=== PATIENT | female | born 1965 | race Caucasian/White ===

== ENCOUNTER 2022-03-19 17:23 | Emergency (ER) | payer BC ==
[2022-03-19 18:13] VITALS: TEMP 98.8
[2022-03-19] MEDS ORDERED: SODIUM CHLORIDE 0.9% 1,000 ML IV STA (18:52)
[2022-03-19] MEDS ORDERED: ONDANSETRON 4 MG/2 ML VIAL IVP STA (18:52)
[2022-03-19] MEDS ORDERED: HYDROmorphone 0.5 MG/0.5 ML SYRINGE IVP STA (18:52)
--- NOTE | 2022-03-19 19:05 | ED ---
General Adult HPI - General Chief complaint: Wound/Laceration Stated complaint: Wounds on foot/pain Time Seen by Provider: 03/19/22 18:18 Source: patient, RN notes reviewed Mode of arrival: ambulatory Limitations: no limitations - History of Present Illness Initial comments: 57-year-old female with a past medical history of type 2 diabetes presents to [facility] emergency Department with complaints of burning pain to the left lower extremity. Patient has four diabetic ulcers in various stages on the lower leg. She is scheduled to see wound care on March 28, but is unable to tolerate the pain. States she has been taking Tylenol with minimal relief. She is allergic to NSAIDs. Last antibiotic treatment was three weeks ago. Also complains of poor appetite and weight loss. States she eats a minimal amount then feels full. Is supplementing with Boost to attempt to increase caloric intake. Reports mild nausea, no vomiting, diarrhea, or constipation. - Related Data Home Medications Medication Instructions Recorded Confirmed Lisinopril-Hctz 20-25 mg 1 tab PO DAILY 03/09/14 03/20/22 [Zestoretic 20-25] Aspirin 81 mg PO DAILY 03/20/22 03/20/22 Clopidogrel [Plavix] 75 mg PO DAILY 03/20/22 03/20/22 Furosemide [Lasix] 20 mg PO DAILY 03/20/22 03/20/22 HYDROcodone/APAP 5-325MG [[place] 5] 1 tab PO Q6HR PRN 03/20/22 03/20/22 Pantoprazole [Protonix] 40 mg PO DAILY 03/20/22 03/20/22 Rosuvastatin [Crestor] 10 mg PO MOFR 03/20/22 03/20/22 Venlafaxine HCl ER [Effexor Xr] 150 mg PO DAILY 03/20/22 03/20/22 cilostazoL [Pletal] 100 mg PO BID 03/20/22 03/20/22 glipiZIDE [Glucotrol] 7.5 mg PO AC-BID 03/20/22 03/20/22 Previous Rx's Medication Instructions Recorded Cephalexin [Keflex] 500 mg PO BID 5 Days #10 cap 03/19/22 Allergies Allergy/AdvReac Type Severity Reaction Status Date / Time NSAIDS (Non-Steroidal Allergy Unknown Verified 03/20/22 13:34 Anti-Inflamma sitagliptin [From Januvia] AdvReac See Comment Verified 03/20/22 13:59 Review of Systems ROS Statement: Those systems with pertinent positive or pertinent negative responses have been documented in the HPI. ROS Other: All systems not noted in ROS Statement are negative. Past Medical History Past Medical History: Diabetes Mellitus, Hyperlipidemia, Hypertension Additional Past Medical History / Comment(s): pancreatitis History of Any Multi-Drug Resistant Organisms: None Reported Past Surgical History: Appendectomy, Hernia Repair, Hysterectomy, Orthopedic Surgery Additional Past Surgical History / Comment(s): jody carpal tunnel, bone spur rt ankle. cyst from lung. nasal. laser throat Past Psychological History: Depression Smoking Status: Current every day smoker Past Alcohol Use History: None Reported Past Drug Use History: None Reported General Exam Limitations: no limitations General appearance: alert, in distress (Well-developed, fairly nourished female in moderate distress due to pain and anxiety. Initial temperature 98.8, pulse 104, respirations 20, blood pressure 116/71, pulse ox 98% on room air.) ENT exam: Present: normal oropharynx Neck exam: Present: normal inspection, full ROM. Absent: tenderness, mening ismus, lymphadenopathy Respiratory exam: Present: normal lung sounds bilaterally. Absent: respiratory distress, wheezes, rales, rhonchi, stridor Cardiovascular Exam: Present: regular rate, normal rhythm, normal heart sounds. Absent: systolic murmur, diastolic murmur, rubs, gallop, clicks GI/Abdominal exam: Present: soft, normal bowel sounds. Absent: distended, tenderness, guarding, rebound, rigid Left Knee exam: Present: normal inspection, full ROM. Absent: tenderness, swelling Lower Leg exam: Absent: normal inspection (four ulcers: #1. 2cm diameter, eschar base, non-erythematous. left lateral malleolus #2. 1cm diameter, eschar base, non-erythematous. distal left lower leg, posterolateral. #3. ) Back exam: Absent: CVA tenderness (R), CVA tenderness (L) Neurological exam: Present: alert, oriented X3 Psychiatric exam: Present: anxious Skin exam: Present: warm, dry, normal color Course Vital Signs 03/19/22 03/19/22 18:08 22:37 Temperature 98.8 F Pulse Rate 104 H 92 Respiratory 20 16 Rate Blood Pressure 116/71 158/79 O2 Sat by Pulse 98 98 Oximetry Medical Decision Making - Medical Decision Making 57-year-old female with a past medical history of hypertension, hyperlipidemia, diabetes, and diabetic ulcerations presents to emergency department for evaluation and treatment of painful ulcerations on the left lower extremity. Upon exam, patient appears anxious and uncomfortable. She has 4 ulcers ranging in size from 1/2 cm to 2 cm her left lower extremity. She is given Dilaudid and Zofran with improvement. Also complains of loss of appetite and weight loss. Her abdomen is soft and nontender. She is observed tolerating reduced. Laboratory studies were obtained showing mild leukocytosis. BUN and creatinine are both mildly elevated, though consistent with previous visit. Urinalysis shows trace protein, large leukocyte esterase, 31 urine WBCs and 7 Hyaline casts. KUB is unremarkable. Patient will be started on an oral antibiotic to treat her UTI and instructed to increase fluids. Discussed my suspicion that h er GI complaints are likely rate related to gastroparesis and suggested she follow up with GI on an outpatient basis. Return parameters were discussed in detail. Patient verbalizes understanding and agrees with this plan. Attending: Gloria. - Lab Data Result diagrams: 03/19/22 19:29 03/19/22 19:29 Lab Results 03/19/22 03/19/22 03/19/22 Range/Units 19:29 19:29 20:47 WBC 13.3 H (3.8-10.6) k/uL RBC 4.17 (3.80-5.40) m/uL Hgb 13.5 (11.4-16.0) gm/dL Hct 39.3 (34.0-46.0) % MCV 94.1 (80.0-100.0) fL MCH 32.5 (25.0-35.0) pg MCHC 34.5 (31.0-37.0) g/dL RDW 13.8 (11.5-15.5) % Plt Count 565 H (150-450) k/uL MPV 6.8 Neutrophils % 65 % Lymphocytes % 28 % Monocytes % 3 % Eosinophils % 2 % Basophils % 1 % Neutrophils # 8.6 H (1.3-7.7) k/uL Lymphocytes # 3.8 (1.0-4.8) k/uL Monocytes # 0.4 (0-1.0) k/uL Eosinophils # 0.3 (0-0.7) k/uL Basophils # 0.1 (0-0.2) k/uL Sodium 134 L (137-145) mmol/L Potassium 3.7 (3.5-5.1) mmol/L Chloride 105 (98-107) mmol/L Carbon Dioxide 20 L (22-30) mmol/L Anion Gap 9 mmol/L BUN 26 H (7-17) mg/dL Creatinine 1.13 H (0.52-1.04) mg/dL Est GFR (CKD-EPI)AfAm 62 (>60 ml/min/1.73 sqM) Est GFR (CKD-EPI)NonAf 54 (>60 ml/min/1.73 sqM) Glucose 121 H (74-99) mg/dL Calcium 9.6 (8.4-10.2) mg/dL Urine Color Light Yellow Urine Appearance Cloudy H (Clear) Urine pH 5.5 (5.0-8.0) Ur Specific [place] 1.008 (1.001-1.035) Urine Protein Trace H (Negative) Urine Glucose (UA) Negative (Negative) Urine Ketones Negative (Negative) Urine Blood Negative (Negative) Urine Nitrite Negative (Negative) Urine Bilirubin Negative (Negative) Urine Urobilinogen <2.0 (<2.0) mg/dL Ur Leukocyte Esterase Large H (Negative) Urine RBC 2 (0-5) /hpf Urine WBC 31 H (0-5) /hpf Urine WBC Clumps Rare H (None) /hpf Ur Squamous Epith Cells 5 H (0-4) /hpf Urine Bacteria Occasional H (None) /hpf Hyaline Casts 7 H (0-2) /lpf Urine Mucus Rare H (None) /hpf - Radiology Data Radiology results: report reviewed, image reviewed KUB x-ray was obtained. Report was reviewed in its entirety. Impression per Dr. Aviles is nonacute abdomen. No adverse change compared to old exam. Disposition Clinical Impression: UTI (urinary tract infection), Abdominal pain, Ulcer of lower extremity Disposition: HOME SELF-CARE Condition: Stable Instructions (If sedation given, give patient instructions): Diabetic Gastroparesis (DC), Urinary Tract Infection in Women (ED), Diabetic Foot Ulcers (ED) Additional Instructions: Increase fluids. Focus on hydration and nutritional intake. You are being prescribed an antibiotic for your UTI. Please take it until it's gone. I suspect that you have a condition known as gastroparesis contributing to your sense of fullness. You will need to see a GI doctor for further evaluation, treatment, and diagnosis. You are being prescribed [place] for severe pain; take sparingly. Follow up with wound care as scheduled. Return to the emergency department with any new, worsening, or concerning symptoms. Prescriptions: Cephalexin [Keflex] 500 mg PO BID 5 Days #10 cap Is patient prescribed a controlled substance at d/c from ED?: Yes When asked, does pt state using other controlled substances?: Yes If prescribed controlled substance>3 days was MAPS reviewed?: Prescribed <3 Days If opioid is for acute pain is fill amount 7 days or less?: Yes If Rx opioid, was Start Talking consent form obtained?: Yes Referrals: Maxine Montalvo MD [Primary Care Provider] - 1-2 days Sanajna Pretty MD [STAFF PHYSICIAN] - 1-2 days Time of Disposition: 22:40
[2022-03-19 19:35] LABS: Basophils # (A) 0.1 k/uL (0-0.2); Basophils % (A) 1 %; Eosinophils # (A) 0.3 k/uL (0-0.7); Eosinophils % (A) 2 %; HCT 39.3 % (34.0-46.0); HGB 13.5 gm/dL (11.4-16.0); Lymphocytes # (A) 3.8 k/uL (1.0-4.8); Lymphocytes % (A) 28 %; MCH 32.5 pg (25.0-35.0); MCHC 34.5 g/dL (31.0-37.0); MCV 94.1 fL (80.0-100.0); Mean Platelet Volume 6.8; Monocytes # (A) 0.4 k/uL (0-1.0); Monocytes % (A) 3 %; Neutrophils # (A) 8.6 k/uL (1.3-7.7); Neutrophils % (A) 65 %; Platelet Count 565 k/uL (150-450); RBC 4.17 m/uL (3.80-5.40); RDW 13.8 % (11.5-15.5); WBC 13.3 k/uL (3.8-10.6)
[2022-03-19 19:53] LABS: Calcium 9.6 mg/dL (8.4-10.2); Potassium 3.7 mmol/L (3.5-5.1)
[2022-03-19 21:44] LABS: Appearance,Urine Cloudy (Clear); Bacteria,Urine Occasional /hpf; Bilirubin,Urine Negative (Negative); Blood,Urine Negative (Negative); Color,Urine Light Yellow; Glucose,Urine (UA) Negative (Negative); Hyaline Casts,Urine 7 /lpf (0-2); Ketones,Urine Negative (Negative); Leukocyte Esterase,Urine Large (Negative); Mucus,Urine Rare /hpf; Nitrite,Urine Negative (Negative); PH, Urine 5.5 (5.0-8.0); Protein,Urine Trace (Negative); RBC,Urine 2 /hpf (0-5); Specific Gravity,Urine 1.008 (1.001-1.035); Squamous Epithelial Cell,Urine 5 /hpf (0-4); Urobilinogen,Urine <2.0 mg/dL (<2.0); WBC,Urine 31 /hpf (0-5)
--- NOTE | 2022-03-19 22:13 | XR ---
EXAMINATION TYPE: XR KUB portable DATE OF EXAM: 03/19/2022 COMPARISON: NONE HISTORY: Abdominal pain TECHNIQUE: 2 views upright FINDINGS: No sign of intestinal obstruction or pneumoperitoneum. Fecal pattern is normal. There are c lips from cholecystectomy. Lung bases are clear. No evidence of abdominal mass. There is stents in il iac arteries. IMPRESSION: Nonacute abdomen. No adverse change compared to old exam.
[2022-03-19] MEDS ORDERED: CEPHALEXIN 500 MG CAP PO STA (22:20)
[2022-03-19 22:38] VITALS: BP 158/79; PULSE 92; RESP 16
== END 2022-03-19 22:47 | disposition home or self-care (01) ==
LOC: EC 17:23
DX: N39.0 Urinary tract infection, site not specified (principal); E11.622 Type 2 diabetes mellitus with other skin ulcer; L98.499 Non-pressure chronic ulcer of skin of other sites with unspecified severity; I10 Essential (primary) hypertension; E78.5 Hyperlipidemia, unspecified; F32.A Depression, unspecified; F17.200 Nicotine dependence, unspecified, uncomplicated; Z79.4 Long term (current) use of insulin; Z79.84 Long term (current) use of oral hypoglycemic drugs; Z79.899 Other long term (current) drug therapy
CPT/HCPCS: 36415; 80048; 85025; 81001; 87086; 74018; 99284; 96374; 96375; 96361; J2405; J1170

== ENCOUNTER 2022-03-20 10:01 | Inpatient (IN) | payer BC ==
[2022-03-20] MEDS ORDERED: SODIUM CHLORIDE 0.9% 1,000 ML IV STA (11:23)
[2022-03-20] MEDS ORDERED: MORPHINE SULFATE 4 MG/ML SYRINGE IV STA (11:23)
[2022-03-20] MEDS ORDERED: MAG HYDROX/AL HYDROX/SIMETH 30 ML, HYOSCYAMINE ELIXIR 10 ML, LIDOCAINE VISCOUS 2% 10 ML PO STA ×3 (11:24)
[2022-03-20 11:51] LABS: Basophils # (A) 0.1 k/uL (0-0.2); Basophils % (A) 0 %; Eosinophils # (A) 0.3 k/uL (0-0.7); Eosinophils % (A) 2 %; HGB 12.7 gm/dL (11.4-16.0); Lymphocytes # (A) 1.4 k/uL (1.0-4.8); Lymphocytes % (A) 11 %; MCH 33.2 pg (25.0-35.0); MCHC 34.4 g/dL (31.0-37.0); MCV 96.6 fL (80.0-100.0); Mean Platelet Volume 6.8; Monocytes # (A) 0.3 k/uL (0-1.0); Monocytes % (A) 3 %; Neutrophils # (A) 10.6 k/uL (1.3-7.7); Neutrophils % (A) 83 %; Platelet Count 504 k/uL (150-450); RBC 3.83 m/uL (3.80-5.40); RDW 14.4 % (11.5-15.5); WBC 12.8 k/uL (3.8-10.6)
[2022-03-20 12:00] LABS: Albumin 3.8 g/dL (3.5-5.0); Calcium 8.8 mg/dL (8.4-10.2); Total Bilirubin 0.2 mg/dL (0.2-1.3); Total Protein 6.7 g/dL (6.3-8.2)
[2022-03-20 12:10] LABS: INR 0.9 (<1.2); Partial Thromboplastin Time 24.2 sec (22.0-30.0); Prothrombin Time 9.8 sec (9.0-12.0)
[2022-03-20 12:14] LABS: Appearance,Urine Cloudy (Clear); Bacteria,Urine Occasional /hpf; Bilirubin,Urine Negative (Negative); Blood,Urine Trace (Negative); Color,Urine Yellow; Glucose,Urine (UA) Negative (Negative); Hyaline Casts,Urine 7 /lpf (0-2); Ketones,Urine Trace (Negative); Leukocyte Esterase,Urine Large (Negative); Mucus,Urine Rare /hpf; Nitrite,Urine Negative (Negative); PH, Urine 5.5 (5.0-8.0); Protein,Urine 1+ (Negative); RBC,Urine 28 /hpf (0-5); Specific Gravity,Urine 1.022 (1.001-1.035); Squamous Epithelial Cell,Urine 10 /hpf (0-4); Urobilinogen,Urine <2.0 mg/dL (<2.0); WBC,Urine 68 /hpf (0-5)
--- NOTE | 2022-03-20 12:35 | XR ---
EXAMINATION TYPE: XR KUB DATE OF EXAM: 03/20/2022 12:16 PM CLINICAL HISTORY: abdominal pain TECHNIQUE: Single supine KUB image of the abdomen is obtained. COMPARISON: None. FINDINGS: Scattered gas is seen in non-distended small bowel loops. Gas and fecal material is seen in non-distended colon. There is no visceromegaly, pneumoperitoneum, or abnormal calcification apprecia birgit. The lung bases are clear and the osseous structures are intact. IMPRESSION: Overall nonobstructive bowel gas pattern.
--- NOTE | 2022-03-20 12:51 | ED ---
General Adult HPI - General Chief complaint: Abdominal Pain Stated complaint: Revisit-abd pain Time Seen by Provider: 03/20/22 11:04 Source: patient, RN notes reviewed, old records reviewed Mode of arrival: ambulatory Limitations: no limitations - History of Present Illness Initial comments: 57-year-old female who presents for reevaluation of abdominal pain. Patient states she has history of pancreatitis and this feels similar. She describes the pain as a burning sensation in her epigastric area. No chest pain. Pain occasionally does travel to the right side of her abdomen. No fevers. She had 2 episodes of vomiting prior to arrival. Normal bowel movements. - Related Data Home Medications Medication Instructions Recorded Confirmed Lisinopril-Hctz 20-25 mg 1 tab PO DAILY 03/09/14 03/20/22 [Zestoretic 20-25] Aspirin 81 mg PO DAILY 03/20/22 03/20/22 Clopidogrel [Plavix] 75 mg PO DAILY 03/20/22 03/20/22 Furosemide [Lasix] 20 mg PO DAILY 03/20/22 03/20/22 HYDROcodone/APAP 5-325MG [[place] 5] 1 tab PO Q6HR PRN 03/20/22 03/20/22 Pantoprazole [Protonix] 40 mg PO DAILY 03/20/22 03/20/22 Rosuvastatin [Crestor] 10 mg PO MOFR 03/20/22 03/20/22 Venlafaxine HCl ER [Effexor Xr] 150 mg PO DAILY 03/20/22 03/20/22 cilostazoL [Pletal] 100 mg PO BID 03/20/22 03/20/22 glipiZIDE [Glucotrol] 7.5 mg PO AC-BID 03/20/22 03/20/22 Previous Rx's Medication Instructions Recorded Cephalexin [Keflex] 500 mg PO BID 5 Days #10 cap 03/19/22 Allergies Allergy/AdvReac Type Severity Reaction Status Date / Time NSAIDS (Non-Steroidal Allergy Unknown Verified 03/20/22 13:34 Anti-Inflamma sitagliptin [From Januvia] AdvReac See Comment Verified 03/20/22 13:59 Review of Systems ROS Statement: Those systems with pertinent positive or pertinent negative responses have been documented in the HPI. ROS Other: All systems not noted in ROS Statement are negative. Past Medical History Past Medical History: Diabetes Mellitus, Hyperlipidemia, Hypertension Additional Past Medical History / Comment(s): pancreatitis History of Any Multi-Drug Resistant Organisms: None Reported Past Surgical History: Appendectomy, Hernia Repair, Hysterectomy, Orthopedic Surgery Additional Past Surgical History / Comment(s): jody carpal tunnel, bone spur rt ankle. cyst from lung. nasal. laser throat Past Psychological History: Depression Smoking Status: Current every day smoker Past Alcohol Use History: None Reported Past Drug Use History: None Reported General Exam Limitations: no limitations General appearance: alert, in no apparent distress Head exam: Present: atraumatic, normocephalic Eye exam: Present: normal appearance, PERRL ENT exam: Present: normal exam Neck exam: Present: normal inspection. Absent: tenderness, meningismus Respiratory exam: Present: normal lung sounds bilaterally. Absent: respiratory distress, wheezes Cardiovascular Exam: Present: normal rhythm, tachycardia GI/Abdominal exam: Present: soft, tenderness (Epigastric and right upper quadrant). Absent: distended, guarding Extremities exam: Present: normal inspection, normal capillary refill Neurological exam: Present: alert, oriented X3, CN II-XII intact. Absent: motor sensory deficit Psychiatric exam: Present: normal affect, normal mood Skin exam: Present: warm, dry, intact. Absent: cyanosis, diaphoretic Course Vital Signs 03/20/22 03/20/22 03/20/22 10:25 13:00 14:33 Temperature 97.7 F Pulse Rate 125 H 92 75 Respiratory 20 20 18 Rate Blood Pressure 135/73 129/68 140/66 O2 Sat by Pulse 99 97 98 Oximetry - Reevaluation(s) Reevaluation #1: 03/20/22 12:54 I was informed that the patient is having abdominal pain radiating to the right side of her abdomen. No chest pain. EKG Findings - EKG Comments: EKG Findings:: EKG: Sinus rhythm rate of 92, CA interval 133, QRS duration 98, QTC 406, no ST segment elevation. Medical Decision Making - Medical Decision Making 57-year-old female presenting for evaluation of epigastric abdominal pain and right sided abdominal pain. Patient had previous cholecystectomy. Initial efforts to control the patient's pain with GI cocktail and IV pain medication or unsuccessful. Symptoms persisted and she required CT imaging. This was negative for acute intra-abdominal process. She did have some mild leukocytosis which was improved from yesterday. Hemoglobin stable. Potassium 3.0 which is replaced. Given the severity of her symptoms she will be observed overnight. I discussed case with Dr. Mulligan will admit. Gen. surgery will be placed on consult for evaluation. - Lab Data Result diagrams: 03/20/22 11:40 03/20/22 11:40 Lab Results 03/20/22 03/20/22 03/20/22 Range/Units 11:40 11:40 11:40 WBC 12.8 H (3.8-10.6) k/uL RBC 3.83 (3.80-5.40) m/uL Hgb 12.7 (11.4-16.0) gm/dL Hct 37.0 (34.0-46.0) % MCV 96.6 (80.0-100.0) fL MCH 33.2 (25.0-35.0) pg MCHC 34.4 (31.0-37.0) g/dL RDW 14.4 (11.5-15.5) % Plt Count 504 H (150-450) k/uL MPV 6.8 Neutrophils % 83 % Lymphocytes % 11 % Monocytes % 3 % Eosinophils % 2 % Basophils % 0 % Neutrophils # 10.6 H (1.3-7.7) k/uL Lymphocytes # 1.4 (1.0-4.8) k/uL Monocytes # 0.3 (0-1.0) k/uL Eosinophils # 0.3 (0-0.7) k/uL Basophils # 0.1 (0-0.2) k/uL PT (9.0-12.0) sec INR (<1.2) APTT (22.0-30.0) sec Sodium 134 L (137-145) mmol/L Potassium 3.0 L (3.5-5.1) mmol/L Chloride 104 (98-107) mmol/L Carbon Dioxide 21 L (22-30) mmol/L Anion Gap 9 mmol/L BUN 25 H (7-17) mg/dL Creatinine 1.14 H (0.52-1.04) mg/dL Est GFR (CKD-EPI)AfAm 62 (>60 ml/min/1.73 sqM) Est GFR (CKD-EPI)NonAf 53 (>60 ml/min/1.73 sqM) Glucose 236 H (74-99) mg/dL Plasma Lactic Acid [place] (0.7-2.0) mmol/L Calcium 8.8 (8.4-10.2) mg/dL Total Bilirubin 0.2 (0.2-1.3) mg/dL AST 20 (14-36) U/L ALT 16 (4-34) U/L Alkaline Phosphatase 82 (38-126) U/L Troponin I (0.000-0.034) ng/mL Total Protein 6.7 (6.3-8.2) g/dL Albumin 3.8 (3.5-5.0) g/dL Amylase 89 (30-110) U/L Lipase 47 (23-300) U/L Urine Color Yellow Urine Appearance Cloudy H (Clear) Urine pH 5.5 (5.0-8.0) Ur Specific [place] 1.022 (1.001-1.035) Urine Protein 1+ H (Negative) Urine Glucose (UA) Negative (Negative) Urine Ketones Trace H (Negative) Urine Blood Trace H (Negative) Urine Nitrite Negative (Negative) Urine Bilirubin Negative (Negative) Urine Urobilinogen <2.0 (<2.0) mg/dL Ur Leukocyte Esterase Large H (Negative) Urine RBC 28 H (0-5) /hpf Urine WBC 68 H (0-5) /hpf Ur Squamous Epith Cells 10 H (0-4) /hpf Urine Bacteria Occasional H (None) /hpf Hyaline Casts 7 H (0-2) /lpf Urine Mucus Rare H (None) /hpf 03/20/22 03/20/22 03/20/22 Range/Units 11:40 11:40 11:40 WBC (3.8-10.6) k/uL RBC (3.80-5.40) m/uL Hgb (11.4-16.0) gm/dL Hct (34.0-46.0) % MCV (80.0-100.0) fL MCH (25.0-35.0) pg MCHC (31.0-37.0) g/dL RDW (11.5-15.5) % Plt Count (150-450) k/uL MPV Neutrophils % % Lymphocytes % % Monocytes % % Eosinophils % % Basophils % % Neutrophils # (1.3-7.7) k/uL Lymphocytes # (1.0-4.8) k/uL Monocytes # (0-1.0) k/uL Eosinophils # (0-0.7) k/uL Basophils # (0-0.2) k/uL PT 9.8 (9.0-12.0) sec INR 0.9 (<1.2) APTT 24.2 (22.0-30.0) sec Sodium (137-145) mmol/L Potassium (3.5-5.1) mmol/L Chloride (98-107) mmol/L Carbon Dioxide (22-30) mmol/L Anion Gap mmol/L BUN (7-17) mg/dL Creatinine (0.52-1.04) mg/dL Est GFR (CKD-EPI)AfAm (>60 ml/min/1.73 sqM) Est GFR (CKD-EPI)NonAf (>60 ml/min/1.73 sqM) Glucose (74-99) mg/dL Plasma Lactic Acid [place] 1.1 (0.7-2.0) mmol/L Calcium (8.4-10.2) mg/dL Total Bilirubin (0.2-1.3) mg/dL AST (14-36) U/L ALT (4-34) U/L Alkaline Phosphatase (38-126) U/L Troponin I 0.025 (0.000-0.034) ng/mL Total Protein (6.3-8.2) g/dL Albumin (3.5-5.0) g/dL Amylase (30-110) U/L Lipase (23-300) U/L Urine Color Urine Appearance (Clear) Urine pH (5.0-8.0) Ur Specific [place] (1.001-1.035) Urine Protein (Negative) Urine Glucose (UA) (Negative) Urine Ketones (Negative) Urine Blood (Negative) Urine Nitrite (Negative) Urine Bilirubin (Negative) Urine Urobilinogen (<2.0) mg/dL Ur Leukocyte Esterase (Negative) Urine RBC (0-5) /hpf Urine WBC (0-5) /hpf Ur Squamous Epith Cells (0-4) /hpf Urine Bacteria (None) /hpf Hyaline Casts (0-2) /lpf Urine Mucus (None) /hpf Disposition Clinical Impression: Abdominal pain, Hypokalemia Disposition: ADMITTED IP TO THIS [facility] Condition: Stable Is patient prescribed a controlled substance at d/c from ED?: No Referrals: Maxine Montalvo MD [Primary Care Provider] - 1-2 days Time of Disposition: 14:57
[2022-03-20] MEDS ORDERED: HYDROmorphone 0.5 MG/0.5 ML SYRINGE IVP STA (13:00)
--- NOTE | 2022-03-20 14:13 | CT ---
EXAMINATION TYPE: CT abdomen pelvis w con CT DLP: 817.3 mGycm, Automated exposure control for dose reduction was used. DATE OF EXAM: 03/20/2022 1:53 PM COMPARISON: CT abdomen pelvis most recent from 07/08/2015. CLINICAL INDICATION:Female, 57 years old with history of ab pain; Abdominal pain TECHNIQUE: Standard CT of the abdomen and pelvis following the administration of 80 cc of Isovue 30 0 IV contrast material. Coronal and sagittal reformats were performed. FINDINGS: LOWER CHEST: No clinically significant findings. Stable sub-4 mm nodular like changes. Moderate coron [place] artery atherosclerosis. ABDOMEN LIVER: Indeterminate right hepatic lobe segment IVb hypodensity adjacent to the prior gallbladder fos sa could represent focal fatty infiltration. GALLBLADDER AND BILE DUCTS: The gallbladder is surgically absent. PANCREAS: Unremarkable. SPLEEN: Unremarkable. ADRENAL GLANDS: Unremarkable. KIDNEYS AND URETERS: No evidence of hydronephrosis. Similar right renal cyst. Multiple renal sinus ca lculi are seen bilaterally which are felt to be vascular in etiology. PELVIS BLADDER: Incompletely distended but grossly unremarkable. REPRODUCTIVE: Unremarkable. ABDOMEN & PELVIS STOMACH AND BOWEL: No evidence of bowel obstruction. Scattered colonic diverticulitis seen throughout the colon. PERITONEUM: No evidence of pneumoperitoneum or free fluid. VASCULATURE: No evidence of aortic aneurysm. Bilateral common iliac artery stents which is suboptimal ly evaluated for patency given phase of contrast. MUSCULOSKELETAL: No acute osseous abnormalities. Multilevel disc degeneration changes are seen throug hout the spine. LYMPH NODES: No gross evidence for lymphadenopathy. SOFT TISSUE/ABDOMINAL WALL: Unremarkable IMPRESSION: 1. No evidence for acute intra-abdominal process. 2. Scattered colonic diverticula. 3. Moderate coronary artery atherosclerosis.
[2022-03-20] MEDS: POTASSIUM CHLORIDE 10 MEQ in WATER FOR INJECTION 1 100ML.BAG IVPB SCH ×4 (14:32→19:21)
[2022-03-20] MEDS ORDERED: NALOXONE 0.4 MG/ML 1 ML VIAL IV PRN (14:53)
[2022-03-20] MEDS ORDERED: ONDANSETRON 4 MG/2 ML VIAL IVP PRN (14:53)
[2022-03-20] MEDS ORDERED: cefTRIAXone IN SWFI 1,000 MG/10 ML SYRINGE IVP STA (14:57)
[2022-03-20] MEDS: SODIUM CHLORIDE 0.9% 1,000 ML IV SCH (15:30)
[2022-03-20] MEDS: HYDROmorphone 0.5 MG/0.5 ML SYRINGE IVP PRN ×3 (16:25→23:31)
[2022-03-20] MEDS: HYDROcodone/APAP 5-325MG 1 EACH TAB PO PRN (19:22)
[2022-03-20] MEDS: cilostazoL 100 MG TAB PO SCH (20:43)
[2022-03-20] MEDS: metroNIDAZOLE-NS PMX 500 MG in SALINE 1 100ML.BAG IVPB SCH (23:31)
--- NOTE | 2022-03-20 23:34 | P.HPIM ---
History of Present Illness H&P Date: 03/20/22 HISTORY OF PRESENT ILLNESS 57-year-old female one of Dr. Montalvo's patient with past medical history of COPD, type 2 diabetes, severe PAD, hypertension, hyperlipidemia, chronic neuropathy who apparently had an intervention procedure for PCI and stent placement of the femoral-popliteal in the left side [facility] 2 weeks ago she developed to have nonhealing ulcerated area in 3 location in the leg one on the lateral aspect of the ankle 1 in the back of her leg and another one slightly bit higher but smaller. Those were treated as cellulitis and diabetic foot to the time was prescribed antibiotics to treated and treat recurrent UTI with no much help symptoms myers. Patient ended up coming to the emergency department today to be seen and evaluated but her concern that she had 25 pound weight loss and lost 3 month with no clear etiology. She had suffered from recurrent UTI with failure to outpatient treatment with Keflex. Patient ended up coming to [facility] found to have UTI, significant abdominal pain with nausea vomiting at the time symptoms settle down of the pain management, found to have an acute kidney failure but most likely acute tubular necrosis. Patient was started on IV antibiotics, blood culture and culture was order. With treat patient for diverticulitis and recurrent cellulitis along with UTI at the time and sadly those ulcerated area on the leg most likely came as a possible shatter clot in the artery was mild gangrenous change in a limited area become slightly bit infected and inflamed. After giving patient IV antibiotics hydration she felt slightly better was transferred up to the floor. REVIEW OF SYSTEMS Constitutional: well-developed does not look in any respiratory distress continued to have slight abdominal discomfort with nausea. EENT: No headache. No blurred vision or double vision, no loss of vision. No loss of Hearing, no ringing in the ears, no dizziness. No nasal drainage or congestion. No epistaxis. No sore throat. Lungs: slight shortness of breath with exertion no cough with slight wheezes as well.. Cardiovascular: No chest pain, no lower extremity edema. No palpitations. No paroxysmal nocturnal dyspnea. No orthopnea. No lightheadedness or dizziness. No syncopal episodes. Abdominal: positive abdominal discomfort specially the right upper quadrant, lower quadrant, mid abdominal region and left lower quadrant area with sign and symptom of gastritis along with diverticulitis at this point. abdominal pain. No nausea, vomiting. No diarrhea. No constipation. No bloody or tarry stools.. No loss of appetite. Genitourinary: No dysuria, increased frequency, urgency. No urinary retention. Musculoskeletal: Positive generalized my etiology, muscle discomfort pain and slight lower back pain as well. Integumentary: No wounds, no lesions. No rash or pruritus. No unusual bruising. No change in hair or nails. Neurologic: No aphasia. No facial droop. No change in mentation. No head injury. No headache. No paralysis. No paresthesia. Psychiatric: No depression. No anxiety. No mood swings. Endocrine: No abnormal blood sugars. No weight change. No excessive sweating or thirst. No cold intolerance. SOCIAL HISTORY patient is smoked a pack a day down to have tachycardia the last 6 month she has been smoker for over 35 years. FAMILY HISTORY patient has 2 children both are living and well, she had for cystoscopy one brother her brother was diagnosed with cancer with metastasis. Father age 69 from colon cancer complication and mother dying her 70s from lung cancer. PHYSICAL EXAMINATION Gen: This is well-developed laying in bed still having slight right upper quadrant discomfort and mid abdominal regions comfort does not look in any major respiratory distress. HEENT: Head is atraumatic, normocephalic. Pupils equal, round. Sclerae is anicteric. NECK: Supple. No JVD. No lymphadenopathy. No thyromegaly. LUNGS: decreased for somebody with fine rhonchi no crackles or wheezes. HEART: Regular rate and rhythm. No murmur. ABDOMEN: Soft. Bowel sounds are present, continued to have slight discomfort the right upper quadrant area and mid abdominal region area no rebound or rigidity.. No masses. No tenderness. EXTREMITIES: No pedal edema. No calf tenderness. NEUROLOGICAL: Patient is awake, alert and oriented x3. Cranial nerves 2 through 12 are grossly intact. ASSESSMENT AND PLAN - severe abdominal pain: Most likely gastroenteritis and mild degree of diverticulitis: With patient's current symptoms slightly red in the right side more than left sided this point the abdomen is very soft and CAT scan of the abdomen failed to show any major abnormality with exception of mild diverticuli. General surgery consultation will be done continue to watch for any further sign and symptom might require further management meanwhile continue Flagyl and Rocephin. - Urinary tract infection with failure to outpatient treatment, Rocephin 1 g will be done awaiting for the final culture. - Acute kidney injury with significant declining kidney function, will continue hydration overnight repeat BUN/creatinine ultrasound of the kidney can be done as well. - Nonhealing and troubling alterable ulcer the left foot and leg since his vascular intervention 2 weeks ago become much worse, with slightly involvement with cellulitis around the area patient be treated for cellulitis, infectious disease wound care will be seen patient. - severe PAD post angioplasty and stent placement of both legs last year and half has been doing significantly better. - Hypokalemia: We'll continue to use a protocol to replace potassium at this point. - Weight loss: Not acutely etiology so far completion of his other testing including EGD and colonoscopy if needed to keep in mind the patient is on antiplatelet agent since his vascular intervention in [place] over a week ago.. - Type 2 diabetes: Continue glipizide, Accu-Chek sliding scales coverage. - Hypertension: Remain on lisinopril/HCTZ 20/25 mg daily. - Hyperlipidemia: Remain on the Crestor 10 mg a day. - Chronic depression: Continue Effexor 150 mg a day. - GI prophylaxis: Patient be on pantoprazole. - DVT prophylaxis: Patient will be on heparin subcu. CODE STATUS: Full code. Admit patient to the inpatient service for more than 2 night stay. Patient will be admitted to the hospital for a minimum of 2 night stay. Past Medical History Past Medical History: Diabetes Mellitus, Hyperlipidemia, Hypertension Additional Past Medical History / Comment(s): pancreatitis History of Any Multi-Drug Resistant Organisms: None Reported Past Surgical History: Appendectomy, Hernia Repair, Hysterectomy, Orthopedic Surgery Additional Past Surgical History / Comment(s): jody carpal tunnel, bone spur rt ankle. cyst from lung. nasal. laser throat Past Psychological History: Depression Smoking Status: Current every day smoker Past Alcohol Use History: None Reported Past Drug Use History: None Reported - Past Family History Father Family Medical History: Cancer, Myocardial Infarction ([place]) Additional Family Medical History / Comment(s): colon cancer with mets Mother Family Medical History: Cancer Additional Family Medical History / Comment(s): lung cancer with mets Sister(s) Family Medical History: Diabetes Mellitus Brother(s) Family Medical History: Cancer Additional Family Medical History / Comment(s): throat cancer Medications and Allergies Home Medications Medication Instructions Recorded Confirmed Type Lisinopril-Hctz 20-25 mg 1 tab PO DAILY 03/09/14 03/20/22 History [Zestoretic 20-25] Cephalexin [Keflex] 500 mg PO BID 5 Days #10 cap 03/19/22 03/20/22 Rx Aspirin 81 mg PO DAILY 03/20/22 03/20/22 History Clopidogrel [Plavix] 75 mg PO DAILY 03/20/22 03/20/22 History Furosemide [Lasix] 20 mg PO DAILY 03/20/22 03/20/22 History HYDROcodone/APAP 5-325MG [[place] 5] 1 tab PO Q6HR PRN 03/20/22 03/20/22 History Pantoprazole [Protonix] 40 mg PO DAILY 03/20/22 03/20/22 History Rosuvastatin [Crestor] 10 mg PO MOFR 03/20/22 03/20/22 History Venlafaxine HCl ER [Effexor Xr] 150 mg PO DAILY 03/20/22 03/20/22 History cilostazoL [Pletal] 100 mg PO BID 03/20/22 03/20/22 History glipiZIDE [Glucotrol] 7.5 mg PO AC-BID 03/20/22 03/20/22 History Allergies Allergy/AdvReac Type Severity Reaction Status Date / Time NSAIDS (Non-Steroidal Allergy Unknown Verified 03/20/22 13:34 Anti-Inflamma sitagliptin [From Januvia] AdvReac See Comment Verified 03/20/22 13:59 Physical Exam Vitals: Vital Signs Temp Pulse Resp BP Pulse Ox 03/20/22 16:29 75 18 131/58 98 03/20/22 16:00 64 18 98 03/20/22 14:33 75 18 140/66 98 03/20/22 13:00 92 20 129/68 97 03/20/22 10:25 97.7 F 125 H 20 135/73 99 Intake and Output 03/20/22 03/20/22 03/20/22 06:59 14:59 22:59 Other: Weight 58.967 kg Results CBC & Chem 7: 03/20/22 11:40 03/20/22 11:40 Labs: Abnormal Lab Results - Last 24 Hours (Table) 07/08/3003/20/22 03/20/22 Range/Units 11:40 11:40 11:40 WBC 12.8 H (3.8-10.6) k/uL Plt Count 504 H (150-450) k/uL Neutrophils # 10.6 H (1.3-7.7) k/uL Sodium 134 L (137-145) mmol/L Potassium 3.0 L (3.5-5.1) mmol/L Carbon Dioxide 21 L (22-30) mmol/L BUN 25 H (7-17) mg/dL Creatinine 1.14 H (0.52-1.04) mg/dL Glucose 236 H (74-99) mg/dL Urine Appearance Cloudy H (Clear) Urine Protein 1+ H (Negative) Urine Ketones Trace H (Negative) Urine Blood Trace H (Negative) Ur Leukocyte Esterase Large H (Negative) Urine RBC 28 H (0-5) /hpf Urine WBC 68 H (0-5) /hpf Ur Squamous Epith Cells 10 H (0-4) /hpf Urine Bacteria Occasional H (None) /hpf Hyaline Casts 7 H (0-2) /lpf Urine Mucus Rare H (None) /hpf
[2022-03-21] MEDS: SODIUM CHLORIDE 0.9% 1,000 ML IV SCH ×2 (04:18→19:07)
[2022-03-21] MEDS: HYDROmorphone 0.5 MG/0.5 ML SYRINGE IVP PRN ×5 (04:18→20:52)
[2022-03-21] MEDS: PANTOPRAZOLE 40 MG/10 ML VIAL IV SCH (08:24)
[2022-03-21] MEDS: metroNIDAZOLE-NS PMX 500 MG in SALINE 1 100ML.BAG IVPB SCH ×2 (08:24→17:31)
[2022-03-21] MEDS: FUROSEMIDE 20 MG TAB PO SCH (08:25)
[2022-03-21] MEDS: LISINOPRIL-HCTZ 20-25 MG 1 EACH TAB PO SCH (08:25)
[2022-03-21] MEDS: cilostazoL 100 MG TAB PO SCH ×2 (08:25→20:53)
[2022-03-21] MEDS: glipiZIDE 5 MG TAB PO SCH ×2 (08:25→17:30)
[2022-03-21] MEDS: VENLAFAXINE HCL ER 150 MG CAP PO SCH (08:25)
[2022-03-21] MEDS: ASPIRIN 81 MG PO SCH (08:25)
[2022-03-21] MEDS: NICOTINE 21MG/24HR PATCH TRANSDERM SCH (08:26)
[2022-03-21] MEDS: CLOPIDOGREL 75 MG TAB PO SCH (08:26)
[2022-03-21] MEDS ORDERED: PANTOPRAZOLE 40 MG TABLET PO SCH (09:00)
[2022-03-21 10:40] LABS: Basophils # (A) 0.06 X 10*3/uL (0.00-0.10); Basophils % (A) 0.8 %; Eosinophils # (A) 0.42 X 10*3/uL (0.04-0.35); Eosinophils % (A) 5.3 %; HCT 30.2 % (37.2-46.3); HGB 10.2 g/dL (12.0-15.0); Immature Grans, Automated 0.3 %; Lymphocytes # (A) 2.34 X 10*3/uL (0.90-5.00); Lymphocytes % (A) 29.6 %; MCH 32.1 pg (27.0-32.0); MCHC 33.8 g/dL (32.0-37.0); Mean Platelet Volume 8.9 fL (9.5-12.2); Monocytes # (A) 0.58 X 10*3/uL (0.20-1.00); Monocytes % (A) 7.3 %; NRBC Per 100 WBC 0 /100 WBCS (0.0-0.0); Neutrophils # (A) 4.48 X 10*3/uL (1.80-7.70); Neutrophils % (A) 56.7 %; Platelet Count 384 X 10*3/uL (140-440); RBC 3.18 X 10*6/uL (4.10-5.20); RDW 14.6 % (11.5-14.5)
[2022-03-21 10:52] LABS: ALT 16 U/L (8-44); AST 14 U/L (13-35); African American GFR (CKD) 110.7 (60.0-200.0); Albumin 3.1 g/dL (3.8-4.9); Albumin/Globulin Ratio 1.41 (1.60-3.17); Alkaline Phosphatase 58 U/L (41-126); BUN/Creat Ratio 14.71 Ratio (12.00-20.00); Blood Urea Nitrogen 10.3 mg/dL (9.0-27.0); Calcium 8.3 mg/dL (8.7-10.3); Carbon Dioxide 23.3 mmol/L (20.0-27.5); Chloride 108 mmol/L (96-109); Globulin 2.2 g/dL (1.6-3.3); Glucose 85 mg/dL (70-110); Magnesium 1.8 mg/dL (1.5-2.4); Non-African American GFR(CKD) 95.5 (60.0-200.0); Potassium 4.5 mmol/L (3.5-5.5); Sodium 139 mmol/L (135-145); Total Bilirubin <0.15 mg/dL (0.30-1.20); Total Protein 5.3 g/dL (6.2-8.2)
--- NOTE | 2022-03-21 11:50 | P.CONS ---
History of Present Illness - Reason for Consult Consult date: 03/21/22 wound care - History of Present Illness This is a 57-year-old patient with past medical history significant for diabetes, hyperlipidemia, hypertension, pancreatitis, peripheral vascular disease with previous stent to the popliteal approximately 2 weeks ago. Patient is being seen by the wound care center on [address] related to ulcerations to the left lower extremity. Patient has 4 ulcerations that all have eschar In place. There is no granulation noted. Patient has significant amount of pain to the site. The most significant ulceration is the lateral malleolus ulceration which measures approximately 1.5 x 1.5 x 0.1 cm eschar Is dry firm and attach to surrounding tissue. Patient is scheduled to be seen in the wound care center next week. Review Of Systems: Constitutional: No fever, no chills, no night sweats. No weight change. No weakness, fatigue or lethargy. No daytime sleepiness. Integumentary:reports wounds, no lesions. No rash or pruritus. No unusual bruising. No change in hair or nails. Physical exam: General Appearance: Alert, cooperative, no distress, appears stated age. Skin: See HPI all other Skin color, texture, tugor normal, no rashes or lesions. Neurologic: Alert oriented x3 Assessment: 1. Atherosclerosis of nikolai vessels with ulceration 2. Nonhealing ulceration to left calf muscle area 3. Nonhealing ulceration to left ankle with eschar Plan: 1. No dressings at this time. Patient is scheduled to see the wound care center on 03/28. Thank you for the consultation any questions with contact the wound care center DNP note has been reviewed and discussed with Dr. Glynn and the impression and plan of care has been directed as dictated. Past Medical History Past Medical History: Diabetes Mellitus, Hyperlipidemia, Hypertension Additional Past Medical History / Comment(s): pancreatitis History of Any Multi-Drug Resistant Organisms: None Reported Past Surgical History: Appendectomy, Hernia Repair, Hysterectomy, Orthopedic Surgery Additional Past Surgical History / Comment(s): jody carpal tunnel, bone spur rt ankle. cyst from lung. nasal. laser throat Past Anesthesia/Blood Transfusion Reactions: No Reported Reaction Past Psychological History: Depression Smoking Status: Current every day smoker Past Alcohol Use History: None Reported Past Drug Use History: None Reported - Past Family History Father Family Medical History: Cancer, Myocardial Infarction ([place]) Additional Family Medical History / Comment(s): colon cancer with mets Mother Family Medical History: Cancer Additional Family Medical History / Comment(s): lung cancer with mets Sister(s) Family Medical History: Diabetes Mellitus Brother(s) Family Medical History: Cancer Additional Family Medical History / Comment(s): throat cancer Medications and Allergies Home Medications Medication Instructions Recorded Confirmed Type Lisinopril-Hctz 20-25 mg 1 tab PO DAILY 03/09/14 03/20/22 History [Zestoretic 20-25] Cephalexin [Keflex] 500 mg PO BID 5 Days #10 cap 03/19/22 03/20/22 Rx Aspirin 81 mg PO DAILY 03/20/22 03/20/22 History Clopidogrel [Plavix] 75 mg PO DAILY 03/20/22 03/20/22 History Furosemide [Lasix] 20 mg PO DAILY 03/20/22 03/20/22 History HYDROcodone/APAP 5-325MG [[place] 5] 1 tab PO Q6HR PRN 03/20/22 03/20/22 History Pantoprazole [Protonix] 40 mg PO DAILY 03/20/22 03/20/22 History Rosuvastatin [Crestor] 10 mg PO MOFR 03/20/22 03/20/22 History Venlafaxine HCl ER [Effexor Xr] 150 mg PO DAILY 03/20/22 03/20/22 History cilostazoL [Pletal] 100 mg PO BID 03/20/22 03/20/22 History glipiZIDE [Glucotrol] 7.5 mg PO AC-BID 03/20/22 03/20/22 History Allergies Allergy/AdvReac Type Severity Reaction Status Date / Time NSAIDS (Non-Steroidal Allergy Unknown Verified 03/20/22 13:34 Anti-Inflamma sitagliptin [From Januvia] AdvReac See Comment Verified 03/20/22 13:59 Physical Exam Vitals: Vital Signs Temp Pulse Pulse Resp BP BP BP 03/21/22 11:21 98.3 F 71 18 152/69 03/21/22 08:22 86 177/72 03/21/22 05:41 98.5 F 76 16 147/62 03/20/22 20:00 77 18 03/20/22 16:29 75 18 131/58 03/20/22 16:00 64 18 03/20/22 14:33 75 18 140/66 03/20/22 13:00 92 20 129/68 Pulse Ox 03/21/22 11:21 97 03/21/22 08:22 98 03/21/22 05:41 98 03/20/22 20:00 03/20/22 16:29 98 03/20/22 16:00 98 03/20/22 14:33 98 03/20/22 13:00 97 Intake and Output 03/20/22 03/21/22 03/21/22 22:59 06:59 14:59 Intake Total 840 240 Output Total 2 Balance 840 238 Intake: Oral 840 240 Output: Urine 2 Other: Voiding Method Toilet Toilet # Voids 1 Weight 58.967 kg Results CBC & Chem 7: 03/21/22 06:05 03/21/22 06:05 Labs: Abnormal Lab Results - Last 24 Hours (Table) 03/20/22 03/20/22 03/20/22 Range/Units 11:40 11:40 11:40 WBC 12.8 H (3.8-10.6) k/uL RBC (4.10-5.20) X 10*6/uL Hgb (12.0-15.0) g/dL Hct (37.2-46.3) % MCH (27.0-32.0) pg RDW (11.5-14.5) % Plt Count 504 H (150-450) k/uL MPV (9.5-12.2) fL Neutrophils # 10.6 H (1.3-7.7) k/uL Eosinophils # (0.04-0.35) X 10*3/uL Sodium 134 L (137-145) mmol/L Potassium 3.0 L (3.5-5.1) mmol/L Carbon Dioxide 21 L (22-30) mmol/L Anion Gap (10.00-18.00) mmol/L BUN 25 H (7-17) mg/dL Creatinine 1.14 H (0.52-1.04) mg/dL Glucose 236 H (74-99) mg/dL Calcium (8.7-10.3) mg/dL Total Bilirubin (0.30-1.20) mg/dL Total Protein (6.2-8.2) g/dL Albumin (3.8-4.9) g/dL Albumin/Globulin Ratio (1.60-3.17) g/dL Urine Appearance Cloudy H (Clear) Urine Protein 1+ H (Negative) Urine Ketones Trace H (Negative) Urine Blood Trace H (Negative) Ur Leukocyte Esterase Large H (Negative) Urine RBC 28 H (0-5) /hpf Urine WBC 68 H (0-5) /hpf Ur Squamous Epith Cells 10 H (0-4) /hpf Urine Bacteria Occasional H (None) /hpf Hyaline Casts 7 H (0-2) /lpf Urine Mucus Rare H (None) /hpf 03/21/22 03/21/22 Range/Units 06:05 06:05 WBC (3.8-10.6) k/uL RBC 3.18 L (4.10-5.20) X 10*6/uL Hgb 10.2 L (12.0-15.0) g/dL Hct 30.2 L (37.2-46.3) % MCH 32.1 H (27.0-32.0) pg RDW 14.6 H (11.5-14.5) % Plt Count (150-450) k/uL MPV 8.9 L (9.5-12.2) fL Neutrophils # (1.3-7.7) k/uL Eosinophils # 0.42 H (0.04-0.35) X 10*3/uL Sodium (137-145) mmol/L Potassium (3.5-5.1) mmol/L Carbon Dioxide (22-30) mmol/L Anion Gap 7.70 L (10.00-18.00) mmol/L BUN (7-17) mg/dL Creatinine (0.52-1.04) mg/dL Glucose (74-99) mg/dL Calcium 8.3 L (8.7-10.3) mg/dL Total Bilirubin <0.15 L (0.30-1.20) mg/dL Total Protein 5.3 L (6.2-8.2) g/dL Albumin 3.1 L (3.8-4.9) g/dL Albumin/Globulin Ratio 1.41 L (1.60-3.17) g/dL Urine Appearance (Clear) Urine Protein (Negative) Urine Ketones (Negative) Urine Blood (Negative) Ur Leukocyte Esterase (Negative) Urine RBC (0-5) /hpf Urine WBC (0-5) /hpf Ur Squamous Epith Cells (0-4) /hpf Urine Bacteria (None) /hpf Hyaline Casts (0-2) /lpf Urine Mucus (None) /hpf Assessment and Plan (1) Atherosclerosis of left lower extremity with ulceration of ankle Current Visit: Yes Status: Acute Code(s): I70.243 - ATHSCL TELLER ARTERIES OF LEFT LEG W ULCERATION OF ANKLE SNOMED Code(s): 98097974 (2) Atherosclerosis of left lower extremity with rest pain Current Visit: Yes Status: Acute Code(s): I70.222 - ATHSCL TELLER ARTERIES OF EXTREMITIES W REST PAIN, LEFT LEG SNOMED Code(s): 18093841662067153 (3) Atherosclerosis of nikolai arteries of left leg with ulceration of calf Current Visit: Yes Status: Acute Code(s): I70.242 - ATHSCL TELLER ARTERIES OF LEFT LEG W ULCERATION OF CALF SNOMED Code(s): 293021343
--- NOTE | 2022-03-21 12:53 | P.PN ---
Subjective Progress Note Date: 03/21/22 HISTORY OF PRESENT ILLNESS 57-year-old female one of Dr. Montalvo's patient with past medical history of COPD, type 2 diabetes, severe PAD, hypertension, hyperlipidemia, chronic neuropathy who apparently had an intervention procedure for PCI and stent placement of the femoral-popliteal in the left side [facility] 2 weeks ago she developed to have nonhealing ulcerated area in 3 location in the leg one on the lateral aspect of the ankle 1 in the back of her leg and another one slightly bit higher but smaller. Those were treated as cellulitis and diabetic foot to the time was prescribed antibiotics to treated and treat recurrent UTI with no much help symptoms myers. Patient ended up coming to the emergency department today to be seen and evaluated but her concern that she had 25 pound weight loss and lost 3 month with no clear etiology. She had suffered from recurrent UTI with failure to outpatient treatment with Keflex. Patient ended up coming to [facility] emergency department ent found to have UTI, significant abdominal pain with nausea vomiting at the time symptoms settle down of the pain management, found to have an acute kidney failure but most likely acute tubular necrosis. Patient was started on IV antibiotics, blood culture and culture was order. With treat patient for diverticulitis and recurrent cellulitis along with UTI at the time and sadly those ulcerated area on the leg most likely came as a possible shatter clot in the artery was mild gangrenous change in a limited area become slightly bit infected and inflamed. After giving patient IV antibiotics hydration she felt slightly better was transferred up to the floor. 03/21: Patient states that her abdominal pain is improved today. She is asking for her diet to be advanced will advance her to full liquid diet, consult is in place for general surgery. Nicotine patch added. Due to vascular ulcers to the left lower extremity, consult with [facility]ound Center added. Patient does have an appointment coming up with Dr. Glynn on 03/28. Patient has been afebrile, heart rate 76, blood pressure 147/62, pulse ox 90% on room air. Repeat blood work reveals WBC normalized at 7.9, hemoglobin dropped to 10.2. Platelet count 384. Electrolytes are normal. BUN 10 and creatinine 0.7. Liver function tests are normal. REVIEW OF SYSTEMS Constitutional: well-developed does not look in any respiratory distress continued to have slight abdominal discomfort with nausea. EENT: No headache. No blurred vision or double vision, no loss of vision. No loss of Hearing, no ringing in the ears, no dizziness. No nasal drainage or congestion. No epistaxis. No sore throat. Lungs: slight shortness of breath with exertion no cough with slight wheezes as well.. Cardiovascular: No chest pain, no lower extremity edema. No palpitations. No paroxysmal nocturnal dyspnea. No orthopnea. No lightheadedness or dizziness. No syncopal episodes. Abdominal: positive abdominal discomfort significantly improved, No nausea, vomiting. No diarrhea. No constipation. No bloody or tarry stools.. No loss of appetite. Genitourinary: No dysuria, increased frequency, urgency. No urinary retention. Musculoskeletal: Positive generalized my etiology, muscle discomfort pain and slight lower back pain as well. Integumentary: Reported left lower extremity wounds, no lesions. No rash or pruritus. No unusual bruising. No change in hair or nails. Neurologic: No aphasia. No facial droop. No change in mentation. No head injury. No headache. No paralysis. No paresthesia. Psychiatric: No depression. No anxiety. No mood swings. Endocrine: No abnormal blood sugars. No weight change. No excessive sweating or thirst. No cold intolerance. PHYSICAL EXAMINATION Gen: This is well-developed 57-year-old female. She appears to be in no acute distress. HEENT: Head is atraumatic, normocephalic. Pupils equal, round. Sclerae is anicteric. NECK: Supple. No JVD. No lymphadenopathy. No thyromegaly. LUNGS: decreased for somebody with fine rhonchi no crackles or wheezes. HEART: Regular rate and rhythm. No murmur. ABDOMEN: Soft. Bowel sounds are present, minimal tenderness no rebound or rigidity.. No masses. EXTREMITIES: No pedal edema. No calf tenderness. NEUROLOGICAL: Patient is awake, alert and oriented x3. Cranial nerves 2 through 12 are grossly intact. ASSESSMENT AND PLAN - severe abdominal pain. Patient continued on Flagyl and Rocephin, diet advanced to full liquids, consult with general surgery. - Urinary tract infection with failure to outpatient treatment, Rocephin 1 g will be done awaiting for the final culture. - Acute kidney injury with significant declining kidney function, will continue hydration overnight repeat BUN/creatinine ultrasound of the kidney can be done as well. - Nonhealing and troubling alterable ulcer the left foot and leg since his vascular intervention 2 weeks ago become much worse, with slightly involvement with cellulitis around the area patient be treated for cellulitis, consult with Wound Center. Patient is known to have a appointment on 03/[address] Glynn - severe PAD post angioplasty and stent placement of both legs last year and half has been doing significantly better. - Hypokalemia, status post replacement. - Weight loss: Not acutely etiology so far completion of his other testing including EGD and colonoscopy if needed to keep in mind the patient is on antiplatelet agent since his vascular intervention in [place] over a week ago.. - Type 2 diabetes: Continue glipizide, Accu-Chek sliding scales coverage. - Hypertension: Remain on lisinopril/HCTZ 20/25 mg daily. - Hyperlipidemia: Remain on the Crestor 10 mg a day. - Chronic depression: Continue Effexor 150 mg a day. - GI prophylaxis: Patient be on pantoprazole. - DVT prophylaxis: Patient will be on heparin subcu. CODE STATUS: Full code. DISCHARGE PLAN Most likely return home Impression and plan of care have been directed as dictated by the signing physician. Radha Kay nurse practitioner acting as scribe for signing physician. Objective - Vital Signs Vital signs: Vital Signs Temp 98.5 F 03/21/22 05:41 Pulse 76 03/21/22 05:41 Resp 16 03/21/22 05:41 BP 147/62 03/21/22 05:41 Pulse Ox 98 03/21/22 05:41 FiO2 Intake & Output 03/20/22 03/21/22 03/21/22 18:59 06:59 18:59 Intake Total 1080 Output Total 2 Balance 1078 Weight 58.967 kg 58.967 kg Intake: Oral 1080 Output: Urine 2 Other: Voiding Method Toilet # Voids 1 - Labs CBC & Chem 7: 03/21/22 06:05 03/21/22 06:05 Labs: Abnormal Lab Results - Last 24 Hours (Table) 03/20/22 03/20/22 03/20/22 Range/Units 11:40 11:40 11:40 WBC 12.8 H (3.8-10.6) k/uL Plt Count 504 H (150-450) k/uL Neutrophils # 10.6 H (1.3-7.7) k/uL Sodium 134 L (137-145) mmol/L Potassium 3.0 L (3.5-5.1) mmol/L Carbon Dioxide 21 L (22-30) mmol/L BUN 25 H (7-17) mg/dL Creatinine 1.14 H (0.52-1.04) mg/dL Glucose 236 H (74-99) mg/dL Urine Appearance Cloudy H (Clear) Urine Protein 1+ H (Negative) Urine Ketones Trace H (Negative) Urine Blood Trace H (Negative) Ur Leukocyte Esterase Large H (Negative) Urine RBC 28 H (0-5) /hpf Urine WBC 68 H (0-5) /hpf Ur Squamous Epith Cells 10 H (0-4) /hpf Urine Bacteria Occasional H (None) /hpf Hyaline Casts 7 H (0-2) /lpf Urine Mucus Rare H (None) /hpf
--- NOTE | 2022-03-21 13:27 | P.GSCN ---
History of Present Illness Consult date: 03/21/22 History of present illness: CHIEF COMPLAINT: Abdominal pain HISTORY OF PRESENT ILLNESS: This is a 57-year-old female who presented to the hospital with complaints of epigastric and right upper quadrant abdominal pain that radiated to her back. Patient reports symptoms worsened yesterday. She's been experiencing symptoms intermittently since January. She reports that she is having early satiety. She initially thought that maybe she was dealing with pancreatitis. She had an episode of pancreatitis 5 years ago. She has a history of a cholecystectomy. Yesterday she had 2 episodes of vomiting. She has been having issues with constipation. She's having flatus. Last colonoscopy 2 years ago did reveal diverticulosis. Medicine services is treating her as possible diverticulitis. They have her on antibiotics. Computed tomography scan of the abdomen and pelvis had shown scattered diverticula. No acute abdominal process. She did have elevated white count 1 2.8. Denies any fever chills or sweats. Surgical history includes appendectomy, hysterectomy, umbilical hernia repair and cholecystectomy. Patient also reports having EGD several years ago reports that it was normal at that time. Patient has a history of PAD and is on Plavix. PAST MEDICAL HISTORY: See list. PAST SURGICAL HISTORY: See list. MEDICATIONS: See list. ALLERGIES: See list. SOCIAL HISTORY: No illicit drug use. REVIEW OF SYSTEMS: CONSTITUTIONAL: Denies fever or chills. HEENT: Denies blurred vision, vision changes, or eye pain. Denies hemoptysis CARDIOVASCULAR: Denies chest pain or pressure. RESPIRATORY: No shortness of breath. GASTROINTESTINAL: See HPI for pertinent findings HEMATOLOGIC: Denies bleeding disorders. GENITOURINARY: Denies any blood in urine or increased urinary frequency. SKIN: Denies pruitis. Denies rash. PHYSICAL EXAM: VITAL SIGNS: Reviewed GENERAL: Well-developed in no acute distress. HEENT: No sclera icterus. Extraocular movements grossly intact. Moist buccal mucosa. Head is atraumatic, normocephalic. No nasal drainage. ABDOMEN: Soft. Nondistended. Tenderness to palpation of epigastric and right upper quadrant NEUROLOGIC: Alert and oriented. Cranial nerves II through XII grossly intact. LABORATORY DATA: WBC 12.8 down to 7.90 Hgb 10.2 platelets 384 Sodium 139 potassium 3 up to 4.5 creatinine 1.14 down to 0.7 Magnesium 1.8 lactic 1.1 LFTs normal Lipase 47 IMAGING: Computed tomography scan abdomen and pelvis no evidence for acute intra- abdominal process. Scattered colonic diverticula. Moderate coronary artery atherosclerosis. ASSESSMENT: 1. Epigastric and right upper quadrant abdominal pain. Prior history of cholecystectomy. PLAN: -Patient scheduled for EGD tomorrow, 03/22/[address] Navarro -Nothing by mouth after midnight -Okay for full liquids today -Continue IV Protonix Thank you for this consultation Physician Deployment Specialist note has been reviewed by physician. Signing provider agrees with the documented findings, assessment, and plan of care. Past Medical History Past Medical History: Diabetes Mellitus, Hyperlipidemia, Hypertension Additional Past Medical History / Comment(s): pancreatitis History of Any Multi-Drug Resistant Organisms: None Reported Past Surgical History: Appendectomy, Hernia Repair, Hysterectomy, Orthopedic Surgery Additional Past Surgical History / Comment(s): jody carpal tunnel, bone spur rt ankle. cyst from lung. nasal. laser throat Past Anesthesia/Blood Transfusion Reactions: No Reported Reaction Past Psychological History: Depression Smoking Status: Current every day smoker Past Alcohol Use History: None Reported Past Drug Use History: None Reported - Past Family History Father Family Medical History: Cancer, Myocardial Infarction ([place]) Additional Family Medical History / Comment(s): colon cancer with mets Mother Family Medical History: Cancer Additional Family Medical History / Comment(s): lung cancer with mets Sister(s) Family Medical History: Diabetes Mellitus Brother(s) Family Medical History: Cancer Additional Family Medical History / Comment(s): throat cancer Medications and Allergies Home Medications Medication Instructions Recorded Confirmed Type Lisinopril-Hctz 20-25 mg 1 tab PO DAILY 03/09/14 03/20/22 History [Zestoretic 20-25] Cephalexin [Keflex] 500 mg PO BID 5 Days #10 cap 03/19/22 03/20/22 Rx Aspirin 81 mg PO DAILY 03/20/22 03/20/22 History Clopidogrel [Plavix] 75 mg PO DAILY 03/20/22 03/20/22 History Furosemide [Lasix] 20 mg PO DAILY 03/20/22 03/20/22 History HYDROcodone/APAP 5-325MG [[place] 5] 1 tab PO Q6HR PRN 03/20/22 03/20/22 History Pantoprazole [Protonix] 40 mg PO DAILY 03/20/22 03/20/22 History Rosuvastatin [Crestor] 10 mg PO MOFR 03/20/22 03/20/22 History Venlafaxine HCl ER [Effexor Xr] 150 mg PO DAILY 03/20/22 03/20/22 History cilostazoL [Pletal] 100 mg PO BID 03/20/22 03/20/22 History glipiZIDE [Glucotrol] 7.5 mg PO AC-BID 03/20/22 03/20/22 History Allergies Allergy/AdvReac Type Severity Reaction Status Date / Time NSAIDS (Non-Steroidal Allergy Unknown Verified 03/20/22 13:34 Anti-Inflamma sitagliptin [From Januvia] AdvReac See Comment Verified 03/20/22 13:59 Surgical - Exam Vital Signs Temp Pulse Resp BP Pulse Ox 97.7 F 125 H 20 135/73 99 03/20/22 10:25 03/20/22 10:25 03/20/22 10:25 03/20/22 10:25 03/20/22 10:25 Results - Labs 03/21/22 06:05 03/21/22 06:05 Abnormal Lab Results - Last 24 Hours (Table) 03/20/22 03/20/22 03/20/22 Range/Units 11:40 11:40 11:40 WBC 12.8 H (3.8-10.6) k/uL Plt Count 504 H (150-450) k/uL Neutrophils # 10.6 H (1.3-7.7) k/uL Sodium 134 L (137-145) mmol/L Potassium 3.0 L (3.5-5.1) mmol/L Carbon Dioxide 21 L (22-30) mmol/L BUN 25 H (7-17) mg/dL Creatinine 1.14 H (0.52-1.04) mg/dL Glucose 236 H (74-99) mg/dL Urine Appearance Cloudy H (Clear) Urine Protein 1+ H (Negative) Urine Ketones Trace H (Negative) Urine Blood Trace H (Negative) Ur Leukocyte Esterase Large H (Negative) Urine RBC 28 H (0-5) /hpf Urine WBC 68 H (0-5) /hpf Ur Squamous Epith Cells 10 H (0-4) /hpf Urine Bacteria Occasional H (None) /hpf Hyaline Casts 7 H (0-2) /lpf Urine Mucus Rare H (None) /hpf Diabetes panel 03/20/22 Range/Units 11:40 Sodium 134 L (137-145) mmol/L Potassium 3.0 L (3.5-5.1) mmol/L Chloride 104 (98-107) mmol/L Carbon Dioxide 21 L (22-30) mmol/L BUN 25 H (7-17) mg/dL Creatinine 1.14 H (0.52-1.04) mg/dL Glucose 236 H (74-99) mg/dL Calcium 8.8 (8.4-10.2) mg/dL AST 20 (14-36) U/L ALT 16 (4-34) U/L Alkaline Phosphatase 82 (38-126) U/L Total Protein 6.7 (6.3-8.2) g/dL Albumin 3.8 (3.5-5.0) g/dL Calcium panel 03/20/22 Range/Units 11:40 Calcium 8.8 (8.4-10.2) mg/dL Albumin 3.8 (3.5-5.0) g/dL Pituitary panel 03/20/22 Range/Units 11:40 Sodium 134 L (137-145) mmol/L Potassium 3.0 L (3.5-5.1) mmol/L Chloride 104 (98-107) mmol/L Carbon Dioxide 21 L (22-30) mmol/L BUN 25 H (7-17) mg/dL Creatinine 1.14 H (0.52-1.04) mg/dL Glucose 236 H (74-99) mg/dL Calcium 8.8 (8.4-10.2) mg/dL Adrenal panel 03/20/22 Range/Units 11:40 Sodium 134 L (137-145) mmol/L Potassium 3.0 L (3.5-5.1) mmol/L Chloride 104 (98-107) mmol/L Carbon Dioxide 21 L (22-30) mmol/L BUN 25 H (7-17) mg/dL Creatinine 1.14 H (0.52-1.04) mg/dL Glucose 236 H (74-99) mg/dL Calcium 8.8 (8.4-10.2) mg/dL Total Bilirubin 0.2 (0.2-1.3) mg/dL AST 20 (14-36) U/L ALT 16 (4-34) U/L Alkaline Phosphatase 82 (38-126) U/L Total Protein 6.7 (6.3-8.2) g/dL Albumin 3.8 (3.5-5.0) g/dL
[2022-03-21] MEDS: HYDROcodone/APAP 5-325MG 1 EACH TAB PO PRN (19:05)
[2022-03-22] MEDS: HYDROmorphone 0.5 MG/0.5 ML SYRINGE IVP PRN ×4 (03:28→12:28)
[2022-03-22] MEDS: SODIUM CHLORIDE 0.9% 1,000 ML IV SCH (03:29)
[2022-03-22] MEDS ORDERED: IV FLUID CONTINUATION 1,000 ML IV ONE ×2 (08:03→13:39)
[2022-03-22] MEDS: NICOTINE 21MG/24HR PATCH TRANSDERM SCH (08:12)
[2022-03-22] MEDS: PANTOPRAZOLE 40 MG/10 ML VIAL IV SCH (08:12)
[2022-03-22] MEDS: cilostazoL 100 MG TAB PO SCH (08:13)
[2022-03-22] MEDS: glipiZIDE 5 MG TAB PO SCH (08:13)
[2022-03-22] MEDS: ASPIRIN 81 MG PO SCH (08:13)
[2022-03-22] MEDS: CLOPIDOGREL 75 MG TAB PO SCH (08:13)
[2022-03-22] MEDS: VENLAFAXINE HCL ER 150 MG CAP PO SCH (08:14)
[2022-03-22] MEDS: LISINOPRIL-HCTZ 20-25 MG 1 EACH TAB PO SCH (08:14)
[2022-03-22] MEDS: FUROSEMIDE 20 MG TAB PO SCH (08:15)
[2022-03-22] MEDS: metroNIDAZOLE-NS PMX 500 MG in SALINE 1 100ML.BAG IVPB SCH ×2 (10:04)
--- NOTE | 2022-03-22 10:47 | P.DS ---
Providers Date of admission: 03/21/22 12:54 Expected date of discharge: 03/22/22 Attending physician: Jerad Mulligan Consults: 03/20/22 14:53 Consult Physician Routine Consulting Provider: Kannan Navarro Consult Reason/Comments: Ab pain Do you want consulting provider notified?: Yes Primary care physician: Maxine Selvin [facility] Course: HISTORY OF PRESENT ILLNESS 57-year-old female one of Dr. Montalvo's patient with past medical history of COPD, type 2 diabetes, severe PAD, hypertension, hyperlipidemia, chronic neuropathy who apparently had an intervention procedure for PCI and stent placement of the femoral-popliteal in the left side [facility] 2 weeks ago she developed to have nonhealing ulcerated area in 3 location in the leg one on the lateral aspect of the ankle 1 in the back of her leg and another one slightly bit higher but smaller. Those were treated as cellulitis and diabetic foot to the time was prescribed antibiotics to treated and treat recurrent UTI with no much help symptoms myers. Patient ended up coming to the emergency department today to be seen and evaluated but her concern that she had 25 pound weight loss and lost 3 month with no clear etiology. She had suffered from recurrent UTI with failure to outpatient treatment with Keflex. Patient ended up coming to [facility] department found to have UTI, significant abdominal pain with nausea vomiting at the time symptoms settle down of the pain management, found to have an acute kidney failure but most likely acute tubular necrosis. Patient was started on IV antibiotics, blood culture and culture was order. With treat patient for diverticulitis and recurrent cellulitis along with UTI at the time and sadly those ulcerated area on the leg most likely came as a possible shatter clot in the artery was mild gangrenous change in a limited area become slightly bit infected and inflamed. After giving patient IV antibiotics hydration she felt slightly better was transferred up to the floor. 03/21: Patient states that her abdominal pain is improved today. She is asking for her diet to be advanced will advance her to full liquid diet, consult is in place for general surgery. Nicotine patch added. Due to vascular ulcers to the left lower extremity, consult with Wound Center added. Patient does have an appointment coming up with Dr. Glynn on 03/28. Patient has been afebrile, heart rate 76, blood pressure 147/62, pulse ox 90% on room air. Repeat blood work reveals WBC normalized at 7.9, hemoglobin dropped to 10.2. Platelet count 384. Electrolytes are normal. BUN 10 and creatinine 0.7. Liver function tests are normal. 03/22: Patient is complaining of epigastric pain that comes around the right side and towards her back. Patient scheduled for EGD today with Dr. Navarro which revealedmild gastritis, small hiatal hernia. Symptoms of abdominal pain and unexplained by endoscopy findings. Dr Navarro recommended continuing aniacid therapy. Patient may benefit from MRCP as an outpatient to evaluate biliary tree. Patient has been afebrile, heart rate 76, blood pressure 158/79, pulse ox 99% on room air. Patient will be discharged home today in stable condition. DISCHARGE DIAGNOSES - severe abdominal pain - Urinary tract infection with failure to outpatient treatment - Acute kidney injury - Nonhealing and peripheral vascular disease ulcer the left foot and leg - severe PAD post angioplasty and stent placement of both legs - Hypokalemia, status post replacement. - Weight loss, unclear etiology - Type 2 diabetes - Hypertension - Hyperlipidemia - Chronic depression DISCHARGE PLAN Home Greater than 35 minutes was utilized and coordinating patient's discharge. Impression and plan of care have been directed as dictated by the signing physician. Radha Kay nurse practitioner acting as scribe for signing physician. Patient Condition at Discharge: Stable Plan - Discharge Summary Discharge Rx Participant: No New Discharge Prescriptions: New cefUROXime axetiL [Ceftin] 500 mg PO BID 7 Days #14 tab No Action Lisinopril-Hctz 20-25 mg [Zestoretic 20-25] 1 tab PO DAILY Clopidogrel [Plavix] 75 mg PO DAILY cilostazoL [Pletal] 100 mg PO BID HYDROcodone/APAP 5-325MG [[place] 5] 1 tab PO Q6HR PRN PRN Reason: Pain Aspirin 81 mg PO DAILY Cephalexin [Keflex] 500 mg PO BID 5 Days #10 cap Rosuvastatin [Crestor] 10 mg PO MOFR Furosemide [Lasix] 20 mg PO DAILY glipiZIDE [Glucotrol] 7.5 mg PO AC-BID Venlafaxine HCl ER [Effexor Xr] 150 mg PO DAILY Pantoprazole [Protonix] 40 mg PO DAILY Discharge Medication List Lisinopril-Hctz 20-25 mg [Zestoretic 20-25] 1 tab PO DAILY 03/09/14 [History] Cephalexin [Keflex] 500 mg PO BID 5 Days #10 cap 03/19/22 [Rx] Aspirin 81 mg PO DAILY 03/20/22 [History] Clopidogrel [Plavix] 75 mg PO DAILY 03/20/22 [History] Furosemide [Lasix] 20 mg PO DAILY 03/20/22 [History] HYDROcodone/APAP 5-325MG [[place] 5] 1 tab PO Q6HR PRN 03/20/22 [History] Pantoprazole [Protonix] 40 mg PO DAILY 03/20/22 [History] Rosuvastatin [Crestor] 10 mg PO MOFR 03/20/22 [History] Venlafaxine HCl ER [Effexor Xr] 150 mg PO DAILY 03/20/22 [History] cilostazoL [Pletal] 100 mg PO BID 03/20/22 [History] glipiZIDE [Glucotrol] 7.5 mg PO AC-BID 03/20/22 [History] cefUROXime axetiL [Ceftin] 500 mg PO BID 7 Days #14 tab 03/22/22 [Rx] Follow up Appointment(s)/Referral(s): Maxine Montalvo MD [Primary Care Provider] - [facility] [NON-STAFF] - 03/28/22 12:45 pm Discharge Disposition: HOME SELF-CARE
[2022-03-22 12:05] VITALS: RESP 18
[2022-03-22] MEDS ORDERED: LIDOCAINE 2% INJ 20 MG/ML (2 ML VIAL) ONE (13:38)
[2022-03-22] MEDS ORDERED: PROPOFOL 10 MG/ML 20 ML VIAL IV ONE (13:38)
--- NOTE | 2022-03-22 13:55 | P.PCN ---
Date of Procedure: 03/22/22 Procedure(s) Performed: Preoperative Dx: Epigastric pain Postoperative Dx: Mild gastritis, small hiatal hernia Procedure: EGD with Bx Anesthesia: Sedation Endoscopist: Dr. Navarro Specimens: Antrum Endoscopic Procedure: The patient was on the endoscopy table in the left decubitus position. The Olympus gastroscope was inserted into the oropharynx and passed under direct visualization to the region of the third portion of the duodenum. From that point the scope was slowly withdrawn inspecting all surfac es carefully. There were no neoplastic inflammatory or polypoid lesions throughout the duodenum. The pylorus was widely patent. The stomach was carefully inspected. There was mild gastritis present. A biopsy of the antrum took place to rule out H. pylori. Retroflexion revealed a small 1.5 cm hiatal hernia. The esophagus was then carefully examined. There were no neoplastic inflammatory or polypoid lesions throughout the visualized esophagus. The patient was then taken to the recovery room in stable condition per anesthesia guidelines. Recommendations: Continue antiacid therapy. Patient's symptoms of abdominal pain not explained by endoscopic findings. Etiology for pain remains unclear at this time. We'll follow.
[2022-03-22 14:21] VITALS: TEMP 98.1
[2022-03-22 14:47] VITALS: BP 166/78; PULSE 78
[2022-03-23] MEDS ORDERED: ATORVASTATIN 20 MG TAB PO SCH (09:00)
== END 2022-03-22 17:30 | disposition home or self-care (01) | DRG 689 ==
LOC: EC 10:01 → 5NMEDONC 14:53 → OBSVTOIN 03-21 12:54
PROVIDERS: ADMIT Internal Medicine Geriatric Medicine; ATTEND Internal Medicine Geriatric Medicine
PROC: 0DB78ZX Excision of Stomach, Pylorus, Via Natural or Artificial Opening Endoscopic, Diagnostic (ICD-10-PCS; principal; 2022-03-22 14:30)
DX: N39.0 Urinary tract infection, site not specified (principal); I50.23 Acute on chronic systolic (congestive) heart failure; N17.0 Acute kidney failure with tubular necrosis; K57.92 Diverticulitis of intestine, part unspecified, without perforation or abscess without bleeding; L97.329 Non-pressure chronic ulcer of left ankle with unspecified severity; E11.52 Type 2 diabetes mellitus with diabetic peripheral angiopathy with gangrene; I96 Gangrene, not elsewhere classified; L97.228 Non-pressure chronic ulcer of left calf with other specified severity; L97.328 Non-pressure chronic ulcer of left ankle with other specified severity; E11.621 Type 2 diabetes mellitus with foot ulcer; E11.51 Type 2 diabetes mellitus with diabetic peripheral angiopathy without gangrene; E78.5 Hyperlipidemia, unspecified; E87.6 Hypokalemia; I70.222 Atherosclerosis of native arteries of extremities with rest pain, left leg; I70.242 Atherosclerosis of native arteries of left leg with ulceration of calf; I70.243 Atherosclerosis of native arteries of left leg with ulceration of ankle; R68.81 Early satiety; F17.210 Nicotine dependence, cigarettes, uncomplicated; F32.A Depression, unspecified; I10 Essential (primary) hypertension; K29.70 Gastritis, unspecified, without bleeding; J44.9 Chronic obstructive pulmonary disease, unspecified; K44.9 Diaphragmatic hernia without obstruction or gangrene; K52.9 Noninfective gastroenteritis and colitis, unspecified; K59.00 Constipation, unspecified; Z79.02 Long term (current) use of antithrombotics/antiplatelets; Z79.82 Long term (current) use of aspirin; Z79.84 Long term (current) use of oral hypoglycemic drugs; Z79.899 Other long term (current) drug therapy; Z80.0 Family history of malignant neoplasm of digestive organs; Z80.1 Family history of malignant neoplasm of trachea, bronchus and lung; Z80.8 Family history of malignant neoplasm of other organs or systems; Z82.49 Family history of ischemic heart disease and other diseases of the circulatory system; Z83.3 Family history of diabetes mellitus; Z87.440 Personal history of urinary (tract) infections; Z90.49 Acquired absence of other specified parts of digestive tract; Z90.710 Acquired absence of both cervix and uterus; Z95.5 Presence of coronary angioplasty implant and graft; Z88.8 Allergy status to other drugs, medicaments and biological substances; Z87.19 Personal history of other diseases of the digestive system; Z88.0 Allergy status to penicillin; Z88.6 Allergy status to analgesic agent; E11.42 Type 2 diabetes mellitus with diabetic polyneuropathy
CPT/HCPCS: 36415; 43239; 74018; 74177; 80053; 81001; 82150; 83605; 83690; 83735; 84484; 85025; 85610; 85730; 88305; 93005; 96361; 96365; 96366; 96375; 99285

== ENCOUNTER → 2022-04-12 | Outpatient (CLI) | payer BC ==
--- NOTE | 2022-04-13 06:33 | US ---
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 Diabetic ulcers on left leg, B LE stents . History of hyperlipidemia and hypertension. History of weakened pulses to both legs and p eripheral vascular disease. Doppler Waveforms: Right: Monophasic Left: Monophasic Pulse Volume Recording: Flattened particularly on the left Ankle-Brachial Indices: Not done due to stents below the knee per patient Right: Left: Toe Brachial Indices: Right: 0.36 Left: 0.06 Left PT sounds calcified, bilateral stents in place below knee unable to obtain ABIs IMPRESSION: Suboptimal study due to bilateral stents. Loss of phasicity with diminished TBI greater on the left. Abnormal study. At least moderate peripheral arterial disease in the right foot and carl re peripheral arterial disease in the left foot is present. Further workup and follow-up advised.
== END | disposition home or self-care (01) ==
LOC: RADUSWWP 13:36
PROVIDERS: ATTEND Thoracic Surgery (Cardiothoracic Vascular Surgery)
DX: E08.622 Diabetes mellitus due to underlying condition with other skin ulcer (principal); L97.322 Non-pressure chronic ulcer of left ankle with fat layer exposed; I70.42 Atherosclerosis of autologous vein bypass graft(s) of the extremities with rest pain; I70.422 Atherosclerosis of autologous vein bypass graft(s) of the extremities with rest pain, left leg
CPT/HCPCS: 93922

== ENCOUNTER → 2022-06-13 | Outpatient (CLI) | payer BC ==
--- NOTE | 2022-06-13 15:43 | XR ---
EXAMINATION TYPE: XR ankle complete LT DATE OF EXAM: 06/13/2022 COMPARISON: NONE HISTORY: Pain FINDINGS: Three views of the ankle demonstrate the ankle mortise to be intact and symmetric. The joint spaces are preserved. The osseous structures are intact. Moderate size calcaneal spur. Soft tissue calcifi cations noted. There appears to be a soft tissue ulceration adjacent to the lateral malleolus with no destructive osseous findings. IMPRESSION: 1. Soft tissue defect along the lateral malleolus suggestive of soft tissue ulceration. No diagnostic evidence of osteomyelitis. Correlate for cellulitis. 2. Calcaneal spur..
== END | disposition home or self-care (01) ==
LOC: RADXRMAIN 14:52
PROVIDERS: ATTEND Family Medicine
DX: M77.30 Calcaneal spur, unspecified foot (principal)

== ENCOUNTER 2022-07-30 18:16 | Emergency (ER) | payer OTHER ==
[2022-07-30 18:33] VITALS: TEMP 98.5
--- NOTE | 2022-07-30 20:32 | ED ---
General Adult HPI - General Chief complaint: Psychiatric Symptoms Stated complaint: Foot pain, possible infection Time Seen by Provider: 07/30/22 20:06 Source: patient Mode of arrival: ambulatory Limitations: no limitations - History of Present Illness Initial comments: Dictation was produced using [employer] dictation software. please excuse any gramm atical, word or spelling errors. Chief Complaint: 57-year-old female presents emergency department for painful diabetic foot wound History of Present Illness: Patient is a 57-year-old female she has past medical history of diabetes. Patient's chronic diabetic once her left lower extremity. Patient recently lost her insurance and unable to go to the wound clinic on a regular basis. Patient states that the pain in her left foot from the diabetic foot wound is significantly worse keeps her up at night. She states that she has waves of pain. Denies any fever or constitutional symptoms. States the pain is so bad speaking or depressed. The ROS documented in this emergency department record has been reviewed and confirmed by me. Those systems with pertinent positive or negative responses have been documented in the HPI. All other systems are other negative and/or noncontributory. PHYSICAL EXAM: General Impression: Alert and oriented x3, not in acute distress HEENT: Normocephalic atraumatic, extra-ocular movements intact, pupils equal and reactive to light bilaterally, mucous membranes moist. Cardiovascular: Heart regular rate and rhythm Chest: Able to complete full sentences, no retractions, no tachypnea Musculoskeletal: Pulses present and equal in all extremities, no peripheral edema Motor: no focal deficits noted Neurological: CN II-XII grossly intact, no focal motor or sensory deficits noted Skin: Intact with no visualized rashes Psych: Normal affect and mood Left lower extremity: There is appear to be chronic-appearing diabetic foot wounds at the left lateral malleolus and left posterior ankle. Wound the left lateral malleolus appears to be tracking. No surrounding cellulitis, wound is clean and dry. ED course: 57-year-old female presents emergency department for worsening left ankle wound. As upon arrival shows heart rate 117, rest of vital signs within acceptable limits. Laboratory evaluation obtained. CBC, metabolic panel is unremarkable. CRP is normal. Ankle x-ray shows lateral soft tissue ulcer defect. No fracture no sign of osteomyelitis. Patient observed in emergency department for approximately 3 hours and 30 minutes. Reevaluated bedside at 10:00 PM. Patient is alert and oriented 3 in no distress. Her symptoms are improved with analgesics. Patient be discharged. Patient prescription for analgesics. Advised follow-up with primary care doctor. Critical Care: no Critical Care time: n/a - Related Data Home Medications Medication Instructions Recorded Confirmed Lisinopril-Hctz 20-25 mg 1 tab PO DAILY 03/09/14 03/20/22 [Zestoretic 20-25] Aspirin 81 mg PO DAILY 03/20/22 03/20/22 Clopidogrel [Plavix] 75 mg PO DAILY 03/20/22 03/20/22 Furosemide [Lasix] 20 mg PO DAILY 03/20/22 03/20/22 HYDROcodone/APAP 5-325MG [[place] 5] 1 tab PO Q6HR PRN 03/20/22 03/20/22 Pantoprazole [Protonix] 40 mg PO DAILY 03/20/22 03/20/22 Rosuvastatin [Crestor] 10 mg PO MOFR 03/20/22 03/20/22 Venlafaxine HCl ER [Effexor Xr] 150 mg PO DAILY 03/20/22 03/20/22 cilostazoL [Pletal] 100 mg PO BID 03/20/22 03/20/22 glipiZIDE [Glucotrol] 7.5 mg PO AC-BID 03/20/22 03/20/22 Previous Rx's Medication Instructions Recorded Cephalexin [Keflex] 500 mg PO BID 5 Days #10 cap 03/19/22 cefUROXime axetiL [Ceftin] 500 mg PO BID 7 Days #14 tab 03/22/22 HYDROcodone/APAP 5-325MG [[place] 1 tab PO Q6HR PRN 3 Days #18 tab 07/30/22 5-325] Allergies Allergy/AdvReac Type Severity Reaction Status Date / Time NSAIDS (Non-Steroidal Allergy Unknown Verified 07/30/22 18:33 Anti-Inflamma sitagliptin [From Januvia] AdvReac See Comment Verified 07/30/22 18:33 Review of Systems ROS Statement: Those systems with pertinent positive or pertinent negative responses have been documented in the HPI. ROS Other: All systems not noted in ROS Statement are negative. Past Medical History Past Medical History: Diabetes Mellitus Additional Past Medical History / Comment(s): pancreatitis History of Any Multi-Drug Resistant Organisms: None Reported Past Surgical History: Appendectomy, Hernia Repair, Hysterectomy, Orthopedic Surgery Additional Past Surgical History / Comment(s): jody carpal tunnel, bone spur rt ankle. cyst from lung. nasal. laser throat Past Anesthesia/Blood Transfusion Reactions: No Reported Reaction Past Psychological History: Depression Smoking Status: Current every day smoker Past Alcohol Use History: None Reported Past Drug Use History: None Reported - Past Family History Father Family Medical History: Cancer, Myocardial Infarction ([place]) Additional Family Medical History / Comment(s): colon cancer with mets Mother Family Medical History: Cancer Additional Family Medical History / Comment(s): lung cancer with mets Sister(s) Family Medical History: Diabetes Mellitus Brother(s) Family Medical History: Cancer Additional Family Medical History / Comment(s): throat cancer General Exam Limitations: no limitations Course Vital Signs 07/30/22 18:30 Temperature 98.5 F Pulse Rate 117 H Respiratory 22 Rate Blood Pressure 141/67 O2 Sat by Pulse 99 Oximetry Medical Decision Making - Lab Data Result diagrams: 07/30/22 20:34 07/30/22 20:34 Lab Results 07/30/22 07/30/22 Range/Units 20:34 20:34 WBC 10.4 (3.8-10.6) k/uL RBC 3.72 L (3.80-5.40) m/uL Hgb 11.7 (11.4-16.0) gm/dL Hct 33.7 L (34.0-46.0) % MCV 90.6 (80.0-100.0) fL MCH 31.4 (25.0-35.0) pg MCHC 34.7 (31.0-37.0) g/dL RDW 15.0 (11.5-15.5) % Plt Count 445 (150-450) k/uL MPV 7.0 Neutrophils % 66 % Lymphocytes % 25 % Monocytes % 5 % Eosinophils % 2 % Basophils % 1 % Neutrophils # 6.9 (1.3-7.7) k/uL Lymphocytes # 2.6 (1.0-4.8) k/uL Monocytes # 0.5 (0-1.0) k/uL Eosinophils # 0.2 (0-0.7) k/uL Basophils # 0.1 (0-0.2) k/uL ESR 58 H (0-20) mm/hr Sodium 136 L (137-145) mmol/L Potassium 3.9 (3.5-5.1) mmol/L Chloride 104 (98-107) mmol/L Carbon Dioxide 25 (22-30) mmol/L Anion Gap 7 mmol/L BUN 22 H (7-17) mg/dL Creatinine 0.92 (0.52-1.04) mg/dL Est GFR (CKD-EPI)AfAm 80 (>60 ml/min/1.73 sqM) Est GFR (CKD-EPI)NonAf 69 (>60 ml/min/1.73 sqM) Glucose 160 H (74-99) mg/dL Calcium 9.5 (8.4-10.2) mg/dL Total Bilirubin 0.3 (0.2-1.3) mg/dL AST 26 (14-36) U/L ALT 24 (4-34) U/L Alkaline Phosphatase 81 (38-126) U/L C-Reactive Protein 0.7 (<1.0) mg/dL Total Protein 6.8 (6.3-8.2) g/dL Albumin 4.1 (3.5-5.0) g/dL Disposition Clinical Impression: Diabetic ulcer of ankle Disposition: HOME SELF-CARE Condition: Good Instructions (If sedation given, give patient instructions): Hydrocodone/Acetaminophen (By mouth) Prescriptions: HYDROcodone/APAP 5-325MG [[place] 5-325] 1 tab PO Q6HR PRN 3 Days #18 tab PRN Reason: Severe Pain Is patient prescribed a controlled substance at d/c from ED?: Yes If prescribed controlled substance>3 days was MAPS reviewed?: Prescribed <3 Days Referrals: Maxine Montalvo MD [Primary Care Provider] - 1-2 days Jeff Glynn DO [Doctor of Osteopathic Medicine] - 1-2 days Time of Disposition: 21:56
[2022-07-30] MEDS ORDERED: MORPHINE SULFATE 4 MG/ML SYRINGE IV STA (20:33)
[2022-07-30] MEDS ORDERED: SODIUM CHLORIDE 0.9% 1,000 ML IV STA (20:33)
[2022-07-30 20:46] LABS: Basophils # (A) 0.1 k/uL (0-0.2); Basophils % (A) 1 %; Eosinophils # (A) 0.2 k/uL (0-0.7); Eosinophils % (A) 2 %; HCT 33.7 % (34.0-46.0); HGB 11.7 gm/dL (11.4-16.0); Lymphocytes # (A) 2.6 k/uL (1.0-4.8); Lymphocytes % (A) 25 %; MCH 31.4 pg (25.0-35.0); MCHC 34.7 g/dL (31.0-37.0); MCV 90.6 fL (80.0-100.0); Monocytes # (A) 0.5 k/uL (0-1.0); Monocytes % (A) 5 %; Neutrophils # (A) 6.9 k/uL (1.3-7.7); Neutrophils % (A) 66 %; Platelet Count 445 k/uL (150-450); RBC 3.72 m/uL (3.80-5.40); WBC 10.4 k/uL (3.8-10.6)
--- NOTE | 2022-07-30 20:59 | XR ---
EXAMINATION TYPE: XR ankle complete LT DATE OF EXAM: 07/30/2022 COMPARISON: NONE HISTORY: Diabetic ulcer on the lateral ankle TECHNIQUE: 3 views FINDINGS: Ankle mortise is anatomic. There is plantar and Achilles calcaneal spurring. No fracture se en. No evidence of focal bone destruction. There is soft tissue ulceration over the lateral malleolus . IMPRESSION: Lateral soft tissue ulcer defect. No fracture. No sign of osteomyelitis.
[2022-07-30 21:03] LABS: Albumin 4.1 g/dL (3.5-5.0); C Reactive Protein 0.7 mg/dL (<1.0); Calcium 9.5 mg/dL (8.4-10.2); Potassium 3.9 mmol/L (3.5-5.1); Total Bilirubin 0.3 mg/dL (0.2-1.3); Total Protein 6.8 g/dL (6.3-8.2)
[2022-07-30 21:47] LABS: Erythrocyte Sedimentation Rate 58 mm/hr (0-20)
[2022-07-30 22:23] VITALS: BP 143/77; PULSE 90; RESP 16
== END 2022-07-30 22:24 | disposition home or self-care (01) ==
LOC: EC 18:16
DX: E11.621 Type 2 diabetes mellitus with foot ulcer (principal); E11.9 Type 2 diabetes mellitus without complications; F17.200 Nicotine dependence, unspecified, uncomplicated; F32.A Depression, unspecified; Z88.8 Allergy status to other drugs, medicaments and biological substances; Z79.84 Long term (current) use of oral hypoglycemic drugs; Z79.82 Long term (current) use of aspirin; Z79.02 Long term (current) use of antithrombotics/antiplatelets; Z90.49 Acquired absence of other specified parts of digestive tract; Z88.6 Allergy status to analgesic agent
CPT/HCPCS: 36415; 80053; 85652; 85025; 86140; 73610; 99285; 96374; 96361; J2270

== ENCOUNTER 2022-08-09 13:53 | Inpatient (IN) | payer OTHER ==
[2022-08-09] MEDS ORDERED: MORPHINE SULFATE 4 MG/ML SYRINGE IVP STA ×2 (17:59→20:45)
[2022-08-09] MEDS ORDERED: VANCOMYCIN 1,250 MG in SODIUM CHLORIDE 0.9% 250 ML IVPB STA (17:59)
[2022-08-09] MEDS ORDERED: SODIUM CHLORIDE 0.9% 1,000 ML IV ONE (17:59)
[2022-08-09 18:31] LABS: Anisocytosis Slight; Basophils # (A) 0.1 k/uL (0-0.2); Basophils % (A) 1 %; Eosinophils # (A) 0.3 k/uL (0-0.7); Eosinophils % (A) 4 %; HCT 36.1 % (34.0-46.0); HGB 12.2 gm/dL (11.4-16.0); Lymphocytes # (A) 1.6 k/uL (1.0-4.8); Lymphocytes % (A) 16 %; MCH 31.9 pg (25.0-35.0); MCHC 33.9 g/dL (31.0-37.0); MCV 94.2 fL (80.0-100.0); Mean Platelet Volume 7.2; Monocytes # (A) 0.5 k/uL (0-1.0); Monocytes % (A) 5 %; Neutrophils # (A) 7.1 k/uL (1.3-7.7); Neutrophils % (A) 71 %; Platelet Count 486 k/uL (150-450); RBC 3.83 m/uL (3.80-5.40); RDW 16.2 % (11.5-15.5); WBC 9.9 k/uL (3.8-10.6)
[2022-08-09 18:44] LABS: ALT 20 U/L (4-34); AST 22 U/L (14-36); African American GFR (CKD) >90 (>60 ml/min/1.73 sqM); Albumin 4.3 g/dL (3.5-5.0); Alkaline Phosphatase 74 U/L (38-126); Anion Gap 7 mmol/L; Blood Urea Nitrogen 20 mg/dL (7-17); Calcium 9.3 mg/dL (8.4-10.2); Carbon Dioxide 27 mmol/L (22-30); Chloride 105 mmol/L (98-107); Glucose 86 mg/dL (74-99); Magnesium 1.5 mg/dL (1.6-2.3); Non-African American GFR(CKD) 88 (>60 ml/min/1.73 sqM); Potassium 4.6 mmol/L (3.5-5.1); Sodium 139 mmol/L (137-145); Total Bilirubin 0.3 mg/dL (0.2-1.3); Total Protein 7.3 g/dL (6.3-8.2)
[2022-08-09] MEDS ORDERED: NALOXONE 0.4 MG/ML 1 ML VIAL IV PRN (19:47)
--- NOTE | 2022-08-09 19:50 | ED ---
General Adult HPI - General Chief complaint: Skin/Abscess/Foreign Body Stated complaint: L leg sore Time Seen by Provider: 08/09/22 17:29 Source: patient Mode of arrival: ambulatory Limitations: no limitations - History of Present Illness Initial comments: This is a 57-year-old female with an extensive past medical history including diabetes and anxiety presents emergency department for a worsening left lower extremity infection. The patient stated that she has been and out of the hospital several times over last several months and was being seen and evaluated by wound care however lost her insurance over the last several 1 so she was able to have follow-up. The patient stated she was seen by her primary care physician yesterday and was given oral antibiotics however stated that over the last 24 hours she had worsening redness and acute pain in the left lower extremity around the ankle. The patient stated that she had continued pain around the area so she came to the emergency department. The patient also reported associated intermittent fevers and chills. The patient denied complain of any trauma to the area. - Related Data Home Medications Medication Instructions Recorded Confirmed Lisinopril-Hctz 20-25 mg 1 tab PO DAILY 03/09/14 08/09/22 [Zestoretic 20-25] Aspirin 81 mg PO DAILY 03/20/22 08/09/22 Clopidogrel [Plavix] 75 mg PO DAILY 03/20/22 08/09/22 Furosemide [Lasix] 20 mg PO BID@0900,1600 03/20/22 08/09/22 Pantoprazole [Protonix] 40 mg PO DAILY 03/20/22 08/09/22 Rosuvastatin [Crestor] 10 mg PO MOFR@2100 03/20/22 08/09/22 Venlafaxine HCl ER [Effexor Xr] 150 mg PO DAILY 03/20/22 08/09/22 cilostazoL [Pletal] 100 mg PO BID 03/20/22 08/09/22 glipiZIDE [Glucotrol] 7.5 mg PO AC-BID 03/20/22 08/09/22 Doxycycline Hyclate 100 mg PO BID 08/09/22 08/09/22 Gabapentin 600 mg PO QID 08/09/22 08/09/22 HYDROcodone/APAP 10-325MG [[place] 1 tab PO Q4HR PRN 08/09/22 08/09/22 10-325] Lidocaine 5% Oint [Xylocaine 5% 1 applic TOPICAL Q4H PRN 08/09/22 08/09/22 Oint] buPROPion XL [Wellbutrin XL] 150 mg PO DAILY 08/09/22 08/09/22 busPIRone HCl [Buspar] 10 mg PO TID 08/09/22 08/09/22 Allergies Allergy/AdvReac Type Severity Reaction Status Date / Time NSAIDS (Non-Steroidal AdvReac Abdominal Verified 08/09/22 19:38 Anti-Inflamma Pain prednisone AdvReac Abdominal Verified 08/09/22 19:38 Pain sitagliptin [From Januvia] AdvReac see comment Verified 08/09/22 19:38 Review of Systems ROS Statement: Those systems with pertinent positive or pertinent negative responses have been documented in the HPI. ROS Other: All systems not noted in ROS Statement are negative. Past Medical History Past Medical History: Diabetes Mellitus Additional Past Medical History / Comment(s): pancreatitis History of Any Multi-Drug Resistant Organisms: None Reported Past Surgical History: Appendectomy, Hernia Repair, Hysterectomy, Orthopedic [place] rgery Additional Past Surgical History / Comment(s): jody carpal tunnel, bone spur rt ankle. cyst from lung. nasal. laser throat Past Anesthesia/Blood Transfusion Reactions: No Reported Reaction Past Psychological History: Depression Smoking Status: Current every day smoker Past Alcohol Use History: None Reported Past Drug Use History: None Reported - Past Family History Father Family Medical History: Cancer, Myocardial Infarction ([place]) Additional Family Medical History / Comment(s): colon cancer with mets Mother Family Medical History: Cancer Additional Family Medical History / Comment(s): lung cancer with mets Sister(s) Family Medical History: Diabetes Mellitus Brother(s) Family Medical History: Cancer Additional Family Medical History / Comment(s): throat cancer General Exam Limitations: no limitations General appearance: alert, in no apparent distress Head exam: Present: atraumatic, normocephalic Eye exam: Present: normal appearance, PERRL Pupils: Present: normal accommodation ENT exam: Present: normal exam, normal oropharynx, mucous membranes moist Neck exam: Present: normal inspection, full ROM Respiratory exam: Present: normal lung sounds bilaterally Cardiovascular Exam: Present: regular rate, normal rhythm, normal heart sounds GI/Abdominal exam: Present: soft, normal bowel sounds Extremities exam: Present: full ROM, pedal edema, other (Erythematous, tender to palpation area of the left lower extremity around the ankle, circumferential. Patient had stage I ulcer to the lateral aspect of the left ankle) Back exam: Present: normal inspection, full ROM Neurological exam: Present: alert, oriented X3, CN II-XII intact Psychiatric exam: Present: normal affect, normal mood Skin exam: Present: warm, dry Course Vital Signs 08/09/22 14:20 Temperature 96.9 F L Pulse Rate 101 H Respiratory 20 Rate Blood Pressure 160/71 O2 Sat by Pulse 99 Oximetry Medical Decision Making - Medical Decision Making The patient was seen and evaluated emergency department. Physical exam, the patient was resting in bed without any acute distress. Vital signs admission were stable and within normal limits. Due to the patient having multiple attempts at by mouth and about X including yesterday, in the setting of not being able to put care, the patient will be treated for a left lower extremity cellulitis in the setting of failed outpatient management. The patient will have laboratory workup obtained as well as blood cultures. All laboratory workup was within normal limits. The patient received vancomycin IV. Due to this, the patient will be placed in observation to be seen and evaluated by i nfectious disease and potentially wound care. The patient was told this plan and was agreeable. The patient was placed in observation in stable condition. - Lab Data Result diagrams: 08/09/22 18:21 08/09/22 18:21 Lab Results 08/09/22 08/09/22 08/09/22 Range/Units 18:21 18:21 18:21 WBC 9.9 (3.8-10.6) k/uL RBC 3.83 (3.80-5.40) m/uL Hgb 12.2 (11.4-16.0) gm/dL Hct 36.1 (34.0-46.0) % MCV 94.2 (80.0-100.0) fL MCH 31.9 (25.0-35.0) pg MCHC 33.9 (31.0-37.0) g/dL RDW 16.2 H (11.5-15.5) % Plt Count 486 H (150-450) k/uL MPV 7.2 Neutrophils % 71 % Lymphocytes % 16 % Monocytes % 5 % Eosinophils % 4 % Basophils % 1 % Neutrophils # 7.1 (1.3-7.7) k/uL Lymphocytes # 1.6 (1.0-4.8) k/uL Monocytes # 0.5 (0-1.0) k/uL Eosinophils # 0.3 (0-0.7) k/uL Basophils # 0.1 (0-0.2) k/uL Anisocytosis Slight Sodium 139 (137-145) mmol/L Potassium 4.6 (3.5-5.1) mmol/L Chloride 105 (98-107) mmol/L Carbon Dioxide 27 (22-30) mmol/L Anion Gap 7 mmol/L BUN 20 H (7-17) mg/dL Creatinine 0.75 (0.52-1.04) mg/dL Est GFR (CKD-EPI)AfAm >90 (>60 ml/min/1.73 sqM) Est GFR (CKD-EPI)NonAf 88 (>60 ml/min/1.73 sqM) Glucose 86 (74-99) mg/dL Plasma Lactic Acid [place] 1.1 (0.7-2.0) mmol/L Calcium 9.3 (8.4-10.2) mg/dL Magnesium 1.5 L (1.6-2.3) mg/dL Total Bilirubin 0.3 (0.2-1.3) mg/dL AST 22 (14-36) U/L ALT 20 (4-34) U/L Alkaline Phosphatase 74 (38-126) U/L Total Protein 7.3 (6.3-8.2) g/dL Albumin 4.3 (3.5-5.0) g/dL Disposition Clinical Impression: Cellulitis Disposition: ADMITTED IP TO THIS HOSP Condition: Stable Is patient prescribed a controlled substance at d/c from ED?: No Time of Disposition: 19:43 Decision to Admit Reason: Admit from EC Decision Date: 08/09/22 Decision Time: 19:43
[2022-08-09] MEDS ORDERED: VANCOMYCIN IV PER PHARMACY 1 EACH MISC MISCELLANE PRN (20:02)
[2022-08-09 23:13] LABS: Appearance,Urine Cloudy (Clear); Bacteria,Urine Occasional /hpf; Bilirubin,Urine Negative (Negative); Blood,Urine Negative (Negative); Color,Urine Colorless; Glucose,Urine (UA) Negative (Negative); Ketones,Urine Negative (Negative); Leukocyte Esterase,Urine Large (Negative); Mucus,Urine Rare /hpf; Nitrite,Urine Negative (Negative); Protein,Urine Negative (Negative); RBC,Urine 3 /hpf (0-5); Specific Gravity,Urine 1.007 (1.001-1.035); Squamous Epithelial Cell,Urine 4 /hpf (0-4); Urobilinogen,Urine <2.0 mg/dL (<2.0); WBC,Urine 31 /hpf (0-5)
[2022-08-09] MEDS: HYDROcodone/APAP 10-325MG 1 EACH TAB PO PRN (23:34)
[2022-08-10] MEDS: HYDROcodone/APAP 10-325MG 1 EACH TAB PO PRN ×4 (04:03→22:26)
[2022-08-10] MEDS: VANCOMYCIN 1,250 MG in SODIUM CHLORIDE 0.9% 250 ML IVPB SCH ×2 (06:00→20:14)
[2022-08-10] MEDS ORDERED: DEXTROSE 50% SYRINGE 50 ML IVP PRN ×2 (06:33)
[2022-08-10 06:55] LABS: Glucose,Whole Blood 210 mg/dL (70-110)
[2022-08-10] MEDS: INSULIN ASPART (NovoLOG) 100 UNIT/ML VIAL SQ SCH ×4 (06:59→22:26)
[2022-08-10] MEDS: PANTOPRAZOLE 40 MG TABLET PO SCH (06:59)
[2022-08-10] MEDS ORDERED: HYDROmorphone 0.5 MG/0.5 ML SYRINGE IVP STA (07:29)
[2022-08-10] MEDS ORDERED: ALPRAZolam 0.5 MG TAB PO STA (07:31)
[2022-08-10] MEDS ORDERED: HYDROmorphone 0.5 MG/0.5 ML SYRINGE IVP PRN (07:34)
--- NOTE | 2022-08-10 07:35 | P.HPIM ---
History of Present Illness This is a pleasant 67 years old female with past medical history of diabetes mellitus, depression, hypertension, hyperlipidemia Presents because of left leg swelling and redness and pain, getting worse over the last 1 week. Patient says that she's been suffering from left leg wound infection and nonhealing ulcers since last January and she was following up with the wound clinic to last 2 weeks when she lost her insurance but now she get it again. However she noticed over the last week that her left leg infection and also is getting worse so she decided to come to the hospital. It's painful for her and rest the pain as severe. She denies any other symptoms She smokes about 1 pack per day and she was counseled to quit and she agrees and she was the nicotine patch. She denies alcohol or illicit drugs Patient also was crying and feels depressed, she states that last week she had suicidal ideation but not today because she has grandchildren and she thinks they need her. Vitals are stable and patient is afebrile. Labs showing unremarkable CBC, BMP liver enzymes and urine analysis. On admission patient was started on IV vancomycin, and ID team consulted Review of Systems Review of systems CONSTITUTIONAL: No fever, no malaise, no fatigue. HEENT: No recent visual problems or hearing problems. Denied any sore throat. CARDIOVASCULAR: No orthopnea, PND, no palpitations, no syncope. PULMONARY: No shortness of breath, no cough, no hemoptysis. GASTROINTESTINAL: No diarrhea, no nausea, no vomiting, no abdominal pain. Normoactive bowel sounds. NEUROLOGICAL: No headaches, no weakness, no numbness. HEMATOLOGICAL: Denies any bleeding or petechiae. GENITOURINARY: Denies any burning micturition, frequency, or urgency. MUSCULOSKELETAL/RHEUMATOLOGICAL: Denies any joint pain, swelling, or any muscle pain. ENDOCRINE: Denies any polyuria or polydipsia. Past Medical History Past Medical History: Diabetes Mellitus, GERD/Reflux, Hyperlipidemia, Hypertension Additional Past Medical History / Comment(s): pancreatitis, bilateral leg stents History of Any Multi-Drug Resistant Organisms: None Reported Past Surgical History: Appendectomy, Hernia Repair, Hysterectomy, Orthopedic Surgery Additional Past Surgical History / Comment(s): jody carpal tunnel, bone spur rt ankle. cyst from lung. nasal surgery from broken nose. laser throat to stop snoring Past Anesthesia/Blood Transfusion Reactions: No Reported Reaction Past Psychological History: Depression Smoking Status: Current every day smoker Past Alcohol Use History: None Reported Past Drug Use History: None Reported - Past Family History Father Family Medical History: Cancer, Myocardial Infarction ([place]) Additional Family Medical History / Comment(s): colon cancer with mets Mother Family Medical History: Cancer Additional Family Medical History / Comment(s): lung cancer with mets Sister(s) Family Medical History: Diabetes Mellitus Brother(s) Family Medical History: Cancer Additional Family Medical History / Comment(s): throat cancer Medications and Allergies Home Medications Medication Instructions Recorded Confirmed Type Lisinopril-Hctz 20-25 mg 1 tab PO DAILY 03/09/14 08/09/22 History [Zestoretic 20-25] Aspirin 81 mg PO DAILY 03/20/22 08/09/22 History Clopidogrel [Plavix] 75 mg PO DAILY 03/20/22 08/09/22 History Furosemide [Lasix] 20 mg PO BID@0900,1600 03/20/22 08/09/22 History Pantoprazole [Protonix] 40 mg PO DAILY 03/20/22 08/09/22 History Rosuvastatin [Crestor] 10 mg PO MOFR@2100 03/20/22 08/09/22 History Venlafaxine HCl ER [Effexor Xr] 150 mg PO DAILY 03/20/22 08/09/22 History cilostazoL [Pletal] 100 mg PO BID 03/20/22 08/09/22 History glipiZIDE [Glucotrol] 7.5 mg PO AC-BID 03/20/22 08/09/22 History Doxycycline Hyclate 100 mg PO BID 08/09/22 08/09/22 History Gabapentin 600 mg PO QID 08/09/22 08/09/22 History HYDROcodone/APAP 10-325MG [[place] 1 tab PO Q4HR PRN 08/09/22 08/09/22 History 10-325] Lidocaine 5% Oint [Xylocaine 5% 1 applic TOPICAL Q4H PRN 08/09/22 08/09/22 History Oint] buPROPion XL [Wellbutrin XL] 150 mg PO DAILY 08/09/22 08/09/22 History busPIRone HCl [Buspar] 10 mg PO TID 12/01/22 12/01/22 History Allergies Allergy/AdvReac Type Severity Reaction Status Date / Time NSAIDS (Non-Steroidal AdvReac Abdominal Verified 08/09/22 19:38 Anti-Inflamma Pain prednisone AdvReac Abdominal Verified 08/09/22 19:38 Pain sitagliptin [From Januvia] AdvReac see comment Verified 08/09/22 19:38 Physical Exam Vitals: Vital Signs Temp Pulse Pulse Resp BP BP Pulse Ox 08/10/22 01:57 98.1 F 77 17 160/74 97 08/09/22 23:19 76 16 154/49 97 08/09/22 21:33 83 16 164/92 95 08/09/22 14:20 96.9 F L 101 H 20 160/71 99 Intake and Output 08/09/22 08/09/22 08/10/22 14:59 22:59 06:59 Other: Voiding Method Toilet # Voids 2 Weight 64.864 kg 64.864 kg GENERAL: The patient is alert and oriented x3, not in any acute distress. Well developed, well nourished. HEENT: Pupils are round and equally reacting to light. EOMI. No scleral icterus. No conjunctival pallor. Normocephalic, atraumatic. No pharyngeal erythema. No thyromegaly. CARDIOVASCULAR: S1 and S2 present. No murmurs, rubs, or gallops. PULMONARY: Chest is clear to auscultation, no wheezing or crackles. ABDOMEN: Soft, nontender, nondistended, normoactive bowel sounds. No palpable organomegaly. MUSCULOSKELETAL: No joint swelling or deformity. -EXTREMITIES: No cyanosis, clubbing, or pedal edema. Leg cellulitis, left leg is swollen especially distally and around the ankle, she has nonhealing ulcers on the left lateral malleolus with some necrotic tissue but no purulent discharge NEUROLOGICAL: Gross neurological examination did not reveal any focal deficits. SKIN: No rashes. no petechiae. Results CBC & Chem 7: 08/09/22 18:21 08/09/22 18:21 Labs: Abnormal Lab Results - Last 24 Hours (Table) 08/09/22 08/09/22 08/09/22 Range/Units 18:21 18:21 19:42 RDW 16.2 H (11.5-15.5) % Plt Count 486 H (150-450) k/uL BUN 20 H (7-17) mg/dL Magnesium 1.5 L (1.6-2.3) mg/dL Urine Appearance Cloudy H (Clear) Ur Leukocyte Esterase Large H (Negative) Urine WBC 31 H (0-5) /hpf Urine Bacteria Occasional H (None) /hpf Urine Mucus Rare H (None) /hpf Thrombosis Risk Factor Assmnt - Choose All That Apply Each Factor Represents 1 point: Age 41-60 years, Obesity (BMI >25), Swollen legs (current) Thrombosis Risk Factor Assessment Total Risk Factor Score: 3 Thrombosis Risk Factor Assessment Level: Moderate Risk Assessment and Plan Assessment: Left leg cellulitis, with diabetic foot ulcer, nonhealing Left lower extremity swelling and tenderness, rule out ischemia Depression, with suicidal ideation last week but not today Diabetes mellitus with hyperglycemia Hypertension Hyperlipidemia History of depression , activation Plan: continue with IV vancomycin on follow-up Infectious disease consult Continue with insulin sliding scale Check hemoglobin A1c Continue with Plavix We'll consult psychiatrist with suicidal precautions Labs and medication were reviewed.. Continue same treatment. Continue with symptomatic treatment. Resume home medication. Monitor labs and vitals. DVT a nd GI prophylaxis. Further recommendations as per clinical course of the patient DVT prophylaxis: Subcutaneous heparin GI Prophylaxis: Pepcid PT/OT: Pending Prognosis is guarded
[2022-08-10] MEDS: ASPIRIN 81 MG PO SCH (08:34)
[2022-08-10] MEDS: NICOTINE 21MG/24HR PATCH TRANSDERM SCH (08:35)
[2022-08-10] MEDS: cilostazoL 100 MG TAB PO SCH ×2 (08:35→20:29)
[2022-08-10] MEDS: FUROSEMIDE 20 MG TAB PO SCH ×2 (08:35→16:03)
[2022-08-10] MEDS: GABAPENTIN 300 MG CAP PO SCH ×4 (08:35→22:26)
[2022-08-10] MEDS: CLOPIDOGREL 75 MG TAB PO SCH (08:35)
[2022-08-10] MEDS: LISINOPRIL-HCTZ 20-25 MG 1 EACH TAB PO SCH (08:35)
--- NOTE | 2022-08-10 08:45 | XR ---
EXAMINATION TYPE: XR foot limited LT DATE OF EXAM: 08/10/2022 CLINICAL HISTORY: Pain and swelling, cellulitis. TECHNIQUE: Frontal and lateral images of the left foot are obtained. COMPARISON: None FINDINGS: There is no acute displaced fracture evident in the left foot. Small to moderate size inf erior calcaneal spur. The joint spaces in the left foot appear within normal limits. Mild subcutan eous edema along the plantar surface. No suspicious bony destruction is evident. IMPRESSION: As above.
--- NOTE | 2022-08-10 08:48 | XR ---
EXAMINATION TYPE: XR tibia fibula 2 views LT DATE OF EXAM: 08/10/2022 Comparison: None Clinical History: 57-year-old female cellulitis Findings: Vascular calcifications are present. Small plantar heel spur incidentally noted. The tibia and fibula show no periostitis or osteolysis. No acute fracture, subluxation, dislocation. There may be a shall ow soft tissue ulcer overlying the lateral malleolus. Impression: Tibia/fibula: There may be a soft tissue ulcer overlying the lateral malleolus. No convincing radiogr aphic evidence for osteomyelitis at this time. No acute fracture seen. If the lateral malleolus is th e clinical site of concern, consider radiographic follow-up centered on the ankle.
[2022-08-10 10:00] LABS: African American GFR (CKD) 94.2 (60.0-200.0); Non-African American GFR(CKD) 81.3 (60.0-200.0)
[2022-08-10] MEDS: busPIRone HCl 10 MG TAB PO SCH ×3 (11:58→22:26)
[2022-08-10] MEDS: buPROPion XL 150 MG TAB.ER.24H PO SCH (11:58)
[2022-08-10] MEDS: glipiZIDE 5 MG TAB PO SCH ×2 (11:58→17:56)
[2022-08-10] MEDS: amLODIPine 5 MG TAB PO SCH (11:58)
[2022-08-10 12:33] LABS: Glucose,Whole Blood 170 mg/dL (70-110)
--- NOTE | 2022-08-10 12:47 | P.GSCN ---
History of Present Illness Consult date: 08/10/22 Reason for Consult: Nonhealing left lower extremity infection Requesting physician: Rc E Sheet History of present illness: This a pleasant 57-year-old female who presented to the emergency department with pain in her right foot. Patient states she's had a nonhealing ulcer to her left foot leg and ankle since January. She has been going to the wound care center however recently lost her insurance. Last time was 2 weeks ago. She states that they were using that a honey for treatment. She has a past medical history including diabetes mellitus, hyperlipidemia and is a current smoker 30+ years down to half pack per day now. She also has a history of peripheral arterial disease with previous stents in bilateral lower extremities done at [facility] by Dr. Moreira. She states the left was 4 years ago and right approximately one year ago done at [facility]. She is unsure of a surgeon at this time. Denies any pain with walking other than the localized pain to the Foot. She is currently on Plavix, aspirin, and Crestor. Patient denies any fevers or chills at home. She is having significant pain and redness. Patient had x-ray of the foot that showed no displaced fracture of the left foot, mild subcutaneous edema along the plantar surfacesuspicious bony destruction evident. Left tib-fib x-ray reports possible soft tissue ulcer overlying the lateral malleolus no convincing radiographic evidence for osteomyelitis. No acute fracture seen. Review of Systems A 14 point review systems was completed all pertinent positives and negatives as stated in the HPI. Past Medical History Past Medical History: Diabetes Mellitus, GERD/Reflux, Hyperlipidemia, Hypertension Additional Past Medical History / Comment(s): pancreatitis, bilateral leg stents History of Any Multi-Drug Resistant Organisms: None Reported Past Surgical History: Appendectomy, Hernia Repair, Hysterectomy, Orthopedic Surgery Additional Past Surgical History / Comment(s): jody carpal tunnel, bone spur rt ankle. cyst from lung. nasal surgery from broken nose. laser throat to stop snoring Past Anesthesia/Blood Transfusion Reactions: No Reported Reaction Past Psychological History: Depression Smoking Status: Current every day smoker Past Alcohol Use History: None Reported Past Drug Use History: None Reported - Past Family History Father Family Medical History: Cancer, Myocardial Infarction ([place]) Additional Family Medical History / Comment(s): colon cancer with mets Mother Family Medical History: Cancer Additional Family Medical History / Comment(s): lung cancer with mets Sister(s) Family Medical History: Diabetes Mellitus Brother(s) Family Medical History: Cancer Additional Family Medical History / Comment(s): throat cancer Medications and Allergies Home Medications Medication Instructions Recorded Confirmed Type Lisinopril-Hctz 20-25 mg 1 tab PO DAILY 03/09/14 08/09/22 History [Zestoretic 20-25] Aspirin 81 mg PO DAILY 03/20/22 08/09/22 History Clopidogrel [Plavix] 75 mg PO DAILY 03/20/22 08/09/22 History Furosemide [Lasix] 20 mg PO BID@0900,1600 03/20/22 08/09/22 History Pantoprazole [Protonix] 40 mg PO DAILY 03/20/22 08/09/22 History Rosuvastatin [Crestor] 10 mg PO MOFR@2100 03/20/22 08/09/22 History Venlafaxine HCl ER [Effexor Xr] 150 mg PO DAILY 03/20/22 08/09/22 History cilostazoL [Pletal] 100 mg PO BID 03/20/22 08/09/22 History glipiZIDE [Glucotrol] 7.5 mg PO AC-BID 03/20/22 08/09/22 History Doxycycline Hyclate 100 mg PO BID 08/09/22 08/09/22 History Gabapentin 600 mg PO QID 08/09/22 08/09/22 History HYDROcodone/APAP 10-325MG [[place] 1 tab PO Q4HR PRN 08/09/22 08/09/22 History 10-325] Lidocaine 5% Oint [Xylocaine 5% 1 applic TOPICAL Q4H PRN 08/09/22 08/09/22 History Oint] buPROPion XL [Wellbutrin XL] 150 mg PO DAILY 08/09/22 08/09/22 History busPIRone HCl [Buspar] 10 mg PO TID 08/09/22 08/09/22 History Allergies Allergy/AdvReac Type Severity Reaction Status Date / Time NSAIDS (Non-Steroidal AdvReac Abdominal Verified 08/09/22 19:38 Anti-Inflamma Pain prednisone AdvReac Abdominal Verified 08/09/22 19:38 Pain sitagliptin [From Sepuvia] AdvReac see comment Verified 08/09/22 19:38 Surgical - Exam Vital Signs Temp Pulse Resp BP Pulse Ox 96.9 F L 101 H 20 160/71 99 08/09/22 14:20 08/09/22 14:20 08/09/22 14:20 08/09/22 14:20 08/09/22 14:20 General appearance: The patient is alert, oriented, appears in no acute distress. HET: Head is normocephalic and atraumatic. Pupils are equal and reactive. Neck: Supple without lymphadenopathy. Trachea midline. Heart: Regular. Lungs: Equal expansion, normal respiratory effort. Abdomen: Soft, nontender, nondistended. Extremities: Left lower extremity with previous healed ulcers on medial lateral calf, 2 ulcers noted on posterior aspect near achilles as well as ulcer on lateral aspect of ankle with surrounding erythema on dorsal aspect of foot as well as ankle region. Patient has bilateral palpable femoral pulses, left greater than right. Bilateral popliteal, PT signals, right DP signal. Unable to obtain left DP signal. Left wire preparation machine tender to palpation. Neurological: No focal deficits. Strength and sensation are grossly intact. Results - Labs 08/09/22 18:21 08/10/22 04:46 Abnormal Lab Results - Last 24 Hours (Table) 08/09/22 08/09/22 08/09/22 Range/Units 18:21 18:21 19:42 RDW 16.2 H (11.5-15.5) % Plt Count 486 H (150-450) k/uL BUN 20 H (7-17) mg/dL POC Glucose (mg/dL) (70-110) mg/dL Magnesium 1.5 L (1.6-2.3) mg/dL Urine Appearance Cloudy H (Clear) Ur Leukocyte Esterase Large H (Negative) Urine WBC 31 H (0-5) /hpf Urine Bacteria Occasional H (None) /hpf Urine Mucus Rare H (None) /hpf 08/10/22 Range/Units 06:54 RDW (11.5-15.5) % Plt Count (150-450) k/uL BUN (7-17) mg/dL POC Glucose (mg/dL) 210 H (70-110) mg/dL Magnesium (1.6-2.3) mg/dL Urine Appearance (Clear) Ur Leukocyte Esterase (Negative) Urine WBC (0-5) /hpf Urine Bacteria (None) /hpf Urine Mucus (None) /hpf Diabetes panel 08/09/22 Range/Units 18:21 Sodium 139 (137-145) mmol/L Potassium 4.6 (3.5-5.1) mmol/L Chloride 105 (98-107) mmol/L Carbon Dioxide 27 (22-30) mmol/L BUN 20 H (7-17) mg/dL Creatinine 0.75 (0.52-1.04) mg/dL Glucose 86 (74-99) mg/dL Calcium 9.3 (8.4-10.2) mg/dL AST 22 (14-36) U/L ALT 20 (4-34) U/L Alkaline Phosphatase 74 (38-126) U/L Total Protein 7.3 (6.3-8.2) g/dL Albumin 4.3 (3.5-5.0) g/dL Calcium panel 08/09/22 Range/Units 18:21 Calcium 9.3 (8.4-10.2) mg/dL Albumin 4.3 (3.5-5.0) g/dL Pituitary panel 08/09/22 Range/Units 18:21 Sodium 139 (137-145) mmol/L Potassium 4.6 (3.5-5.1) mmol/L Chloride 105 (98-107) mmol/L Carbon Dioxide 27 (22-30) mmol/L BUN 20 H (7-17) mg/dL Creatinine 0.75 (0.52-1.04) mg/dL Glucose 86 (74-99) mg/dL Calcium 9.3 (8.4-10.2) mg/dL Adrenal panel 08/09/22 Range/Units 18:21 Sodium 139 (137-145) mmol/L Potassium 4.6 (3.5-5.1) mmol/L Chloride 105 (98-107) mmol/L Carbon Dioxide 27 (22-30) mmol/L BUN 20 H (7-17) mg/dL Creatinine 0.75 (0.52-1.04) mg/dL Glucose 86 (74-99) mg/dL Calcium 9.3 (8.4-10.2) mg/dL Total Bilirubin 0.3 (0.2-1.3) mg/dL AST 22 (14-36) U/L ALT 20 (4-34) U/L Alkaline Phosphatase 74 (38-126) U/L Total Protein 7.3 (6.3-8.2) g/dL Albumin 4.3 (3.5-5.0) g/dL Assessment and Plan Assessment: 1. Nonhealing diabetic ulcers left lower extremity 2. Cellulitis left lower extremity 3. History of peripheral arterial disease with previous bilateral lower extremity stenting 4. Diabetes mellitus 5. Hyperlipidemia 6. Current smoker half pack per day for greater than 30 years Plan: 1. Arterial ultrasound ordered 2. Antibiotics per recommendations from infectious disease 3. Discussed importance of smoking cessation 4. Plan for LLE debridement tomorrow with deep tissue cultures 5. Further recommendations forthcoming from vascular surgery and on timing of the lower extremity angiogram Thank you for this consultation, we will continue to follow. The impression and plan of care has been dictated as directed. I performed a history and examination of this patient, discussed the same with the dictator. I agree with the dictator's note ,documented as a scribe. Any additional findings or plans will be noted.
--- NOTE | 2022-08-10 14:16 | P.CN ---
Psychiatric Consult - . Consult date: 08/10/22 Consult:: 08/10/22 14:13 IDENTIFYING DATA: This patient is a 57-year-old female who currently lives alone in an apartment, has 2 kids and 5 grandkids. She is currently unemployed. REASON FOR REFERRAL: Psychiatry was consulted for depression and "suicidal last week". HISTORY OF PRESENT ILLNESS: The patient presented to the hospital on 08/09 with. Left lower extremity infection. Patient apparently has had several hospitalizations. She apparently lost her insurance and not able to follow up in wound care. Patient was admitted for treatment of her cellulitis. There is taking her patients. Patient states that she is not suicidal at this time and was simply endorsing depression or sadness about her foot. Patient was seen eating at her bedside and agreeable to speak to her. She is calm and cooperative during the interview. She was surprised that hospital staff took away her belongings and put a sitter on. She states "it's not like I was going to hurt myself". She claims that she was feeling sad about her foot and also claims that she was having severe pain due to the infection. She states that it started about 7 months ago. She states that during wound care it was getting better however lost her insurance and could not return. She states that "she isn't having limitations due to her foot. She states that she also lost her job regarding her foot. She claims that she is doing better now being in the hosp ital denies any depression or anxiety. States that her sleep has been on and off and was agreeable to try medications for sleep. States that her appetite is fair. At this time patient denies any suicidal or homical ideations, intent or plan. Patient denies any auditory, visual hallucinations and denies any paranoia or delusions. Patients admits to using cigarettes only. PAST PSYCHIATRIC HISTORY: Patient has a a history of anxiety and depression. Patient is currently on Wellbutrin and also BuSpar. Patient denies any previous psychiatric hospitalizations. Patient denies any psychiatric outpatient follow- up. She gets her medications from her PCP Dr. Montalvo. Patient denies any history of suicide attempts in the past. Past Medical History: Diabetes Mellitus Additional Past Medical History / Comment(s): pancreatitis History of Any Multi-Drug Resistant Organisms: None Reported ALLERGIES: as per EMR. CHEMICAL DEPENDENCY HISTORY: as per HPI. FAMILY PSYCHIATRIC/SUBSTANCE USE HISTORY: Claims that her sister attempted suicide when she was younger and likely has depression SOCIAL HISTORY: Patient was born and raised in [facility]. She states that she completed high school. 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 Denies any legal history. She currently lives alone in an apartment on her son's property, has 2 kids, 5 grandkids. MENTAL STATUS EXAM: General Appearance: Patient appears to be calm, wearing glasses, stated age is alert, pleasant, and cooperative. Patient appears to have fair hygiene and grooming wearing hospital gown with fair eye contact. Behavior: Patient is calmly lying in bed without any agitated behavior. Operative Speech: Patient's speech is fluent and nonpressured. Mood/Affect: Patient reports their mood is "fine now", affect is congruent Suicidality/Homicidality: Patient denies having any suicidal or homicidal ideation intent or plan. Perceptions: Patient denies any visual hallucinations and denies any auditory hallucinations Though content/process: There is no evidence of any delusional thought content and thought process is linear and goal-directed. focused on her foot pain. Memory and concentration: AOX3, grossly intact for the purposes of this session. Can spell "WORLD" backwards Judgment and insight: fair IMPRESSIONS: Adjustment disorder with depressed mood Nicotine dependence PLAN: -At this time patient DOES NOT meet criteria for inpatient psychiatric admission. -Would recommend the following medication changes/additions: Start Remeron 7.5 mg daily at bedtime for sleep/appetite/mood, can increase to 15 mg daily at bedtime if needed over the weekend. -[facility] provide patient with outpatient mental health/psychiatry resources for appropriate follow up upon discharge -Communicated plan to patient's nurse -Psychiatry will sign off at this time however if needed can see patient upon request. -Please contact with any questions. 08/10/22 14:42
[2022-08-10] MEDS: HYDROmorphone 0.5 MG/0.5 ML SYRINGE IVP PRN ×2 (15:38→20:28)
[2022-08-10 17:23] LABS: Glucose,Whole Blood 169 mg/dL (70-110)
[2022-08-10] MEDS: SODIUM CHLORIDE 0.9% 1,000 ML IV SCH (19:36)
[2022-08-10] MEDS: ATORVASTATIN 20 MG TAB PO SCH (20:29)
[2022-08-10] MEDS: MIRTAZAPINE 15 MG TAB PO SCH (20:29)
[2022-08-10 22:20] LABS: Glucose,Whole Blood 164 mg/dL (70-110)
[2022-08-11] MEDS: HYDROmorphone 0.5 MG/0.5 ML SYRINGE IVP PRN ×7 (00:05→21:49)
[2022-08-11] MEDS: ALPRAZolam 0.25 MG TAB PO PRN (00:05)
--- NOTE | 2022-08-11 00:20 | P.CONS ---
History of Present Illness - Reason for Consult Consult date: 08/10/22 Left ankle wound failing outpatient therapy Requesting physician: Uche Brock - Chief Complaint Left ankle nonhealing wound and pain x days - History of Present Illness Patient is a 57-year-old female with a past medical history significant for hypertension hyperlipidemia diabetes mellitus patient has been dealing with a chronic nonhealing wound to the left lateral malleolar area with the patient has for couple of months now and has been treated at [facility] under the patient also having shortness and she was unable to follow the patient now presenting to the ER complaining of increasing pain swelling redness to the left ankle area that apparently has been getting worse for the last few days patient denies any history of any trauma has been complaining of pain which is mostly dull aching to sharp 7-8 out of 10 no radiation with associated swelling redness and did have some drainage patient denies high-grade fever and did not have any fever on presentation to the hospital patient did have a normal white count kidney function has been normal liver enzymes are normal urine was positive for blood cultures obtained which are currently pending patient did have x-ray of the foot which shows no acute displaced fracture small to moderate size inferior calcaneal spur mild subcutaneous edema patient was started on vancomycin infectious disease was consulted for further management of antibiotic therapy Review of Systems Positive point has been mentioned in the HPI rest of the systems are negative Past Medical History Past Medical History: Diabetes Mellitus, GERD/Reflux, Hyperlipidemia, Hypertension Additional Past Medical History / Comment(s): pancreatitis, bilateral leg stents History of Any Multi-Drug Resistant Organisms: None Reported Past Surgical History: Appendectomy, Hernia Repair, Hysterectomy, Orthopedic Surgery Additional Past Surgical History / Comment(s): jody carpal tunnel, bone spur rt ankle. cyst from lung. nasal surgery from broken nose. laser throat to stop snoring Past Anesthesia/Blood Transfusion Reactions: No Reported Reaction Past Psychological History: Depression Smoking Status: Current every day smoker Past Alcohol Use History: None Reported Past Drug Use History: None Reported - Past Family History Father Family Medical History: Cancer, Myocardial Infarction ([place]) Additional Family Medical History / Comment(s): colon cancer with mets Mother Family Medical History: Cancer Additional Family Medical History / Comment(s): lung cancer with mets Sister(s) Family Medical History: Diabetes Mellitus Brother(s) Family Medical History: Cancer Additional Family Medical History / Comment(s): throat cancer Medications and Allergies Home Medications Medication Instructions Recorded Confirmed Type Lisinopril-Hctz 20-25 mg 1 tab PO DAILY 03/09/14 08/09/22 History [Zestoretic 20-25] Aspirin 81 mg PO DAILY 03/20/22 08/09/22 History Clopidogrel [Plavix] 75 mg PO DAILY 03/20/22 08/09/22 History Furosemide [Lasix] 20 mg PO BID@0900,1600 03/20/22 08/09/22 History Pantoprazole [Protonix] 40 mg PO DAILY 03/20/22 08/09/22 History Rosuvastatin [Crestor] 10 mg PO MOFR@2100 03/20/22 08/09/22 History Venlafaxine HCl ER [Effexor XR] 150 mg PO DAILY 03/20/22 08/09/22 History cilostazoL [Pletal] 100 mg PO BID 03/20/22 08/09/22 History glipiZIDE [Glucotrol] 7.5 mg PO AC-BID 03/20/22 08/09/22 History Gabapentin 600 mg PO QID 08/09/22 08/09/22 History Lidocaine 5% Oint [Xylocaine 5% 1 applic TOPICAL Q4H PRN 08/09/22 08/09/22 History Oint] buPROPion XL [Wellbutrin XL] 150 mg PO DAILY 08/09/22 08/09/22 History busPIRone HCl [Buspar] 10 mg PO TID 08/09/22 08/09/22 History Cephalexin [Keflex] 500 mg PO Q6HR 10 Days #40 cap 08/14/22 Rx Collagenase [Santyl Ointment] 1 applic TOPICAL DAILY 30 Days #1 08/14/22 Rx each HYDROcodone/APAP 10-325MG [[place] 1 tab PO Q4HR PRN #12 tab 08/14/22 Rx 10-325] Mirtazapine [Remeron] 7.5 mg PO HS 15 Days #30 tab 08/14/22 Rx amLODIPine [Norvasc] 5 mg PO DAILY #30 tab 08/14/22 Rx Allergies Allergy/AdvReac Type Severity Reaction Status Date / Time NSAIDS (Non-Steroidal AdvReac Abdominal Verified 08/11/22 12:36 Anti-Inflamma Pain prednisone AdvReac Abdominal Verified 08/11/22 12:36 Pain sitagliptin [From Januvia] AdvReac see comment Verified 08/11/22 12:36 Physical Exam Vitals: Vital Signs Temp Pulse Pulse Resp BP BP Pulse Ox 08/10/22 07:43 76 18 154/81 98 08/10/22 07:00 98.4 F 78 16 170/71 98 08/10/22 01:57 98.1 F 77 17 160/74 97 08/09/22 23:19 76 16 154/49 97 08/09/22 21:33 83 16 164/92 95 08/09/22 14:20 96.9 F L 101 H 20 160/71 99 Intake and Output 08/09/22 08/10/22 08/10/22 22:59 06:59 14:59 Intake Total 236 Balance 236 Intake: Oral 236 Other: Voiding Method Toilet # Voids 2 Weight 64.864 kg GENERAL DESCRIPTION: Middle-aged female lying in bed, no distress. No tachypnea or accessory muscle of respiration use. HEENT: Shows Pallor , no scleral icterus. Oral mucous membrane is dry. No pharyngeal erythema or thrush NECK: Trachea central, no thyromegaly. LUNGS: Unlabored breathing. Clear to auscultation anteriorly. No wheeze or crackle. HEART: S1, S2, regular rate and rhythm. No loud murmur ABDOMEN: Soft, no tenderness , guarding or rigidity, no organomegaly EXTREMITIES: Left lateral ankle wound with significant crusting around it surrounding swelling redness but no foul-smelling drainage. SKIN: No rash, no masses palpable. NEUROLOGICAL: The patient is awake, alert, oriented x3, mood and affect normal. Results CBC & Chem 7: 08/13/22 06:01 08/14/22 05:21 Labs: Abnormal Lab Results - Last 24 Hours (Table) 08/09/22 08/09/22 08/09/22 Range/Units 18:21 18:21 19:42 RDW 16.2 H (11.5-15.5) % Plt Count 486 H (150-450) k/uL BUN 20 H (7-17) mg/dL POC Glucose (mg/dL) (70-110) mg/dL Magnesium 1.5 L (1.6-2.3) mg/dL Urine Appearance Cloudy H (Clear) Ur Leukocyte Esterase Large H (Negative) Urine WBC 31 H (0-5) /hpf Urine Bacteria Occasional H (None) /hpf Urine Mucus Rare H (None) /hpf 08/10/22 Range/Units 06:54 RDW (11.5-15.5) % Plt Count (150-450) k/uL BUN (7-17) mg/dL POC Glucose (mg/dL) 210 H (70-110) mg/dL Magnesium (1.6-2.3) mg/dL Urine Appearance (Clear) Ur Leukocyte Esterase (Negative) Urine WBC (0-5) /hpf Urine Bacteria (None) /hpf Urine Mucus (None) /hpf Assessment and Plan (1) Cellulitis Status: Acute Code(s): L03.90 - CELLULITIS, UNSPECIFIED SNOMED Code(s): 483848910 (2) Diabetic ulcer of ankle Status: Acute Code(s): E11.622 - TYPE 2 DIABETES MELLITUS WITH OTHER SKIN ULCER; L97.309 - NON-PRESSURE CHRONIC ULCER OF UNSP ANKLE WITH UNSP SEVERITY SNOMED Code(s): 942480937 Plan: 1patient with a chronic nonhealing wound to the left lateral ankle area which has been there for couple of months now with recent worsening and concern for secondary cellulitis likely from gram-positive skin brenda. 2patient will benefit from surgical debridement and deep culture this was discussed with the vascular surgeon. 3vancomycin pharmacy to dose target trough of 15 while watching kidney function and vancomycin trough closely. We will follow on clinical condition and cultures to further adjust medication if needed Thank you for this consultation will follow this patient along with you Time with Patient: Greater than 30
[2022-08-11] MEDS ORDERED: VANCOMYCIN TROUGH DUE 1 EACH MISC MISCELLANE ONE (05:00)
[2022-08-11 06:21] LABS: Glucose,Whole Blood 118 mg/dL (70-110)
[2022-08-11] MEDS: INSULIN ASPART (NovoLOG) 100 UNIT/ML VIAL SQ SCH ×4 (06:27→21:48)
[2022-08-11] MEDS: glipiZIDE 5 MG TAB PO SCH ×2 (06:35→18:17)
[2022-08-11] MEDS: VANCOMYCIN 1,250 MG in SODIUM CHLORIDE 0.9% 250 ML IVPB SCH ×2 (06:35→17:02)
[2022-08-11] MEDS: SODIUM CHLORIDE 0.9% 1,000 ML IV SCH (06:35)
[2022-08-11] MEDS: PANTOPRAZOLE 40 MG TABLET PO SCH (06:36)
[2022-08-11] MEDS: GABAPENTIN 300 MG CAP PO SCH ×4 (08:34→21:48)
[2022-08-11] MEDS: busPIRone HCl 10 MG TAB PO SCH ×3 (08:35→21:49)
[2022-08-11] MEDS: cilostazoL 100 MG TAB PO SCH ×2 (08:35→21:48)
[2022-08-11] MEDS: buPROPion XL 150 MG TAB.ER.24H PO SCH (08:35)
[2022-08-11] MEDS: FUROSEMIDE 20 MG TAB PO SCH ×2 (08:35→17:03)
[2022-08-11] MEDS: LISINOPRIL-HCTZ 20-25 MG 1 EACH TAB PO SCH (08:35)
[2022-08-11] MEDS: NICOTINE 21MG/24HR PATCH TRANSDERM SCH (08:35)
[2022-08-11] MEDS: CLOPIDOGREL 75 MG TAB PO SCH (08:35)
[2022-08-11] MEDS: ASPIRIN 81 MG PO SCH (08:35)
[2022-08-11] MEDS: amLODIPine 5 MG TAB PO SCH (08:35)
[2022-08-11] MEDS: HYDROcodone/APAP 10-325MG 1 EACH TAB PO PRN ×2 (08:40→17:02)
[2022-08-11 08:47] LABS: African American GFR (CKD) 94.2 (60.0-200.0); Anion Gap 8.2 mmol/L (10.00-18.00); BUN/Creat Ratio 24.38 Ratio (12.00-20.00); Blood Urea Nitrogen 19.5 mg/dL (9.0-27.0); Carbon Dioxide 25.8 mmol/L (20.0-27.5); Non-African American GFR(CKD) 81.3 (60.0-200.0); Potassium 4.6 mmol/L (3.5-5.5)
--- NOTE | 2022-08-11 11:46 | P.PN ---
Subjective Progress Note Date: 08/11/22 This is a pleasant 67 years old female with past medical history of diabetes mellitus, depression, hypertension, hyperlipidemia Presents because of left leg swelling and redness and pain, getting worse over the last 1 week. Patient says that she's been suffering from left leg wound infection and nonhealing ulcers since last January and she was following up with the wound clinic to last 2 weeks when she lost her insurance but now she get it again. However she noticed over the last week that her left leg infection and also is getting worse so she decided to come to the hospital. It's painful for her and rest the pain as severe. She denies any other symptoms She smokes about 1 pack per day and she was counseled to quit and she agrees and she was the nicotine patch. She denies alcohol or illicit drugs Patient also was crying and feels depressed, she states that last week she had suicidal ideation but not today because she has grandchildren and she thinks they need her. Vitals are stable and patient is afebrile. Labs showing unremarkable CBC, BMP liver enzymes and urine analysis. On admission patient was started on IV vancomycin, and ID team consulted 08/11. Patient seen and examined. Vital signs stable. Patient has been afebrile. REVIEW OF SYSTEMS: CONSTITUTIONAL: No fever, no malaise,. CARDIOVASCULAR: No chest pain, no palpitations, no syncope. PULMONARY: No shortness of breath, no cough, GASTROINTESTINAL: No diarrhea, no nausea, no vomiting, no abdominal pain. NEUROLOGICAL: No headaches, no weakness, PHYSICAL EXAMINATION: GENERAL: The patient is alert and oriented x3, not in any acute distress. Well developed, well nourished. HEENT: Pupils are round and equally reacting to light. EOMI. No scleral icterus. No conjunctival pallor. Normocephalic, atraumatic. No pharyngeal erythema. No thyromegaly. CARDIOVASCULAR: S1 and S2 present. No murmurs, rubs, or gallops. PULMONARY: Chest is clear to auscultation, no wheezing or crackles. ABDOMEN: Soft, nontender, nondistended, normoactive bowel sounds. No palpable organomegaly. MUSCULOSKELETAL: Ulcer left ankle EXTREMITIES: No cyanosis, clubbing, or pedal edema. NEUROLOGICAL: Gross neurological examination did not reveal any focal deficits. SKIN: No rashes. Assessment and plan Left leg cellulitis, with diabetic foot ulcer, nonhealing Left lower extremity swelling and tenderness, rule out ischemia Depression, with suicidal ideation last week but not today Diabetes mellitus with hyperglycemia Hypertension Hyperlipidemia History of depression , activation Plan: Monitor vital signs Monitor CBC continue with IV vancomycin Continue with insulin sliding scale Check hemoglobin A1c Continue with Plavix Psychiatry reevaluated the patient, at this time patient does not meet inpatient criteria, recommend starting patient on Remeron Arterial ultrasound ordered Follow-up in ID recs Plan for LLE debridement with deep tissue cultures by vascular surgery DVT prophylaxis: Objective - Vital Signs Vital signs: Vital Signs Temp 98.6 F 08/11/22 08:34 Pulse 80 08/11/22 08:34 Resp 18 08/11/22 08:34 BP 152/59 08/11/22 08:34 Pulse Ox 94 L 08/11/22 08:34 FiO2 Intake & Output 08/10/22 08/11/22 08/11/22 18:59 06:59 18:59 Intake Total 236 550 Balance 236 550 Intake: Intake, IV Titration 550 Amount Sodium Chloride 0.9% 1, 50 000 ml @ 50 mls/hr IV . Q20H [facility] Rx#:[id number] Vancomycin 1,250 mg In 500 Sodium Chloride 0.9% 250 ml @ 125 mls/hr IVPB Q12H [facility] Rx#:[id number] Oral 236 Other: Voiding Method Toilet Toilet # Voids 1 - Labs CBC & Chem 7: 08/09/22 18:21 08/11/22 05:16 Labs: Abnormal Lab Results - Last 24 Hours (Table) 08/10/22 08/10/22 08/10/22 Range/Units 12:32 17:22 22:15 Anion Gap (10.00-18.00) mmol/L BUN/Creatinine Ratio (12.00-20.00) Ratio Glucose (70-110) mg/dL POC Glucose (mg/dL) 170 H 169 H 164 H (70-110) mg/dL Hemoglobin A1c (0.0-6.0) % 08/11/22 08/11/22 08/11/22 Range/Units 05:16 05:16 06:20 Anion Gap 8.20 L (10.00-18.00) mmol/L BUN/Creatinine Ratio 24.38 H (12.00-20.00) Ratio Glucose 112 H (70-110) mg/dL POC Glucose (mg/dL) 118 H (70-110) mg/dL Hemoglobin A1c 7.2 H (0.0-6.0) % Microbiology - Last 24 Hours (Table) 08/09/22 18:21 Blood Culture - Preliminary Blood No Growth after 24 hours 08/09/22 18:21 Blood Culture - Preliminary Blood No Growth after 24 hours
[2022-08-11] MEDS ORDERED: IV FLUID CONTINUATION 800 ML IV ONE (12:31)
[2022-08-11 12:36] LABS: Glucose,Whole Blood 80 mg/dL (70-110)
[2022-08-11] MEDS ORDERED: ONDANSETRON 4 MG/2 ML VIAL IVP ONE (12:36)
[2022-08-11] MEDS ORDERED: MIDAZOLAM 2 MG/2 ML VIAL IVP ONE (12:39)
--- NOTE | 2022-08-11 12:49 | P.ANPRN ---
Procedure Note - Anesthesia - Nerve Block Performed Left Popliteal Single Time Out Performed: Yes Date of Procedure: 08/11/22 Procedure Start Time: 12:38 Procedure Stop Time: 12:46 Location of Patient: PreOp Indication: Acute Post-Operative Pain, Requested by Surgeon Sedation Type: Sedate with meaningful contact maintained Preparation: Sterile Prep, Sterile Dressing Position: Right Lateral Catheter: None Needle Types: Facet Needle Gauge: 21 Ultrasound used to visualize needle placement: Yes Ultrasound used to observe medication spread: Yes Injectate: 0.5% Ropivacaine (see comment for volume) (30 ml) Blood Aspirated: No Pain Paresthesia on Injection Noted: No Resistance on Injection: Normal Image Stored and Saved: Yes Events: Uneventful and Well Tolerated
[2022-08-11] MEDS ORDERED: KETAMINE 10 MG/ML 20 ML VIAL ONE (13:02)
[2022-08-11] MEDS ORDERED: ROPIVACAINE 5 MG/ML 30 ML VIAL ONE (13:02)
--- NOTE | 2022-08-11 13:25 | NM ---
EXAMINATION TYPE: NM bone 3 phase DATE OF EXAM: 08/11/2022 11:32 AM CLINICAL INDICATION:Female, 57 years old with history of left foot and left lower extrem cell/non-hea ling; COMPARISON: Radiograph 08/10/2022. Triple phase bone scintigraphy was performed following the injection of 23.1 mCi Tc 99m MDP. Immedia te images and 3 hours post injection images acquired. FINDINGS: Flow imaging appears equal bilaterally. Blood pool there is subtle increase radiotracer uptake around the left ankle/distal leg. On delayed imaging There is no significant abnormal accumulation of radiotracer to suggest cellulitis. IMPRESSION: Increased radiotracer uptake on blood pool and flow phases suggestive of cellulitis.
[2022-08-11 14:11] LABS: Glucose,Whole Blood 75 mg/dL (70-110)
--- NOTE | 2022-08-11 14:32 | P.OP ---
Date of Procedure: 08/11/22 Description of Procedure: Preoperative diagnosis: Left lower extremity wounds, peripheral arterial disease Postoperative diagnosis: Same Procedure: Sharp excisional debridement of left lower extremity wounds #1 left ankle 3 x 2 x 0.3 cm to bone #2 left heel 2.5 x 2 x 0.2 to subcutaneous tissue Surgeon: Stefanie Chao D.O. EBL: Minimal IV fluids: See records Urine output: Not measured Drains: None Complications: None immediately apparent Condition: Stable to recovery Operative indication and findings: The patient is a 57-year-old female with previous peripheral revascularization interventions with stenting for left lower extremity nonhealing wounds. The patient states the wounds have not improved si nce a few months ago when the stents had been placed. She had been seeing wound care and subsequently lost insurance therefore was unable to go to wound care. She presented the hospital with concerns of infection and given the appearance of the wounds was decided debridement was necessary Procedure in detail: Patient was taken to the operative suite and placed in supine position. The left lower extremity is prepped and draped in usual sterile fashion. A preprocedure timeout was performed, all parties are in agreement. Scalpel was utilized and the overlying callus and tissue was . The wound itself the measurements as above at the ankle debrided down to the periosteal tissue which was debrided than cultured. This is again then performed on the posterior portion of the heel level of the Achilles with the measurements as above. The wounds were then cleansed with a surgical scrub brush and dressings were placed. The patient tolerated the procedure well
[2022-08-11 17:35] LABS: Glucose,Whole Blood 114 mg/dL (70-110)
[2022-08-11] MEDS ORDERED: hydrALAZINE HCL 20 MG/ML 1 ML VIAL IVP PRN (19:14)
[2022-08-11 21:14] LABS: Glucose,Whole Blood 271 mg/dL (70-110)
[2022-08-11] MEDS: MIRTAZAPINE 15 MG TAB PO SCH (21:49)
[2022-08-12] MEDS: HYDROcodone/APAP 10-325MG 1 EACH TAB PO PRN ×5 (00:24→22:01)
[2022-08-12] MEDS: SODIUM CHLORIDE 0.9% 1,000 ML IV SCH ×2 (01:52→22:02)
[2022-08-12] MEDS: HYDROmorphone 0.5 MG/0.5 ML SYRINGE IVP PRN ×2 (03:44→06:53)
[2022-08-12] MEDS: INSULIN ASPART (NovoLOG) 100 UNIT/ML VIAL SQ SCH ×4 (06:43→22:01)
[2022-08-12 06:44] LABS: Glucose,Whole Blood 91 mg/dL (70-110)
[2022-08-12] MEDS: PANTOPRAZOLE 40 MG TABLET PO SCH (06:52)
[2022-08-12] MEDS: glipiZIDE 5 MG TAB PO SCH ×2 (06:52→18:04)
[2022-08-12] MEDS: VANCOMYCIN 1,250 MG in SODIUM CHLORIDE 0.9% 250 ML IVPB SCH ×2 (06:53→17:32)
[2022-08-12] MEDS: busPIRone HCl 10 MG TAB PO SCH ×3 (08:03→20:07)
[2022-08-12] MEDS: GABAPENTIN 300 MG CAP PO SCH ×4 (08:03→22:02)
[2022-08-12] MEDS: LISINOPRIL-HCTZ 20-25 MG 1 EACH TAB PO SCH (08:03)
[2022-08-12] MEDS: amLODIPine 5 MG TAB PO SCH (08:03)
[2022-08-12] MEDS: NICOTINE 21MG/24HR PATCH TRANSDERM SCH (08:03)
[2022-08-12] MEDS: cilostazoL 100 MG TAB PO SCH ×2 (08:03→20:07)
[2022-08-12] MEDS: ASPIRIN 81 MG PO SCH (08:03)
[2022-08-12] MEDS: CLOPIDOGREL 75 MG TAB PO SCH (08:03)
[2022-08-12] MEDS: FUROSEMIDE 20 MG TAB PO SCH ×2 (08:04→16:01)
[2022-08-12] MEDS: buPROPion XL 150 MG TAB.ER.24H PO SCH (08:04)
[2022-08-12 09:01] LABS: HCT 31.6 % (37.2-46.3); HGB 10.4 g/dL (12.0-15.0); MCHC 32.9 g/dL (32.0-37.0); MCV 94.3 fL (80.0-97.0); Mean Platelet Volume 8.6 fL (9.5-12.2); NRBC Per 100 WBC 0 /100 WBCS (0.0-0.0); Platelet Count 440 X 10*3/uL (140-440); RBC 3.35 X 10*6/uL (4.10-5.20); RDW 16.5 % (11.5-14.5); WBC 6.99 X 10*3/uL (4.50-10.00)
[2022-08-12 09:05] LABS: African American GFR (CKD) 82.5 (60.0-200.0); Albumin 3.6 g/dL (3.8-4.9); Anion Gap 8.2 mmol/L (10.00-18.00); BUN/Creat Ratio 18.37 Ratio (12.00-20.00); Blood Urea Nitrogen 16.4 mg/dL (9.0-27.0); Calcium 8.9 mg/dL (8.7-10.3); Carbon Dioxide 28.9 mmol/L (20.0-27.5); Non-African American GFR(CKD) 71.2 (60.0-200.0); Potassium 4.7 mmol/L (3.5-5.5); Total Protein 6.2 g/dL (6.2-8.2)
[2022-08-12 09:06] LABS: Albumin/Globulin Ratio 1.4 (1.60-3.17); Globulin 2.6 g/dL (1.6-3.3); Total Bilirubin 0.2 mg/dL (0.30-1.20)
[2022-08-12] MEDS: HYDROmorphone 1 MG/ML 1 ML SYRINGE IVP PRN ×3 (10:39→20:06)
--- NOTE | 2022-08-12 11:14 | P.PN ---
Subjective Progress Note Date: 08/12/22 This is a pleasant 67 years old female with past medical history of diabetes mellitus, depression, hypertension, hyperlipidemia Presents because of left leg swelling and redness and pain, getting worse over the last 1 week. Patient says that she's been suffering from left leg wound infection and nonhealing ulcers since last January and she was following up with the wound clinic to last 2 weeks when she lost her insurance but now she get it again. However she noticed over the last week that her left leg infection and also is getting worse so she decided to come to the hospital. It's painful for her and rest the pain as severe. She denies any other symptoms She smokes about 1 pack per day and she was counseled to quit and she agrees and she was the nicotine patch. She denies alcohol or illicit drugs Patient also was crying and feels depressed, she states that last week she had suicidal ideation but not today because she has grandchildren and she thinks they need her. Vitals are stable and patient is afebrile. Labs showing unremarkable CBC, BMP liver enzymes and urine analysis. On admission patient was started on IV vancomycin, and ID team consulted 08/11. Patient seen and examined. Vital signs stable. Patient has been afebrile. 08/12. Patient seen and examined. Laying comfortably in the bed states she is unable to sleep overnight. Vital signs stable REVIEW OF SYSTEMS: CONSTITUTIONAL: No fever, no malaise,. CARDIOVASCULAR: No chest pain, no palpitations, no syncope. PULMONARY: No shortness of breath, no cough, GASTROINTESTINAL: No diarrhea, no abdominal pain. NEUROLOGICAL: No headaches, no weakness, PHYSICAL EXAMINATION: GENERAL: The patient is alert and oriented x3, not in any acute distress. Well developed, well nourished. HEENT: Pupils are round and equally reacting to light. EOMI. No scleral icterus. No conjunctival pallor. Normocephalic, atraumatic. No pharyngeal erythema. No thyromegaly. CARDIOVASCULAR: S1 and S2 present. No murmurs, rubs, or gallops. PULMONARY: Chest is clear to auscultation, no wheezing or crackles. ABDOMEN: Soft, nontender, nondistended, normoactive bowel sounds. No palpable organomegaly. MUSCULOSKELETAL: Left ankle bandage seen EXTREMITIES: No cyanosis, clubbing, or pedal edema. NEUROLOGICAL: Gross neurological examination did not reveal any focal deficits. SKIN: No rashes. Assessment and plan Left leg cellulitis, with diabetic foot ulcer, nonhealing Left lower extremity swelling and tenderness, rule out ischemia Depression, with suicidal ideation last week but not today Diabetes mellitus with hyperglycemia Hypertension Hyperlipidemia History of depression , activation Plan: Monitor vital signs Monitor CBC continue with IV vancomycin Continue with insulin sliding scale Continue with Plavix Psychiatry reevaluated the patient, at this time patient does not meet inpatient criteria, recommend starting patient on Remeron Patient underwent Sharp excisional debridement of left lower extremity wounds #1 left ankle 3 x 2 x 0.3 cm to bone #2 left heel 2.5 x 2 x 0.2 to subcutaneous tissue Follow-up on ID recommendations DVT prophylaxis: Objective - Vital Signs Vital signs: Vital Signs Temp 98.5 F 08/12/22 07:45 Pulse 80 08/12/22 08:00 Resp 16 08/12/22 08:00 BP 171/74 08/12/22 07:45 Pulse Ox 99 08/12/22 07:45 FiO2 Intake & Output 08/11/22 08/12/22 08/12/22 18:59 06:59 18:59 Intake Total 980 1250 Output Total 5 Balance 975 1250 Intake: IV 500 Intake, IV Titration 1250 Amount Sodium Chloride 0.9% 1, 1000 000 ml @ 50 mls/hr IV . Q20H [facility] Rx#:[id number] Vancomycin 1,250 mg In 250 Sodium Chloride 0.9% 250 ml @ 125 mls/hr IVPB Q12H [facility] Rx#:[id number] Oral 480 Output: Estimated Blood Loss 5 Other: Voiding Method Toilet Toilet Toilet # Voids 2 - Labs CBC & Chem 7: 08/12/22 06:21 08/12/22 06:21 Labs: Abnormal Lab Results - Last 24 Hours (Table) 08/11/22 08/11/22 08/12/22 Range/Units 17:34 21:12 06:21 RBC (4.10-5.20) X 10*6/uL Hgb (12.0-15.0) g/dL Hct (37.2-46.3) % RDW (11.5-14.5) % MPV (9.5-12.2) fL Carbon Dioxide 28.9 H (20.0-27.5) mmol/L Anion Gap 8.20 L (10.00-18.00) mmol/L POC Glucose (mg/dL) 114 H 271 H (70-110) mg/dL Total Bilirubin 0.20 L (0.30-1.20) mg/dL ALT 45 H (8-44) U/L Albumin 3.6 L (3.8-4.9) g/dL Albumin/Globulin Ratio 1.40 L (1.60-3.17) g/dL 08/12/22 Range/Units 06:21 RBC 3.35 L (4.10-5.20) X 10*6/uL Hgb 10.4 L (12.0-15.0) g/dL Hct 31.6 L (37.2-46.3) % RDW 16.5 H (11.5-14.5) % MPV 8.6 L (9.5-12.2) fL Carbon Dioxide (20.0-27.5) mmol/L Anion Gap (10.00-18.00) mmol/L POC Glucose (mg/dL) (70-110) mg/dL Total Bilirubin (0.30-1.20) mg/dL ALT (8-44) U/L Albumin (3.8-4.9) g/dL Albumin/Globulin Ratio (1.60-3.17) g/dL Microbiology - Last 24 Hours (Table) 08/11/22 13:16 Gram Stain - Preliminary Ankle - Left Wound Culture - Preliminary 08/11/22 13:16 Anaerobic Culture - Preliminary Ankle - Left 08/09/22 18:21 Blood Culture - Preliminary Blood No Growth after 48 hours 08/09/22 18:21 Blood Culture - Preliminary Blood No Growth after 48 hours
[2022-08-12 12:27] LABS: Glucose,Whole Blood 340 mg/dL (70-110)
[2022-08-12] MEDS: ALPRAZolam 0.25 MG TAB PO PRN (15:27)
[2022-08-12 17:11] LABS: Glucose,Whole Blood 159 mg/dL (70-110)
[2022-08-12 19:48] LABS: Glucose,Whole Blood 241 mg/dL (70-110)
[2022-08-12] MEDS: MIRTAZAPINE 15 MG TAB PO SCH (20:07)
[2022-08-12] MEDS: MELATONIN 3 MG TABLET PO SCH (22:02)
--- NOTE | 2022-08-12 23:51 | P.PN ---
Subjective Progress Note Date: 08/11/22 Principal diagnosis: Left lateral leg/ankle area wound infection Patient is a 57 year old female past medical history significant for diabetes mellitus hypertension hyperlipidemia with a chronic nonhealing wound to the left lateral malleolar area presented to hospital worsening pain swelling and redness concerning for possible infected wound, patient was taken to the OR and status post surgical debridement and deep culture on 08/11/2022. On today's evaluation that is 08/11/2022 the patient denies having any fever or chills, the patient is breathing comfortably on room been no chest pain shortness with a cough no abdominal pain or any worsening pain to the left l ateral ankle wound area Objective - Vital Signs Vital signs: Vital Signs Temp 97.2 F L 08/11/22 12:31 Pulse 74 08/11/22 13:39 Resp 16 08/11/22 13:39 BP 153/69 08/11/22 13:39 Pulse Ox 99 08/11/22 13:39 FiO2 Intake & Output 08/10/22 08/11/22 08/11/22 18:59 06:59 18:59 Intake Total 236 550 500 Output Total 5 Balance 236 550 495 Intake: IV 500 Intake, IV Titration 550 Amount Sodium Chloride 0.9% 1, 50 000 ml @ 50 mls/hr IV . Q20H [facility] Rx#:[id number] Vancomycin 1,250 mg In 500 Sodium Chloride 0.9% 250 ml @ 125 mls/hr IVPB Q12H [facility] Rx#:[id number] Oral 236 Output: Estimated Blood Loss 5 Other: Voiding Method Toilet Toilet # Voids 1 - Exam GENERAL DESCRIPTION: Middle-age female lying in bed in no distress RESPIRATORY SYSTEM: Unlabored breathing , decreased breath sounds at bases HEART: S1 S2 regular rate and rhythm , ABDOMEN: Soft , no tenderness EXTREMITIES: Left lateral ankle area wound is currently dressed - Labs CBC & Chem 7: 08/12/22 06:21 08/12/22 06:21 Labs: Abnormal Lab Results - Last 24 Hours (Table) 08/10/22 08/10/22 08/11/22 Range/Units 17:22 22:15 05:16 Anion Gap (10.00-18.00) mmol/L BUN/Creatinine Ratio (12.00-20.00) Ratio Glucose (70-110) mg/dL POC Glucose (mg/dL) 169 H 164 H (70-110) mg/dL Hemoglobin A1c 7.2 H (0.0-6.0) % 08/11/22 08/11/22 Range/Units 05:16 06:20 Anion Gap 8.20 L (10.00-18.00) mmol/L BUN/Creatinine Ratio 24.38 H (12.00-20.00) Ratio Glucose 112 H (70-110) mg/dL POC Glucose (mg/dL) 118 H (70-110) mg/dL Hemoglobin A1c (0.0-6.0) % Microbiology - Last 24 Hours (Table) 08/09/22 18:21 Blood Culture - Preliminary Blood No Growth after 24 hours 08/09/22 18:21 Blood Culture - Preliminary Blood No Growth after 24 hours Assessment and Plan (1) Cellulitis Current Visit: Yes Status: Acute Code(s): L03.90 - CELLULITIS, UNSPECIFIED SNOMED Code(s): 187809062 (2) Diabetic ulcer of ankle Current Visit: No Status: Acute Code(s): E11.622 - TYPE 2 DIABETES MELLITUS WITH OTHER SKIN ULCER; L97.309 - NON-PRESSURE CHRONIC ULCER OF UNSP ANKLE WITH UNSP SEVERITY SNOMED Code(s): 869603612 Plan: 1patient with a chronic nonhealing wound to the left lateral ankle area which has been there for couple of months now with recent worsening and concern for secondary cellulitis likely from gram-positive skin brenda. 2patient is status post surgical debridement and deep culture with that currently pending. 3patient to continue with vancomycin pharmacy to dose target trough of 15 while watching kidney function and vancomycin trough closely while waiting for the cultures to finalize.
--- NOTE | 2022-08-12 23:53 | P.PN ---
Subjective Progress Note Date: 08/12/22 Principal diagnosis: Left lateral leg/ankle area wound infection Patient is a 57 year old female past medical history significant for diabetes mellitus hypertension hyperlipidemia with a chronic nonhealing wound to the left lateral malleolar area presented to hospital worsening pain swelling and redness concerning for possible infected wound, patient was taken to the OR and status post surgical debridement and deep culture on 08/11/2022. On today's evaluation that is 08/12/2022 the patient remains to be afebrile , the patient is breathing comfortably on room . The patient denies chest pain shortness with a cough no abdominal pain , the patient pain to the left lateral ankle wound area is controlled with current medication Objective - Vital Signs Vital signs: Vital Signs Temp 98.9 F 08/12/22 15:00 Pulse 85 08/12/22 15:00 Resp 16 08/12/22 15:00 BP 169/73 08/12/22 15:00 Pulse Ox 98 08/12/22 15:00 FiO2 Intake & Output 08/12/22 08/12/22 08/13/22 06:59 18:59 06:59 Intake Total 1250 960 Balance 1250 960 Intake: Intake, IV Titration 1250 Amount Sodium Chloride 0.9% 1, 1000 000 ml @ 50 mls/hr IV . Q20H [facility] Rx#:[id number] Vancomycin 1,250 mg In 250 Sodium Chloride 0.9% 250 ml @ 125 mls/hr IVPB Q12H [facility] Rx#:[id number] Oral 960 Other: Voiding Method Toilet Toilet # Voids 3 - Exam GENERAL DESCRIPTION: Middle-age female lying in bed in no distress RESPIRATORY SYSTEM: Unlabored breathing , decreased breath sounds at bases HEART: S1 S2 regular rate and rhythm , ABDOMEN: Soft , no tenderness EXTREMITIES: Left lateral ankle area wound is currently dressed, and no drainage on the dressing - Labs CBC & Chem 7: 08/12/22 06:21 08/12/22 06:21 Labs: Abnormal Lab Results - Last 24 Hours (Table) 08/12/22 08/12/22 08/12/22 Range/Units 06:21 06:21 12:25 RBC 3.35 L (4.10-5.20) X 10*6/uL Hgb 10.4 L (12.0-15.0) g/dL Hct 31.6 L (37.2-46.3) % RDW 16.5 H (11.5-14.5) % MPV 8.6 L (9.5-12.2) fL Carbon Dioxide 28.9 H (20.0-27.5) mmol/L Anion Gap 8.20 L (10.00-18.00) mmol/L POC Glucose (mg/dL) 340 H (70-110) mg/dL Total Bilirubin 0.20 L (0.30-1.20) mg/dL ALT 45 H (8-44) U/L Albumin 3.6 L (3.8-4.9) g/dL Albumin/Globulin Ratio 1.40 L (1.60-3.17) g/dL 08/12/22 08/12/22 Range/Units 17:10 19:46 RBC (4.10-5.20) X 10*6/uL Hgb (12.0-15.0) g/dL Hct (37.2-46.3) % RDW (11.5-14.5) % MPV (9.5-12.2) fL Carbon Dioxide (20.0-27.5) mmol/L Anion Gap (10.00-18.00) mmol/L POC Glucose (mg/dL) 159 H 241 H (70-110) mg/dL Total Bilirubin (0.30-1.20) mg/dL ALT (8-44) U/L Albumin (3.8-4.9) g/dL Albumin/Globulin Ratio (1.60-3.17) g/dL Microbiology - Last 24 Hours (Table) 08/09/22 18:21 Blood Culture - Preliminary Blood No Growth after 72 hours 08/09/22 18:21 Blood Culture - Preliminary Blood No Growth after 72 hours 08/11/22 13:16 Gram Stain - Preliminary Ankle - Left Wound Culture - Preliminary Presumptive Staph aureus 08/11/22 13:16 Anaerobic Culture - Preliminary Ankle - Left Assessment and Plan (1) Cellulitis Current Visit: Yes Status: Acute Code(s): L03.90 - CELLULITIS, UNSPECIFIED SNOMED Code(s): 067505954 (2) Diabetic ulcer of ankle Current Visit: No Status: Acute Code(s): E11.622 - TYPE 2 DIABETES MELLITUS WITH OTHER SKIN ULCER; L97.309 - NON-PRESSURE CHRONIC ULCER OF UNSP ANKLE WITH UNSP SEVERITY SNOMED Code(s): 580550605 Plan: 1patient with a chronic nonhealing wound to the left lateral ankle area which has been there for couple of months now with recent worsening and concern for secondary cellulitis likely from gram-positive skin brenda. 2patient is status post surgical debridement and deep culture with that current ly growing presumptive staph aureus 3patient to continue with vancomycin pharmacy to dose target trough of 15 while watching kidney function and vancomycin trough closely while waiting for the cultures to finalize.
[2022-08-13] MEDS: HYDROmorphone 1 MG/ML 1 ML SYRINGE IVP PRN ×6 (00:29→22:21)
[2022-08-13] MEDS: VANCOMYCIN 1,250 MG in SODIUM CHLORIDE 0.9% 250 ML IVPB SCH ×2 (04:51→17:56)
[2022-08-13 06:26] LABS: Glucose,Whole Blood 185 mg/dL (70-110)
[2022-08-13] MEDS: INSULIN ASPART (NovoLOG) 100 UNIT/ML VIAL SQ SCH ×4 (06:40→22:19)
[2022-08-13] MEDS: glipiZIDE 5 MG TAB PO SCH ×2 (06:40→17:36)
[2022-08-13] MEDS: PANTOPRAZOLE 40 MG TABLET PO SCH (06:40)
[2022-08-13 09:01] LABS: HCT 30.3 % (37.2-46.3); MCH 30.8 pg (27.0-32.0); MCV 93.2 fL (80.0-97.0); Mean Platelet Volume 8.8 fL (9.5-12.2); NRBC Per 100 WBC 0 /100 WBCS (0.0-0.0); Platelet Count 419 X 10*3/uL (140-440); RBC 3.25 X 10*6/uL (4.10-5.20); RDW 15.9 % (11.5-14.5)
[2022-08-13] MEDS: NICOTINE 21MG/24HR PATCH TRANSDERM SCH (09:02)
[2022-08-13] MEDS: ASPIRIN 81 MG PO SCH (09:03)
[2022-08-13] MEDS: amLODIPine 5 MG TAB PO SCH (09:03)
[2022-08-13] MEDS: FUROSEMIDE 20 MG TAB PO SCH ×2 (09:03→15:33)
[2022-08-13] MEDS: CLOPIDOGREL 75 MG TAB PO SCH (09:03)
[2022-08-13] MEDS: GABAPENTIN 300 MG CAP PO SCH ×4 (09:04→22:20)
[2022-08-13 09:18] LABS: ALT 34 U/L (8-44); AST 20 U/L (13-35); African American GFR (CKD) 81.7 (60.0-200.0); Albumin 3.5 g/dL (3.8-4.9); Alkaline Phosphatase 90 U/L (41-126); BUN/Creat Ratio 21.78 Ratio (12.00-20.00); Blood Urea Nitrogen 19.6 mg/dL (9.0-27.0); Carbon Dioxide 29.1 mmol/L (20.0-27.5); Chloride 101 mmol/L (96-109); Globulin 2.5 g/dL (1.6-3.3); Glucose 179 mg/dL (70-110); Non-African American GFR(CKD) 70.5 (60.0-200.0); Potassium 4.8 mmol/L (3.5-5.5); Sodium 139 mmol/L (135-145); Total Bilirubin <0.15 mg/dL (0.30-1.20)
[2022-08-13] MEDS: buPROPion XL 150 MG TAB.ER.24H PO SCH (10:12)
[2022-08-13] MEDS: LISINOPRIL-HCTZ 20-25 MG 1 EACH TAB PO SCH (10:12)
[2022-08-13] MEDS: busPIRone HCl 10 MG TAB PO SCH ×3 (10:12→22:20)
[2022-08-13] MEDS: cilostazoL 100 MG TAB PO SCH ×2 (10:13→20:39)
--- NOTE | 2022-08-13 11:04 | P.PN ---
Subjective Progress Note Date: 08/13/22 Principal diagnosis: Cellulitis, left foot nonhealing wounds Patient was seen and examined today as a follow-up. She is postop day #2 status post debridement of the left ankle and heel. Patient states she still has pain in that left foot. Dressing is clean dry and intact. Wound cultures preliminaries coming back as probable staph aureus. Patient is currently on vancomycin. She is afebrile. Objective - Vital Signs Vital signs: Vital Signs Temp 98 F 08/13/22 07:00 Pulse 83 08/13/22 07:00 Resp 18 08/13/22 07:00 BP 154/64 08/13/22 07:00 Pulse Ox 99 08/13/22 07:00 FiO2 Intake & Output 08/12/22 08/13/22 08/13/22 18:59 06:59 18:59 Intake Total 960 1000 Balance 960 1000 Intake: Intake, IV Titration 500 Amount Sodium Chloride 0.9% 1, 500 000 ml @ 50 mls/hr IV . Q20H [facility] Rx#:[id number] Oral 960 500 Other: Voiding Method Toilet Toilet # Voids 3 1 - Exam General appearance: The patient is alert, oriented, appears in no acute distress. HET: Head is normocephalic and atraumatic. Neck: Supple. Extremities: Bilateral lower extremity swelling, left greater than right.Left lower extremity ulcer to heal pink tissue, no surrounding erythema or foul drainage, lateral aspect of ankle again with viable tissue, no foul odorsignificant drainage. Foot is warm to the touch. Patient has bilateral palpable femoral pulses, left greater than right. Bilateral popliteal, PT signals, right DP signal. Unable to obtain left DP signal. Left press and blow machine tender to palpation. Neurological: No focal deficits. Strength and sensation are grossly intact. - Labs CBC & Chem 7: 08/13/22 06:01 08/13/22 06:01 Labs: Abnormal Lab Results - Last 24 Hours (Table) 08/12/22 08/12/22 08/12/22 Range/Units 12:25 17:10 19:46 RBC (4.10-5.20) X 10*6/uL Hgb (12.0-15.0) g/dL Hct (37.2-46.3) % RDW (11.5-14.5) % MPV (9.5-12.2) fL Carbon Dioxide (20.0-27.5) mmol/L Anion Gap (10.00-18.00) mmol/L BUN/Creatinine Ratio (12.00-20.00) Ratio Glucose (70-110) mg/dL POC Glucose (mg/dL) 340 H 159 H 241 H (70-110) mg/dL Total Bilirubin (0.30-1.20) mg/dL Total Protein (6.2-8.2) g/dL Albumin (3.8-4.9) g/dL Albumin/Globulin Ratio (1.60-3.17) g/dL 08/13/22 08/13/22 08/13/22 Range/Units 06:01 06:01 06:24 RBC 3.25 L (4.10-5.20) X 10*6/uL Hgb 10.0 L (12.0-15.0) g/dL Hct 30.3 L (37.2-46.3) % RDW 15.9 H (11.5-14.5) % MPV 8.8 L (9.5-12.2) fL Carbon Dioxide 29.1 H (20.0-27.5) mmol/L Anion Gap 8.90 L (10.00-18.00) mmol/L BUN/Creatinine Ratio 21.78 H (12.00-20.00) Ratio Glucose 179 H (70-110) mg/dL POC Glucose (mg/dL) 185 H (70-110) mg/dL Total Bilirubin <0.15 L (0.30-1.20) mg/dL Total Protein 6.0 L (6.2-8.2) g/dL Albumin 3.5 L (3.8-4.9) g/dL Albumin/Globulin Ratio 1.40 L (1.60-3.17) g/dL Microbiology - Last 24 Hours (Table) 08/09/22 18:21 Blood Culture - Preliminary Blood No Growth after 72 hours 08/09/22 18:21 Blood Culture - Preliminary Blood No Growth after 72 hours 08/11/22 13:16 Gram Stain - Preliminary Ankle - Left Wound Culture - Preliminary Presumptive Staph aureus Assessment and Plan Assessment: 1. Nonhealing diabetic ulcers left lower extremity status post debridement 2. Cellulitis left lower extremity 3. History of peripheral arterial disease with previous bilateral lower extremity stenting, likely clotted 4. Diabetes mellitus 5. Hyperlipidemia 6. Current smoker half pack per day for greater than 30 years Plan: 1. Wound care center consulted, patient will need further wound care management and is known to them 2. Follow-up in the office with Dr. Chao, further outpatient workup for peripheral arterial disease 3. Continue with recommendations from infectious disease Thank you for this consultation, we will sign off at this time. The impression and plan of care has been dictated as directed. Dr. Jensen I performed a history and examination of this patient, discussed the same with the dictator. I agree with the dictator's note ,documented as a scribe. Any additional findings or plans will be noted.
[2022-08-13] MEDS: HYDROcodone/APAP 10-325MG 1 EACH TAB PO PRN ×3 (11:21→20:54)
[2022-08-13 12:15] LABS: Glucose,Whole Blood 154 mg/dL (70-110)
[2022-08-13] MEDS: ALPRAZolam 0.25 MG TAB PO PRN (12:22)
--- NOTE | 2022-08-13 13:01 | P.CONS ---
History of Present Illness - Reason for Consult Consult date: 08/13/22 wound care - History of Present Illness This a pleasant 57-year-old female who presented to the emergency department with pain in her right foot. Patient states she's had a nonhealing ulcer to her left foot leg and ankle since January. She has been going to the wound care center however recently lost her insurance. Last time was 4 weeks ago. She states that they were using that a honey for treatment. She has a past medical history including diabetes mellitus, hyperlipidemia and is a current smoker 30+ years down to half pack per day now. She also has a history of peripheral arterial disease with previous stents in bilateral lower extremities done at [facility] by Dr. Moreira. Patient has 2 open ulcerations to the left ankle and the left calcaneus. They were recently surgical debridement. Granulation seen t hroughout with minimal slough. Patient now has insurance and will return to the wound care center. Review Of Systems: Constitutional: No fever, no chills, no night sweats. No weight change. No weakness, fatigue or lethargy. No daytime sleepiness. Integumentary:reports wounds, no lesions. No rash or pruritus. No unusual bruising. No change in hair or nails. Physical exam: General Appearance: Alert, cooperative, no distress, appears stated age. Skin: See HPI all other Skin color, texture, tugor normal, no rashes or lesions. Neurologic: Alert oriented x3 Assessment: 1. Diabetes to skin ulcer 2. 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 Arthrosclerosis of [place] arteries of left leg with ulceration of ankle 4. Arthrosclerosis of [place] arteries of left leg with ulceration of other part of left foot Land: 1. Apply Santyl, saline moistened gauze, dry gauze, rolled gauze and secure with tape. Change daily. Patient to return to the wound care center for advance wound care. We'll be happy to see her. Thank you for the consultation any questions his contact the wound care center DNP note has been reviewed and discussed with Dr. Glynn and the impression and plan of care has been directed as dictated. Past Medical History Past Medical History: Diabetes Mellitus, GERD/Reflux, Hyperlipidemia, Hypertension Additional Past Medical History / Comment(s): pancreatitis, bilateral leg stents History of Any Multi-Drug Resistant Organisms: None Reported Past Surgical History: Appendectomy, Hernia Repair, Hysterectomy, Orthopedic Surgery Additional Past Surgical History / Comment(s): jody carpal tunnel, bone spur rt ankle. cyst from lung. nasal surgery from broken nose. laser throat to stop snoring Past Anesthesia/Blood Transfusion Reactions: No Reported Reaction Past Psychological History: Depression Smoking Status: Current every day smoker Past Alcohol Use History: None Reported Past Drug Use History: None Reported - Past Family History Father Family Medical History: Cancer, Myocardial Infarction ([place]) Additional Family Medical History / Comment(s): colon cancer with mets Mother Family Medical History: Cancer Additional Family Medical History / Comment(s): lung cancer with mets Sister(s) Family Medical History: Diabetes Mellitus Brother(s) Family Medical History: Cancer Additional Family Medical History / Comment(s): throat cancer Medications and Allergies Home Medications Medication Instructions Recorded Confirmed Type Lisinopril-Hctz 20-25 mg 1 tab PO DAILY 03/09/14 08/09/22 History [Zestoretic 20-25] Aspirin 81 mg PO DAILY 03/20/22 08/09/22 History Clopidogrel [Plavix] 75 mg PO DAILY 03/20/22 08/09/22 History Furosemide [Lasix] 20 mg PO BID@0900,1600 03/20/22 08/09/22 History Pantoprazole [Protonix] 40 mg PO DAILY 03/20/22 08/09/22 History Rosuvastatin [Crestor] 10 mg PO MOFR@2100 03/20/22 08/09/22 History Venlafaxine HCl ER [Effexor Xr] 150 mg PO DAILY 03/20/22 08/09/22 History cilostazoL [Pletal] 100 mg PO BID 03/20/22 08/09/22 History glipiZIDE [Glucotrol] 7.5 mg PO AC-BID 03/20/22 08/09/22 History Doxycycline Hyclate 100 mg PO BID 08/09/22 08/09/22 History Gabapentin 600 mg PO QID 08/09/22 08/09/22 History HYDROcodone/APAP 10-325MG [[place] 1 tab PO Q4HR PRN 08/09/22 08/09/22 History 10-325] Lidocaine 5% Oint [Xylocaine 5% 1 applic TOPICAL Q4H PRN 08/09/22 08/09/22 His tory Oint] buPROPion XL [Wellbutrin XL] 150 mg PO DAILY 08/09/22 08/09/22 History busPIRone HCl [Buspar] 10 mg PO TID 08/09/22 08/09/22 History Allergies Allergy/AdvReac Type Severity Reaction Status Date / Time NSAIDS (Non-Steroidal AdvReac Abdominal Verified 08/11/22 12:36 Anti-Inflamma Pain prednisone AdvReac Abdominal Verified 08/11/22 12:36 Pain sitagliptin [From Januvia] AdvReac see comment Verified 08/11/22 12:36 Physical Exam Vitals: Vital Signs Temp Pulse Resp BP Pulse Ox 08/13/22 07:00 98 F 83 18 154/64 99 08/13/22 04:09 97.4 F L 85 19 155/76 96 08/12/22 20:00 106 H 19 08/12/22 19:51 99.1 F 106 H 19 179/92 98 08/12/22 15:00 98.9 F 85 16 169/73 98 08/12/22 14:00 80 16 Intake and Output 08/12/22 08/13/22 08/13/22 22:59 06:59 14:59 Intake Total 240 1000 Balance 240 1000 Intake: Intake, IV Titration 500 Amount Sodium Chloride 0.9% 1, 500 000 ml @ 50 mls/hr IV . Q20H [facility] Rx#:[id number] Oral 240 500 Other: Voiding Method Toilet # Voids 1 Results CBC & Chem 7: 08/13/22 06:01 08/13/22 06:01 Labs: Abnormal Lab Results - Last 24 Hours (Table) 08/12/22 08/12/22 08/13/22 Range/Units 17:10 19:46 06:01 RBC (4.10-5.20) X 10*6/uL Hgb (12.0-15.0) g/dL Hct (37.2-46.3) % RDW (11.5-14.5) % MPV (9.5-12.2) fL Carbon Dioxide 29.1 H (20.0-27.5) mmol/L Anion Gap 8.90 L (10.00-18.00) mmol/L BUN/Creatinine Ratio 21.78 H (12.00-20.00) Ratio Glucose 179 H (70-110) mg/dL POC Glucose (mg/dL) 159 H 241 H (70-110) mg/dL Total Bilirubin <0.15 L (0.30-1.20) mg/dL Total Protein 6.0 L (6.2-8.2) g/dL Albumin 3.5 L (3.8-4.9) g/dL Albumin/Globulin Ratio 1.40 L (1.60-3.17) g/dL 08/13/22 08/13/22 08/13/22 Range/Units 06:01 06:24 12:09 RBC 3.25 L (4.10-5.20) X 10*6/uL Hgb 10.0 L (12.0-15.0) g/dL Hct 30.3 L (37.2-46.3) % RDW 15.9 H (11.5-14.5) % MPV 8.8 L (9.5-12.2) fL Carbon Dioxide (20.0-27.5) mmol/L Anion Gap (10.00-18.00) mmol/L BUN/Creatinine Ratio (12.00-20.00) Ratio Glucose (70-110) mg/dL POC Glucose (mg/dL) 185 H 154 H (70-110) mg/dL Total Bilirubin (0.30-1.20) mg/dL Total Protein (6.2-8.2) g/dL Albumin (3.8-4.9) g/dL Albumin/Globulin Ratio (1.60-3.17) g/dL Microbiology - Last 24 Hours (Table) 08/09/22 18:21 Blood Culture - Preliminary Blood No Growth after 72 hours 08/09/22 18:21 Blood Culture - Preliminary Blood No Growth after 72 hours 08/11/22 13:16 Gram Stain - Preliminary Ankle - Left Wound Culture - Preliminary Presumptive Staph aureus Assessment and Plan (1) Atherosclerosis of [place] arteries of left leg with ulceration of other part of foot Current Visit: Yes Status: Acute Code(s): I70.245 - ATHSCL [place] ARTERIES OF LEFT LEG W ULCERATION OTH PRT FOOT SNOMED Code(s): 634680589 (2) Type 2 diabetes mellitus with foot ulcer Current Visit: Yes Status: Acute Code(s): E11.621 - TYPE 2 DIABETES MELLITUS WITH FOOT ULCER; L97.509 - NON-PRESSURE CHRONIC ULCER OTH PRT UNSP FOOT W UNSP SEVERITY SNOMED Code(s): 401331069 (3) Non-pressure chronic ulcer of left ankle with fat layer exposed Current Visit: Yes Status: Acute Code(s): L97.322 - NON-PRESSURE CHRONIC ULCER OF LEFT ANKLE W FAT LAYER EXPOSED SNOMED Code(s): 81258474196406493 (4) Atherosclerosis of left lower extremity with ulceration of ankle Current Visit: No Status: Acute Code(s): I70.243 - ATHSCL [place] ARTERIES OF LEFT LEG W ULCERATION OF ANKLE SNOMED Code(s): 97735987
[2022-08-13] MEDS ORDERED: TEMAZEPAM 15 MG CAP PO PRN (15:19)
[2022-08-13] MEDS: COLLAGENASE 250 UNIT/GM OINTMENT 30 GM TUBE TOPICAL SCH (15:34)
[2022-08-13 17:20] LABS: Glucose,Whole Blood 218 mg/dL (70-110)
[2022-08-13] MEDS: SODIUM CHLORIDE 0.9% 1,000 ML IV SCH (18:48)
[2022-08-13] MEDS: MIRTAZAPINE 15 MG TAB PO SCH (20:39)
[2022-08-13] MEDS: ATORVASTATIN 20 MG TAB PO SCH (20:40)
[2022-08-13 21:04] LABS: Glucose,Whole Blood 260 mg/dL (70-110)
[2022-08-13] MEDS: MELATONIN 3 MG TABLET PO SCH (22:20)
[2022-08-14] MEDS: HYDROmorphone 1 MG/ML 1 ML SYRINGE IVP PRN ×3 (02:37→11:19)
[2022-08-14] MEDS ORDERED: VANCOMYCIN TROUGH DUE 1 EACH MISC MISCELLANE ONE (05:00)
--- NOTE | 2022-08-14 06:23 | P.PN ---
Subjective Progress Note Date: 08/13/22 This is a pleasant 67 years old female with past medical history of diabetes mellitus, depression, hypertension, hyperlipidemia Presents because of left leg swelling and redness and pain, getting worse over the last 1 week. Patient says that she's been suffering from left leg wound infection and nonhealing ulcers since last January and she was following up with the wound clinic to last 2 weeks when she lost her insurance but now she get it again. However she noticed over the last week that her left leg infection and also is getting worse so she decided to come to the hospital. It's painful for her and rest the pain as severe. She denies any other symptoms She smokes about 1 pack per day and she was counseled to quit and she agrees and she was the nicotine patch. She denies alcohol or illicit drugs Patient also was crying and feels depressed, she states that last week she had suicidal ideation but not today because she has grandchildren and she thinks they need her. Vitals are stable and patient is afebrile. Labs showing unremarkable CBC, BMP liver enzymes and urine analysis. On admission patient was started on IV vancomycin, and ID team consulted 08/11. Patient seen and examined. Vital signs stable. Patient has been afebrile. 08/12. Patient seen and examined. Laying comfortably in the bed states she is unable to sleep overnight. Vital signs stable 08/13/2022 Patient is seen in follow up with ID, vascular surgery, and wound care following. Patient is status post debridement of the left ankle area with vascular surgery and awaiting deep tissue cultures to finalize. Patient is maintained on vanco and will discuss with ID about possible IV abx on discharge. Social work following in the event patient will need IV abx in the outpatient setting. Wound care consulted as patient followed with them outpatient although lost insurance and has recently gotten her insurance back. Patient continues to report severe pain with some swelling of the left lower extremity. Patient is continued on oral lasix low dose bid and will give a dose of IV lasix. Patient to elevate while at rest. Repeat labs ordered. Afebrile and denies chest pain or shortness of breath. No reports of nausea or vomiting noted. Not really sleeping well due to the pain per patient report. REVIEW OF SYSTEMS: CONSTITUTIONAL: No fever, no malaise,. CARDIOVASCULAR: No chest pain, no palpitations, no syncope. PULMONARY: No shortness of breath, no cough, GASTROINTESTINAL: No diarrhea, no abdominal pain. NEUROLOGICAL: No headaches, no weakness, reports left foot swelling and pain. PHYSICAL EXAMINATION: GENERAL: The patient is alert and oriented x3, not in any acute distress. Well developed, well nourished. HEENT: Pupils are round and equally reacting to light. EOMI. No scleral icterus. No conjunctival pallor. Normocephalic, atraumatic. No pharyngeal erythema. No thyromegaly. CARDIOVASCULAR: S1 and S2 present. No murmurs, rubs, or gallops. PULMONARY: Chest is clear to auscultation, no wheezing or crackles. ABDOMEN: Soft, non-tender, non-distended, normoactive bowel sounds. No palpable organomegaly. MUSCULOSKELETAL: Left ankle bandage seen EXTREMITIES: No cyanosis, clubbing, left pedal edema 1+ pitting NEUROLOGICAL: Gross neurological examination did not reveal any focal deficits. SKIN: No rashes. Assessment: Left leg cellulitis, with diabetic foot ulcer, non-healing post debridement with vascular surgery Left lower extremity swelling and tenderness, rule out ischemia Depression, with no thoughts of suicidal ideation Diabetes mellitus uncontrolled with hyperglycemia Hypertension Hyperlipidemia History of depression GI and dvt prophylaxis Full code Plan: continue with IV vancomycin Continue with insulin sliding scale Continue with Plavix Psychiatry has seen the patient and not suicidal or having thoughts of suicide Patient is post debridement of left lower extremity wounds and vascular recommending outpatient follow up with Dr. Zhanna SHEPPARD following and awaiting deep tissue cultures to finalize. Staphylcoccus aureus on cultures, Follow-up on ID recommendations and will discuss if abx outpatient PT/OT evaluation and social work following for discharge planning needs Encouraged increased activity as tolerated with a walker and restrictions on weight bearing per vascular surgery. Continue pain regimen and limit use of IV narcotics if possible. Will give a dose of IV lasix for the swelling of the left extremity. continue oral lasix as scheduled. Due to multiple complex medical issues and recent loss of insurance, prognosis is guarded. Possible discharge in 24-48 hours. The impression and plan of care has been dictated by Lary Rodriguez, Nurse Practitioner as directed. Dr. Eliud MD I have performed a history and examination and MDM of this patient, discussed the same with the dictator, and agree with the dictator's assessment and plan as written ,documented as a scribe. Based on total visit time, I have performed more than 50% of the visit. Objective - Vital Signs Vital signs: Vital Signs Temp 98 F 08/13/22 07:00 Pulse 83 08/13/22 07:00 Resp 18 08/13/22 07:00 BP 154/64 08/13/22 07:00 Pulse Ox 99 08/13/22 07:00 FiO2 Intake & Output 08/12/22 08/13/22 08/13/22 18:59 06:59 18:59 Intake Total 960 1000 Balance 960 1000 Intake: Intake, IV Titration 500 Amount Sodium Chloride 0.9% 1, 500 000 ml @ 50 mls/hr IV . Q20H [facility] Rx#:[id number] Oral 960 500 Other: Voiding Method Toilet Toilet # Voids 3 1 - Labs CBC & Chem 7: 08/13/22 06:01 08/13/22 06:01 Labs: Abnormal Lab Results - Last 24 Hours (Table) 08/12/22 08/12/22 08/12/22 Range/Units 12:25 17:10 19:46 RBC (4.10-5.20) X 10*6/uL Hgb (12.0-15.0) g/dL Hct (37.2-46.3) % RDW (11.5-14.5) % MPV (9.5-12.2) fL Carbon Dioxide (20.0-27.5) mmol/L Anion Gap (10.00-18.00) mmol/L BUN/Creatinine Ratio (12.00-20.00) Ratio Glucose (70-110) mg/dL POC Glucose (mg/dL) 340 H 159 H 241 H (70-110) mg/dL Total Bilirubin (0.30-1.20) mg/dL Total Protein (6.2-8.2) g/dL Albumin (3.8-4.9) g/dL Albumin/Globulin Ratio (1.60-3.17) g/dL 08/13/22 08/13/22 08/13/22 Range/Units 06:01 06:01 06:24 RBC 3.25 L (4.10-5.20) X 10*6/uL Hgb 10.0 L (12.0-15.0) g/dL Hct 30.3 L (37.2-46.3) % RDW 15.9 H (11.5-14.5) % MPV 8.8 L (9.5-12.2) fL Carbon Dioxide 29.1 H (20.0-27.5) mmol/L Anion Gap 8.90 L (10.00-18.00) mmol/L BUN/Creatinine Ratio 21.78 H (12.00-20.00) Ratio Glucose 179 H (70-110) mg/dL POC Glucose (mg/dL) 185 H (70-110) mg/dL Total Bilirubin <0.15 L (0.30-1.20) mg/dL Total Protein 6.0 L (6.2-8.2) g/dL Albumin 3.5 L (3.8-4.9) g/dL Albumin/Globulin Ratio 1.40 L (1.60-3.17) g/dL Microbiology - Last 24 Hours (Table) 08/09/22 18:21 Blood Culture - Preliminary Blood No Growth after 72 hours 08/09/22 18:21 Blood Culture - Preliminary Blood No Growth after 72 hours 08/11/22 13:16 Gram Stain - Preliminary Ankle - Left Wound Culture - Preliminary Presumptive Staph aureus
[2022-08-14 06:41] LABS: Glucose,Whole Blood 225 mg/dL (70-110)
[2022-08-14] MEDS: INSULIN ASPART (NovoLOG) 100 UNIT/ML VIAL SQ SCH ×3 (06:46→16:41)
[2022-08-14] MEDS: glipiZIDE 5 MG TAB PO SCH (06:46)
[2022-08-14] MEDS: PANTOPRAZOLE 40 MG TABLET PO SCH (06:47)
[2022-08-14] MEDS: VANCOMYCIN 1,250 MG in SODIUM CHLORIDE 0.9% 250 ML IVPB SCH (07:00)
[2022-08-14 08:19] VITALS: RESP 16
[2022-08-14] MEDS: FUROSEMIDE 20 MG TAB PO SCH ×2 (09:15→16:40)
[2022-08-14] MEDS: amLODIPine 5 MG TAB PO SCH (09:15)
[2022-08-14] MEDS: CLOPIDOGREL 75 MG TAB PO SCH (09:15)
[2022-08-14] MEDS: ASPIRIN 81 MG PO SCH (09:15)
[2022-08-14] MEDS: GABAPENTIN 300 MG CAP PO SCH ×2 (09:15→11:57)
[2022-08-14] MEDS: busPIRone HCl 10 MG TAB PO SCH (09:16)
[2022-08-14] MEDS: LISINOPRIL-HCTZ 20-25 MG 1 EACH TAB PO SCH (09:16)
[2022-08-14] MEDS: buPROPion XL 150 MG TAB.ER.24H PO SCH (09:17)
[2022-08-14] MEDS: cilostazoL 100 MG TAB PO SCH (09:17)
[2022-08-14] MEDS: NICOTINE 21MG/24HR PATCH TRANSDERM SCH (09:17)
[2022-08-14] MEDS: HYDROcodone/APAP 10-325MG 1 EACH TAB PO PRN ×2 (09:26→14:24)
[2022-08-14 09:38] LABS: African American GFR (CKD) 71.9 (60.0-200.0); Non-African American GFR(CKD) 62.1 (60.0-200.0)
[2022-08-14 11:43] LABS: Glucose,Whole Blood 229 mg/dL (70-110)
[2022-08-14 12:51] VITALS: BP 183/77; PULSE 99; TEMP 98.9
[2022-08-14] MEDS: ALPRAZolam 0.25 MG TAB PO PRN (14:27)
[2022-08-14] MEDS ORDERED: HYDROmorphone 1 MG/ML 1 ML SYRINGE IM STA (14:46)
[2022-08-14] MEDS: SODIUM CHLORIDE 0.9% 1,000 ML IV SCH (15:13)
[2022-08-14] MEDS: COLLAGENASE 250 UNIT/GM OINTMENT 30 GM TUBE TOPICAL SCH (15:17)
[2022-08-14] MEDS ORDERED: VANCOMYCIN 1,000 MG in SODIUM CHLORIDE 0.9% 250 ML IVPB SCH (20:00)
--- NOTE | 2022-08-19 11:21 | P.DS ---
Providers Date of admission: 08/13/22 08:29 Expected date of discharge: 08/14/22 Attending physician: Anastasiia Hernandez Consults: 08/09/22 19:47 Consult Physician Routine Consulting Provider: Ivania Caldwell Consult Reason/Comments: LLE cellulitis, failed OP Do you want consulting provider notified?: Yes, Notify in am 08/10/22 07:30 Consult Physician Urgent Consulting Provider: Stefanie Chao Consult Reason/Comments: non healing left lower ext infection Do you want consulting provider notified?: Yes 08/10/22 07:31 Consult Physician Urgent Consulting Provider: [place] Consult Reason/Comments: depression , was suicidal last week Do you want consulting provider notified?: Yes Primary care physician: Maxine Montalvo Hospital Course: Final diagnosis Left leg cellulitis, with diabetic foot ulcer, non-healing post debridement with vascular surgery Left lower extremity swelling and tenderness, rule out ischemia Depression, with no thoughts of suicidal ideation Diabetes mellitus uncontrolled with hyperglycemia Hypertension Hyperlipidemia History of depression GI and dvt prophylaxis Full code Discharge disposition Patient is being discharged in a stable condition with guarded prognosis to home with home care. Patient will follow-up with Dr. Montalvo in the outpatient setting upon discharge. Patient is to follow with ID and the wound care center as scheduled. Patient will continue on oral Keflex QID per ID recommendations. Total time taken is greater than 35 minutes. Hospital course This is a 57-year-old female who was recently admitted with left leg diabetic ulcer with cellulitis and failure of outpatient treatment. Patient had recently lost her insurance and was unable to follow up. Patient with left leg and ankle cellulitis post deep debridement. ID and vascular surgery following and will need outpatient follow up at the wound center as well. Patient to continue with oral Keflex 500mg four times daily per ID and follow up in 1 week. To continue with local wound care. Tighter glycemic control discussed. Currently no reports of chest pain, shortness of breath, or palpitations. Patient is afebrile. No reports of nausea or vomiting and patient is tolerating diet. Patient will be discharged home today. Guarded prognosis. Physical exam: Gen: This is a 57 year old female who is awake alert and oriented x3. well developed, well nourished HEENT: Head is atraumatic, normocephalic. Pupils equal, round. Sclerae is anicteric. NECK: Supple. No JVD. No lymphadenopathy. No thyromegaly. LUNGS: Clear to auscultation. No wheezes or rhonchi. No intercostal retractions. HEART: Regular rate and rhythm. No murmur. ABDOMEN: Soft. Bowel sounds are present. No masses. No tenderness. EXTREMITIES: mild left pedal edema. No calf tenderness. left lower extremity swelling noted with some improvement, post debridement and dressing is dry and intact. NEUROLOGICAL: Patient is awake, alert and oriented x3. Cranial nerves 2 through 12 are grossly intact. Please refer to medication reconciliation sheet for a list of medications. The impression and plan of care has been dictated by Lary Rodriguez, Nurse Practitioner as directed. Dr. Eliud MD I have performed a history and examination and MDM of this patient, discussed the same with the dictator, and agree with the dictator's assessment and plan as written ,documented as a scribe. Based on total visit time, I have performed more than 50% of the visit. Patient Condition at Discharge: Stable Plan - Discharge Summary New Discharge Prescriptions: New Cephalexin [Keflex] 500 mg PO Q6HR 10 Days #40 cap amLODIPine [Norvasc] 5 mg PO DAILY #30 tab Mirtazapine [Remeron] 7.5 mg PO HS 15 Days #30 tab Collagenase [Santyl Ointment] 1 applic TOPICAL DAILY 30 Days #1 each Continue Lisinopril-Hctz 20-25 mg [Zestoretic 20-25] 1 tab PO DAILY Clopidogrel [Plavix] 75 mg PO DAILY cilostazoL [Pletal] 100 mg PO BID Aspirin 81 mg PO DAILY buPROPion XL [Wellbutrin XL] 150 mg PO DAILY Lidocaine 5% Oint [Xylocaine 5% Oint] 1 applic TOPICAL Q4H PRN PRN Reason: bilateral leg pain Rosuvastatin [Crestor] 10 mg PO MOFR@2100 Furosemide [Lasix] 20 mg PO BID@0900,1600 glipiZIDE [Glucotrol] 7.5 mg PO AC-BID Venlafaxine HCl ER [Effexor XR] 150 mg PO DAILY Pantoprazole [Protonix] 40 mg PO DAILY Gabapentin 600 mg PO QID busPIRone HCl [Buspar] 10 mg PO TID HYDROcodone/APAP 10-325MG [[place] 10-325] 1 tab PO Q4HR PRN #12 tab PRN Reason: Pain Discontinued Doxycycline Hyclate 100 mg PO BID Discharge Medication List Lisinopril-Hctz 20-25 mg [Zestoretic 20-25] 1 tab PO DAILY 03/09/14 [History] Aspirin 81 mg PO DAILY 03/20/22 [History] Clopidogrel [Plavix] 75 mg PO DAILY 03/20/22 [History] Furosemide [Lasix] 20 mg PO BID@0900,1600 03/20/22 [History] Pantoprazole [Protonix] 40 mg PO DAILY 03/20/22 [History] Rosuvastatin [Crestor] 10 mg PO MOFR@2100 03/20/22 [History] Venlafaxine HCl ER [Effexor XR] 150 mg PO DAILY 03/20/22 [History] cilostazoL [Pletal] 100 mg PO BID 03/20/22 [History] glipiZIDE [Glucotrol] 7.5 mg PO AC-BID 03/20/22 [History] Gabapentin 600 mg PO QID 08/09/22 [History] Lidocaine 5% Oint [Xylocaine 5% Oint] 1 applic TOPICAL Q4H PRN 08/09/22 [Histor y] buPROPion XL [Wellbutrin XL] 150 mg PO DAILY 08/09/22 [History] busPIRone HCl [Buspar] 10 mg PO TID 08/09/22 [History] Cephalexin [Keflex] 500 mg PO Q6HR 10 Days #40 cap 08/14/22 [Rx] Collagenase [Santyl Ointment] 1 applic TOPICAL DAILY 30 Days #1 each 08/14/22 [Rx] HYDROcodone/APAP 10-325MG [[place] 10-325] 1 tab PO Q4HR PRN #12 tab 08/14/22 [Rx] Mirtazapine [Remeron] 7.5 mg PO HS 15 Days #30 tab 08/14/22 [Rx] amLODIPine [Norvasc] 5 mg PO DAILY #30 tab 08/14/22 [Rx] Follow up Appointment(s)/Referral(s): Maxine Montalvo MD [Primary Care Provider] - 1-2 days Stefanie Chao DO [STAFF PHYSICIAN] - 1 Week [facility] [NON-STAFF] - 1 Week Ivania Caldwell MD [STAFF PHYSICIAN] - 1 Week (call [phone] to make appointment) Activity/Diet/Wound Care/Special Instructions: Activity Limited until follow-up Continue with local wound care as instructed Follow-up with Dr. Caldwell infectious disease at the [facility] [phone] to make an appointment Follow-up with wound care center outpatient Continue taking medications as prescribed Continue with antibiotics until finished Follow-up primary care provider on discharge Discharge/Stand Alone Forms: Outpatient Counseling Discharge Disposition: HOME WITH HOME HEALTH SERVICES
--- NOTE | 2022-08-21 11:15 | P.PN ---
Subjective Progress Note Date: 08/13/22 Principal diagnosis: Left lateral leg/ankle area wound infection Patient is a 57 year old female past medical history significant for diabetes mellitus hypertension hyperlipidemia with a chronic nonhealing wound to the left lateral malleolar area presented to hospital worsening pain swelling and redness concerning for possible infected wound, patient was taken to the OR and status post surgical debridement and deep culture on 08/11/2022. On today's evaluation that is 08/13/2022 the patient continues to be afebrile , the patient is breathing comfortably on, The patient denies chest pain shortness breath and no significant cough no abdominal pain , the patient pain to the left lateral ankle wound area is controlled and no new symptoms Objective - Vital Signs Vital signs: Vital Signs Temp 98 F 08/13/22 07:00 Pulse 83 08/13/22 07:00 Resp 18 08/13/22 07:00 BP 154/64 08/13/22 07:00 Pulse Ox 99 08/13/22 07:00 FiO2 Intake & Output 08/12/22 08/13/22 08/13/22 18:59 06:59 18:59 Intake Total 960 1000 Balance 960 1000 Intake: Intake, IV Titration 500 Amount Sodium Chloride 0.9% 1, 500 000 ml @ 50 mls/hr IV . Q20H [facility] Rx#:[id number] Oral 960 500 Other: Voiding Method Toilet Toilet # Voids 3 1 - Exam GENERAL DESCRIPTION: Middle-age female lying in bed in no distress RESPIRATORY SYSTEM: Unlabored breathing , decreased breath sounds at bases HEART: S1 S2 regular rate and rhythm , ABDOMEN: Soft , no tenderness EXTREMITIES: Left lateral ankle area wound is currently dressed, and no drainage on the dressing - Labs CBC & Chem 7: 08/13/22 06:01 08/14/22 05:21 Labs: Abnormal Lab Results - Last 24 Hours (Table) 08/12/22 08/12/22 08/12/22 Range/Units 12:25 17:10 19:46 RBC (4.10-5.20) X 10*6/uL Hgb (12.0-15.0) g/dL Hct (37.2-46.3) % RDW (11.5-14.5) % MPV (9.5-12.2) fL Carbon Dioxide (20.0-27.5) mmol/L Anion Gap (10.00-18.00) mmol/L BUN/Creatinine Ratio (12.00-20.00) Ratio Glucose (70-110) mg/dL POC Glucose (mg/dL) 340 H 159 H 241 H (70-110) mg/dL Total Bilirubin (0.30-1.20) mg/dL Total Protein (6.2-8.2) g/dL Albumin (3.8-4.9) g/dL Albumin/Globulin Ratio (1.60-3.17) g/dL 08/13/22 08/13/22 08/13/22 Range/Units 06:01 06:01 06:24 RBC 3.25 L (4.10-5.20) X 10*6/uL Hgb 10.0 L (12.0-15.0) g/dL Hct 30.3 L (37.2-46.3) % RDW 15.9 H (11.5-14.5) % MPV 8.8 L (9.5-12.2) fL Carbon Dioxide 29.1 H (20.0-27.5) mmol/L Anion Gap 8.90 L (10.00-18.00) mmol/L BUN/Creatinine Ratio 21.78 H (12.00-20.00) Ratio Glucose 179 H (70-110) mg/dL POC Glucose (mg/dL) 185 H (70-110) mg/dL Total Bilirubin <0.15 L (0.30-1.20) mg/dL Total Protein 6.0 L (6.2-8.2) g/dL Albumin 3.5 L (3.8-4.9) g/dL Albumin/Globulin Ratio 1.40 L (1.60-3.17) g/dL Microbiology - Last 24 Hours (Table) 08/09/22 18:21 Blood Culture - Preliminary Blood No Growth after 72 hours 08/09/22 18:21 Blood Culture - Preliminary Blood No Growth after 72 hours 08/11/22 13:16 Gram Stain - Preliminary Ankle - Left Wound Culture - Preliminary Presumptive Staph aureus Assessment and Plan (1) Cellulitis Status: Acute Code(s): L03.90 - CELLULITIS, UNSPECIFIED SNOMED Code(s): 531654198 (2) Diabetic ulcer of ankle Status: Acute Code(s): E11.622 - TYPE 2 DIABETES MELLITUS WITH OTHER SKIN C ER; L97.309 - NON-PRESSURE CHRONIC ULCER OF UNSP ANKLE WITH UNSP SEVERITY SNOMED Code(s): 628520836 Plan: 1patient with a chronic nonhealing wound to the left lateral ankle area which has been there for couple of months now with recent worsening and concern for secondary cellulitis likely from gram-positive skin brenda. 2patient is status post surgical debridement and deep culture with that currently growing presumptive staph aureus 3patient has shown clinical improvement and will continue with vancomycin pharmacy to dose target trough of 15 while watching kidney function with the discharge antibiotics on the basis of final culture Time with Patient: Less than 30
--- NOTE | 2022-08-21 11:16 | P.PN ---
Subjective Progress Note Date: 08/14/22 Principal diagnosis: Left lateral leg/ankle area wound infection Patient is a 57 year old female past medical history significant for diabetes mellitus hypertension hyperlipidemia with a chronic nonhealing wound to the left lateral malleolar area presented to hospital worsening pain swelling and redness concerning for possible infected wound, patient was taken to the OR and status post surgical debridement and deep culture on 08/11/2022. On today's evaluation that is 08/14/2022 the patient denies any fever or chills , the patient is breathing comfortably on room air, The patient denies chest pain shortness breath and no significant cough no abdominal pain , the patient pain to the left lateral ankle wound area has decreased in intensity and no further drainage Objective - Vital Signs Vital signs: Vital Signs Temp 98.7 F 08/14/22 08:00 Pulse 87 08/14/22 08:00 Resp 16 08/14/22 09:15 BP 171/76 08/14/22 08:00 Pulse Ox 99 08/14/22 08:00 FiO2 Intake & Output 08/13/22 08/14/22 08/14/22 18:59 06:59 18:59 Intake Total 360 1000 118 Balance 360 1000 118 Intake: Intake, IV Titration 1000 Amount Sodium Chloride 0.9% 1, 1000 000 ml @ 50 mls/hr IV . Q20H [facility] Rx#:[id number] Oral 360 118 Other: Voiding Method Toilet Toilet # Voids 1 1 # Bowel Movements 1 - Exam GENERAL DESCRIPTION: Middle-age female lying in bed in no distress RESPIRATORY SYSTEM: Unlabored breathing , decreased breath sounds at bases HEART: S1 S2 regular rate and rhythm , ABDOMEN: Soft , no tenderness EXTREMITIES: Left lateral ankle area wound surrounding swelling redness is impr sherine no foul-smelling drainage - Labs CBC & Chem 7: 08/13/22 06:01 08/14/22 05:21 Labs: Abnormal Lab Results - Last 24 Hours (Table) 08/13/22 08/13/22 08/13/22 Range/Units 12:09 17:17 21:03 POC Glucose (mg/dL) 154 H 218 H 260 H (70-110) mg/dL 08/14/22 08/14/22 Range/Units 06:37 11:42 POC Glucose (mg/dL) 225 H 229 H (70-110) mg/dL Microbiology - Last 24 Hours (Table) 08/09/22 18:21 Blood Culture - Preliminary Blood No Growth after 96 hours 08/09/22 18:21 Blood Culture - Preliminary Blood No Growth after 96 hours 08/11/22 13:16 Gram Stain - Final Ankle - Left Wound Culture - Final Staphylococcus aureus 08/11/22 13:16 Anaerobic Culture - Preliminary Ankle - Left Assessment and Plan (1) Cellulitis Status: Acute Code(s): L03.90 - CELLULITIS, UNSPECIFIED SNOMED Code(s): 023788473 (2) Diabetic ulcer of ankle Status: Acute Code(s): E11.622 - TYPE 2 DIABETES MELLITUS WITH OTHER SKIN ULCER; L97.309 - NON-PRESSURE CHRONIC ULCER OF UNSP ANKLE WITH UNSP SEVERITY SNOMED Code(s): 314279614 Plan: 1patient with a chronic nonhealing wound to the left lateral ankle area which has been there for couple of months now with recent worsening and concern for secondary cellulitis likely from gram-positive skin brenda. 2patient is status post surgical debridement and deep culture with that currently growing MSSA 3patient has shown clinical improvement and we'll discontinue vancomycin start the patient on cefazolin finishing therapy with oral Keflex and close outpatient follow-up discuss with the [facility] [employer] for admitting team Time with Patient: Less than 30
== END 2022-08-14 16:46 | disposition home health service (06) | DRG 623 ==
LOC: EC 13:53 → 6NMEDSUR 19:49 → OBSVTOIN 08-13 08:29
PROVIDERS: ADMIT Hospitalist; ATTEND Hospitalist
PROC: 0JBR0ZZ Excision of Left Foot Subcutaneous Tissue and Fascia, Open Approach (ICD-10-PCS; principal; 2022-08-11 13:15)
PROC: 0QBH0ZZ Excision of Left Tibia, Open Approach (ICD-10-PCS; principal; 2022-08-11 13:15)
DX: E11.621 Type 2 diabetes mellitus with foot ulcer (principal); L03.116 Cellulitis of left lower limb; L97.429 Non-pressure chronic ulcer of left heel and midfoot with unspecified severity; L97.322 Non-pressure chronic ulcer of left ankle with fat layer exposed; E11.51 Type 2 diabetes mellitus with diabetic peripheral angiopathy without gangrene; E11.65 Type 2 diabetes mellitus with hyperglycemia; I70.245 Atherosclerosis of native arteries of left leg with ulceration of other part of foot; Z28.310 Unvaccinated for COVID-19; F43.21 Adjustment disorder with depressed mood; F41.9 Anxiety disorder, unspecified; I10 Essential (primary) hypertension; E78.5 Hyperlipidemia, unspecified; K21.9 Gastro-esophageal reflux disease without esophagitis; F17.210 Nicotine dependence, cigarettes, uncomplicated; Z71.6 Tobacco abuse counseling; Z79.02 Long term (current) use of antithrombotics/antiplatelets; Z79.82 Long term (current) use of aspirin; Z79.84 Long term (current) use of oral hypoglycemic drugs; Z79.899 Other long term (current) drug therapy; Z95.820 Peripheral vascular angioplasty status with implants and grafts; Z56.0 Unemployment, unspecified; Z88.6 Allergy status to analgesic agent; Z88.8 Allergy status to other drugs, medicaments and biological substances; Z83.3 Family history of diabetes mellitus
CPT/HCPCS: 36415; 64445; 76942; 78315; 80048; 80053; 80202; 81001; 82565; 83036; 83605; 83735; 85025; 85027; 87040; 87070; 87075; 87077; 87186; 87205; 96365; 96366; 96375; 96376; 99285

== ENCOUNTER 2022-09-27 07:08 | Day surgery (SDC) | payer OTHER ==
[~2022-09-27 07:08] MED LIST: ALPRAZolam 0.25 MG TAB PO PRN; ASPIRIN 325 MG TAB PO PRN; SODIUM CHLORIDE 0.9% 1,000 ML in EMPTY BAG 1 BAG IV ONE
[2022-09-27 07:37] VITALS: RESP 18; TEMP 99
[2022-09-27 07:42] LABS: Glucose,Whole Blood 117 mg/dL (70-110)
[2022-09-27 07:44] LABS: Basophils % (A) 0 %; Eosinophils # (A) 0.6 k/uL (0-0.7); Eosinophils % (A) 6 %; HCT 35.3 % (34.0-46.0); HGB 11.5 gm/dL (11.4-16.0); Lymphocytes # (A) 1.7 k/uL (1.0-4.8); Lymphocytes % (A) 15 %; MCH 31.4 pg (25.0-35.0); MCHC 32.6 g/dL (31.0-37.0); MCV 96.1 fL (80.0-100.0); Monocytes # (A) 0.5 k/uL (0-1.0); Monocytes % (A) 4 %; Neutrophils # (A) 7.9 k/uL (1.3-7.7); Neutrophils % (A) 73 %; Platelet Count 387 k/uL (150-450); RBC 3.67 m/uL (3.80-5.40); RDW 13.7 % (11.5-15.5); WBC 10.9 k/uL (3.8-10.6)
[2022-09-27 07:51] LABS: Chloride 99 mmol/L (98-107); Sodium 141 mmol/L (137-145)
[2022-09-27 07:53] LABS: African American GFR (CKD) >90 (>60 ml/min/1.73 sqM); Anion Gap 10 mmol/L; Blood Urea Nitrogen 21 mg/dL (7-17); Calcium 9.3 mg/dL (8.4-10.2); Carbon Dioxide 32 mmol/L (22-30); Glucose 130 mg/dL (74-99); Non-African American GFR(CKD) 85 (>60 ml/min/1.73 sqM); Potassium 3.9 mmol/L (3.5-5.1)
[2022-09-27] MEDS ORDERED: HYDROmorphone 0.5 MG/0.5 ML SYRINGE SQ ONE (08:49)
[2022-09-27] MEDS ORDERED: HYDROmorphone 0.5 MG/0.5 ML SYRINGE IVP STA (08:51)
[2022-09-27] MEDS: MIDAZOLAM 2 MG/2 ML VIAL IV ONE ×3 (09:08→09:34)
[2022-09-27] MEDS: fentaNYL (PF) 50 MCG/ML 2 ML AMP IV ONE ×2 (09:14→09:34)
[2022-09-27] MEDS ORDERED: LIDOCAINE 1% INJ 10MG/ML (30 ML VIAL-PF) SQ ONE (09:15)
[2022-09-27] MEDS ORDERED: VERAPAMIL 2.5 MG/ML 2 ML AMP ONE (09:20)
[2022-09-27] MEDS ORDERED: VERAPAMIL SYRINGE (5 MG/10 ML) INTRAARTER ONE (09:21)
[2022-09-27] MEDS ORDERED: IOPAMIDOL-250 100ML BTL INTRAARTER ONE (09:36)
[2022-09-27] MEDS ORDERED: LIDOCAINE 4% CREAM 5 GM TUBE TOPICAL ONE (09:53)
--- NOTE | 2022-09-27 10:03 | P.OP ---
Date of Procedure: 09/27/22 Description of Procedure: Preoperative diagnosis: Aneta 5 left lower extremity peripheral arterial disease, Aneta 4 right lower extremity peripheral arterial disease Postoperative diagnosis: Same Procedure: [#1 ultrasound guided left radial artery access #2 aortogram with runoffs #3 24 minutes moderate conscious sedation] Surgeon: Stefanie Chao D.O. EBL: [Less than 10 mL] IV fluids: [See records] Urine output: [Not measured] Drains: [None] Complications: [None immediately apparent] Condition: [Stable] Operative indication and findings: [Patient is a 57-year-old female previous interventions of her lower extremities with severe peripheral arterial disease, rest pain and tissue loss. For this she was offered an angiogram due to her abnormal findings on arterial Doppler. Risks and benefits were discussed. She seemingly understood and was willing to proceed] Procedure in detail: [Patient was taken to the special suite and placed in supine position. The left upper extremity and bilateral groins are prepped and draped in usual sterile fashion. A preprocedure timeout was performed, all parties were in agreement. Using ultrasound, the left radial artery was identified. The skin overlying was anesthetized 1% lidocaine plain and Seldinger technique was used to place a 4-Setswana sheath. Catheters and wires were then used access the abdominal aorta. The catheter was advanced and runoffs were performed. Catheters and wires were then removed and the sheath was removed and T band was placed. Angiographic findings the aorta appeared relatively normal course and caliber with modest. Visualized portions of the celiac artery appear patent. Bilateral renal arteries appear patent however there is some diminished filling of the right kidney. There are bilateral common iliac artery stents which appear patent, there is a slight area of stenosis at the left common iliac stent. On the right, the internal and external iliac arteries appear patent. There is an external iliac stent. The common femoral artery appears patent. The profunda appears widely patent. The superficial femoral artery is very diminutive and occludes a few centimeters beyond its takeoff. There is reconstitution at the popliteal artery behind the knee. The Impra popliteal segment appears patent. There is the widely patent anterior tibial artery TP trunk. The anterior tibial artery and peroneal artery appear patent to the level of the ankle. The posterior tibial is occluded shortly after it's takeoff. On the left, the external iliac stent is occluded at its takeoff. The internal iliac artery is patent. There are 2 stents in the external iliac just to the level of the femoral head at the common femoral artery. There is significant calcific disease and occlusion of the common femoral artery at this level. There appears to be reconstitution of the profunda and superficial femoral artery on the left. There is diffuse disease however the majority of the left superficial femoral artery appears patent. The popliteal artery is patent. There is diminished flow however there is appearance of the anterior tibial artery at its takeoff. Is difficult to see through the leg but there are 2 vessels at the level of the ankle on the left likely the anterior tibial and peroneal. It is difficult to see the posterior tibial, uncertain if this is due to low flow or areas of occlusion.] Plan - Discharge Summary New Discharge Prescriptions: New Lidocaine 4% Cream [Lmx 4] 1 applic TOPICAL DAILY #1 kit Nystatin 100,000 Unit/gm Powd [Mycostatin Powder] 1 applic TOPICAL BID #15 gm No Action Lisinopril-Hctz 20-25 mg [Zestoretic 20-25] 1 tab PO DAILY Clopidogrel [Plavix] 75 mg PO DAILY cilostazoL [Pletal] 100 mg PO BID Aspirin 81 mg PO DAILY buPROPion XL [Wellbutrin XL] 150 mg PO DAILY Lidocaine 5% Oint [Xylocaine 5% Oint] 1 applic TOPICAL Q4H PRN PRN Reason: bilateral leg pain Cephalexin [Keflex] 500 mg PO Q6HR 10 Days #40 cap amLODIPine [Norvasc] 5 mg PO DAILY #30 tab Rosuvastatin [Crestor] 10 mg PO MOFR@2100 Furosemide [Lasix] 20 mg PO BID@0900,1600 glipiZIDE [Glucotrol] 7.5 mg PO AC-BID Venlafaxine HCl ER [Effexor XR] 150 mg PO DAILY Pantoprazole [Protonix] 40 mg PO DAILY Gabapentin 600 mg PO QID busPIRone HCl [Buspar] 10 mg PO TID Mirtazapine [Remeron] 7.5 mg PO HS 15 Days #30 tab Collagenase [Santyl Ointment] 1 applic TOPICAL DAILY 30 Days #1 each HYDROcodone/APAP 10-325MG [[place] 10-325] 1 tab PO Q4HR PRN #12 tab PRN Reason: Pain Discharge Medication List Lisinopril-Hctz 20-25 mg [Zestoretic 20-25] 1 tab PO DAILY 03/09/14 [History] Aspirin 81 mg PO DAILY 03/20/22 [History] Clopidogrel [Plavix] 75 mg PO DAILY 03/20/22 [History] Furosemide [Lasix] 20 mg PO BID@0900,1600 03/20/22 [History] Pantoprazole [Protonix] 40 mg PO DAILY 03/20/22 [History] Rosuvastatin [Crestor] 10 mg PO MOFR@2100 03/20/22 [History] Venlafaxine HCl ER [Effexor XR] 150 mg PO DAILY 03/20/22 [History] cilostazoL [Pletal] 100 mg PO BID 03/20/22 [History] glipiZIDE [Glucotrol] 7.5 mg PO AC-BID 03/20/22 [History] Gabapentin 600 mg PO QID 08/09/22 [History] Lidocaine 5% Oint [Xylocaine 5% Oint] 1 applic TOPICAL Q4H PRN 08/09/22 [History] buPROPion XL [Wellbutrin XL] 150 mg PO DAILY 08/09/22 [History] busPIRone HCl [Buspar] 10 mg PO TID 08/09/22 [History] Cephalexin [Keflex] 500 mg PO Q6HR 10 Days #40 cap 08/14/22 [Rx] Collagenase [Santyl Ointment] 1 applic TOPICAL DAILY 30 Days #1 each 08/14/22 [Rx] HYDROcodone/APAP 10-325MG [[place] 10-325] 1 tab PO Q4HR PRN #12 tab 08/14/22 [Rx] Mirtazapine [Remeron] 7.5 mg PO HS 15 Days #30 tab 08/14/22 [Rx] amLODIPine [Norvasc] 5 mg PO DAILY #30 tab 08/14/22 [Rx] Lidocaine 4% Cream [Lmx 4] 1 applic TOPICAL DAILY #1 kit 09/27/22 [Rx] Nystatin 100,000 Unit/gm Powd [Mycostatin Powder] 1 applic TOPICAL BID #15 gm 09/27/22 [Rx] Follow up Appointment(s)/Referral(s): Stefanie Chao DO [STAFF PHYSICIAN] - 1 Week (APPOINTMENT MADE ON October @ 8:45AM ) Patient Instructions/Handouts: Peripheral Artery Disease (ED), Moderate Sedation (DC) Activity/Diet/Wound Care/Special Instructions: *NO LIFTING, PUSHING, OR PULLING ANYTHING OVER 5 POUNDS FOR 5 DAYS *NO DRIVING FOR 3 DAYS *YOU CAN SHOWER TOMORROW BUT DO NOT SUBMERSE YOUR PUNCTURE SITE IN WATER FOR A FEW DAYS TO PREVENT INFECTION - SO NO TUB BATHS, POOLS HOT TUBS, DISHES...ETC *ANY SIGNS OF BLEEDING (HARDNESS, SWELLING, OR EXCESSIVE BRUISING) HOLD DIRECT PRESSURE ON YOUR PUNCTURE SITE AND COME TO THE NEAREST EMERGENCY ROOM TO GET YOUR PUNCTURE SITE LOOKED AT - DO NOT DRIVE YOURSELF! EITHER CALL EMS OR HAVE SOMEONE DRIVE YOU! Discharge Disposition: HOME SELF-CARE
[2022-09-27] MEDS ORDERED: HYDROcodone/APAP 10-325MG 1 EACH TAB ONE (10:32)
--- NOTE | 2022-09-27 10:56 | IR ---
EXAMINATION TYPE: IR angio abdominal w runoff DATE OF EXAM: 09/27/2022 COMPARISON: NONE HISTORY: Fluoroscopy time. Fluoroscopy was provided to the referring clinician.
[2022-09-27] MEDS ORDERED: SODIUM CHLORIDE 0.9% 1,000 ML IV ONE (11:00)
[2022-09-27 12:46] VITALS: BP 152/65; PULSE 75
== END 2022-09-27 12:49 | disposition home or self-care (01) ==
LOC: CATHCVL 07:08
PROVIDERS: ATTEND Surgery
DX: T82.856A Stenosis of peripheral vascular stent, initial encounter (principal); Y83.8 Other surgical procedures as the cause of abnormal reaction of the patient, or of later complication, without mention of misadventure at the time of the procedure; I70.223 Atherosclerosis of native arteries of extremities with rest pain, bilateral legs; Z98.62 Peripheral vascular angioplasty status; I10 Essential (primary) hypertension; E11.51 Type 2 diabetes mellitus with diabetic peripheral angiopathy without gangrene; Z79.84 Long term (current) use of oral hypoglycemic drugs; E78.5 Hyperlipidemia, unspecified; K21.9 Gastro-esophageal reflux disease without esophagitis; F32.A Depression, unspecified; J45.909 Unspecified asthma, uncomplicated; I83.90 Asymptomatic varicose veins of unspecified lower extremity; Z88.6 Allergy status to analgesic agent; Z88.8 Allergy status to other drugs, medicaments and biological substances; Z90.49 Acquired absence of other specified parts of digestive tract; Z98.890 Other specified postprocedural states; Z79.02 Long term (current) use of antithrombotics/antiplatelets; Z79.52 Long term (current) use of systemic steroids; Z79.82 Long term (current) use of aspirin; Z79.811 Long term (current) use of aromatase inhibitors; Z79.891 Long term (current) use of opiate analgesic; Z79.899 Other long term (current) drug therapy
CPT/HCPCS: 36200; 75625; 75716; 76937; 80048; 85025; 99152; 99153; C1769 ×2; C1894; J2250; J2001; J3010; J1170; Q9966

== ENCOUNTER → 2022-10-02 | Outpatient (CLI) | payer OTHER ==
--- NOTE | 2022-10-02 16:09 | XR ---
EXAMINATION TYPE: XR chest 2V DATE OF EXAM: 10/02/2022 COMPARISON: Chest x-ray November 13, 2013 HISTORY: History of COPD. Presurgical study. TECHNIQUE: Frontal and lateral views of the chest are obtained. FINDINGS: There is no suspicious new focal air space opacity, pleural effusion, or pneumothorax seen . The cardiac silhouette size is stable and within normal limits. The osseous structures are intac t. IMPRESSION: No acute cardiopulmonary process. No significant change from prior.
== END | disposition home or self-care (01) ==
LOC: RADXRMAIN 14:58
PROVIDERS: ATTEND Family Medicine
DX: Z01.818 Encounter for other preprocedural examination (principal); J44.9 Chronic obstructive pulmonary disease, unspecified
CPT/HCPCS: 71046

== ENCOUNTER 2022-11-08 10:25 | Inpatient (IN) | payer OTHER ==
[~2022-11-08 10:25] MED LIST changes: -ALPRAZolam 0.25 MG TAB PO PRN; -ASPIRIN 325 MG TAB PO PRN; +DEXAMETHASONE SOD PHOSPHATE 4 MG/ML 1 ML VIAL IV ONE; +LIDOCAINE 1% (10MG/ML) FOR IV START INTRADERMA PRN; +ONDANSETRON 4 MG/2 ML VIAL IVP ONE; +ONDANSETRON 4 MG/2 ML VIAL IVP PRN; -SODIUM CHLORIDE 0.9% 1,000 ML in EMPTY BAG 1 BAG IV ONE
[2022-11-08] MEDS: LACTATED RINGERS 1,000 ML IV SCH (10:55)
[2022-11-08 11:03] LABS: Glucose,Whole Blood 218 mg/dL (70-110)
[2022-11-08] MEDS ORDERED: MIDAZOLAM 2 MG/2 ML VIAL IVP ONE (11:06)
[2022-11-08] MEDS ORDERED: MIDAZOLAM 2 MG/2 ML VIAL ONE (12:11)
[2022-11-08] MEDS ORDERED: fentaNYL (PF) 50 MCG/ML 2 ML AMP ONE (12:11)
[2022-11-08] MEDS ORDERED: SODIUM CHLORIDE 0.9% 100 ML BAG ONE (12:11)
[2022-11-08] MEDS ORDERED: ceFAZolin 1,000 MG VIAL ONE (12:11)
[2022-11-08] MEDS ORDERED: PROPOFOL 10 MG/ML 20 ML VIAL IV ONE (12:11)
[2022-11-08] MEDS: HYDROmorphone 0.5 MG/0.5 ML SYRINGE IVP ONE ×3 (13:00→14:11)
--- NOTE | 2022-11-08 13:10 | P.OP ---
Date of Procedure: 11/08/22 Description of Procedure: Preoperative diagnosis: Gangrene left lower extremity, severe peripheral arterial disease, previous femoral-femoral bypass graft Postoperative diagnosis: Same Procedure: [Sharp excisional debridement left lower extremity to the level of the tendon and muscle measuring 12 x 4.2 x 0.2 cm with undermining at the 12 o'clock position of 6 cm #Excisional debridement of left lower extremity lateral ankle malleolus to subcutaneous fat measuring 2 x 2 x 0.2 cm] Surgeon: Stefanie Chao D.O. EBL: [5 mL] IV fluids: [See records] Urine output: [Not measured] Drains: [None] Complications: [None immediately apparent] Condition: [Stable] Specimen: Culture Operative indication and findings: [Patient is a 57-year-old female severe peripheral arterial disease who has developed severe wounds of her left lower extremity with gangrene. She has not been able to have wound care as it is too painful therefore operative debridement was requested. Risks and benefits of the procedure were discussed. She has been on oral anti-biotic, she is not sure what, she thinks it might be Keflex.] Procedure in detail: [Patient was taken the operative suite and placed in supine position. Anesthetized and an LMA was placed. She was placed into right lateral decubitus position and the left lower extremity is prepped and draped in usual sterile fashion. Procedure timeout was performed, all parties were in agreement. Sharp excisional debridement with both curet and scalpel were utilized to debride the Achilles tendon and eschar tissue. Upon probing the wound did appear to have tracking up in the 12 o'clock position about 6 cm. There was a very small amount of purulent drainage from this. The culture was taken of this cavity. Using curet the periwound was also debrided. The tissue appeared more healthy and better appearing granulation-type tissues. The lateral ankle was sharply debrided with curet to healthy appearing tissues. The whole lower leg was then scrubbed with a scrub brush. Dakin's wet-to-dry dressings were placed. The patient was allowed awaken from anesthesia and transferred to recovery in stable condition. At this point given the area of tracking and tunneling of the wound I do believe the patient would benefit from IV more aggressive antibiotics. We will consult medicine as well as infectious disease to make recommendations and possibly discuss long-term antibiotic is a patient also does have a femoral-femoral bypass. Blood cultures will be obtained.]
[2022-11-08] MEDS ORDERED: HYDROmorphone 0.5 MG/0.5 ML SYRINGE IVP ONE (13:42)
[2022-11-08 13:57] LABS: Glucose,Whole Blood 222 mg/dL (70-110)
[2022-11-08] MEDS ORDERED: INSULIN ASPART (NovoLOG) 100 UNIT/ML VIAL SQ ONE (14:14)
[2022-11-08] MEDS: MEPERIDINE 50 MG/ML SYRINGE IVP ONE ×3 (15:08→16:00)
[2022-11-08] MEDS ORDERED: DEXTROSE 50% SYRINGE 50 ML IVP PRN ×2 (17:10)
[2022-11-08] MEDS ORDERED: lisinopriL 20 MG TAB PO SCH (17:15)
[2022-11-08 17:25] LABS: Glucose,Whole Blood 209 mg/dL (70-110)
[2022-11-08] MEDS: glipiZIDE 5 MG TAB PO SCH (17:31)
[2022-11-08] MEDS: GABAPENTIN 300 MG CAP PO SCH ×2 (17:31→21:39)
[2022-11-08] MEDS: HYDROmorphone 1 MG/ML 1 ML SYRINGE IVP PRN ×2 (17:31→21:23)
[2022-11-08] MEDS: INSULIN ASPART (NovoLOG) 100 UNIT/ML VIAL SQ SCH ×2 (17:36→23:50)
[2022-11-08] MEDS: amLODIPine 10 MG TAB PO SCH (17:36)
[2022-11-08 18:00] LABS: Basophils % (A) 0 %; Eosinophils % (A) 0 %; HGB 10.3 gm/dL (11.4-16.0); Lymphocytes # (A) 0.5 k/uL (1.0-4.8); Lymphocytes % (A) 5 %; MCH 31.1 pg (25.0-35.0); MCV 97.2 fL (80.0-100.0); Mean Platelet Volume 6.8; Monocytes # (A) 0.2 k/uL (0-1.0); Monocytes % (A) 2 %; Neutrophils # (A) 9.8 k/uL (1.3-7.7); Neutrophils % (A) 92 %; Platelet Count 591 k/uL (150-450); RDW 14.3 % (11.5-15.5); WBC 10.6 k/uL (3.8-10.6)
[2022-11-08 18:18] LABS: Calcium 8.9 mg/dL (8.4-10.2)
[2022-11-08 18:32] LABS: Potassium 6.5 mmol/L (3.5-5.1)
[2022-11-08] MEDS ORDERED: DEXTROSE 50% SYRINGE 50 ML IVP STA (19:26)
[2022-11-08] MEDS ORDERED: INSULIN REGULAR 100 UNIT/ML VIAL (IV) IV ONE (19:30)
[2022-11-08] MEDS ORDERED: SODIUM ZIRCONIUM CYCLOSILICATE 10 GM PACKET PO ONE (19:30)
[2022-11-08] MEDS: HYDROcodone/APAP 10-325MG 1 EACH TAB PO PRN (19:41)
[2022-11-08 20:56] LABS: Glucose,Whole Blood 230 mg/dL (70-110)
[2022-11-08] MEDS: MIRTAZAPINE 15 MG TAB PO SCH (21:39)
[2022-11-08] MEDS: busPIRone HCl 10 MG TAB PO SCH (21:39)
[2022-11-08 22:34] LABS: Glucose,Whole Blood 114 mg/dL (70-110)
[2022-11-09] MEDS: HYDROmorphone 1 MG/ML 1 ML SYRINGE IVP PRN ×5 (01:55→16:32)
[2022-11-09] MEDS: LACTATED RINGERS 1,000 ML IV SCH (02:49)
[2022-11-09] MEDS: HYDROcodone/APAP 10-325MG 1 EACH TAB PO PRN ×3 (03:03→21:01)
[2022-11-09] MEDS: glipiZIDE 5 MG TAB PO SCH ×2 (05:03→18:10)
[2022-11-09] MEDS: PANTOPRAZOLE 40 MG TABLET PO SCH (05:03)
[2022-11-09 06:32] LABS: Glucose,Whole Blood 200 mg/dL (70-110)
[2022-11-09] MEDS: INSULIN ASPART (NovoLOG) 100 UNIT/ML VIAL SQ SCH ×4 (06:45→21:03)
--- NOTE | 2022-11-09 07:31 | CONS ---
CONSULTATION DICTATION ENDS HERE. MMODL / IJN: [id number] /
[2022-11-09] MEDS: CLOPIDOGREL 75 MG TAB PO SCH (08:40)
[2022-11-09] MEDS: FUROSEMIDE 20 MG TAB PO SCH ×2 (08:40→16:18)
[2022-11-09] MEDS: busPIRone HCl 10 MG TAB PO SCH ×3 (08:40→21:03)
[2022-11-09] MEDS: amLODIPine 10 MG TAB PO SCH (08:40)
[2022-11-09] MEDS: GABAPENTIN 300 MG CAP PO SCH ×4 (08:40→21:03)
[2022-11-09] MEDS: VENLAFAXINE HCL ER 150 MG CAP PO SCH (08:40)
[2022-11-09 10:16] LABS: African American GFR (CKD) 71.9 (60.0-200.0); Anion Gap 10.6 mmol/L (10.00-18.00); BUN/Creat Ratio 39.4 Ratio (12.00-20.00); Blood Urea Nitrogen 39.4 mg/dL (9.0-27.0); Calcium 8.9 mg/dL (8.7-10.3); Carbon Dioxide 23.4 mmol/L (20.0-27.5); Non-African American GFR(CKD) 62.1 (60.0-200.0); Potassium 5.1 mmol/L (3.5-5.5)
[2022-11-09] MEDS ORDERED: VANCOMYCIN IV PER PHARMACY 1 EACH MISC MISCELLANE PRN (10:18)
[2022-11-09] MEDS ORDERED: CEFEPIME 2 GM in SODIUM CHLORIDE 0.9% 100 ML IVPB SCH (10:30)
--- NOTE | 2022-11-09 10:30 | P.CONS ---
History of Present Illness - Reason for Consult Consult date: 11/09/22 wound care - History of Present Illness This is a 57-year-old patient known to the wound care center with peripheral vascular disease and a nonhealing ulceration to the left Achilles and left malleolus. Patient underwent a surgical debridement of the site and deep tissue culture was obtained. Patient is currently on oral antibiotics. Left Achilles ulceration measures approximately 12 x 4.2 x 0.2 cm with tendon exposed Slough and granulation seen within the wound bed. Patient has tunneling at 12:00 at 6 cm. Patient also has a open ulceration to the left lateral malleolus measuring approximately 2 x 2 x 0.2 cm with Slough granulation and nonviable tissue present. Review Of Systems: Constitutional: No fever, no chills, no night sweats. No weight change. No weakness, fatigue or lethargy. No daytime sleepiness. Integumentary:reports wounds, no lesions. No rash or pruritus. No unusual bruising. No change in hair or nails. Physical exam: General Appearance: Alert, cooperative, no distress, appears stated age. Skin: See HPI all other Skin color, texture, tugor normal, no rashes or lesions. Neurologic: Alert oriented x3 Assessment: 1. Gangrene left lower extremity 2. Nonhealing ulceration with necrosis of muscle left lower extremity 3. Nonhealing ulceration with necrosis of muscle left ankle 4. Diabetes with foot ulcer 5. Severe peripheral vascular disease status post femoral-femoral bypass graft Plan: 1.Cleanse with Dakin's, pack the tunneled area with Dakin's wet to dry, apply Santyl to the open ulcerations, Dakin's moistened gauze dry gauze, rolled gauze and secure with paper tape. Patient returned to the wound care center on November 14 at 245. At that time we will discuss plan of care possible initiation of a negative pressure wound VAC. Thank you for the consultation any questions please contact the wound care center DNP note has been reviewed and discussed with Dr. Glynn and the impression and plan of care has been directed as dictated. Past Medical History Past Medical History: Diabetes Mellitus, GERD/Reflux, Hyperlipidemia, Hypertension Additional Past Medical History / Comment(s): pancreatitis, bilateral leg stents, open wound to left ankle with necrotic tissue. History of Any Multi-Drug Resistant Organisms: None Reported Past Surgical History: Appendectomy, Hernia Repair, Hysterectomy, Orthopedic Surgery Additional Past Surgical History / Comment(s): jody carpal tunnel, bone spur rt ankle debridement of left ankle. rerouted " stuff" per pt. cyst from lung. nasal surgery from broken nose. laser throat to stop snoring Past Anesthesia/Blood Transfusion Reactions: No Reported Reaction Past Psychological History: Depression Smoking Status: Current some day smoker, Vaper Past Alcohol Use History: None Reported Past Drug Use History: None Reported - Past Family History Father Family Medical History: Cancer, Myocardial Infarction ([place]) Additional Family Medical History / Comment(s): colon cancer with mets Mother Family Medical History: Cancer Additional Family Medical History / Comment(s): lung cancer with mets Sister(s) Family Medical History: Diabetes Mellitus Brother(s) Family Medical History: Cancer Additional Family Medical History / Comment(s): throat cancer Medications and Allergies Home Medications Medication Instructions Recorded Confirmed Type Clopidogrel [Plavix] 75 mg PO DAILY 03/20/22 11/07/22 History Furosemide [Lasix] 20 mg PO BID@0900,1600 03/20/22 11/07/22 History Pantoprazole [Protonix] 40 mg PO DAILY 03/20/22 11/07/22 History Rosuvastatin [Crestor] 10 mg PO MOFR@2100 03/20/22 11/07/22 History Venlafaxine HCl ER [Effexor XR] 150 mg PO DAILY 03/20/22 11/07/22 History glipiZIDE [Glucotrol] 7.5 mg PO AC-BID 03/20/22 11/07/22 History Gabapentin 600 mg PO QID 08/09/22 11/07/22 History Lidocaine 5% Oint [Xylocaine 5% 1 applic TOPICAL Q4H PRN 08/09/22 11/07/22 History Oint] busPIRone HCl [Buspar] 10 mg PO TID 08/09/22 11/07/22 History Mirtazapine [Remeron] 7.5 mg PO HS 15 Days #30 tab 08/14/22 11/07/22 Rx Nystatin 100,000 Unit/gm Powd 1 applic TOPICAL BID #15 gm 09/27/22 11/07/22 Rx [Mycostatin Powder] Buprenorphine [Butrans 20 MCG/HOUR] 1 patch TRANSDERM Q7D MDD not in 10/11/22 11/07/22 History use currently Triamcinolone 0.5% Cream [Kenalog 1 applic TOPICAL BID 10/11/22 11/07/22 History 0.5% Cream] Acetaminophen Tab [Tylenol] 650 mg PO Q6HR PRN tab 10/15/22 11/07/22 Rx Ciprofloxacin HCl [Cipro] 500 mg PO BID 14 Days #28 tab 10/15/22 11/07/22 Rx HYDROcodone/APAP 10-325MG [[place] 1 tab PO QID #18 tab 10/15/22 11/07/22 Rx 10-325] amLODIPine [Norvasc] 10 mg PO DAILY 30 Days #30 tab 10/15/22 11/07/22 Rx lisinopriL [Zestril] 20 mg PO DAILY 30 Days #30 tab 10/15/22 11/07/22 Rx Allergies Allergy/AdvReac Type Severity Reaction Status Date / Time NSAIDS (Non-Steroidal AdvReac Abdominal Verified 11/08/22 10:50 Anti-Inflamma Pain prednisone AdvReac Abdominal Verified 11/08/22 10:50 Pain sitagliptin [From Januvia] AdvReac see comment Verified 11/08/22 10:50 Physical Exam Vitals: Vital Signs Temp Pulse Resp BP Pulse Ox 11/09/22 00:37 99.6 F 87 20 148/71 96 11/08/22 19:59 99.3 F 86 20 159/69 96 11/08/22 17:05 99.7 F H 85 16 177/69 91 L 11/08/22 16:33 89 16 179/75 100 11/08/22 16:00 90 16 182/77 100 11/08/22 15:45 84 16 183/76 100 11/08/22 15:30 86 16 148/60 100 11/08/22 15:15 81 16 145/66 100 11/08/22 15:00 74 16 144/65 100 11/08/22 14:45 84 16 182/77 100 11/08/22 14:30 75 16 180/77 100 11/08/22 14:00 88 16 156/71 96 11/08/22 13:45 83 16 150/79 95 11/08/22 13:30 98 F 94 16 147/68 97 11/08/22 13:15 92 16 179/72 97 11/08/22 12:55 98 F 94 16 147/68 97 11/08/22 10:54 97.8 F 89 16 147/67 99 Intake and Output 11/08/22 11/09/22 11/09/22 22:59 06:59 14:59 Intake Total 200 Output Total 400 Balance -200 Intake: IV 200 Output: Urine 400 Other: # Voids 0 1 Weight 73.6 kg Results CBC & Chem 7: 11/08/22 17:35 11/09/22 05:52 Labs: Abnormal Lab Results - Last 24 Hours (Table) 11/08/22 11/08/22 11/08/22 Range/Units 10:59 13:56 17:23 RBC (3.80-5.40) m/uL Hgb (11.4-16.0) gm/dL Hct (34.0-46.0) % Plt Count (150-450) k/uL Neutrophils # (1.3-7.7) k/uL Lymphocytes # (1.0-4.8) k/uL Potassium (3.5-5.1) mmol/L BUN (7-17) mg/dL BUN/Creatinine Ratio (12.00-20.00) Ratio Glucose (74-99) mg/dL POC Glucose (mg/dL) 218 H 222 H 209 H (70-110) mg/dL Hemoglobin A1c (0.0-6.0) % 11/08/22 11/08/22 11/08/22 Range/Units 17:35 17:35 17:35 RBC 3.30 L (3.80-5.40) m/uL Hgb 10.3 L (11.4-16.0) gm/dL Hct 32.0 L (34.0-46.0) % Plt Count 591 H (150-450) k/uL Neutrophils # 9.8 H (1.3-7.7) k/uL Lymphocytes # 0.5 L (1.0-4.8) k/uL Potassium 6.5 H* (3.5-5.1) mmol/L BUN 54 H (7-17) mg/dL BUN/Creatinine Ratio (12.00-20.00) Ratio Glucose 215 H (74-99) mg/dL POC Glucose (mg/dL) (70-110) mg/dL Hemoglobin A1c 7.8 H (0.0-6.0) % 11/08/22 11/08/22 11/09/22 Range/Units 20:54 22:32 05:52 RBC (3.80-5.40) m/uL Hgb (11.4-16.0) gm/dL Hct (34.0-46.0) % Plt Count (150-450) k/uL Neutrophils # (1.3-7.7) k/uL Lymphocytes # (1.0-4.8) k/uL Potassium (3.5-5.1) mmol/L BUN 39.4 H (7-17) mg/dL BUN/Creatinine Ratio 39.40 H (12.00-20.00) Ratio Glucose 186 H (74-99) mg/dL POC Glucose (mg/dL) 230 H 114 H (70-110) mg/dL Hemoglobin A1c (0.0-6.0) % 11/09/22 Range/Units 06:28 RBC (3.80-5.40) m/uL Hgb (11.4-16.0) gm/dL Hct (34.0-46.0) % Plt Count (150-450) k/uL Neutrophils # (1.3-7.7) k/uL Lymphocytes # (1.0-4.8) k/uL Potassium (3.5-5.1) mmol/L BUN (7-17) mg/dL BUN/Creatinine Ratio (12.00-20.00) Ratio Glucose (74-99) mg/dL POC Glucose (mg/dL) 200 H (70-110) mg/dL Hemoglobin A1c (0.0-6.0) % Microbiology - Last 24 Hours (Table) 11/08/22 12:48 Wound Culture - Preliminary Leg - Left 11/08/22 12:48 Anaerobic Culture - Preliminary Leg - Left Assessment and Plan (1) Non-pressure chronic ulcer of other part of left lower leg with necrosis of muscle Current Visit: Yes Status: Acute Code(s): L97.823 - NON-PRS CHRONIC ULCER OTH PRT L LOW LEG W NECROSIS OF MUSCLE SNOMED Code(s): 00756719411510144 (2) Non-pressure chronic ulcer of left ankle with necrosis of muscle Current Visit: Yes Status: Acute Code(s): L97.323 - NON-PRS CHRONIC ULCER OF LEFT ANKLE W NECROSIS OF MUSCLE SNOMED Code(s): 83820891000379640 (3) Atherosclerosis of left lower extremity with ulceration of ankle Current Visit: No Status: Acute Code(s): I70.243 - ATHSCL [place] ARTERIES OF LEFT LEG W ULCERATION OF ANKLE SNOMED Code(s): 25454167 (4) Atherosclerosis of [place] arteries of left leg with ulceration of other part of foot Current Visit: No Status: Acute Code(s): I70.245 - ATHSCL [place] ARTERIES OF LEFT LEG W ULCERATION OTH PRT FOOT SNOMED Code(s): 625062998 (5) Diabetic ulcer of left ankle Current Visit: No Status: Acute Code(s): E11.622 - TYPE 2 DIABETES MELLITUS WITH OTHER SKIN ULCER; L97.329 - NON-PRESSURE CHRONIC ULCER OF LEFT ANKLE WITH UNSP SEVERITY SNOMED Code(s): 616469843
[2022-11-09 11:55] LABS: Glucose,Whole Blood 105 mg/dL (70-110)
[2022-11-09] MEDS: CEFEPIME 2 GM in SODIUM CHLORIDE 0.9% 100 ML IVPB SCH ×2 (12:10→23:00)
[2022-11-09] MEDS: VANCOMYCIN 1,250 MG in SODIUM CHLORIDE 0.9% 250 ML IVPB SCH (12:18)
[2022-11-09] MEDS: SODIUM HYPOCHLORITE 0.5% 480 ML BOT MISCELLANE SCH (12:30)
[2022-11-09] MEDS: COLLAGENASE 250 UNIT/GM OINTMENT 30 GM TUBE TOPICAL SCH (12:30)
--- NOTE | 2022-11-09 14:02 | P.PN ---
Subjective Progress Note Date: 11/09/22 Principal diagnosis: Gangrene left lower extremity with peripheral arterial disease status post surgical debridement Patient seen and examined today as a follow-up. She was admitted status post surgical excisional debridement of the left lower extremity yesterday down to the level of the tendon and muscle with undermining. There was concerns for infection especially with a previous fem-fem bypass graft and patient was admitted for infectious disease consult for antibiotic recommendations. Patient states she has pain in that left lower extremity, she states the pain keeps her up at night it is not new and his chronic pain. She is on multiple pain medications. She had a very low-grade temp of 99.7 yesterday afternoon has been running in the low 99s. Objective - Vital Signs Vital signs: Vital Signs Temp 99.1 F 11/09/22 08:40 Pulse 81 11/09/22 08:40 Resp 18 11/09/22 08:40 BP 147/66 11/09/22 08:40 Pulse Ox 98 11/09/22 08:40 FiO2 Intake & Output 11/08/22 11/09/22 11/09/22 18:59 06:59 18:59 Intake Total 1300 Output Total 405 Balance 895 Weight 73.6 kg Intake: IV 1300 Output: Urine 400 Estimated Blood Loss 5 Other: # Voids 0 1 - Exam General appearance: The patient is alert, oriented, appears in no acute distress. HET: Head is normocephalic and atraumatic. Pupils are equal and reactive. Neck: Supple without lymphadenopathy. Trachea midline. Heart: Regular. Lungs: Equal expansion, normal respiratory effort. Abdomen: Soft, nontender, nondistended. Extremities: Bilateral groin incisions well-healed palpable femoral pulse. Open wound on posterior aspect of left lower extremity to the level of tendon and muscle. Also left lateral ankle with wound with subcutaneous fat exposure. Patient with monophasic popliteal and DP signal. Sensorimotor intact. Dorsal aspect of foot with some erythema and dry cracked skin. Neurological: No focal deficits. Strength and sensation are grossly intact. - Labs CBC & Chem 7: 11/08/22 17:35 11/09/22 05:52 Labs: Abnormal Lab Results - Last 24 Hours (Table) 11/08/22 11/08/22 11/08/22 Range/Units 13:56 17:23 17:35 RBC 3.30 L (3.80-5.40) m/uL Hgb 10.3 L (11.4-16.0) gm/dL Hct 32.0 L (34.0-46.0) % Plt Count 591 H (150-450) k/uL Neutrophils # 9.8 H (1.3-7.7) k/uL Lymphocytes # 0.5 L (1.0-4.8) k/uL Potassium (3.5-5.1) mmol/L BUN (7-17) mg/dL BUN/Creatinine Ratio (12.00-20.00) Ratio Glucose (74-99) mg/dL POC Glucose (mg/dL) 222 H 209 H (70-110) mg/dL Hemoglobin A1c (0.0-6.0) % 11/08/22 11/08/22 11/08/22 Range/Units 17:35 17:35 20:54 RBC (3.80-5.40) m/uL Hgb (11.4-16.0) gm/dL Hct (34.0-46.0) % Plt Count (150-450) k/uL Neutrophils # (1.3-7.7) k/uL Lymphocytes # (1.0-4.8) k/uL Potassium 6.5 H* (3.5-5.1) mmol/L BUN 54 H (7-17) mg/dL BUN/Creatinine Ratio (12.00-20.00) Ratio Glucose 215 H (74-99) mg/dL POC Glucose (mg/dL) 230 H (70-110) mg/dL Hemoglobin A1c 7.8 H (0.0-6.0) % 11/08/22 11/09/22 11/09/22 Range/Units 22:32 05:52 06:28 RBC (3.80-5.40) m/uL Hgb (11.4-16.0) gm/dL Hct (34.0-46.0) % Plt Count (150-450) k/uL Neutrophils # (1.3-7.7) k/uL Lymphocytes # (1.0-4.8) k/uL Potassium (3.5-5.1) mmol/L BUN 39.4 H (7-17) mg/dL BUN/Creatinine Ratio 39.40 H (12.00-20.00) Ratio Glucose 186 H (74-99) mg/dL POC Glucose (mg/dL) 114 H 200 H (70-110) mg/dL Hemoglobin A1c (0.0-6.0) % Microbiology - Last 24 Hours (Table) 11/08/22 12:48 Wound Culture - Preliminary Leg - Left 11/08/22 12:48 Anaerobic Culture - Preliminary Leg - Left Assessment and Plan Assessment: 1. Gangrene left lower extremity status post surgical debridement and deep tissue cultures 2. Severe peripheral arterial disease with previous femoral to femoral bypass graft Plan: 1. Continue symptomatic and supportive care 2. Continue pain management as ordered 3. Infectious disease consulted for antibiotic recommendations 4. Medical management per primary medical team 5. Continue local wound care with Daily Dakins wet-to-dry packing with Santyl per recommendations from our wound care The impression and plan of care has been dictated as directed. I performed a history and examination of this patient, discussed the same with the dictator. I agree with the dictator's note ,documented as a scribe. Any additional findings or plans will be noted.
[2022-11-09] MEDS: methocarbamoL 500 MG TAB PO PRN ×2 (16:53→23:31)
[2022-11-09 17:17] LABS: Glucose,Whole Blood 169 mg/dL (70-110)
--- NOTE | 2022-11-09 18:41 | P.CONS ---
History of Present Illness - Reason for Consult Consult date: 11/09/22 Medical management - Chief Complaint Gangrene left lower extremity/severe PVD - History of Present Illness admitted status post surgical excisional debridement of the left lower extremity yesterday down to the level of the tendon and muscle with undermining. There was concerns for infection especially with a previous fem-fem bypass graft and patient was admitted for infectious disease consult for antibiotic recommendations. Patient states she has pain in that left lower extremity, she states the pain keeps her up at night it is not new and his chronic pain. She is on multiple pain medications. She had a very low-grade temp of 99.7 yesterday afternoon has been running in the low 99s. Patient is admitted for gangrene left lower extremity with severe peripheral arterial disease and is status post surgical debridement Review of Systems REVIEW OF SYSTEMS: CONSTITUTIONAL: No fever, no malaise, no fatigue. HEENT: No recent visual problems or hearing problems. Denied any sore throat. CARDIOVASCULAR: No chest pain, orthopnea, PND, no palpitations, no syncope. PULMONARY: No shortness of breath, no cough, no hemoptysis. GASTROINTESTINAL: No diarrhea, no nausea, no vomiting, no abdominal pain. NEUROLOGICAL: No headaches, no weakness, no numbness. HEMATOLOGICAL: Denies any bleeding or petechiae. GENITOURINARY: Denies any burning micturition, frequency, or urgency. MUSCULOSKELETAL/RHEUMATOLOGICAL: Denies any joint pain, swelling, or any muscle pain. ENDOCRINE: Denies any polyuria or polydipsia. The rest of the 14-point review of systems is negative. Past Medical History Past Medical History: Diabetes Mellitus, GERD/Reflux, Hyperlipidemia, Hypertension Additional Past Medical History / Comment(s): pancreatitis, bilateral leg stents, open wound to left ankle with necrotic tissue. History of Any Multi-Drug Resistant Organisms: None Reported Past Surgical History: Appendectomy, Hernia Repair, Hysterectomy, Orthopedic Surgery Additional Past Surgical History / Comment(s): jody carpal tunnel, bone spur rt ankle debridement of left ankle. rerouted " stuff" per pt. cyst from lung. nasal surgery from broken nose. laser throat to stop snoring Past Anesthesia/Blood Transfusion Reactions: No Reported Reaction Past Psychological History: Depression Smoking Status: Current some day smoker, Vaper Past Alcohol Use History: None Reported Past Drug Use History: None Reported - Past Family History Father Family Medical History: Cancer, Myocardial Infarction ([place]) Additional Family Medical History / Comment(s): colon cancer with mets Mother Family Medical History: Cancer Additional Family Medical History / Comment(s): lung cancer with mets Sister(s) Family Medical History: Diabetes Mellitus Brother(s) Family Medical History: Cancer Additional Family Medical History / Comment(s): throat cancer Medications and Allergies Home Medications Medication Instructions Recorded Confirmed Type Clopidogrel [Plavix] 75 mg PO DAILY 03/20/22 11/07/22 History Furosemide [Lasix] 20 mg PO BID@0900,1600 03/20/22 11/07/22 History Pantoprazole [Protonix] 40 mg PO DAILY 03/20/22 11/07/22 History Rosuvastatin [Crestor] 10 mg PO MOFR@2100 03/20/22 11/07/22 History Venlafaxine HCl ER [Effexor XR] 150 mg PO DAILY 03/20/22 11/07/22 History glipiZIDE [Glucotrol] 7.5 mg PO AC-BID 03/20/22 11/07/22 History Gabapentin 600 mg PO QID 08/09/22 11/07/22 History Lidocaine 5% Oint [Xylocaine 5% 1 applic TOPICAL Q4H PRN 08/09/22 11/07/22 History Oint] busPIRone HCl [Buspar] 10 mg PO TID 08/09/22 11/07/22 History Mirtazapine [Remeron] 7.5 mg PO HS 15 Days #30 tab 08/14/22 11/07/22 Rx Nystatin 100,000 Unit/gm Powd 1 applic TOPICAL BID #15 gm 09/27/22 11/07/22 Rx [Mycostatin Powder] Buprenorphine [Butrans 20 MCG/HOUR] 1 patch TRANSDERM Q7D MDD not in 10/11/22 11/07/22 History use currently Triamcinolone 0.5% Cream [Kenalog 1 applic TOPICAL BID 10/11/22 11/07/22 History 0.5% Cream] Acetaminophen Tab [Tylenol] 650 mg PO Q6HR PRN tab 10/15/22 11/07/22 Rx Ciprofloxacin HCl [Cipro] 500 mg PO BID 14 Days #28 tab 10/15/22 11/07/22 Rx HYDROcodone/APAP 10-325MG [[place] 1 tab PO QID #18 tab 10/15/22 11/07/22 Rx 10-325] amLODIPine [Norvasc] 10 mg PO DAILY 30 Days #30 tab 10/15/22 11/07/22 Rx lisinopriL [Zestril] 20 mg PO DAILY 30 Days #30 tab 10/15/22 11/07/22 Rx Allergies Allergy/AdvReac Type Severity Reaction Status Date / Time NSAIDS (Non-Steroidal AdvReac Abdominal Verified 11/08/22 10:50 Anti-Inflamma Pain prednisone AdvReac Abdominal Verified 11/08/22 10:50 Pain sitagliptin [From Januvia] AdvReac see comment Verified 11/08/22 10:50 Physical Exam Vitals: Vital Signs Temp Pulse Resp BP Pulse Ox 11/09/22 08:40 99.1 F 81 18 147/66 98 11/09/22 00:37 99.6 F 87 20 148/71 96 11/08/22 19:59 99.3 F 86 20 159/69 96 11/08/22 17:05 99.7 F H 85 16 177/69 91 L 11/08/22 16:33 89 16 179/75 100 11/08/22 16:00 90 16 182/77 100 11/08/22 15:45 84 16 183/76 100 11/08/22 15:30 86 16 148/60 100 11/08/22 15:15 81 16 145/66 100 11/08/22 15:00 74 16 144/65 100 11/08/22 14:45 84 16 182/77 100 11/08/22 14:30 75 16 180/77 100 11/08/22 14:00 88 16 156/71 96 11/08/22 13:45 83 16 150/79 95 11/08/22 13:30 98 F 94 16 147/68 97 11/08/22 13:15 92 16 179/72 97 11/08/22 12:55 98 F 94 16 147/68 97 Intake and Output 11/08/22 11/09/22 11/09/22 22:59 06:59 14:59 Intake Total 200 Output Total 400 Balance -200 Intake: IV 200 Output: Urine 400 Other: # Voids 0 1 Weight 73.6 kg PHYSICAL EXAMINATION: GENERAL: The patient is alert and oriented x3, not in any acute distress. Well developed, well nourished. HEENT: Pupils are round and equally reacting to light. EOMI. No scleral icterus. No conjunctival pallor. Normocephalic, atraumatic. No pharyngeal erythema. No thyromegaly. CARDIOVASCULAR: S1 and S2 present. No murmurs, rubs, or gallops. PULMONARY: Chest is clear to auscultation, no wheezing or crackles. ABDOMEN: Soft, nontender, nondistended, normoactive bowel sounds. No palpable organomegaly. MUSCULOSKELETAL: No joint swelling or deformity. EXTREMITIES: No cyanosis, clubbing, or pedal edema. NEUROLOGICAL: Gross neurological examination did not reveal any focal deficits. SKIN: No rashes. Results CBC & Chem 7: 11/08/22 17:35 11/09/22 05:52 Labs: Abnormal Lab Results - Last 24 Hours (Table) 11/08/22 11/08/22 11/08/22 Range/Units 13:56 17:23 17:35 RBC 3.30 L (3.80-5.40) m/uL Hgb 10.3 L (11.4-16.0) gm/dL Hct 32.0 L (34.0-46.0) % Plt Count 591 H (150-450) k/uL Neutrophils # 9.8 H (1.3-7.7) k/uL Lymphocytes # 0.5 L (1.0-4.8) k/uL Potassium (3.5-5.1) mmol/L BUN (7-17) mg/dL BUN/Creatinine Ratio (12.00-20.00) Ratio Glucose (74-99) mg/dL POC Glucose (mg/dL) 222 H 209 H (70-110) mg/dL Hemoglobin A1c (0.0-6.0) % 11/08/22 11/08/22 11/08/22 Range/Units 17:35 17:35 20:54 RBC (3.80-5.40) m/uL Hgb (11.4-16.0) gm/dL Hct (34.0-46.0) % Plt Count (150-450) k/uL Neutrophils # (1.3-7.7) k/uL Lymphocytes # (1.0-4.8) k/uL Potassium 6.5 H* (3.5-5.1) mmol/L BUN 54 H (7-17) mg/dL BUN/Creatinine Ratio (12.00-20.00) Ratio Glucose 215 H (74-99) mg/dL POC Glucose (mg/dL) 230 H (70-110) mg/dL Hemoglobin A1c 7.8 H (0.0-6.0) % 11/08/22 11/09/22 11/09/22 Range/Units 22:32 05:52 06:28 RBC (3.80-5.40) m/uL Hgb (11.4-16.0) gm/dL Hct (34.0-46.0) % Plt Count (150-450) k/uL Neutrophils # (1.3-7.7) k/uL Lymphocytes # (1.0-4.8) k/uL Potassium (3.5-5.1) mmol/L BUN 39.4 H (7-17) mg/dL BUN/Creatinine Ratio 39.40 H (12.00-20.00) Ratio Glucose 186 H (74-99) mg/dL POC Glucose (mg/dL) 114 H 200 H (70-110) mg/dL Hemoglobin A1c (0.0-6.0) % Microbiology - Last 24 Hours (Table) 11/08/22 12:48 Wound Culture - Preliminary Leg - Left 11/08/22 12:48 Anaerobic Culture - Preliminary Leg - Left Assessment and Plan Assessment: 1. Gangrene left lower extremity - Patient is status post surgical debridement and deep tissue cultures -IDs on board and patient remains on IV antibiotics - Continue with current pain management - Continue with local wound care with daily Dakin's wet-to-dry packing and santyl 2. Severe peripheral arterial disease with nonhealing ulceration left lower extremity with muscle necrosis; - Recent fem-fem bypass graft - Patient remains on Plavix 75 mg daily and Crestor 10 mg daily 3. Hypertension; Norvasc 10 mg daily, lisinopril 20 mg daily 4. Hyperlipidemia; Crestor but home dose of 5. Diabetes mellitus; patient takes glipizide at home which is placed on hold; monitor Accu-Cheks every before meals and at bedtime with insulin sliding scale
[2022-11-09 20:03] LABS: Glucose,Whole Blood 88 mg/dL (70-110)
[2022-11-09 20:38] LABS: Glucose,Whole Blood 70 mg/dL (70-110)
[2022-11-09] MEDS: MIRTAZAPINE 15 MG TAB PO SCH (21:03)
--- NOTE | 2022-11-09 22:31 | P.CONS ---
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 On today's evaluation that is 11/09/2022, the patient denies having any fever or any chills patient be complaining of excruciating pain to the left ankle surgical site describing it to be sharp almost 10 out of 10 with no radiation with associated swelling redness and some drainage but no foul-smelling, patient denies having any chest pain or shortness of the cough no nausea no vomiting no abdominal pain no diarrhea Review of Systems Positive point has been mentioned in the HPI rest of the systems are negative Past Medical History Past Medical History: Diabetes Mellitus, GERD/Reflux, Hyperlipidemia, Hypertension Additional Past Medical History / Comment(s): pancreatitis, bilateral leg st ents, open wound to left ankle with necrotic tissue. History of Any Multi-Drug Resistant Organisms: None Reported Past Surgical History: Appendectomy, Hernia Repair, Hysterectomy, Orthopedic Surgery Additional Past Surgical History / Comment(s): jody carpal tunnel, bone spur rt ankle debridement of left ankle. rerouted " stuff" per pt. cyst from lung. nasal surgery from broken nose. laser throat to stop snoring Past Anesthesia/Blood Transfusion Reactions: No Reported Reaction Past Psychological History: Depression Smoking Status: Current some day smoker, Vaper Past Alcohol Use History: None Reported Past Drug Use History: None Reported - Past Family History Father Family Medical History: Cancer, Myocardial Infarction ([place]) Additional Family Medical History / Comment(s): colon cancer with mets Mother Family Medical History: Cancer Additional Family Medical History / Comment(s): lung cancer with mets Sister(s) Family Medical History: Diabetes Mellitus Brother(s) Family Medical History: Cancer Additional Family Medical History / Comment(s): throat cancer Medications and Allergies Home Medications Medication Instructions Recorded Confirmed Type Clopidogrel [Plavix] 75 mg PO DAILY 03/20/22 11/07/22 History Furosemide [Lasix] 20 mg PO BID@0900,1600 03/20/22 11/07/22 History Pantoprazole [Protonix] 40 mg PO DAILY 03/20/22 11/07/22 History Rosuvastatin [Crestor] 10 mg PO MOFR@2100 03/20/22 11/07/22 History Venlafaxine HCl ER [Effexor XR] 150 mg PO DAILY 03/20/22 11/07/22 History glipiZIDE [Glucotrol] 7.5 mg PO AC-BID 03/20/22 11/07/22 History Gabapentin 600 mg PO QID 08/09/22 11/07/22 History Lidocaine 5% Oint [Xylocaine 5% 1 applic TOPICAL Q4H PRN 08/09/22 11/07/22 History Oint] busPIRone HCl [Buspar] 10 mg PO TID 08/09/22 11/07/22 History Mirtazapine [Remeron] 7.5 mg PO HS 15 Days #30 tab 08/14/22 11/07/22 Rx Nystatin 100,000 Unit/gm Powd 1 applic TOPICAL BID #15 gm 09/27/22 11/07/22 Rx [Mycostatin Powder] Buprenorphine [Butrans 20 MCG/HOUR] 1 patch TRANSDERM Q7D MDD not in 10/11/22 11/07/22 History use currently Triamcinolone 0.5% Cream [Kenalog 1 applic TOPICAL BID 10/11/22 11/07/22 History 0.5% Cream] Acetaminophen Tab [Tylenol] 650 mg PO Q6HR PRN tab 10/15/22 11/07/22 Rx Ciprofloxacin HCl [Cipro] 500 mg PO BID 14 Days #28 tab 10/15/22 11/07/22 Rx HYDROcodone/APAP 10-325MG [[place] 1 tab PO QID #18 tab 10/15/22 11/07/22 Rx 10-325] amLODIPine [Norvasc] 10 mg PO DAILY 30 Days #30 tab 10/15/22 11/07/22 Rx lisinopriL [Zestril] 20 mg PO DAILY 30 Days #30 tab 10/15/22 11/07/22 Rx Allergies Allergy/AdvReac Type Severity Reaction Status Date / Time NSAIDS (Non-Steroidal AdvReac Abdominal Verified 11/08/22 10:50 Anti-Inflamma Pain prednisone AdvReac Abdominal Verified 11/08/22 10:50 Pain sitagliptin [From Januvia] AdvReac see comment Verified 11/08/22 10:50 Physical Exam Vitals: Vital Signs Temp Pulse Resp BP Pulse Ox 11/09/22 00:37 99.6 F 87 20 148/71 96 11/08/22 19:59 99.3 F 86 20 159/69 96 11/08/22 17:05 99.7 F H 85 16 177/69 91 L 11/08/22 16:33 89 16 179/75 100 11/08/22 16:00 90 16 182/77 100 11/08/22 15:45 84 16 183/76 100 11/08/22 15:30 86 16 148/60 100 11/08/22 15:15 81 16 145/66 100 11/08/22 15:00 74 16 144/65 100 11/08/22 14:45 84 16 182/77 100 11/08/22 14:30 75 16 180/77 100 11/08/22 14:00 88 16 156/71 96 11/08/22 13:45 83 16 150/79 95 11/08/22 13:30 98 F 94 16 147/68 97 11/08/22 13:15 92 16 179/72 97 11/08/22 12:55 98 F 94 16 147/68 97 11/08/22 10:54 97.8 F 89 16 147/67 99 Intake and Output 11/08/22 11/09/22 11/09/22 22:59 06:59 14:59 Intake Total 200 Output Total 400 Balance -200 Intake: IV 200 Output: Urine 400 Other: # Voids 0 1 Weight 73.6 kg GENERAL DESCRIPTION: Middle-aged female lying in bed, no distress. No tachypnea or accessory muscle of respiration use. HEENT: Shows Pallor , no scleral icterus. Oral mucous membrane is dry. No pharyngeal erythema or thrush NECK: Trachea central, no thyromegaly. LUNGS: Unlabored breathing. Clear to auscultation anteriorly. No wheeze or crackle. HEART: S1, S2, regular rate and rhythm. No loud murmur ABDOMEN: Soft, no tenderness , guarding or rigidity, no organomegaly EXTREMITIES: Left leg did have swelling she did have a wound on the left posterior leg with slough tissue surrounding redness and tender to touch SKIN: No rash, no masses palpable. NEUROLOGICAL: The patient is awake, alert, oriented x3, mood and affect normal. Results CBC & Chem 7: 11/14/22 07:37 11/15/22 08:54 Labs: Abnormal Lab Results - Last 24 Hours (Table) 11/08/22 11/08/22 11/08/22 Range/Units 10:59 13:56 17:23 RBC (3.80-5.40) m/uL Hgb (11.4-16.0) gm/dL Hct (34.0-46.0) % Plt Count (150-450) k/uL Neutrophils # (1.3-7.7) k/uL Lymphocytes # (1.0-4.8) k/uL Potassium (3.5-5.1) mmol/L BUN (7-17) mg/dL BUN/Creatinine Ratio (12.00-20.00) Ratio Glucose (74-99) mg/dL POC Glucose (mg/dL) 218 H 222 H 209 H (70-110) mg/dL Hemoglobin A1c (0.0-6.0) % 11/08/22 11/08/22 11/08/22 Range/Units 17:35 17:35 17:35 RBC 3.30 L (3.80-5.40) m/uL Hgb 10.3 L (11.4-16.0) gm/dL Hct 32.0 L (34.0-46.0) % Plt Count 591 H (150-450) k/uL Neutrophils # 9.8 H (1.3-7.7) k/uL Lymphocytes # 0.5 L (1.0-4.8) k/uL Potassium 6.5 H* (3.5-5.1) mmol/L BUN 54 H (7-17) mg/dL BUN/Creatinine Ratio (12.00-20.00) Ratio Glucose 215 H (74-99) mg/dL POC Glucose (mg/dL) (70-110) mg/dL Hemoglobin A1c 7.8 H (0.0-6.0) % 11/08/22 11/08/22 11/09/22 Range/Units 20:54 22:32 05:52 RBC (3.80-5.40) m/uL Hgb (11.4-16.0) gm/dL Hct (34.0-46.0) % Plt Count (150-450) k/uL Neutrophils # (1.3-7.7) k/uL Lymphocytes # (1.0-4.8) k/uL Potassium (3.5-5.1) mmol/L BUN 39.4 H (7-17) mg/dL BUN/Creatinine Ratio 39.40 H (12.00-20.00) Ratio Glucose 186 H (74-99) mg/dL POC Glucose (mg/dL) 230 H 114 H (70-110) mg/dL Hemoglobin A1c (0.0-6.0) % 11/09/22 Range/Units 06:28 RBC (3.80-5.40) m/uL Hgb (11.4-16.0) gm/dL Hct (34.0-46.0) % Plt Count (150-450) k/uL Neutrophils # (1.3-7.7) k/uL Lymphocytes # (1.0-4.8) k/uL Potassium (3.5-5.1) mmol/L BUN (7-17) mg/dL BUN/Creatinine Ratio (12.00-20.00) Ratio Glucose (74-99) mg/dL POC Glucose (mg/dL) 200 H (70-110) mg/dL Hemoglobin A1c (0.0-6.0) % Microbiology - Last 24 Hours (Table) 11/08/22 12:48 Wound Culture - Preliminary Leg - Left 11/08/22 12:48 Anaerobic Culture - Preliminary Leg - Left Assessment and Plan (1) Left leg cellulitis Current Visit: Yes Status: Acute Code(s): L03.116 - CELLULITIS OF LEFT LOWER LIMB SNOMED Code(s): 496574683 Plan: 1patient with a 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 2local culture has been obtained and those will be followed. 3we will start the patient on vancomycin pharmacy to dose and cefepime 2 g every 8 hours. 4local wound care to continue per the wound care team we will follow on clinical condition and cultures to further adjust medication if needed Thank you for this consultation we will follow the patient along with you Time with Patient: Greater than 30
[2022-11-09] MEDS: ATORVASTATIN 20 MG TAB PO SCH (23:00)
[2022-11-10] MEDS: VANCOMYCIN 1,250 MG in SODIUM CHLORIDE 0.9% 250 ML IVPB SCH ×2 (02:01→18:00)
[2022-11-10] MEDS: HYDROcodone/APAP 10-325MG 1 EACH TAB PO PRN ×4 (02:01→21:45)
[2022-11-10] MEDS: HYDROmorphone 1 MG/ML 1 ML SYRINGE IVP PRN ×5 (03:15→23:19)
[2022-11-10 06:25] LABS: Glucose,Whole Blood 118 mg/dL (70-110)
[2022-11-10] MEDS: LACTATED RINGERS 1,000 ML IV SCH (08:15)
[2022-11-10] MEDS: INSULIN ASPART (NovoLOG) 100 UNIT/ML VIAL SQ SCH ×4 (08:45→21:44)
[2022-11-10] MEDS: busPIRone HCl 10 MG TAB PO SCH ×3 (08:51→21:45)
[2022-11-10] MEDS: GABAPENTIN 300 MG CAP PO SCH ×4 (08:53→21:45)
[2022-11-10] MEDS: amLODIPine 10 MG TAB PO SCH (08:53)
[2022-11-10] MEDS: glipiZIDE 5 MG TAB PO SCH ×2 (08:53→17:01)
[2022-11-10] MEDS: PANTOPRAZOLE 40 MG TABLET PO SCH (08:53)
[2022-11-10] MEDS: CLOPIDOGREL 75 MG TAB PO SCH (08:53)
[2022-11-10] MEDS: VENLAFAXINE HCL ER 150 MG CAP PO SCH (08:53)
[2022-11-10] MEDS: SODIUM HYPOCHLORITE 0.5% 480 ML BOT MISCELLANE SCH (08:54)
[2022-11-10] MEDS: FUROSEMIDE 20 MG TAB PO SCH ×2 (08:54→15:25)
[2022-11-10] MEDS: COLLAGENASE 250 UNIT/GM OINTMENT 30 GM TUBE TOPICAL SCH (08:54)
[2022-11-10] MEDS: CEFEPIME 2 GM in SODIUM CHLORIDE 0.9% 100 ML IVPB SCH ×2 (10:30→23:19)
[2022-11-10 11:50] LABS: Glucose,Whole Blood 160 mg/dL (70-110)
[2022-11-10 12:17] LABS: African American GFR (CKD) 81.7 (60.0-200.0); Non-African American GFR(CKD) 70.5 (60.0-200.0)
[2022-11-10] MEDS: methocarbamoL 500 MG TAB PO PRN ×2 (15:55→23:22)
--- NOTE | 2022-11-10 16:47 | P.PN ---
Subjective Progress Note Date: 11/10/22 Principal diagnosis: left lower extremity gangrene patient seen and examined. Complaining of pain at the foot and lower leg. Per nursing patient is crying throughout the day due to pain. Denies any fevers, chills, chest pain or shortness of breath. Objective - Vital Signs Vital signs: Vital Signs Temp 99.6 F 11/10/22 08:55 Pulse 92 11/10/22 13:56 Resp 18 11/10/22 13:56 BP 151/70 11/10/22 13:56 Pulse Ox 94 L 11/10/22 13:56 FiO2 Intake & Output 11/09/22 11/10/22 11/10/22 18:59 06:59 18:59 Intake Total 240 Balance 240 Intake: Oral 240 Other: # Voids 1 1 1 - Exam groin incisions clean, dry and intact left posterior lower leg wound with tendon and muscle exposed. monophasic dp and popliteal signals exquisite tenderness to palpation at the lower leg and foot. mild erythema- improved slightly - Constitutional General appearance: Present: average body habitus, cooperative - EENT Eyes: Present: abnormal pupil, PERRLA - Respiratory Respiratory: bilateral: CTA - Cardiovascular Rhythm: regular - Neurologic Neurologic: Present: CNII-XII intact - Psychiatric Psychiatric: Present: A&O x's 3, intact judgment & insight - Labs CBC & Chem 7: 11/08/22 17:35 11/10/22 07:10 Labs: Abnormal Lab Results - Last 24 Hours (Table) 11/09/22 11/10/22 11/10/22 Range/Units 17:02 06:24 11:48 POC Glucose (mg/dL) 169 H 118 H 160 H (70-110) mg/dL Microbiology - Last 24 Hours (Table) 11/08/22 17:35 Blood Culture - Preliminary Blood No Growth after 24 hours 11/08/22 12:48 Gram Stain - Preliminary Leg - Left Wound Culture - Preliminary Presumptive MRSA Assessment and Plan Assessment: Gangrene left lower extremity status post surgical debridement and cultures Severe peripheral arterial disease with previous femoral-femoral bypass Plan: continue IV and PO pain control infectious disease recs for continued antibiotics Continue local wound care with Dakins and Santly per wound care management.
[2022-11-10 16:55] LABS: Glucose,Whole Blood 136 mg/dL (70-110)
[2022-11-10 20:34] LABS: Glucose,Whole Blood 168 mg/dL (70-110)
[2022-11-10] MEDS: MIRTAZAPINE 15 MG TAB PO SCH (20:50)
--- NOTE | 2022-11-10 21:08 | P.PN ---
Subjective Progress Note Date: 11/10/22 admitted status post surgical excisional debridement of the left lower extremity yesterday down to the level of the tendon and muscle with undermining. There was concerns for infection especially with a previous fem-fem bypass graft and patient was admitted for infectious disease consult for antibiotic recommendations. Patient states she has pain in that left lower extremity, she states the pain keeps her up at night it is not new and his chronic pain. She is on multiple pain medications. She had a very low-grade temp of 99.7 yesterday afternoon has been running in the low 99s. Patient is admitted for gangrene left lower extremity with severe peripheral arterial disease and is status post surgical debridement Objective - Vital Signs Vital signs: Vital Signs Temp 99.6 F 11/10/22 08:55 Pulse 86 11/10/22 07:55 Resp 16 11/10/22 07:55 BP 171/74 11/10/22 07:55 Pulse Ox 93 L 11/10/22 07:55 FiO2 Intake & Output 11/09/22 11/10/22 11/10/22 18:59 06:59 18:59 Intake Total 240 Balance 240 Intake: Oral 240 Other: # Voids 1 1 1 - Exam GENERAL: The patient is alert and oriented x3, not in any acute distress. Well developed, well nourished. HEENT: Pupils are round and equally reacting to light. EOMI. No scleral icterus. No conjunctival pallor. Normocephalic, atraumatic. No pharyngeal erythema. No thyromegaly. CARDIOVASCULAR: S1 and S2 present. No murmurs, rubs, or gallops. PULMONARY: Chest is clear to auscultation, no wheezing or crackles. ABDOMEN: Soft, nontender, nondistended, normoactive bowel sounds. No palpable organomegaly. MUSCULOSKELETAL: No joint swelling or deformity. EXTREMITIES: No cyanosis, clubbing, or pedal edema. NEUROLOGICAL: Gross neurological examination did not reveal any focal deficits. SKIN: No rashes. - Labs CBC & Chem 7: 11/08/22 17:35 11/10/22 07:10 Labs: Abnormal Lab Results - Last 24 Hours (Table) 11/09/22 11/10/22 Range/Units 17:02 06:24 POC Glucose (mg/dL) 169 H 118 H (70-110) mg/dL Microbiology - Last 24 Hours (Table) 11/08/22 17:35 Blood Culture - Preliminary Blood No Growth after 24 hours 11/08/22 12:48 Gram Stain - Preliminary Leg - Left Wound Culture - Preliminary Presumptive MRSA Assessment and Plan Assessment: 1. Gangrene left lower extremity - Patient is status post surgical debridement and deep tissue cultures -IDs on board and patient remains on IV antibiotics - Continue with current pain management - Continue with local wound care with daily Dakin's wet-to-dry packing and santyl 2. Severe peripheral arterial disease with nonhealing ulceration left lower extremity with muscle necrosis; - Recent fem-fem bypass graft - Patient remains on Plavix 75 mg daily and Crestor 10 mg daily 3. Hypertension; Norvasc 10 mg daily, lisinopril 20 mg daily 4. Hyperlipidemia; Crestor but home dose of 5. Diabetes mellitus; patient takes glipizide at home which is placed on hold; monitor Accu-Cheks every before meals and at bedtime with insulin sliding scale
--- NOTE | 2022-11-10 21:35 | P.PN ---
Subjective Progress Note Date: 11/10/22 Principal diagnosis: Left leg infected wound Patient is a 57-year-old female with multiple comorbidity and did have evidence of left lower extremity gangrene especially involving the Achilles tendon status post extensive debridement in this patient also have a severe pe ripheral arterial disease status post fem-fem bypass. On today's evaluation that is 11/10/2022, the patient denies having any fever or any chills, the patient still complaining of excruciating pain to the left lower extremity wound area however denies having any worsening drainage, no chest pain shortness of cough no abdominal pain no diarrhea Objective - Vital Signs Vital signs: Vital Signs Temp 99.6 F 11/10/22 08:55 Pulse 86 11/10/22 07:55 Resp 16 11/10/22 07:55 BP 171/74 11/10/22 07:55 Pulse Ox 93 L 11/10/22 07:55 FiO2 Intake & Output 11/09/22 11/10/22 11/10/22 18:59 06:59 18:59 Intake Total 240 Balance 240 Intake: Oral 240 Other: # Voids 1 1 1 - Exam GENERAL DESCRIPTION: Middle-age female up in bed in no distress RESPIRATORY SYSTEM: Unlabored breathing , decreased breath sounds at bases HEART: S1 S2 regular rate and rhythm , ABDOMEN: Soft , no tenderness EXTREMITIES: Left leg wound is currently dressed no drainage on the dressing - Labs CBC & Chem 7: 11/08/22 17:35 11/10/22 07:10 Labs: Abnormal Lab Results - Last 24 Hours (Table) 11/09/22 11/10/22 11/10/22 Range/Units 17:02 06:24 11:48 POC Glucose (mg/dL) 169 H 118 H 160 H (70-110) mg/dL Microbiology - Last 24 Hours (Table) 11/08/22 17:35 Blood Culture - Preliminary Blood No Growth after 24 hours 11/08/22 12:48 Gram Stain - Preliminary Leg - Left Wound Culture - Preliminary Presumptive MRSA Assessment and Plan (1) Left leg cellulitis Current Visit: Yes Status: Acute Code(s): L03.116 - CELLULITIS OF LEFT LOWER LIMB SNOMED Code(s): 065215036 (2) Non-pressure chronic ulcer of other part of left lower leg with necrosis of muscle Current Visit: Yes Status: Acute Code(s): L97.823 - NON-PRS CHRONIC ULCER OTH PRT L LOW LEG W NECROSIS OF MUSCLE SNOMED Code(s): 92249707069464120 Plan: 1patient with a 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 2local culture has been obtained recheck currently growing MRSA and gram- negative. 3patient to continue with vancomycin pharmacy to dose and cefepime 2 g every 8 hours. 4local wound care to continue per the wound care team
[2022-11-11] MEDS: HYDROmorphone 1 MG/ML 1 ML SYRINGE IVP PRN ×6 (03:22→22:31)
[2022-11-11] MEDS: HYDROcodone/APAP 10-325MG 1 EACH TAB PO PRN ×3 (04:49→21:13)
[2022-11-11 06:35] LABS: Glucose,Whole Blood 148 mg/dL (70-110)
[2022-11-11] MEDS: INSULIN ASPART (NovoLOG) 100 UNIT/ML VIAL SQ SCH ×4 (08:26→21:13)
[2022-11-11] MEDS: LACTATED RINGERS 1,000 ML IV SCH (08:27)
[2022-11-11] MEDS: glipiZIDE 5 MG TAB PO SCH ×2 (08:35→17:01)
[2022-11-11] MEDS: GABAPENTIN 300 MG CAP PO SCH ×4 (08:35→22:30)
[2022-11-11] MEDS: busPIRone HCl 10 MG TAB PO SCH ×3 (08:35→22:30)
[2022-11-11] MEDS: VENLAFAXINE HCL ER 150 MG CAP PO SCH (08:35)
[2022-11-11] MEDS: PANTOPRAZOLE 40 MG TABLET PO SCH (08:35)
[2022-11-11] MEDS: FUROSEMIDE 20 MG TAB PO SCH ×2 (08:35→15:15)
[2022-11-11] MEDS: CLOPIDOGREL 75 MG TAB PO SCH (08:35)
[2022-11-11] MEDS: amLODIPine 10 MG TAB PO SCH (08:35)
[2022-11-11] MEDS: SODIUM HYPOCHLORITE 0.5% 480 ML BOT MISCELLANE SCH ×2 (08:36→10:42)
[2022-11-11] MEDS: COLLAGENASE 250 UNIT/GM OINTMENT 30 GM TUBE TOPICAL SCH (08:36)
[2022-11-11] MEDS: methocarbamoL 500 MG TAB PO PRN ×2 (08:51→21:14)
[2022-11-11] MEDS ORDERED: VANCOMYCIN TROUGH DUE 1 EACH MISC MISCELLANE ONE (10:00)
[2022-11-11] MEDS: VANCOMYCIN 1,250 MG in SODIUM CHLORIDE 0.9% 250 ML IVPB SCH ×2 (10:02→21:13)
[2022-11-11 11:20] LABS: African American GFR (CKD) >90 (>60 ml/min/1.73 sqM); Non-African American GFR(CKD) 85 (>60 ml/min/1.73 sqM)
[2022-11-11 11:32] LABS: Glucose,Whole Blood 269 mg/dL (70-110)
[2022-11-11] MEDS: CEFEPIME 2 GM in SODIUM CHLORIDE 0.9% 100 ML IVPB SCH ×2 (12:13→20:37)
[2022-11-11 16:40] LABS: Glucose,Whole Blood 141 mg/dL (70-110)
--- NOTE | 2022-11-11 17:29 | P.PN ---
Subjective Progress Note Date: 11/11/22 admitted status post surgical excisional debridement of the left lower extremity yesterday down to the level of the tendon and muscle with undermining. There was concerns for infection especially with a previous fem-fem bypass graft and patient was admitted for infectious disease consult for antibiotic recommendations. Patient states she has pain in that left lower extremity, she states the pain keeps her up at night it is not new and his chronic pain. She is on multiple pain medications. She had a very low-grade temp of 99.7 yesterday afternoon has been running in the low 99s. 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 local culture has been obtained recheck currently growing MRSA and gram- negative. patient to continue with vancomycin pharmacy to dose and cefepime 2 g every 8 hours. local wound care to continue per the wound care team Objective - Vital Signs Vital signs: Vital Signs Temp 98.5 F 11/11/22 08:07 Pulse 74 11/11/22 08:07 Resp 17 11/11/22 08:07 BP 135/97 11/11/22 08:07 Pulse Ox 96 11/11/22 08:09 FiO2 21 11/11/22 08:09 Intake & Output 11/10/22 11/11/22 11/11/22 18:59 06:59 18:59 Other: # Voids 1 1 - Exam GENERAL: The patient is alert and oriented x3, not in any acute distress. Well developed, well nourished. HEENT: Pupils are round and equally reacting to light. EOMI. No scleral icterus. No conjunctival pallor. Normocephalic, atraumatic. No pharyngeal erythema. No thyromegaly. CARDIOVASCULAR: S1 and S2 present. No murmurs, rubs, or gallops. PULMONARY: Chest is clear to auscultation, no wheezing or crackles. ABDOMEN: Soft, nontender, nondistended, normoactive bowel sounds. No palpable organomegaly. MUSCULOSKELETAL: No joint swelling or deformity. EXTREMITIES: No cyanosis, clubbing, or pedal edema. NEUROLOGICAL: Gross neurological examination did not reveal any focal deficits. SKIN: No rashes. - Labs CBC & Chem 7: 11/08/22 17:35 11/11/22 09:29 Labs: Abnormal Lab Results - Last 24 Hours (Table) 11/10/22 11/10/22 11/11/22 Range/Units 16:54 20:32 06:34 POC Glucose (mg/dL) 136 H 168 H 148 H (70-110) mg/dL 11/11/22 Range/Units 11:31 POC Glucose (mg/dL) 269 H (70-110) mg/dL Microbiology - Last 24 Hours (Table) 11/08/22 12:48 Gram Stain - Preliminary Leg - Left Wound Culture - Preliminary Methicillin resist S. aureus Gram Neg Bacilli 11/08/22 17:35 Blood Culture - Preliminary Blood No Growth after 48 hours Assessment and Plan Assessment: 1. Gangrene left lower extremity - Patient is status post surgical debridement and deep tissue cultures -IDs on board and patient remains on IV antibiotics - Continue with current pain management - Continue with local wound care with daily Dakin's wet-to-dry packing and santyl 2. Severe peripheral arterial disease with nonhealing ulceration left lower extremity with muscle necrosis; - Recent fem-fem bypass graft - Patient remains on Plavix 75 mg daily and Crestor 10 mg daily 3. Hypertension; Norvasc 10 mg daily, lisinopril 20 mg daily 4. Hyperlipidemia; Crestor but home dose of 5. Diabetes mellitus; patient takes glipizide at home which is placed on hold; monitor Accu-Cheks every before meals and at bedtime with insulin sliding scale
[2022-11-11] MEDS: MIRTAZAPINE 15 MG TAB PO SCH (20:22)
[2022-11-11 20:58] LABS: Glucose,Whole Blood 220 mg/dL (70-110)
--- NOTE | 2022-11-11 21:55 | P.PN ---
Subjective Progress Note Date: 11/11/22 Principal diagnosis: Left leg infected wound Patient is a 57-year-old female with multiple comorbidity and did have evidence of left lower extremity gangrene especially involving the Achilles tendon status post extensive debridement in this patient also have a severe pe ripheral arterial disease status post fem-fem bypass. On today's evaluation that is 11/11/2022, the patient remains to be afebrile, the patient continues to be complaining of excruciating pain to the left lower extremity wound area, the patient denies chest pain shortness of cough no abdominal pain no diarrhea Objective - Vital Signs Vital signs: Vital Signs Temp 98.5 F 11/11/22 08:07 Pulse 74 11/11/22 08:07 Resp 17 11/11/22 08:07 BP 135/97 11/11/22 08:07 Pulse Ox 96 11/11/22 08:09 FiO2 21 11/11/22 08:09 Intake & Output 11/10/22 11/11/22 11/11/22 18:59 06:59 18:59 Other: # Voids 1 - Exam GENERAL DESCRIPTION: Middle-age female up in bed in no distress RESPIRATORY SYSTEM: Unlabored breathing , decreased breath sounds at bases HEART: S1 S2 regular rate and rhythm , ABDOMEN: Soft , no tenderness EXTREMITIES: Left leg wound base with some slough tissue surrounding the swelling no significant redness or foul-smelling drainage - Labs CBC & Chem 7: 11/08/22 17:35 11/11/22 09:29 Labs: Abnormal Lab Results - Last 24 Hours (Table) 11/10/22 11/10/22 11/10/22 Range/Units 11:48 16:54 20:32 POC Glucose (mg/dL) 160 H 136 H 168 H (70-110) mg/dL 11/11/22 Range/Units 06:34 POC Glucose (mg/dL) 148 H (70-110) mg/dL Microbiology - Last 24 Hours (Table) 11/08/22 12:48 Gram Stain - Preliminary Leg - Left Wound Culture - Preliminary Methicillin resist S. aureus Gram Neg Bacilli 11/08/22 17:35 Blood Culture - Preliminary Blood No Growth after 48 hours Assessment and Plan (1) Left leg cellulitis Current Visit: Yes Status: Acute Code(s): L03.116 - CELLULITIS OF LEFT LOWER LIMB SNOMED Code(s): 912849358 (2) Non-pressure chronic ulcer of other part of left lower leg with necrosis of muscle Current Visit: Yes Status: Acute Code(s): L97.823 - NON-PRS CHRONIC ULCER OTH PRT L LOW LEG W NECROSIS OF MUSCLE SNOMED Code(s): 32436664641168307 Plan: 1patient with a 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 2local culture has been obtained recheck currently growing MRSA and gram- negative ID sensitivity on the gram-negative spending. 3local wound care with Santyl followed by moist dressing changes daily discussed with the RN 4patient to continue with vancomycin pharmacy to dose and cefepime 2 g every 8 hours. Time with Patient: Less than 30
[2022-11-12] MEDS: HYDROmorphone 1 MG/ML 1 ML SYRINGE IVP PRN ×6 (02:00→23:41)
[2022-11-12] MEDS: HYDROcodone/APAP 10-325MG 1 EACH TAB PO PRN ×4 (03:02→23:41)
[2022-11-12] MEDS: CEFEPIME 2 GM in SODIUM CHLORIDE 0.9% 100 ML IVPB SCH ×2 (04:24→17:22)
[2022-11-12] MEDS: methocarbamoL 500 MG TAB PO PRN ×3 (04:25→23:41)
[2022-11-12 05:56] LABS: Glucose,Whole Blood 107 mg/dL (70-110)
[2022-11-12] MEDS: INSULIN ASPART (NovoLOG) 100 UNIT/ML VIAL SQ SCH ×4 (06:05→21:17)
[2022-11-12] MEDS: LACTATED RINGERS 1,000 ML IV SCH (06:05)
[2022-11-12] MEDS: PANTOPRAZOLE 40 MG TABLET PO SCH (07:08)
[2022-11-12] MEDS: glipiZIDE 5 MG TAB PO SCH ×2 (07:08→17:21)
[2022-11-12] MEDS: CLOPIDOGREL 75 MG TAB PO SCH (08:59)
[2022-11-12] MEDS: FUROSEMIDE 20 MG TAB PO SCH ×2 (08:59→17:21)
[2022-11-12] MEDS: GABAPENTIN 300 MG CAP PO SCH ×4 (08:59→21:18)
[2022-11-12] MEDS: VENLAFAXINE HCL ER 150 MG CAP PO SCH (08:59)
[2022-11-12] MEDS: busPIRone HCl 10 MG TAB PO SCH ×3 (09:00→21:19)
[2022-11-12] MEDS: amLODIPine 10 MG TAB PO SCH (09:00)
[2022-11-12] MEDS: VANCOMYCIN 1,250 MG in SODIUM CHLORIDE 0.9% 250 ML IVPB SCH ×2 (09:00→19:56)
[2022-11-12] MEDS: SODIUM HYPOCHLORITE 0.5% 480 ML BOT MISCELLANE SCH (09:00)
[2022-11-12] MEDS: COLLAGENASE 250 UNIT/GM OINTMENT 30 GM TUBE TOPICAL SCH (09:01)
[2022-11-12 09:16] LABS: African American GFR (CKD) 71.9 (60.0-200.0); Non-African American GFR(CKD) 62.1 (60.0-200.0)
--- NOTE | 2022-11-12 10:16 | CT ---
EXAMINATION TYPE: CT lower extremity LT wo con CT DLP: 180 mGycm, Automated exposure control for dose reduction was used. DATE OF EXAM: 11/12/2022 10:08 AM COMPARISON: No direct comparisons CLINICAL INDICATION:Female, 57 years old with history of wound, cellulitis, swelling; left lower leg non-healing wound TECHNIQUE: Axial images were obtained of the left lower extremity . Additional coronal and sagittal reformatted images and soft tissue and bone window were obtained for review. 3-D reconstruction was c reated on a separate workstation. Contrast used: None Oral contrast used: None FINDINGS: There is diffuse soft tissue swelling throughout the extremity. There is skin defect noted posteriorly near the distal ankle. There is a focus of gas within the posterior subcutaneous tissues series 204 image 69. There is no evidence for organizing fluid collection. Degeneration changes of kn ee with osteophyte formation of the tibial plateau patella and femoral condyles. No evidence for frac ture. No evidence for osseous erosion to suggest osteomyelitis. Somewhat mottled appearance of the lo wer extremity osseous structures. No radiopaque foreign bodies visualized. IMPRESSION: 1. Skin defect and posterior calf with associated subcutaneous focus of gas is felt to be trapped ai r likely through the wound. No evidence for necrotizing fasciitis. No organizing fluid collections. 2. No evidence of fracture or osseous erosion to suggest osteomyelitis. 3. Diffuse somewhat mottled appearance of the osseous structures likely secondary to disuse osteopen ia.
--- NOTE | 2022-11-12 11:03 | P.PN ---
Subjective Progress Note Date: 11/12/22 Principal diagnosis: Gangrene left lower extremity with peripheral arterial disease status post surgical debridement Seen and examined today for follow-up. She states she continues to have significant pain in the left lower extremity. She has been afebrile. Noticing increased swelling and redness. No other acute changes. No complaints of shortness of breath, chest pain, abdominal pain, nausea or vomiting. Infectious disease is following. Preliminary cultures coming back as MRSA, currently being covered by vancomycin and cefepime per infectious disease. Objective - Vital Signs Vital signs: Vital Signs Temp 97.9 F 11/12/22 07:29 Pulse 73 11/12/22 07:29 Resp 16 11/12/22 07:29 BP 158/79 11/12/22 07:29 Pulse Ox 95 11/12/22 07:29 FiO2 21 11/11/22 08:09 Intake & Output 11/11/22 11/12/22 11/12/22 18:59 06:59 18:59 Other: Voiding Method Bedside Commode # Voids 1 2 - Exam General appearance: The patient is alert, oriented, appears in no acute distress. HET: Head is normocephalic and atraumatic. Pupils are equal and reactive. Neck: Supple without lymphadenopathy. Trachea midline. Heart: Regular. Lungs: Equal expansion, normal respiratory effort. Abdomen: Soft, nontender, nondistended. Extremities: Bilateral groin incisions well-healed palpable femoral pulse. Open wound on posterior aspect of left lower extremity to the level of tendon and muscle. Also left lateral ankle with wound with subcutaneous fat exposure. Patient with monophasic popliteal and DP signal. Sensorimotor intact. Left lower extremity with swelling and redness, tender to palpation. Neurological: No focal deficits. Strength and sensation are grossly intact. - Labs CBC & Chem 7: 11/08/22 17:35 11/12/22 04:21 Labs: Abnormal Lab Results - Last 24 Hours (Table) 11/11/22 11/11/22 11/11/22 Range/Units 11:31 16:38 20:56 POC Glucose (mg/dL) 269 H 141 H 220 H (70-110) mg/dL Microbiology - Last 24 Hours (Table) 11/08/22 12:48 Anaerobic Culture - Preliminary Leg - Left 11/08/22 17:35 Blood Culture - Preliminary Blood No Growth after 72 hours Assessment and Plan Assessment: 1. Gangrene left lower extremity status post surgical debridement and deep tiss ue cultures 2. Severe peripheral arterial disease with previous femoral to femoral bypass graft 3. MRSA wound infection Plan: 1. Continue symptomatic and supportive care 2. Continue pain management as ordered 3. Infectious disease consulted for antibiotic recommendations 4. Medical management per primary medical team 5. Continue local wound care daily per recommendations from our wound care 6. CT left lower extremity order for rule out abscess 7. Patient is tentatively scheduled for Saturday left lower extremity further debridement with skin graft, further recommendations forthcoming. The impression and plan of care has been dictated as directed. Dr Jensen I performed a history and examination of this patient, discussed the same with the dictator. I agree with the dictator's note ,documented as a scribe. Any additional findings or plans will be noted.
[2022-11-12 11:20] LABS: Glucose,Whole Blood 212 mg/dL (70-110)
--- NOTE | 2022-11-12 11:46 | P.PN ---
Subjective Progress Note Date: 11/12/22 Principal diagnosis: Left leg infected wound Patient is a 57-year-old female with multiple comorbidity and did have evidence of left lower extremity gangrene especially involving the Achilles tendon status post extensive debridement in this patient also have a severe pe ripheral arterial disease status post fem-fem bypass. On today's evaluation that is 11/12/2022, the patient continues to be afebrile, the patient has been complaining of excruciating pain to the left lower extremity wound area however denies any worsening drainage, the patient denies chest pain shortness of cough no abdominal pain no diarrhea Objective - Vital Signs Vital signs: Vital Signs Temp 97.9 F 11/12/22 07:29 Pulse 73 11/12/22 07:29 Resp 16 11/12/22 07:29 BP 158/79 11/12/22 07:29 Pulse Ox 95 11/12/22 07:29 FiO2 21 11/11/22 08:09 Intake & Output 11/11/22 11/12/22 11/12/22 18:59 06:59 18:59 Other: Voiding Method Bedside Commode # Voids 1 2 - Exam GENERAL DESCRIPTION: Middle-age female up in bed in no distress RESPIRATORY SYSTEM: Unlabored breathing , decreased breath sounds at bases HEART: S1 S2 regular rate and rhythm , ABDOMEN: Soft , no tenderness EXTREMITIES: Left leg wound is currently dressed there is no drainage on the dressing - Labs CBC & Chem 7: 11/08/22 17:35 11/12/22 04:21 Labs: Abnormal Lab Results - Last 24 Hours (Table) 11/11/22 11/11/22 11/11/22 Range/Units 11:31 16:38 20:56 POC Glucose (mg/dL) 269 H 141 H 220 H (70-110) mg/dL Microbiology - Last 24 Hours (Table) 11/08/22 12:48 Anaerobic Culture - Preliminary Leg - Left 11/08/22 17:35 Blood Culture - Preliminary Blood No Growth after 72 hours Assessment and Plan (1) Left leg cellulitis Current Visit: Yes Status: Acute Code(s): L03.116 - CELLULITIS OF LEFT LOWER LIMB SNOMED Code(s): 774760762 (2) Non-pressure chronic ulcer of other part of left lower leg with necrosis of muscle Current Visit: Yes Status: Acute Code(s): L97.823 - NON-PRS CHRONIC ULCER OTH PRT L LOW LEG W NECROSIS OF MUSCLE SNOMED Code(s): 65781850795433976 Plan: 1patient with a 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 2local culture has been obtained recheck currently growing MRSA and gram- negative ID sensitivity on the gram-negative spending. 3local wound care with Santyl followed by moist dressing changes daily discussed with the RN 4patient did have a CT of the left lower extremity completed on 11/12/2022 with no evidence of necrotizing infection or abscess 5- patient to continue with vancomycin pharmacy to dose , creatinine is normal this morning of 1.0 and cefepime 2 g every 8 hours. Time with Patient: Less than 30
[2022-11-12 11:50] LABS: Hypochromasia Slight; MCH 31.1 pg (25.0-35.0); MCHC 31.6 g/dL (31.0-37.0); MCV 98.4 fL (80.0-100.0); Mean Platelet Volume 7.4; Platelet Count 476 k/uL (150-450); RBC 2.64 m/uL (3.80-5.40); RDW 14.1 % (11.5-15.5); WBC 8.1 k/uL (3.8-10.6)
[2022-11-12 11:52] LABS: HGB 8.2 gm/dL (11.4-16.0)
--- NOTE | 2022-11-12 11:58 | US ---
EXAMINATION TYPE: US venous doppler duplex LE LT DATE OF EXAM: 11/12/2022 11:40 AM COMPARISON: NONE CLINICAL HISTORY: pain and swelling. Pain sore on leg not healing. SIDE PERFORMED: Left TECHNIQUE: The lower extremity deep venous system is examined utilizing real time linear array sonog cody with graded compression, doppler sonography and color-flow sonography. VESSELS IMAGED: Common Femoral Vein Deep Femoral Vein Greater Saphenous Vein * Femoral Vein Popliteal Vein Small Saphenous Vein * Proximal Calf Veins (* superficial vessels) Left Leg: Negative for DVT Left groin complex fluid pocket. Two hypoechoic areas seen 1. 2.4 x 1.5 cm. Rt groin fluid pocket vis ualized 6.6 x 3.2 cm. IMPRESSION: 1. No diagnostic evidence of DVT. 2. There is a complex fluid plaque at the left groin with soft tissue edema could represent a seroma, hematoma or abscess. Suspect adjacent soft tissue nodules most likely represent lymphadenopathy.
[2022-11-12] MEDS: HEPARIN SODIUM,PORCINE/PF 5,000 UNIT/0.5 ML SYRINGE SQ SCH ×2 (12:21→19:53)
[2022-11-12 17:19] LABS: Glucose,Whole Blood 177 mg/dL (70-110)
[2022-11-12] MEDS: ATORVASTATIN 20 MG TAB PO SCH (19:55)
[2022-11-12 21:15] LABS: Glucose,Whole Blood 208 mg/dL (70-110)
[2022-11-12] MEDS: MIRTAZAPINE 15 MG TAB PO SCH (21:19)
--- NOTE | 2022-11-12 22:28 | P.PN ---
Subjective From records admitted status post surgical excisional debridement of the left lower extremity yesterday down to the level of the tendon and muscle with undermining. There was concerns for infection especially with a previous fem-fem bypass graft and patient was admitted for infectious disease consult for antibiotic recommendations. Patient states she has pain in that left lower extremity, she states the pain keeps her up at night it is not new and his chronic pain. She is on multiple pain medications. She had a very low-grade temp of 99.7 yesterday afternoon has been running in the low 99s. Patient is admitted for gangrene left lower extremity with severe peripheral arterial disease and is status post surgical debridement 11/11/2022 -- the patient denies having any fever or any chills, the patient still complaining of excruciating pain to the left lower extremity wound area however denies having any worsening drainage, no chest pain shortness of cough no abdominal pain no --[id number] with a chronic nonhealing wound to the left Achilles tendon area in this patient who is status post surgical debridement of the wound down to the tendon and muscle area and deep cultures which are currently pending keeping in mind the -patient has been in and out of the hospital and treated with antibiotics we will need to cover for resistant gram-positive as well as gram-negative pathogen. local culture has been obtained recheck currently growing MRSA and gram- negative. patient to continue with vancomycin pharmacy to dose and cefepime 2 g every 8 hours. local wound care to continue per the wound care team I'm resuming the care of the patient today 11/12/2022 This is a pleasant 57 years old female was admitted with severe peripheral artery disease and severe left foot gangrene and cellulitis status post debridement on 11/08. She's been covered with broad-spectrum antibiotic with IV vancomycin and cefepime. Also she is on home dose of Plavix. Home dose of glipizide 7.5 mg twice a day and Lasix 20 mg by mouth twice a day. Today patient her left foot was dressing, however she still has significant pain and swelling and redness of her left leg with induration, also she feels some tenderness pain in the area of the left leg, left knee is normal but she complains from numbness and tingling behind left thigh,. Her hemoglobin is fluctuating between 10 and 8. Creatinine 1.0. She has a fever of 101.3 on admission, currently resolved. Repeat CT of the left leg shown subcutaneous gas, with no necrotizing fasciitis with no evidence of osteomyelitis per radiologist but has osteopenia Also we ordered ultrasound venous Doppler of the left leg which came negative for DVT but showing left groin complex fluid collection which could be seroma, versus hematoma, versus abscess. I discussed the case with surgery team today. Possibility of compartment syndrome also discussed. Patient is currently being monitored very closely. Started on subcutaneous heparin Active Medications Generic Name Dose Route Start Last Admin Trade Name Freq PRN Reason Stop Dose Admin Hydrocodone Bitart/Acetaminophen 1 each 11/08/22 14:03 11/12/22 17:23 Hydrocodone/Apap 10-325mg 1 Each Tab PO 12/08/22 18:01 1 each QID PRN Administration Moderate to Severe Pain (4-10) Amlodipine Besylate 10 mg 11/08/22 17:15 11/12/22 09:00 Amlodipine 10 Mg Tab PO 10 mg DAILY WILLIAM Administration Atorvastatin Calcium 20 mg 11/09/22 21:00 11/12/22 19:55 Atorvastatin 20 Mg Tab PO 20 mg MOFR@2100 WILLIAM Administration Buspirone HCl 10 mg 11/08/22 22:00 11/12/22 21:19 Buspirone Hcl 10 Mg Tab PO 10 mg TID WILLIAM Administration Clopidogrel Bisulfate 75 mg 11/09/22 09:00 11/12/22 08:59 Clopidogrel 75 Mg Tab PO 12/09/22 09:01 75 mg DAILY WILLIAM Administration Collagenase 1 applic 11/09/22 10:30 11/12/22 09:01 Collagenase 250 Unit/Gm Ointment 30 Gm Tube TOPICAL 1 applic DAILY WILLIAM Administration Protocol Dextrose/Water 25 ml 11/08/22 17:10 Dextrose 50% Syringe 50 Ml IVP PER PROTOCOL PRN Hypoglycemia Protocol Dextrose/Water 50 ml 11/08/22 17:10 Dextrose 50% Syringe 50 Ml IVP PER PROTOCOL PRN Hypoglycemia Protocol Furosemide 20 mg 11/09/22 09:00 11/12/22 17:21 Furosemide 20 Mg Tab PO 20 mg BID@0900,1600 WILLIAM Administration Gabapentin 600 mg 11/08/22 18:00 11/12/22 21:18 Gabapentin 300 Mg Cap PO 600 mg QID WILLIAM Administration Glipizide 7.5 mg 11/08/22 17:30 11/12/22 17:21 Glipizide 5 Mg Tab PO 7.5 mg AC-BID WILLIAM Administration Heparin Sodium (Porcine) 5,000 unit 11/12/22 11:15 11/12/22 19:53 Heparin Sodium,Porcine/Pf 5,000 Unit/0.5 Ml Syringe SQ 5,000 unit Q12HR WILLIAM Administration Hydromorphone HCl 1 mg 11/08/22 17:11 11/12/22 19:49 Hydromorphone 1 Mg/Ml 1 Ml Syringe IVP 1 mg Q4HR PRN Administration Pain Lactated Ringer's 1,000 mls @ 20 mls/hr 11/08/22 06:11 11/12/22 06:05 Lactated Ringers IV 12/08/22 06:12 Not Given .Q24H WILLIAM Vancomycin HCl 1,250 mg/ 250 mls @ 125 mls/hr 11/11/22 21:00 11/12/22 19:56 Sodium Chloride IVPB 125 mls/hr Q12HR WILLIAM Administration Cefepime HCl 2 gm/ Sodium 100 mls @ 25 mls/hr 11/12/22 16:00 11/12/22 17:22 Chloride IVPB 25 mls/hr Q12H WILLIAM Administration Protocol Insulin Aspart 0 unit 11/08/22 17:30 11/12/22 21:17 Insulin Aspart (Novolog) 100 Unit/Ml Vial SQ 4 unit ACHS WILLIAM Administration Protocol Lidocaine HCl 0.1 ml 11/08/22 06:11 Lidocaine 1% (10mg/Ml) For Iv Start INTRADERMA 12/08/22 06:12 PER PROTOCOL PRN IV Start Methocarbamol 1,000 mg 11/09/22 16:39 11/12/22 18:11 Methocarbamol 500 Mg Tab PO 1,000 mg QID PRN Administration Muscle Spasm Mirtazapine 7.5 mg 11/08/22 21:00 11/12/22 21:19 Mirtazapine 15 Mg Tab PO 7.5 mg HS WILLIAM Administration Miscellaneous Information 0 each 11/13/22 08:00 Vancomycin Trough Due 1 Each Misc MISCELLANE 11/13/22 08:01 DIRECTED ONE Buprenorphine [ 1 patch 11/14/22 09:00 Butrans 20 Mcg/Hour] TRANSDERM 20 Mcg/Hour Patch Q7D WILLIAM Pantoprazole Sodium 40 mg 11/09/22 07:30 11/12/22 07:08 Pantoprazole 40 Mg Tablet PO 40 mg [id number] WILLIAM Administration Venlafaxine HCl 150 mg 11/09/22 09:00 11/12/22 08:59 Venlafaxine Hcl Er 150 Mg Cap PO 150 mg DAILY WILLIAM Administration Objective - Vital Signs Vital signs: Vital Signs Temp 97.9 F 11/12/22 07:29 Pulse 73 11/12/22 07:29 Resp 16 11/12/22 07:29 BP 158/79 11/12/22 07:29 Pulse Ox 95 11/12/22 07:29 FiO2 21 11/11/22 08:09 Intake & Output 11/11/22 11/12/22 11/12/22 18:59 06:59 18:59 Other: Voiding Method Bedside Commode # Voids 1 2 - Exam GENERAL: The patient is alert and oriented x3, not in any acute distress. Well developed, well nourished. HEENT: Pupils are round and equally reacting to light. EOMI. No scleral icterus. No conjunctival pallor. Normocephalic, atraumatic. No pharyngeal erythema. No thyromegaly. CARDIOVASCULAR: S1 and S2 present. No murmurs, rubs, or gallops. PULMONARY: Chest is clear to auscultation, no wheezing or crackles. ABDOMEN: Soft, nontender, nondistended, normoactive bowel sounds. No palpable organomegaly. -MUSCULOSKELETAL: No joint swelling or deformity. Left foot wound in a dressing, left leg is swollen and tender and erythematous EXTREMITIES: No cyanosis, clubbing, or pedal edema. NEUROLOGICAL: Gross neurological examination did not reveal any focal deficits. SKIN: No rashes. no petechiae. - Labs CBC & Chem 7: 11/12/22 04:21 11/12/22 04:21 Labs: Abnormal Lab Results - Last 24 Hours (Table) 11/11/22 11/11/22 11/12/22 Range/Units 16:38 20:56 11:16 POC Glucose (mg/dL) 141 H 220 H 212 H (70-110) mg/dL Microbiology - Last 24 Hours (Table) 11/08/22 12:48 Anaerobic Culture - Preliminary Leg - Left 11/08/22 17:35 Blood Culture - Preliminary Blood No Growth after 72 hours Assessment and Plan Assessment: Severe left foot gangrene and cellulitis extending up to the left leg status post debridement of the left foot on 11/08. Wound culture growing MRSA andm Alcaligen fecalis Left groin fluid collection could be seroma, versus hematoma, versus abscess Sepsis secondary to above Hypertension Hyperlipidemia Diabetes mellitus Plan: Continue with broad-spectrum antibiotic as per ID team, currently on cefepime and IV vancomycin Continue with wound care Primary vascular surgery team on the case Infectious disease consult Labs and medication were reviewed.. Continue same treatment. Continue with symptomatic treatment. Resume home medication. Monitor labs and vitals. DVT and GI prophylaxis. Further recommendations as per clinical course of the patient DVT prophylaxis: Subcutaneous heparin GI Prophylaxis: Ppi PT/OT: Pending Prognosis is guarded
[2022-11-13] MEDS: HYDROmorphone 1 MG/ML 1 ML SYRINGE IVP PRN ×6 (03:47→22:55)
[2022-11-13] MEDS: CEFEPIME 2 GM in SODIUM CHLORIDE 0.9% 100 ML IVPB SCH ×2 (03:49→16:21)
[2022-11-13] MEDS: LACTATED RINGERS 1,000 ML IV SCH (03:56)
[2022-11-13] MEDS: HYDROcodone/APAP 10-325MG 1 EACH TAB PO PRN ×3 (05:59→19:53)
[2022-11-13] MEDS: methocarbamoL 500 MG TAB PO PRN ×3 (06:00→18:56)
[2022-11-13] MEDS: PANTOPRAZOLE 40 MG TABLET PO SCH (06:00)
[2022-11-13 06:29] LABS: Glucose,Whole Blood 106 mg/dL (70-110)
[2022-11-13] MEDS: INSULIN ASPART (NovoLOG) 100 UNIT/ML VIAL SQ SCH ×4 (06:36→21:18)
[2022-11-13] MEDS: glipiZIDE 5 MG TAB PO SCH ×2 (06:52→17:39)
[2022-11-13] MEDS ORDERED: VANCOMYCIN TROUGH DUE 1 EACH MISC MISCELLANE ONE (08:00)
[2022-11-13 08:34] LABS: HCT 27.5 % (34.0-46.0); HGB 8.7 gm/dL (11.4-16.0); Hypochromasia Slight; MCH 30.9 pg (25.0-35.0); MCHC 31.5 g/dL (31.0-37.0); MCV 97.9 fL (80.0-100.0); Mean Platelet Volume 6.9; Platelet Count 563 k/uL (150-450); RBC 2.81 m/uL (3.80-5.40); RDW 14.2 % (11.5-15.5); WBC 8.5 k/uL (3.8-10.6)
[2022-11-13 08:53] LABS: African American GFR (CKD) 79 (>60 ml/min/1.73 sqM); Anion Gap 5 mmol/L; Blood Urea Nitrogen 13 mg/dL (7-17); Calcium 8.5 mg/dL (8.4-10.2); Carbon Dioxide 30 mmol/L (22-30); Chloride 101 mmol/L (98-107); Glucose 139 mg/dL (74-99); Non-African American GFR(CKD) 68 (>60 ml/min/1.73 sqM); Potassium 4.6 mmol/L (3.5-5.1); Sodium 136 mmol/L (137-145)
[2022-11-13] MEDS: amLODIPine 10 MG TAB PO SCH (09:07)
[2022-11-13] MEDS: GABAPENTIN 300 MG CAP PO SCH ×4 (09:07→19:55)
[2022-11-13] MEDS: busPIRone HCl 10 MG TAB PO SCH ×3 (09:07→19:55)
[2022-11-13] MEDS: VANCOMYCIN 1,250 MG in SODIUM CHLORIDE 0.9% 250 ML IVPB SCH (09:07)
[2022-11-13] MEDS: FUROSEMIDE 20 MG TAB PO SCH ×2 (09:07→16:21)
[2022-11-13] MEDS: CLOPIDOGREL 75 MG TAB PO SCH (09:07)
[2022-11-13] MEDS: VENLAFAXINE HCL ER 150 MG CAP PO SCH (09:07)
[2022-11-13] MEDS: HEPARIN SODIUM,PORCINE/PF 5,000 UNIT/0.5 ML SYRINGE SQ SCH ×2 (09:07→19:53)
[2022-11-13 11:18] LABS: Glucose,Whole Blood 222 mg/dL (70-110)
--- NOTE | 2022-11-13 12:46 | P.PN ---
Subjective Progress Note Date: 11/13/22 Principal diagnosis: Left leg infected wound Patient is a 57-year-old female with multiple comorbidity and did have evidence of left lower extremity gangrene especially involving the Achilles tendon status post extensive debridement in this patient also have a severe pe ripheral arterial disease status post fem-fem bypass. On today's evaluation that is 11/13/2022, the patient remains to be afebrile, the patient is still complaining of excruciating pain to the left lower extremity wound area, the patient denies chest pain shortness of cough no abdominal pain no diarrhea with antibiotic therapy Objective - Vital Signs Vital signs: Vital Signs Temp 99.2 F 11/13/22 07:16 Pulse 74 11/13/22 07:16 Resp 18 11/13/22 07:16 BP 150/64 11/13/22 07:16 Pulse Ox 98 11/13/22 08:38 FiO2 21 11/12/22 12:11 Intake & Output 11/12/22 11/13/22 11/13/22 18:59 06:59 18:59 Other: Voiding Method Bedside Commode # Voids 5 1 - Exam GENERAL DESCRIPTION: Middle-age female up in bed in no distress RESPIRATORY SYSTEM: Unlabored breathing , decreased breath sounds at bases HEART: S1 S2 regular rate and rhythm , ABDOMEN: Soft , no tenderness EXTREMITIES: Left leg wound is currently dressed there is no drainage on the dressing - Labs CBC & Chem 7: 11/13/22 07:49 11/13/22 07:49 Labs: Abnormal Lab Results - Last 24 Hours (Table) 11/12/22 11/12/22 11/13/22 Range/Units 17:18 21:14 07:49 RBC 2.81 L (3.80-5.40) m/uL Hgb 8.7 L (11.4-16.0) gm/dL Hct 27.5 L (34.0-46.0) % Plt Count 563 H (150-450) k/uL Sodium (137-145) mmol/L Glucose (74-99) mg/dL POC Glucose (mg/dL) 177 H 208 H (70-110) mg/dL 11/13/22 11/13/22 Range/Units 07:49 11:15 RBC (3.80-5.40) m/uL Hgb (11.4-16.0) gm/dL Hct (34.0-46.0) % Plt Count (150-450) k/uL Sodium 136 L (137-145) mmol/L Glucose 139 H (74-99) mg/dL POC Glucose (mg/dL) 222 H (70-110) mg/dL Microbiology - Last 24 Hours (Table) 11/08/22 12:48 Anaerobic Culture - Final Leg - Left 11/08/22 12:48 Gram Stain - Final Leg - Left Wound Culture - Final Methicillin resist S. aureus Alcaligen. faecalis 11/08/22 17:35 Blood Culture - Preliminary Blood No Growth after 96 hours Assessment and Plan (1) Left leg cellulitis Current Visit: Yes Status: Acute Code(s): L03.116 - CELLULITIS OF LEFT LOWER LIMB SNOMED Code(s): 702748849 (2) Non-pressure chronic ulcer of other part of left lower leg with necrosis of muscle Current Visit: Yes Status: Acute Code(s): L97.823 - NON-PRS CHRONIC ULCER OTH PRT L LOW LEG W NECROSIS OF MUSCLE SNOMED Code(s): 13080234723896376 Plan: 1patient with a chronic nonhealing wound to the left Achilles tendon area in this patient who is status post surgical debridement of the wound down to the tendon and muscle area and deep cultures which are currently pending keeping in mind the patient has been in and out of the hospital and treated with antibi otics we will need to cover for resistant gram-positive as well as gram-negative pathogen. 2local culture has been obtained recheck currently growing MRSA and Alcaligenes faecalis 3local wound care with Santyl followed by moist dressing changes daily discussed with the RN 4patient did have a CT of the left lower extremity completed on 11/12/2022 with no evidence of necrotizing infection or abscess 5- patient to continue with vancomycin pharmacy to dose and cefepime 2 g every 8 hours, will likely need a PICC line for outpatient IV antibiotics Time with Patient: Less than 30
--- NOTE | 2022-11-13 13:50 | P.PN ---
Subjective Progress Note Date: 11/13/22 Principal diagnosis: Gangrene left lower extremity with peripheral arterial disease status post surgical debridement She was seen and examined today at the bedside. She was sitting up without any acute changes. Still having pain and tenderness in the left lower extremity as well as swelling and redness. She has been afebrile. No complaints of shortness of breath or chest pain. She has been up and ambulating. Final wound culture came back as MRSA and Alcaligen faecalis. Objective - Vital Signs Vital signs: Vital Signs Temp 99.2 F 11/13/22 07:16 Pulse 74 11/13/22 07:16 Resp 18 11/13/22 07:16 BP 150/64 11/13/22 07:16 Pulse Ox 98 11/13/22 08:38 FiO2 21 11/12/22 12:11 Intake & Output 11/12/22 11/13/22 11/13/22 18:59 06:59 18:59 Other: Voiding Method Bedside Commode # Voids 5 1 - Exam General appearance: The patient is alert, oriented, appears in no acute distress. HET: Head is normocephalic and atraumatic. Pupils are equal and reactive. Neck: Supple without lymphadenopathy. Trachea midline. Heart: Regular. Lungs: Equal expansion, normal respiratory effort. Abdomen: Soft, nontender, nondistended. Extremities: Bilateral groin incisions well-healed palpable femoral pulse. Open wound on posterior aspect of left lower extremity to the level of tendon and muscle with out any pus. Also left lateral ankle with wound with subcutaneous fat exposure. Sensorimotor intact. Left lower extremity with swelling and redness, tender to palpation. Neurological: No focal deficits. Strength and sensation are grossly intact. - Labs CBC & Chem 7: 11/13/22 07:49 11/13/22 07:49 Labs: Abnormal Lab Results - Last 24 Hours (Table) 11/12/22 11/12/22 11/13/22 Range/Units 17:18 21:14 07:49 RBC 2.81 L (3.80-5.40) m/uL Hgb 8.7 L (11.4-16.0) gm/dL Hct 27.5 L (34.0-46.0) % Plt Count 563 H (150-450) k/uL Sodium (137-145) mmol/L Glucose (74-99) mg/dL POC Glucose (mg/dL) 177 H 208 H (70-110) mg/dL 11/13/22 11/13/22 Range/Units 07:49 11:15 RBC (3.80-5.40) m/uL Hgb (11.4-16.0) gm/dL Hct (34.0-46.0) % Plt Count (150-450) k/uL Sodium 136 L (137-145) mmol/L Glucose 139 H (74-99) mg/dL POC Glucose (mg/dL) 222 H (70-110) mg/dL Microbiology - Last 24 Hours (Table) 11/08/22 12:48 Anaerobic Culture - Final Leg - Left 11/08/22 12:48 Gram Stain - Final Leg - Left Wound Culture - Final Methicillin resist S. aureus Alcaligen. faecalis 11/08/22 17:35 Blood Culture - Preliminary Blood No Growth after 96 hours Assessment and Plan Assessment: 1. Gangrene left lower extremity status post surgical debridement and 4th toe amputation 2. Severe peripheral arterial disease with previous femoral to femoral bypass graft 3. MRSA wound infection Plan: 1. Continue symptomatic and supportive care 2. Continue antibiotics per recommendations from infectious disease 3. Continue local wound care 4. Hold subcu heparin tomorrow morning 5. Hold Plavix tomorrow morning 6. Nothing by mouth after midnight 7. Patient scheduled for wound debridement, with possible skin graft, possible wound VAC application 8. Continue with medical care and recommendations per primary medicine team 9. Further recommendations forthcoming based on clinical course The impression and plan of care has been dictated as directed. I performed a history and examination of this patient, discussed the same with the dictator. I agree with the dictator's note ,documented as a scribe. Any additional findings or plans will be noted.
--- NOTE | 2022-11-13 14:11 | P.PN ---
Subjective From records admitted status post surgical excisional debridement of the left lower extremity yesterday down to the level of the tendon and muscle with undermining. There was concerns for infection especially with a previous fem-fem bypass graft and patient was admitted for infectious disease consult for antibiotic recommendations. Patient states she has pain in that left lower extremity, she states the pain keeps her up at night it is not new and his chronic pain. She is on multiple pain medications. She had a very low-grade temp of 99.7 yesterday afternoon has been running in the low 99s. 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 local culture has been obtained recheck currently growing MRSA and gram- negative. patient to continue with vancomycin pharmacy to dose and cefepime 2 g every 8 hours. local wound care to continue per the wound care team I'm resuming the care of the patient today 11/12/2022 This is a pleasant 57 years old female was admitted with severe peripheral artery disease and severe left foot gangrene and cellulitis status post debridement on 11/08. She's been covered with broad-spectrum antibiotic with IV vancomycin and cefepime. Also she is on home dose of Plavix. Home dose of glipizide 7.5 mg twice a day and Lasix 20 mg by mouth twice a day. Today patient her left foot was dressing, however she still has significant pain and swelling and redness of her left leg with induration, also she feels some tenderness pain in the area of the left leg, left knee is normal but she complains from numbness and tingling behind left thigh,. Her hemoglobin is fluctuating between 10 and 8. Creatinine 1.0. She has a fever of 101.3 on admission, currently resolved. Repeat CT of the left leg shown subcutaneous gas, with no necrotizing fasciitis with no evidence of osteomyelitis per radiologist but has osteopenia Also we ordered ultrasound venous Doppler of the left leg which came negative for DVT but showing left groin complex fluid collection which could be seroma, versus hematoma, versus abscess. I discussed the case with surgery team today. Possibility of compartment syndrome also discussed. Patient is currently being monitored very closely. Started on subcutaneous heparin 11/13/2022 Patients with left leg swelling and tenderness, slightly better than yesterday. She looks less distress from pain today. Venous Doppler is negative for DVT. But shows complex fluid in the left inguinal area, I checked the left inguinal and there is few centimeter nodule suspicious for lymphadenopathy, no palpated abscess or fluctuating fluid. Vascular surgery on the case Patient remains on IV vancomycin and cefepime. Objective - Vital Signs Vital signs: Vital Signs Temp 99.2 F 11/13/22 07:16 Pulse 74 11/13/22 07:16 Resp 18 11/13/22 07:16 BP 150/64 11/13/22 07:16 Pulse Ox 98 11/13/22 08:38 FiO2 21 11/12/22 12:11 Intake & Output 11/12/22 11/13/22 11/13/22 18:59 06:59 18:59 Other: Voiding Method Bedside Commode # Voids 5 1 - Exam GENERAL: The patient is alert and oriented x3, not in any acute distress. Well developed, well nourished. HEENT: Pupils are round and equally reacting to light. EOMI. No scleral icterus. No conjunctival pallor. Normocephalic, atraumatic. No pharyngeal erythema. No thyromegaly. CARDIOVASCULAR: S1 and S2 present. No murmurs, rubs, or gallops. PULMONARY: Chest is clear to auscultation, no wheezing or crackles. ABDOMEN: Soft, nontender, nondistended, normoactive bowel sounds. No palpable organomegaly. -MUSCULOSKELETAL: No joint swelling or deformity. Left foot wound in a dressing, left leg is swollen and tender and erythematous EXTREMITIES: No cyanosis, clubbing, or pedal edema. NEUROLOGICAL: Gross neurological examination did not reveal any focal deficits. SKIN: No rashes. no petechiae. - Labs CBC & Chem 7: 11/13/22 07:49 11/13/22 07:49 Labs: Abnormal Lab Results - Last 24 Hours (Table) 11/12/22 11/12/22 11/13/22 Range/Units 17:18 21:14 07:49 RBC 2.81 L (3.80-5.40) m/uL Hgb 8.7 L (11.4-16.0) gm/dL Hct 27.5 L (34.0-46.0) % Plt Count 563 H (150-450) k/uL Sodium (137-145) mmol/L Glucose (74-99) mg/dL POC Glucose (mg/dL) 177 H 208 H (70-110) mg/dL 11/13/22 11/13/22 Range/Units 07:49 11:15 RBC (3.80-5.40) m/uL Hgb (11.4-16.0) gm/dL Hct (34.0-46.0) % Plt Count (150-450) k/uL Sodium 136 L (137-145) mmol/L Glucose 139 H (74-99) mg/dL POC Glucose (mg/dL) 222 H (70-110) mg/dL Microbiology - Last 24 Hours (Table) 11/08/22 12:48 Anaerobic Culture - Final Leg - Left 11/08/22 12:48 Gram Stain - Final Leg - Left Wound Culture - Final Methicillin resist S. aureus Alcaligen. faecalis 11/08/22 17:35 Blood Culture - Preliminary Blood No Growth after 96 hours Assessment and Plan Assessment: Severe left foot gangrene and cellulitis extending up to the left leg status post debridement of the left foot on 11/08. Wound culture growing MRSA andm Alcaligen fecalis Left groin fluid collection could be seroma, versus hematoma, versus abscess Sepsis secondary to above Hypertension Hyperlipidemia Diabetes mellitus Plan: Continue with broad-spectrum antibiotic as per ID team, currently on cefepime and IV vancomycin Continue with wound care Primary vascular surgery team on the case Infectious disease consult Labs and medication were reviewed.. Continue same treatment. Continue with symptomatic treatment. Resume home medication. Monitor labs and vitals. DVT and GI prophylaxis. Further recommendations as per clinical course of the patient DVT prophylaxis: Subcutaneous heparin GI Prophylaxis: Ppi PT/OT: Pending Prognosis is guarded
[2022-11-13] MEDS: COLLAGENASE 250 UNIT/GM OINTMENT 30 GM TUBE TOPICAL SCH (15:20)
[2022-11-13 17:21] LABS: Glucose,Whole Blood 146 mg/dL (70-110)
[2022-11-13] MEDS: MIRTAZAPINE 15 MG TAB PO SCH (19:54)
[2022-11-13 20:33] LABS: Glucose,Whole Blood 233 mg/dL (70-110)
[2022-11-14] MEDS: methocarbamoL 500 MG TAB PO PRN ×3 (01:04→21:56)
[2022-11-14] MEDS: HYDROcodone/APAP 10-325MG 1 EACH TAB PO PRN ×3 (01:04→20:58)
[2022-11-14] MEDS: VANCOMYCIN 1,250 MG in SODIUM CHLORIDE 0.9% 250 ML IVPB SCH ×2 (01:05→17:46)
[2022-11-14] MEDS: HYDROmorphone 1 MG/ML 1 ML SYRINGE IVP PRN ×5 (02:42→21:56)
[2022-11-14] MEDS: CEFEPIME 2 GM in SODIUM CHLORIDE 0.9% 100 ML IVPB SCH ×2 (03:49→17:16)
[2022-11-14] MEDS: LACTATED RINGERS 1,000 ML IV SCH (04:12)
[2022-11-14 05:52] LABS: Glucose,Whole Blood 102 mg/dL (70-110)
[2022-11-14] MEDS: glipiZIDE 5 MG TAB PO SCH ×2 (05:53→17:16)
[2022-11-14] MEDS: INSULIN ASPART (NovoLOG) 100 UNIT/ML VIAL SQ SCH ×4 (05:53→20:59)
[2022-11-14] MEDS: PANTOPRAZOLE 40 MG TABLET PO SCH (06:55)
[2022-11-14 08:16] LABS: HGB 8.1 gm/dL (11.4-16.0); Hypochromasia Slight; MCH 30.2 pg (25.0-35.0); MCHC 31.3 g/dL (31.0-37.0); MCV 96.8 fL (80.0-100.0); Mean Platelet Volume 6.8; Platelet Count 473 k/uL (150-450); RBC 2.68 m/uL (3.80-5.40); RDW 14.4 % (11.5-15.5); WBC 6.6 k/uL (3.8-10.6)
[2022-11-14] MEDS ORDERED: BUPRENORPHINE TRANSDERM SCH (09:00)
[2022-11-14] MEDS: amLODIPine 10 MG TAB PO SCH (09:34)
[2022-11-14] MEDS: VENLAFAXINE HCL ER 150 MG CAP PO SCH (09:34)
[2022-11-14] MEDS: CLOPIDOGREL 75 MG TAB PO SCH (09:34)
[2022-11-14] MEDS: busPIRone HCl 10 MG TAB PO SCH ×3 (09:34→20:59)
[2022-11-14] MEDS: GABAPENTIN 300 MG CAP PO SCH ×4 (09:34→20:58)
[2022-11-14] MEDS: FUROSEMIDE 20 MG TAB PO SCH ×2 (09:34→17:38)
[2022-11-14] MEDS: HEPARIN SODIUM,PORCINE/PF 5,000 UNIT/0.5 ML SYRINGE SQ SCH ×2 (09:36→20:59)
[2022-11-14] MEDS: COLLAGENASE 250 UNIT/GM OINTMENT 30 GM TUBE TOPICAL SCH (10:46)
[2022-11-14 10:49] LABS: African American GFR (CKD) 64.1 (60.0-200.0); Non-African American GFR(CKD) 55.3 (60.0-200.0)
[2022-11-14 11:49] LABS: Glucose,Whole Blood 110 mg/dL (70-110)
--- NOTE | 2022-11-14 11:54 | P.PN ---
Subjective From records admitted status post surgical excisional debridement of the left lower extremity yesterday down to the level of the tendon and muscle with undermining. There was concerns for infection especially with a previous fem-fem bypass graft and patient was admitted for infectious disease consult for antibiotic recommendations. Patient states she has pain in that left lower extremity, she states the pain keeps her up at night it is not new and his chronic pain. She is on multiple pain medications. She had a very low-grade temp of 99.7 yesterday afternoon has been running in the low 99s. 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 local culture has been obtained recheck currently growing MRSA and gram- negative. patient to continue with vancomycin pharmacy to dose and cefepime 2 g every 8 hours. local wound care to continue per the wound care team I'm resuming the care of the patient today 11/12/2022 This is a pleasant 57 years old female was admitted with severe peripheral artery disease and severe left foot gangrene and cellulitis status post debridement on 11/08. She's been covered with broad-spectrum antibiotic with IV vancomycin and cefepime. Also she is on home dose of Plavix. Home dose of glipizide 7.5 mg twice a day and Lasix 20 mg by mouth twice a day. Today patient her left foot was dressing, however she still has significant pain and swelling and redness of her left leg with induration, also she feels some tenderness pain in the area of the left leg, left knee is normal but she complains from numbness and tingling behind left thigh,. Her hemoglobin is fluctuating between 10 and 8. Creatinine 1.0. She has a fever of 101.3 on admission, currently resolved. Repeat CT of the left leg shown subcutaneous gas, with no necrotizing fasciitis with no evidence of osteomyelitis per radiologist but has osteopenia Also we ordered ultrasound venous Doppler of the left leg which came negative for DVT but showing left groin complex fluid collection which could be seroma, versus hematoma, versus abscess. I discussed the case with surgery team today. Possibility of compartment syndrome also discussed. Patient is currently being monitored very closely. Started on subcutaneous heparin 11/13/2022 Patients with left leg swelling and tenderness, slightly better than yesterday. She looks less distress from pain today. Venous Doppler is negative for DVT. But shows complex fluid in the left inguinal area, I checked the left inguinal and there is few centimeter nodule suspicious for lymphadenopathy, no palpated abscess or fluctuating fluid. Vascular surgery on the case Patient remains on IV vancomycin and cefepime. 11/14/2022 Patient today from stress due to severe pain in her left leg, her left leg still swollen and tender to touch. As per senior staff consultant Bri surgical team are aware and planning to take her to OR this afternoon. Other than that she is hemodynamically stable. No more fevers since 11/11. Sugar controlled Hemoglobin is 8.1, the biopsy within the reference range. Creatinine 1.1. Patient is still correct with IV vancomycin and cefepime, ID team on the case. Objective - Vital Signs Vital signs: Vital Signs Temp 98.9 F 11/14/22 07:57 Pulse 68 11/14/22 07:57 Resp 16 11/14/22 09:15 BP 133/71 11/14/22 07:57 Pulse Ox 96 11/14/22 09:29 FiO2 21 11/14/22 09:29 Intake & Output 11/13/22 11/14/22 11/14/22 18:59 06:59 18:59 Other: Voiding Method Bedside Commode # Voids 1 4 - Exam GENERAL: The patient is alert and oriented x3, not in any acute distress. Well developed, well nourished. HEENT: Pupils are round and equally reacting to light. EOMI. No scleral icterus. No conjunctival pallor. Normocephalic, atraumatic. No pharyngeal erythema. No thyromegaly. CARDIOVASCULAR: S1 and S2 present. No murmurs, rubs, or gallops. PULMONARY: Chest is clear to auscultation, no wheezing or crackles. ABDOMEN: Soft, nontender, nondistended, normoactive bowel sounds. No palpable organomegaly. -MUSCULOSKELETAL: No joint swelling or deformity. Left foot wound in a dressing, left leg is swollen and tender and erythematous EXTREMITIES: No cyanosis, clubbing, or pedal edema. NEUROLOGICAL: Gross neurological examination did not reveal any focal deficits. SKIN: No rashes. no petechiae. - Labs CBC & Chem 7: 11/14/22 07:37 11/14/22 07:37 Labs: Abnormal Lab Results - Last 24 Hours (Table) 11/13/22 11/13/22 11/14/22 Range/Units 17:16 20:32 07:37 RBC (3.80-5.40) m/uL Hgb (11.4-16.0) gm/dL Hct (34.0-46.0) % Plt Count (150-450) k/uL Est GFR (CKD-EPI)NonAf 55.3 L (60.0-200.0) POC Glucose (mg/dL) 146 H 233 H (70-110) mg/dL 11/14/22 Range/Units 07:37 RBC 2.68 L (3.80-5.40) m/uL Hgb 8.1 L (11.4-16.0) gm/dL Hct 26.0 L (34.0-46.0) % Plt Count 473 H (150-450) k/uL Est GFR (CKD-EPI)NonAf (60.0-200.0) POC Glucose (mg/dL) (70-110) mg/dL Microbiology - Last 24 Hours (Table) 11/08/22 17:35 Blood Culture - Preliminary Blood No Growth after 120 hours Assessment and Plan Assessment: Severe left foot gangrene and cellulitis extending up to the left leg status post debridement of the left foot on 11/08. Wound culture growing MRSA andm Alcaligen fecalis Left groin fluid collection could be seroma, versus hematoma, versus abscess Sepsis secondary to above Hypertension Hyperlipidemia Diabetes mellitus Plan: Continue with broad-spectrum antibiotic as per ID team, currently on cefepime and IV vancomycin Continue with wound care Primary vascular surgery team on the case, they plan to take the patient to OR again per bed side RN Infectious disease consult Labs and medication were reviewed.. Continue same treatment. Continue with symptomatic treatment. Resume home medication. Monitor labs and vitals. DVT and GI prophylaxis. Further recommendations as per clinical course of the patient DVT prophylaxis: Subcutaneous heparin GI Prophylaxis: Ppi PT/OT: Pending Prognosis is guarded
[2022-11-14] MEDS ORDERED: IV FLUID CONTINUATION 800 ML IV ONE (12:44)
[2022-11-14] MEDS ORDERED: ONDANSETRON 4 MG/2 ML VIAL IVP ONE (12:59)
--- NOTE | 2022-11-14 14:55 | P.OP ---
Date of Procedure: 11/14/22 Preoperative Diagnosis: Nonhealing wound posterior aspect of the left lower extremity measuring 12.5 x 4.75 x 4 mm involving tendon layer. Postoperative Diagnosis: Same. Procedure(s) Performed: 1: Excisional debridement of nonviable/necrotic tissue left lower extremity wound. 2: Application of skin substitute (Integra graft). 3: Application of wound VAC. Anesthesia: LUISA Surgeon: Abdi Jensen Estimated Blood Loss (ml): 2 IV fluids (ml): 500 Urine output (ml): 0 Pathology: none sent Condition: stable Disposition: no change Indications for Procedure: Patient is a 57-year-old female who was admitted with a nonhealing ulceration of the posterior aspect of the left lower extremity with exposed Achilles tendon. She had previously been debrided and was treated with local wound care and IV antibiotics. Further debridement as necessary. The procedure, risk and benefits were discussed and patient was to proceed. Consent form was signed. Description of Procedure: Patient is brought the operating room placed in the supine position Mr. general endotracheal anesthesia delivered by the department anesthesiology. She was then flipped into the prone position and the left lower extremity was sterilely prepped and draped in usual manner. Utilizing a surgical scalpel nonviable tendon and ligamentous tissue was removed. At this. Aspect of the wound there is a small amount of undermining noted and when explored a potential space was opened between the skin and fascial layer. No purulence was extracted. A counter incision in this area was made to help drain this area. Surgical scrub brush was also utilized in debridement. The wound measured 12 0.5 x 4.75 x 4 mm. Integra graft was selected and cut the appropriate size, placed on the wound and secured with 4-0 chromic suture placed in simple interrupted fashion. Adaptic and a wound VAC were then applied with good seal noted. Patient tolerated procedure well awoke without apparent complication was transferred to the recovery area in satisfactory and stable condition.
[2022-11-14 17:07] LABS: Glucose,Whole Blood 92 mg/dL (70-110)
[2022-11-14 20:41] LABS: Glucose,Whole Blood 164 mg/dL (70-110)
[2022-11-14] MEDS: MIRTAZAPINE 15 MG TAB PO SCH (20:58)
[2022-11-14] MEDS: ATORVASTATIN 20 MG TAB PO SCH (20:58)
--- NOTE | 2022-11-14 22:16 | P.PN ---
Subjective Progress Note Date: 11/14/22 Principal diagnosis: Left leg infected wound Patient is a 57-year-old female with multiple comorbidity and did have evidence of left lower extremity gangrene especially involving the Achilles tendon status post extensive debridement in this patient also have a severe pe ripheral arterial disease status post fem-fem bypass. Patient is scheduled for further debridement of the wound 11/14/2022 On today's evaluation that is 11/14/2022, the patient continues to be afebrile, the patient pain to the left lower extremity wound area has slightly decreased intensity, the patient denies chest pain shortness of cough no abdominal pain no diarrhea with antibiotic therapy Objective - Vital Signs Vital signs: Vital Signs Temp 98.9 F 11/14/22 07:57 Pulse 68 11/14/22 07:57 Resp 16 11/14/22 09:15 BP 133/71 11/14/22 07:57 Pulse Ox 96 11/14/22 09:29 FiO2 21 11/14/22 09:29 Intake & Output 11/13/22 11/14/22 11/14/22 18:59 06:59 18:59 Other: Voiding Method Bedside Commode # Voids 1 4 - Exam GENERAL DESCRIPTION: Middle-age female up in bed in no distress RESPIRATORY SYSTEM: Unlabored breathing , decreased breath sounds at bases HEART: S1 S2 regular rate and rhythm , ABDOMEN: Soft , no tenderness EXTREMITIES: Left leg wound is currently dressed there is no drainage on the dressing - Labs CBC & Chem 7: 11/14/22 07:37 11/14/22 07:37 Labs: Abnormal Lab Results - Last 24 Hours (Table) 11/13/22 11/13/22 11/13/22 Range/Units 11:15 17:16 20:32 RBC (3.80-5.40) m/uL Hgb (11.4-16.0) gm/dL Hct (34.0-46.0) % Plt Count (150-450) k/uL POC Glucose (mg/dL) 222 H 146 H 233 H (70-110) mg/dL 11/14/22 Range/Units 07:37 RBC 2.68 L (3.80-5.40) m/uL Hgb 8.1 L (11.4-16.0) gm/dL Hct 26.0 L (34.0-46.0) % Plt Count 473 H (150-450) k/uL POC Glucose (mg/dL) (70-110) mg/dL Microbiology - Last 24 Hours (Table) 11/08/22 17:35 Blood Culture - Preliminary Blood No Growth after 120 hours Assessment and Plan (1) Left leg cellulitis Current Visit: Yes Status: Acute Code(s): L03.116 - CELLULITIS OF LEFT LOWER LIMB SNOMED Code(s): 956616951 (2) Non-pressure chronic ulcer of other part of left lower leg with necrosis of muscle Current Visit: Yes Status: Acute Code(s): L97.823 - NON-PRS CHRONIC ULCER OTH PRT L LOW LEG W NECROSIS OF MUSCLE SNOMED Code(s): 26470015133440473 Plan: 1patient with a 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 2local culture has been obtained recheck currently growing MRSA and Alcaligenes faecalis 3local wound care with Santyl followed by moist dressing changes daily discussed with the RN 4patient did have a CT of the left lower extremity completed on 11/12/2022 with no evidence of necrotizing infection or abscess 5- patient to continue with vancomycin pharmacy to dose and cefepime 2 g every 8 hours, and await further surgical debridement and culture and monitor clinical course closely Time with Patient: Less than 30
[2022-11-15] MEDS: HYDROmorphone 1 MG/ML 1 ML SYRINGE IVP PRN ×3 (02:11→12:04)
[2022-11-15] MEDS: HYDROcodone/APAP 10-325MG 1 EACH TAB PO PRN ×4 (03:34→21:30)
[2022-11-15] MEDS: CEFEPIME 2 GM in SODIUM CHLORIDE 0.9% 100 ML IVPB SCH ×2 (03:34→15:26)
[2022-11-15] MEDS: methocarbamoL 500 MG TAB PO PRN ×2 (03:34→10:55)
[2022-11-15] MEDS: LACTATED RINGERS 1,000 ML IV SCH (04:04)
[2022-11-15 06:25] LABS: Glucose,Whole Blood 179 mg/dL (70-110)
[2022-11-15] MEDS: glipiZIDE 5 MG TAB PO SCH ×2 (06:40→17:27)
[2022-11-15] MEDS: PANTOPRAZOLE 40 MG TABLET PO SCH (06:40)
[2022-11-15] MEDS: INSULIN ASPART (NovoLOG) 100 UNIT/ML VIAL SQ SCH ×4 (06:40→22:39)
[2022-11-15] MEDS ORDERED: VANCOMYCIN TROUGH DUE 1 EACH MISC MISCELLANE ONE (09:00)
[2022-11-15] MEDS: COLLAGENASE 250 UNIT/GM OINTMENT 30 GM TUBE TOPICAL SCH (09:41)
[2022-11-15] MEDS: CLOPIDOGREL 75 MG TAB PO SCH (09:47)
[2022-11-15] MEDS: VENLAFAXINE HCL ER 150 MG CAP PO SCH (09:47)
[2022-11-15] MEDS: HEPARIN SODIUM,PORCINE/PF 5,000 UNIT/0.5 ML SYRINGE SQ SCH ×2 (09:47→22:41)
[2022-11-15] MEDS: GABAPENTIN 300 MG CAP PO SCH ×4 (09:47→22:41)
[2022-11-15] MEDS: FUROSEMIDE 20 MG TAB PO SCH ×2 (09:47→15:25)
[2022-11-15] MEDS: busPIRone HCl 10 MG TAB PO SCH ×3 (09:47→22:41)
[2022-11-15] MEDS: VANCOMYCIN 1,250 MG in SODIUM CHLORIDE 0.9% 250 ML IVPB SCH (09:47)
[2022-11-15] MEDS: amLODIPine 10 MG TAB PO SCH (09:47)
--- NOTE | 2022-11-15 10:10 | P.PN ---
Subjective Progress Note Date: 11/15/22 Principal diagnosis: Gangrene left lower extremity with peripheral arterial disease status post surgical debridement Patient is seen and examined today as a follow-up. She is status post excisional debridement of left lower extremity wound with application of skin substitute and wound VAC. She states that her pain has improved. Redness in her left lower extremity improved she did have a low-grade fever of 100.4 this morning. She denies any shortness of breath, chest pain, abdominal pain, nausea or vomiting. She remains on IV antibiotics per recommendations from infectious disease. Medicine team following. Objective - Vital Signs Vital signs: Vital Signs Temp 100.4 F H 11/15/22 07:36 Pulse 90 11/15/22 07:36 Resp 18 11/15/22 07:36 BP 139/72 11/15/22 07:36 Pulse Ox 92 L 11/15/22 07:36 FiO2 21 11/14/22 09:29 Intake & Output 11/14/22 11/15/22 11/15/22 18:59 06:59 18:59 Intake Total 400 944 Output Total 3 Balance 397 944 Intake: IV 400 Oral 944 Output: Estimated Blood Loss 3 Other: Voiding Method Bedside Commode # Voids 0 5 - Exam General appearance: The patient is alert, oriented, appears in no acute distress. HET: Head is normocephalic and atraumatic. Pupils are equal and reactive. Neck: Supple without lymphadenopathy. Trachea midline. Heart: Regular. Lungs: Equal expansion, normal respiratory effort. Abdomen: Soft, nontender, nondistended. Extremities: Bilateral groin incisions well-healed palpable femoral pulse. Left lower extremity wound with wound VAC in place. Sensorimotor intact. Left lower extremity with swelling, erythema improving. Neurological: No focal deficits. Strength and sensation are grossly intact. - Labs CBC & Chem 7: 11/14/22 07:37 11/15/22 08:54 Labs: Abnormal Lab Results - Last 24 Hours (Table) 11/14/22 11/14/22 11/15/22 Range/Units 07:37 20:40 06:23 Est GFR (CKD-EPI)NonAf 55.3 L (60.0-200.0) POC Glucose (mg/dL) 164 H 179 H (70-110) mg/dL Microbiology - Last 24 Hours (Table) 11/08/22 17:35 Blood Culture - Final Blood No Growth after 144 hours Assessment and Plan Assessment: 1. Gangrene left lower extremity status post surgical debridement and application of skin substitute 2. Severe peripheral arterial disease with previous femoral to femoral bypass graft 3. MRSA wound infection Plan: 1. Continue symptomatic and supportive care 2. Continue antibiotics per recommendations from infectious disease for discharge 3. Continue with wound VAC to left lower extremity 7 days 4. Incentive spirometer to bedside, encouraged use every hour 5. Plan for discharge tomorrow with home care. This was discussed with primary medicine team and case management 6. Follow-up with outpatient wound care clinic for continued local wound care The impression and plan of care has been dictated as directed. Dr. Jensen I performed a history and examination of this patient, discussed the same with the dictator. I agree with the dictator's note ,documented as a scribe. Any additional findings or plans will be noted.
[2022-11-15 11:58] LABS: Glucose,Whole Blood 134 mg/dL (70-110)
--- NOTE | 2022-11-15 12:27 | P.PN ---
Subjective Progress Note Date: 11/15/22 Principal diagnosis: Left leg infected wound Patient is a 57-year-old female with multiple comorbidity and did have evidence of left lower extremity gangrene especially involving the Achilles tendon status post extensive debridement in this patient also have a severe pe ripheral arterial disease status post fem-fem bypass. Patient is status post further debridement of the wound and application of wound VAC on 11/14/2022 On today's evaluation that is 11/15/2022, the patient did have a low-grade fever 100.4 this morning the patient is afebrile since then, the patient pain to the left lower extremity wound area has slightly decreased intensity, the patient denies chest pain shortness of cough no abdominal pain no diarrhea with antibiotic therapy Objective - Vital Signs Vital signs: Vital Signs Temp 100.4 F H 11/15/22 07:36 Pulse 90 11/15/22 07:36 Resp 18 11/15/22 07:36 BP 139/72 11/15/22 07:36 Pulse Ox 99 11/15/22 09:43 FiO2 21 11/14/22 09:29 Intake & Output 11/14/22 11/15/22 11/15/22 18:59 06:59 18:59 Intake Total 400 944 Output Total 3 Balance 397 944 Intake: IV 400 Oral 944 Output: Estimated Blood Loss 3 Other: Voiding Method Bedside Commode # Voids 0 5 - Exam GENERAL DESCRIPTION: Middle-age female up in bed in no distress RESPIRATORY SYSTEM: Unlabored breathing , decreased breath sounds at bases HEART: S1 S2 regular rate and rhythm , ABDOMEN: Soft , no tenderness EXTREMITIES: Left leg wound is currently covered with a wound VAC did have some surrounding swelling. No significant redness - Labs CBC & Chem 7: 11/14/22 07:37 11/15/22 08:54 Labs: Abnormal Lab Results - Last 24 Hours (Table) 11/14/22 11/14/22 11/15/22 Range/Units 07:37 20:40 06:23 Est GFR (CKD-EPI)NonAf 55.3 L (60.0-200.0) POC Glucose (mg/dL) 164 H 179 H (70-110) mg/dL Microbiology - Last 24 Hours (Table) 11/08/22 17:35 Blood Culture - Final Blood No Growth after 144 hours Assessment and Plan (1) Left leg cellulitis Current Visit: Yes Status: Acute Code(s): L03.116 - CELLULITIS OF LEFT LOWER LIMB SNOMED Code(s): 035922848 (2) Non-pressure chronic ulcer of other part of left lower leg with necrosis of muscle Current Visit: Yes Status: Acute Code(s): L97.823 - NON-PRS CHRONIC ULCER OTH PRT L LOW LEG W NECROSIS OF MUSCLE SNOMED Code(s): 86297326837945820 Plan: 1patient with a chronic nonhealing wound to the left Achilles tendon area in this patient who is status post surgical debridement of the wound down to the tendon and muscle area and deep cultures which are currently pending keeping in mind the patient has been in and out of the hospital and treated with antibiotics we will need to cover for resistant gram-positive as well as gram-negative pathogen. 2local culture has been obtained recheck currently growing MRSA and Alcaligenes faecalis 3local wound care with Santyl followed by moist dressing changes daily discussed with the RN 4patient did have a CT of the left lower extremity completed on 11/12/2022 with no evidence of necrotizing infection or abscess 5- patient did have a low-grade fever this morning and will be monitored closely for now continue with vancomycin pharmacy to dose and cefepime 2 g every 8 hours, and monitor clinical course closely Time with Patient: Less than 30
--- NOTE | 2022-11-15 13:03 | P.PN ---
Subjective From records admitted status post surgical excisional debridement of the left lower extremity yesterday down to the level of the tendon and muscle with undermining. There was concerns for infection especially with a previous fem-fem bypass graft and patient was admitted for infectious disease consult for antibiotic recommendations. Patient states she has pain in that left lower extremity, she states the pain keeps her up at night it is not new and his chronic pain. She is on multiple pain medications. She had a very low-grade temp of 99.7 yesterday afternoon has been running in the low 99s. 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 local culture has been obtained recheck currently growing MRSA and gram- negative. patient to continue with vancomycin pharmacy to dose and cefepime 2 g every 8 hours. local wound care to continue per the wound care team I'm resuming the care of the patient today 11/12/2022 This is a pleasant 57 years old female was admitted with severe peripheral artery disease and severe left foot gangrene and cellulitis status post debridement on 11/08. She's been covered with broad-spectrum antibiotic with IV vancomycin and cefepime. Also she is on home dose of Plavix. Home dose of glipizide 7.5 mg twice a day and Lasix 20 mg by mouth twice a day. Today patient her left foot was dressing, however she still has significant pain and swelling and redness of her left leg with induration, also she feels some tenderness pain in the area of the left leg, left knee is normal but she complains from numbness and tingling behind left thigh,. Her hemoglobin is fluctuating between 10 and 8. Creatinine 1.0. She has a fever of 101.3 on admission, currently resolved. Repeat CT of the left leg shown subcutaneous gas, with no necrotizing fasciitis with no evidence of osteomyelitis per radiologist but has osteopenia Also we ordered ultrasound venous Doppler of the left leg which came negative for DVT but showing left groin complex fluid collection which could be seroma, versus hematoma, versus abscess. I discussed the case with surgery team today. Possibility of compartment syndrome also discussed. Patient is currently being monitored very closely. Started on subcutaneous heparin 11/13/2022 Patients with left leg swelling and tenderness, slightly better than yesterday. She looks less distress from pain today. Venous Doppler is negative for DVT. But shows complex fluid in the left inguinal area, I checked the left inguinal and there is few centimeter nodule suspicious for lymphadenopathy, no palpated abscess or fluctuating fluid. Vascular surgery on the case Patient remains on IV vancomycin and cefepime. 11/14/2022 Patient today from stress due to severe pain in her left leg, her left leg still swollen and tender to touch. As per clinical staff educator Bri surgical team are aware and planning to take her to OR this afternoon. Other than that she is hemodynamically stable. No more fevers since 11/11. Sugar controlled Hemoglobin is 8.1, the biopsy within the reference range. Creatinine 1.1. Patient is still correct with IV vancomycin and cefepime, ID team on the case. 11/15/2022 Patient status post left leg excisional debridement of nonviable/necrotic tissue left lower extremity wound. And placement of wound VAC. Today is postoperative day #1. Patient looks very pleasant comfortable and happy with the relief of her pain in her left leg, her left leg still swollen and tense to palpation. She has low-grade fever but overall she is improving Discussed with vascular surgery team and infectious disease team. Possible discharge tomorrow on antibiotic with recommendation for close outpatient follow-up. Currently she kept on IV cefepime and IV vancomycin Objective - Vital Signs Vital signs: Vital Signs Temp 100.4 F H 11/15/22 07:36 Pulse 90 11/15/22 09:47 Resp 18 11/15/22 09:47 BP 139/72 11/15/22 07:36 Pulse Ox 99 11/15/22 09:43 FiO2 21 11/14/22 09:29 Intake & Output 11/14/22 11/15/22 11/15/22 18:59 06:59 18:59 Intake Total 400 944 Output Total 3 Balance 397 944 Intake: IV 400 Oral 944 Output: Estimated Blood Loss 3 Other: Voiding Method Bedside Commode Bedside Commode # Voids 0 5 - Exam GENERAL: The patient is alert and oriented x3, not in any acute distress. Well developed, well nourished. HEENT: Pupils are round and equally reacting to light. EOMI. No scleral icterus. No conjunctival pallor. Normocephalic, atraumatic. No pharyngeal erythema. No thyromegaly. CARDIOVASCULAR: S1 and S2 present. No murmurs, rubs, or gallops. PULMONARY: Chest is clear to auscultation, no wheezing or crackles. ABDOMEN: Soft, nontender, nondistended, normoactive bowel sounds. No palpable organomegaly. -MUSCULOSKELETAL: No joint swelling or deformity. Left foot wound in a dressing, left leg is swollen and tender and erythematous, improving. Wound VAC in place EXTREMITIES: No cyanosis, clubbing, or pedal edema. NEUROLOGICAL: Gross neurological examination did not reveal any focal deficits. SKIN: No rashes. no petechiae. - Labs CBC & Chem 7: 11/14/22 07:37 11/15/22 08:54 Labs: Abnormal Lab Results - Last 24 Hours (Table) 11/14/22 11/15/22 11/15/22 Range/Units 20:40 : 11:57 POC Glucose (mg/dL) 164 H 179 H 134 H (70-110) mg/dL Microbiology - Last 24 Hours (Table) 11/08/22 17:35 Blood Culture - Final Blood No Growth after 144 hours Assessment and Plan Assessment: Severe left foot gangrene and cellulitis extending up to the left leg status post debridement of the left foot on 11/08. Wound culture growing MRSA andm Alcaligen fecalis . Status post excisional debridement on 11/14 Left groin fluid collection could be seroma, versus hematoma, versus abscess Sepsis secondary to above Hypertension Hyperlipidemia Diabetes mellitus Plan: Continue with broad-spectrum antibiotic as per ID team, currently on cefepime and IV vancomycin. Continue with wound care Primary vascular surgery team on the case, they plan to take the patient to OR again per bed side RN Infectious disease consult Keep wound VAC per vascular surgery team and follow-up outpatient Labs and medication were reviewed.. Continue same treatment. Continue with symptomatic treatment. Resume home medication. Monitor labs and vitals. DVT and GI prophylaxis. Further recommendations as per clinical course of the patient DVT prophylaxis: Subcutaneous heparin GI Prophylaxis: Ppi PT/OT: Pending Prognosis is guarded
[2022-11-15] MEDS ORDERED: KETAMINE 10 MG/ML 20 ML VIAL ONE (13:16)
[2022-11-15] MEDS ORDERED: fentaNYL (PF) 50 MCG/ML 2 ML AMP ONE (13:16)
[2022-11-15] MEDS ORDERED: SUCCINYLCHOLINE CHLORIDE 200 MG/10 ML VIAL IV ONE (13:16)
[2022-11-15] MEDS ORDERED: MIDAZOLAM 2 MG/2 ML VIAL ONE (13:16)
[2022-11-15] MEDS ORDERED: PROPOFOL 10 MG/ML 20 ML VIAL IV ONE (13:16)
[2022-11-15] MEDS ORDERED: HYDROmorphone (PF) 1 MG/ML ONE (13:16)
[2022-11-15 16:42] LABS: Glucose,Whole Blood 154 mg/dL (70-110)
[2022-11-15 21:17] LABS: Glucose,Whole Blood 79 mg/dL (70-110)
[2022-11-15] MEDS: MIRTAZAPINE 15 MG TAB PO SCH (22:41)
[2022-11-16] MEDS: CEFEPIME 2 GM in SODIUM CHLORIDE 0.9% 100 ML IVPB SCH ×2 (02:31→17:12)
[2022-11-16] MEDS: HYDROmorphone 1 MG/ML 1 ML SYRINGE IVP PRN (02:35)
[2022-11-16] MEDS: LACTATED RINGERS 1,000 ML IV SCH (04:07)
[2022-11-16] MEDS: HYDROcodone/APAP 10-325MG 1 EACH TAB PO PRN ×3 (05:04→22:12)
[2022-11-16] MEDS: PANTOPRAZOLE 40 MG TABLET PO SCH (05:05)
[2022-11-16 06:26] LABS: Glucose,Whole Blood 121 mg/dL (70-110)
[2022-11-16] MEDS: INSULIN ASPART (NovoLOG) 100 UNIT/ML VIAL SQ SCH ×4 (06:37→22:10)
[2022-11-16] MEDS: glipiZIDE 5 MG TAB PO SCH ×2 (06:43→17:11)
[2022-11-16] MEDS: VENLAFAXINE HCL ER 150 MG CAP PO SCH (09:55)
[2022-11-16] MEDS: GABAPENTIN 300 MG CAP PO SCH ×4 (09:55→22:11)
[2022-11-16] MEDS: busPIRone HCl 10 MG TAB PO SCH ×3 (09:55→22:11)
[2022-11-16] MEDS: FUROSEMIDE 20 MG TAB PO SCH ×2 (09:55→17:12)
[2022-11-16] MEDS: methocarbamoL 500 MG TAB PO PRN ×2 (09:56→17:12)
[2022-11-16] MEDS: amLODIPine 10 MG TAB PO SCH (09:56)
--- NOTE | 2022-11-16 10:00 | P.DS ---
Providers Date of admission: 11/12/22 06:58 Expected date of discharge: 11/16/22 Attending physician: Stefanie Chao DO Consults: 11/08/22 14:01 Consult Physician Routine Consulting Provider: Anastasiia Hernandez Consult Reason/Comments: medical managment s/p surgical debridement, infected wound Do you want consulting provider notified?: Yes 11/08/22 14:02 Consult Physician Routine Consulting Provider: Ivania Caldwell Consult Reason/Comments: Antibiotic recommendations Do you want consulting provider notified?: Yes Primary care physician: [facility] Course: This 57-year-old female with severe peripheral arterial disease who had developed severe wounds of her left lower extremity with gangrene. Due to pain patient was unable to have wound care in the wound care clinic and operative debridement was requested. Patient underwent sharp surgical excisional debridement of the left lower extremity to the level of the tendon and muscle on 11/08/2022. Patient was then admitted for infectious disease consultation for recommendation for antibiotics. During the patient's hospital stay she did spike a couple fevers with a max temp of 101.3 on 11/10/2022, again spiked a low-grade temp on 11/15/2022 at 100.4. She's been afebrile today with last temperature 99.1. Patient states left lower extremity pain improved. She was having increased swelling and redness to the left lower extremity and underwent a second debridement with application of skin substitute and wound VAC. Redness and swelling to left lower extremity has improved. Patient has been up and a mbulating. Incentive spirometer is at the bedside and patient is using hourly. Infectious disease has been following, deep tissue wound culture came back with MRSA and alcaligen faecalis. Rhea had been on cefepime and vancomycin during her hospital stay. Plan is for discharge home today with IV antibiotics which infectious disease has ordered, home with home care and wound VAC to left lower extremity. Waiting for patient to undergo PICC line placement today. Exam General appearance: The patient is alert, oriented, appears in no acute distress. HET: Head is normocephalic and atraumatic. Pupils are equal and reactive. Neck: Supple without lymphadenopathy. Trachea midline. Heart: Regular. Lungs: Equal expansion, normal respiratory effort. Abdomen: Soft, nontender, nondistended. Extremities: Bilateral groin incisions well-healed palpable femoral pulse. Left lower extremity wound with wound VAC in place. Sensorimotor intact. Left lower extremity with swelling, erythema improving. Neurological: No focal deficits. Strength and sensation are grossly intact. The impression and plan of care has been dictated as directed. I performed a history and examination of this patient, discussed the same with the dictator. I agree with the dictator's note ,documented as a scribe. Any additional findings or plans will be noted. Procedures: 11/14/22 Procedure(s) Performed: 1: Excisional debridement of nonviable/necrotic tissue left lower extremity wound. 2: Application of skin substitute (Integra graft). 3: Application of wound VAC. Anesthesia: GETA Surgeon: Abdi Jensen 11/08/22 Description of Procedure: Preoperative diagnosis: Gangrene left lower extremity, severe peripheral arterial disease, previous femoral-femoral bypass graft Postoperative diagnosis: Same Procedure: [Sharp excisional debridement left lower extremity to the level of the tendon and muscle measuring 12 x 4.2 x 0.2 cm with undermining at the 12 o'clock position of 6 cm #Excisional debridement of left lower extremity lateral ankle malleolus to subcutaneous fat measuring 2 x 2 x 0.2 cm] Surgeon: Stefanie Chao D.O. Patient Condition at Discharge: Stable Plan - Discharge Summary Discharge Rx Participant: Yes New Discharge Prescriptions: New methocarbamoL [Robaxin] 1,000 mg PO QID PRN 14 Days #56 tab PRN Reason: Muscle Spasm Continue Clopidogrel [Plavix] 75 mg PO DAILY Lidocaine 5% Oint [Xylocaine 5% Oint] 1 applic TOPICAL Q4H PRN PRN Reason: bilateral leg pain Triamcinolone 0.5% Cream [Kenalog 0.5% Cream] 1 applic TOPICAL BID Rosuvastatin [Crestor] 10 mg PO MOFR@2100 Furosemide [Lasix] 20 mg PO BID@0900,1600 glipiZIDE [Glucotrol] 7.5 mg PO AC-BID Venlafaxine HCl ER [Effexor XR] 150 mg PO DAILY Pantoprazole [Protonix] 40 mg PO DAILY Gabapentin 600 mg PO QID busPIRone HCl [Buspar] 10 mg PO TID Mirtazapine [Remeron] 7.5 mg PO HS 15 Days #30 tab Nystatin 100,000 Unit/gm Powd [Mycostatin Powder] 1 applic TOPICAL BID #15 gm Buprenorphine [Butrans 20 MCG/HOUR] 1 patch TRANSDERM Q7D MDD not in use currently amLODIPine [Norvasc] 10 mg PO DAILY 30 Days #30 tab Acetaminophen Tab [Tylenol] 650 mg PO Q6HR PRN tab PRN Reason: Mild Pain Or Fever > 100.5 lisinopriL [Zestril] 20 mg PO DAILY 30 Days #30 tab HYDROcodone/APAP 10-325MG [[place] 10-325] 1 tab PO QID #18 tab Discontinued Ciprofloxacin HCl [Cipro] 500 mg PO BID 14 Days #28 tab Discharge Medication List Clopidogrel [Plavix] 75 mg PO DAILY 03/20/22 [History] Furosemide [Lasix] 20 mg PO BID@0900,1600 03/20/22 [History] Pantoprazole [Protonix] 40 mg PO DAILY 03/20/22 [History] Rosuvastatin [Crestor] 10 mg PO MOFR@2100 03/20/22 [History] Venlafaxine HCl ER [Effexor XR] 150 mg PO DAILY 03/20/22 [History] glipiZIDE [Glucotrol] 7.5 mg PO AC-BID 03/20/22 [History] Gabapentin 600 mg PO QID 08/09/22 [History] Lidocaine 5% Oint [Xylocaine 5% Oint] 1 applic TOPICAL Q4H PRN 08/09/22 [History] busPIRone HCl [Buspar] 10 mg PO TID 08/09/22 [History] Mirtazapine [Remeron] 7.5 mg PO HS 15 Days #30 tab 08/14/22 [Rx] Nystatin 100,000 Unit/gm Powd [Mycostatin Powder] 1 applic TOPICAL BID #15 gm 09/27/22 [Rx] Buprenorphine [Butrans 20 MCG/HOUR] 1 patch TRANSDERM Q7D MDD not in use currently 10/11/22 [History] Triamcinolone 0.5% Cream [Kenalog 0.5% Cream] 1 applic TOPICAL BID 10/11/22 [History] Acetaminophen Tab [Tylenol] 650 mg PO Q6HR PRN tab 10/15/22 [Rx] HYDROcodone/APAP 10-325MG [[place] 10-325] 1 tab PO QID #18 tab 10/15/22 [Rx] amLODIPine [Norvasc] 10 mg PO DAILY 30 Days #30 tab 10/15/22 [Rx] lisinopriL [Zestril] 20 mg PO DAILY 30 Days #30 tab 10/15/22 [Rx] methocarbamoL [Robaxin] 1,000 mg PO QID PRN 14 Days #56 tab 11/16/22 [Rx] Follow up Appointment(s)/Referral(s): [facility], [NON-STAFF] - As Needed [facility], [REFERRING] - As Needed [facility] [NON-STAFF] - 11/21/22 2:15 pm Activity/Diet/Wound Care/Special Instructions: Wound vac ordered through [facility]: #[phone] Wound care instructions: Wound VAC 125 mmHg, medium black foam, keep on for 7 days straight, may change on 11/21/22. Can be done at wound care visit that day. No showers with wound vac on, sponge bathe only Discharge Disposition: HOME WITH HOME HEALTH SERVICES
[2022-11-16] MEDS: COLLAGENASE 250 UNIT/GM OINTMENT 30 GM TUBE TOPICAL SCH (10:10)
[2022-11-16] MEDS: HEPARIN SODIUM,PORCINE/PF 5,000 UNIT/0.5 ML SYRINGE SQ SCH ×2 (10:10→22:10)
[2022-11-16 11:19] LABS: Glucose,Whole Blood 129 mg/dL (70-110)
[2022-11-16] MEDS: CLOPIDOGREL 75 MG TAB PO SCH (11:31)
--- NOTE | 2022-11-16 13:21 | P.PN ---
Subjective Progress Note Date: 11/16/22 Principal diagnosis: Left leg infected wound Patient is a 57-year-old female with multiple comorbidity and did have evidence of left lower extremity gangrene especially involving the Achilles tendon status post extensive debridement in this patient also have a severe pe ripheral arterial disease status post fem-fem bypass. Patient is status post further debridement of the wound and application of wound VAC on 11/14/2022 On today's evaluation that is 11/16/2022, the patient is afebrile today, the patient pain to the left lower extremity wound area has slightly decreased intensity, the patient denies chest pain shortness of cough no abdominal pain no diarrhea , feeling slightly better Objective - Vital Signs Vital signs: Vital Signs Temp 99.1 F 11/16/22 07:12 Pulse 70 11/16/22 07:12 Resp 18 11/16/22 07:12 BP 136/57 11/16/22 07:12 Pulse Ox 96 11/16/22 07:12 FiO2 21 11/14/22 09:29 Intake & Output 11/15/22 11/16/22 11/16/22 18:59 06:59 18:59 Intake Total 2019 236 Output Total 1000 Balance 2019 -999 236 Intake: Intake, IV Titration 250 Amount Vancomycin 1,250 mg In 250 Sodium Chloride 0.9% 250 ml @ 125 mls/hr IVPB Q24H [facility] Rx#:[id number] Oral 1770 236 Output: Urine 1000 Other: Voiding Method Bedside Commode - Exam GENERAL DESCRIPTION: Middle-age female up in bed in no distress RESPIRATORY SYSTEM: Unlabored breathing , decreased breath sounds at bases HEART: S1 S2 regular rate and rhythm , ABDOMEN: Soft , no tenderness EXTREMITIES: Left leg wound is currently covered with a wound VAC did have some surrounding swelling. No significant redness - Labs CBC & Chem 7: 11/14/22 07:37 11/16/22 04:18 Labs: Abnormal Lab Results - Last 24 Hours (Table) 11/15/22 11/15/22 11/16/22 Range/Units 11:57 16:41 04:18 Creatinine 1.27 H (0.52-1.04) mg/dL POC Glucose (mg/dL) 134 H 154 H (70-110) mg/dL 11/16/22 11/16/22 Range/Units 06:25 11:18 Creatinine (0.52-1.04) mg/dL POC Glucose (mg/dL) 121 H 129 H (70-110) mg/dL Assessment and Plan (1) Left leg cellulitis Current Visit: Yes Status: Acute Code(s): L03.116 - CELLULITIS OF LEFT LOWER LIMB SNOMED Code(s): 809358194 Plan: 1patient with a chronic nonhealing wound to the left Achilles tendon area in this patient who is status post surgical debridement of the wound down to the tendon and muscle area and deep cultures which grew MRSA and Alcaligenes faecalis 2local wound care with wound VAC be monitored by the wound care team 3-patient to continue with vancomycin pharmacy to dose and cefepime 2 g every 8 hours, and close outpatient follow-up prescription provided to the case loader operator yesterday Time with Patient: Less than 30
[2022-11-16] MEDS: VANCOMYCIN 1,250 MG in SODIUM CHLORIDE 0.9% 250 ML IVPB SCH (13:49)
[2022-11-16] MEDS ORDERED: LIDOCAINE 1% INJ 10MG/ML (5 ML VIAL-PF) SQ ONE (14:34)
--- NOTE | 2022-11-16 14:56 | IR ---
PICC LINE PLACEMENT: HISTORY: Infection requiring long-term antibiotic therapy PROCEDURE: Ultrasound and fluoroscopic guidance of PICC line placement. COMPLICATIONS: None ANESTHESIA: 1. 1% Lidocaine locally. FINDINGS/TECHNIQUE: The procedure was explained to the patient. The risks, complications, benefits and alternatives were discussed and any questions were answered. Informed consent was obtained. The patient was placed supine on the fluoroscopic table and prepped and draped in the usual sterile fash ion. Utilizing a 21 gauge needle and sonographic and fluoroscopic guidance, access in the left basi lic vein was achieved and there is placement of a 0.018 guidewire. The vein is patent. A 4-F sheath was placed over the guidewire. The guidewire and dilator were removed and a 4-F. PICC line was plac ed through the sheath with the tip at the level of the SVC. The sheath was removed, the catheter was flushed and sutured into position. The patient was stable throughout the procedure and remained sta ble upon discharge from the Department of Radiology. The vein puncture was patent under ultrasound. A schultz scale image was obtained to document patency of the vein punctured. All elements of the maximal barrier technique were utilized. FLUOROSCOPY TIME: DAP 0.0640 GY cm2 IMPRESSION: Successful PICC line placement under ultrasound and fluoroscopic guidance.
[2022-11-16 17:08] LABS: Glucose,Whole Blood 183 mg/dL (70-110)
--- NOTE | 2022-11-16 18:42 | CDI ---
Documentation Clarification Form Date: 11/16/2022 From: Lilia Nunez Admit Date: 11/12/2022 6:58:00 AM Patient Name: Bri Vargas Visit Number: [id number] Discharge Date: ATTENTION: The Clinical Documentation Specialists (CDI) and [facility] Coding Staff appreciate your assistance in clarifying documentation. Please respond to the clarification below the line at the bottom and electronically sign. The CDI & [facility] Coding staff will review the response and follow-up if needed. Please note: Queries are made part of the Legal Health Record. If you have any questions, please contact the author of this message via ITS. Dr. Abdi Jensen Application of skin substitute (Integra graft) is documented in the Operative Report on 11/14/22. Additional clarification regarding the procedure is requested. History/Risk factors: Pre-Operative Diagnosis: Nonhealing wound posterior aspect of the left lower extremity measuring 12.5 x 4.75 x 4 mm involving tendon layer. Postoperative Diagnosis: Same Procedure: Excisional debridement of nonviable/necrotic tissue left lower extremity wound. Application of skin substitute. Application of wound VAC Clinical Indicators: 57-year-old female who was admitted with a nonhealing ulcer of the posterior aspect of the left lower extremity with exposed Achilles tendon. She had previously been debrided. Treatment: Excisional debridement of nonviable/necrotic tissue left lower extremity wound. Application of skin substitute Application of wound VAC Please clarify the following: [ ] Application of skin substitute Full thickness, external approach, Specify site__leg wound [ ] Application of skin substitute Partial thickness, external approach, Specify site (Template Last Revised: November 2020) MTDD
[2022-11-16 21:38] LABS: Glucose,Whole Blood 288 mg/dL (70-110)
[2022-11-16] MEDS: MIRTAZAPINE 15 MG TAB PO SCH (22:11)
--- NOTE | 2022-11-16 22:22 | P.PN ---
Subjective From records admitted status post surgical excisional debridement of the left lower extremity yesterday down to the level of the tendon and muscle with undermining. There was concerns for infection especially with a previous fem-fem bypass graft and patient was admitted for infectious disease consult for antibiotic recommendations. Patient states she has pain in that left lower extremity, she states the pain keeps her up at night it is not new and his chronic pain. She is on multiple pain medications. She had a very low-grade temp of 99.7 yesterday afternoon has been running in the low 99s. 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 local culture has been obtained recheck currently growing MRSA and gram- negative. patient to continue with vancomycin pharmacy to dose and cefepime 2 g every 8 hours. local wound care to continue per the wound care team I'm resuming the care of the patient today 11/12/2022 This is a pleasant 57 years old female was admitted with severe peripheral artery disease and severe left foot gangrene and cellulitis status post debridement on 11/08. She's been covered with broad-spectrum antibiotic with IV vancomycin and cefepime. Also she is on home dose of Plavix. Home dose of glipizide 7.5 mg twice a day and Lasix 20 mg by mouth twice a day. Today patient her left foot was dressing, however she still has significant pain and swelling and redness of her left leg with induration, also she feels some tenderness pain in the area of the left leg, left knee is normal but she complains from numbness and tingling behind left thigh,. Her hemoglobin is fluctuating between 10 and 8. Creatinine 1.0. She has a fever of 101.3 on admission, currently resolved. Repeat CT of the left leg shown subcutaneous gas, with no necrotizing fasciitis with no evidence of osteomyelitis per radiologist but has osteopenia Also we ordered ultrasound venous Doppler of the left leg which came negative for DVT but showing left groin complex fluid collection which could be seroma, versus hematoma, versus abscess. I discussed the case with surgery team today. Possibility of compartment syndrome also discussed. Patient is currently being monitored very closely. Started on subcutaneous heparin 11/13/2022 Patients with left leg swelling and tenderness, slightly better than yesterday. She looks less distress from pain today. Venous Doppler is negative for DVT. But shows complex fluid in the left inguinal area, I checked the left inguinal and there is few centimeter nodule suspicious for lymphadenopathy, no palpated abscess or fluctuating fluid. Vascular surgery on the case Patient remains on IV vancomycin and cefepime. 11/14/2022 Patient today from stress due to severe pain in her left leg, her left leg still swollen and tender to touch. As per staffing and scheduling coordinator Bri surgical team are aware and planning to take her to OR this afternoon. Other than that she is hemodynamically stable. No more fevers since 11/11. Sugar controlled Hemoglobin is 8.1, the biopsy within the reference range. Creatinine 1.1. Patient is still correct with IV vancomycin and cefepime, ID team on the case. 11/15/2022 Patient status post left leg excisional debridement of nonviable/necrotic tissue left lower extremity wound. And placement of wound VAC. Today is postoperative day #1. Patient looks very pleasant comfortable and happy with the relief of her pain in her left leg, her left leg still swollen and tense to palpation. She has low-grade fever but overall she is improving Discussed with vascular surgery team and infectious disease team. Possible discharge tomorrow on antibiotic with recommendation for close outpatient follow-up. Currently she kept on IV cefepime and IV vancomycin 11/16/2022 Patient continue to improve and her left leg infection swelling and tenderness are coming down but of course not completely resolved Wound VAC in place Patient obtained PICC line for possible IV antibiotics upon discharge per ID team Patient was planned to be discharged today but was held pending authorization for wound VAC Creatinine slightly went up to 1.27 Repeat BMP in the morning Objective - Vital Signs Vital signs: Vital Signs Temp 99.1 F 11/16/22 07:12 Pulse 70 11/16/22 07:12 Resp 18 11/16/22 07:12 BP 136/57 11/16/22 07:12 Pulse Ox 96 11/16/22 07:12 FiO2 21 11/14/22 09:29 Intake & Output 11/15/22 11/16/22 11/16/22 18:59 06:59 18:59 Intake Total 2019 236 Output Total 1000 Balance 2019 -999 236 Intake: Intake, IV Titration 250 Amount Vancomycin 1,250 mg In 250 Sodium Chloride 0.9% 250 ml @ 125 mls/hr IVPB Q24H [facility] Rx#:[id number] Oral 1770 236 Output: Urine 1000 Other: Voiding Method Bedside Commode - Exam GENERAL: The patient is alert and oriented x3, not in any acute distress. Well developed, well nourished. HEENT: Pupils are round and equally reacting to light. EOMI. No scleral icterus. No conjunctival pallor. Normocephalic, atraumatic. No pharyngeal erythema. No thyromegaly. CARDIOVASCULAR: S1 and S2 present. No murmurs, rubs, or gallops. PULMONARY: Chest is clear to auscultation, no wheezing or crackles. ABDOMEN: Soft, nontender, nondistended, normoactive bowel sounds. No palpable organomegaly. -MUSCULOSKELETAL: No joint swelling or deformity. Left foot wound in a dressing, left leg is swollen and tender and erythematous, improving. Wound VAC in place EXTREMITIES: No cyanosis, clubbing, or pedal edema. NEUROLOGICAL: Gross neurological examination did not reveal any focal deficits. SKIN: No rashes. no petechiae. - Labs CBC & Chem 7: 11/14/22 07:37 11/16/22 04:18 Labs: Abnormal Lab Results - Last 24 Hours (Table) 11/15/22 11/16/22 11/16/22 Range/Units 16:41 04:18 06:25 Creatinine 1.27 H (0.52-1.04) mg/dL POC Glucose (mg/dL) 154 H 121 H (70-110) mg/dL 11/16/22 Range/Units 11:18 Creatinine (0.52-1.04) mg/dL POC Glucose (mg/dL) 129 H (70-110) mg/dL Assessment and Plan Assessment: Severe left foot gangrene and cellulitis extending up to the left leg status post debridement of the left foot on 11/08. Wound culture growing MRSA andm Alcaligen fecalis . Status post excisional debridement on 11/14 Left groin fluid collection could be seroma, versus hematoma, versus abscess Sepsis secondary to above Hypertension Hyperlipidemia Diabetes mellitus Anemia Plan: Continue with broad-spectrum antibiotic as per ID team, currently on cefepime and IV vancomycin. Continue with wound care Primary vascular surgery team on the case, they plan to take the patient to OR again per bed side RN Infectious disease consult Keep monitoring hemoglobin and creatinine Keep wound VAC per vascular surgery team and follow-up outpatient Labs and medication were reviewed.. Continue same treatment. Continue with symptomatic treatment. Resume home medication. Monitor labs and vitals. DVT and GI prophylaxis. Further recommendations as per clinical course of the patient DVT prophylaxis: Subcutaneous heparin GI Prophylaxis: Ppi PT/OT: Pending Prognosis is guarded
[2022-11-17] MEDS: methocarbamoL 500 MG TAB PO PRN ×3 (00:43→17:28)
[2022-11-17] MEDS: CEFEPIME 2 GM in SODIUM CHLORIDE 0.9% 100 ML IVPB SCH ×2 (04:24→17:27)
[2022-11-17] MEDS: HYDROcodone/APAP 10-325MG 1 EACH TAB PO PRN ×3 (04:25→17:27)
[2022-11-17 06:19] LABS: Glucose,Whole Blood 169 mg/dL (70-110)
[2022-11-17] MEDS: INSULIN ASPART (NovoLOG) 100 UNIT/ML VIAL SQ SCH ×4 (06:24→21:44)
[2022-11-17] MEDS: glipiZIDE 5 MG TAB PO SCH ×2 (06:24→17:27)
[2022-11-17] MEDS: PANTOPRAZOLE 40 MG TABLET PO SCH (06:24)
[2022-11-17 07:17] LABS: African American GFR (CKD) 52 (>60 ml/min/1.73 sqM); Anion Gap 5 mmol/L; Blood Urea Nitrogen 16 mg/dL (7-17); Calcium 8.3 mg/dL (8.4-10.2); Carbon Dioxide 33 mmol/L (22-30); Chloride 105 mmol/L (98-107); Glucose 146 mg/dL (74-99); Non-African American GFR(CKD) 46 (>60 ml/min/1.73 sqM); Sodium 143 mmol/L (137-145)
[2022-11-17] MEDS: LACTATED RINGERS 1,000 ML IV SCH (07:46)
[2022-11-17] MEDS: GABAPENTIN 300 MG CAP PO SCH ×4 (08:55→21:43)
[2022-11-17] MEDS: HEPARIN SODIUM,PORCINE/PF 5,000 UNIT/0.5 ML SYRINGE SQ SCH ×2 (08:55→21:43)
[2022-11-17] MEDS: busPIRone HCl 10 MG TAB PO SCH ×3 (08:56→21:43)
[2022-11-17] MEDS: CLOPIDOGREL 75 MG TAB PO SCH (08:56)
[2022-11-17] MEDS: VENLAFAXINE HCL ER 150 MG CAP PO SCH (08:56)
[2022-11-17] MEDS: FUROSEMIDE 20 MG TAB PO SCH ×2 (08:56→17:27)
[2022-11-17] MEDS: amLODIPine 10 MG TAB PO SCH (08:56)
[2022-11-17] MEDS: COLLAGENASE 250 UNIT/GM OINTMENT 30 GM TUBE TOPICAL SCH (08:57)
--- NOTE | 2022-11-17 10:55 | P.PN ---
Subjective Progress Note Date: 11/17/22 Principal diagnosis: Left leg infected wound Patient is a 57-year-old female with multiple comorbidity and did have evidence of left lower extremity gangrene especially involving the Achilles tendon status post extensive debridement in this patient also have a severe pe ripheral arterial disease status post fem-fem bypass. Patient is status post further debridement of the wound and application of wound VAC on 11/14/2022 On today's evaluation that is 11/17/2022, the patient remains to be afebrile, the patient pain to the left lower extremity wound arcurrently controlled patient seemed to have problem with a wound VAC seal per the nursing staff,the patient denies chest pain shortness of cough no abdominal pain no diarrhea , Objective - Vital Signs Vital signs: Vital Signs Temp 98.7 F 11/17/22 06:57 Pulse 63 11/17/22 06:57 Resp 17 11/17/22 06:57 BP 125/62 11/17/22 06:57 Pulse Ox 92 L 11/17/22 08:30 FiO2 21 11/16/22 23:50 Intake & Output 11/16/22 11/17/22 11/17/22 18:59 06:59 18:59 Intake Total 236 Output Total 50 Balance 236 -50 Intake: Oral 236 Output: Drainage 50 Left Posterior Mack 50 Other: # Voids 1 1 - Exam GENERAL DESCRIPTION: Middle-age female up in bed in no distress RESPIRATORY SYSTEM: Unlabored breathing , decreased breath sounds at bases HEART: S1 S2 regular rate and rhythm , ABDOMEN: Soft , no tenderness EXTREMITIES: Left leg wound is currently covered with a wound VAC did have some surrounding swelling. No significant redness - Labs CBC & Chem 7: 11/14/22 07:37 11/17/22 06:28 Labs: Abnormal Lab Results - Last 24 Hours (Table) 11/16/22 11/16/22 11/16/22 Range/Units 11:18 17:07 21:36 Carbon Dioxide (22-30) mmol/L Creatinine (0.52-1.04) mg/dL Glucose (74-99) mg/dL POC Glucose (mg/dL) 129 H 183 H 288 H (70-110) mg/dL Calcium (8.4-10.2) mg/dL 11/17/22 11/17/22 Range/Units 06:17 06:28 Carbon Dioxide 33 H (22-30) mmol/L Creatinine 1.30 H (0.52-1.04) mg/dL Glucose 146 H (74-99) mg/dL POC Glucose (mg/dL) 169 H (70-110) mg/dL Calcium 8.3 L (8.4-10.2) mg/dL Assessment and Plan (1) Left leg cellulitis Current Visit: Yes Status: Acute Code(s): L03.116 - CELLULITIS OF LEFT LOWER LIMB SNOMED Code(s): 076439153 Plan: 1patient with a 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
[2022-11-17 11:40] LABS: Glucose,Whole Blood 238 mg/dL (70-110)
[2022-11-17] MEDS: VANCOMYCIN 1,250 MG in SODIUM CHLORIDE 0.9% 250 ML IVPB SCH (12:22)
--- NOTE | 2022-11-17 14:04 | P.PN ---
Subjective Progress Note Date: 11/17/22 Problematic wound VAC with machine indicating blockage. Objective - Vital Signs Vital signs: Vital Signs Temp 98.7 F 11/17/22 06:57 Pulse 63 11/17/22 06:57 Resp 17 11/17/22 06:57 BP 125/62 11/17/22 06:57 Pulse Ox 92 L 11/17/22 08:30 FiO2 21 11/16/22 23:50 Intake & Output 11/16/22 11/17/22 11/17/22 18:59 06:59 18:59 Intake Total 236 Output Total 50 Balance 236 -50 Intake: Oral 236 Output: Drainage 50 Left Posterior Mack 50 Other: Voiding Method Bedside Commode # Voids 1 1 - Exam Patient is awake and alert. I indicated because of the fact dysfunction it is appropriate to change the wound VAC at this time, earlier than otherwise desired. Patient was placed in the right lateral decubitus position exposing the wound and wound VAC. Fluid is noted underneath the dressings. The dressings were taken down and the Integra graft left in place. The leg is cleansed as best as possible. The wound itself appears healthy and otherwise doing well. A new wound VAC was placed with good seal noted. - Labs CBC & Chem 7: 11/14/22 07:37 11/17/22 06:28 Labs: Abnormal Lab Results - Last 24 Hours (Table) 11/16/22 11/16/22 11/17/22 Range/Units 17:07 21:36 06:17 Carbon Dioxide (22-30) mmol/L Creatinine (0.52-1.04) mg/dL Glucose (74-99) mg/dL POC Glucose (mg/dL) 183 H 288 H 169 H (70-110) mg/dL Calcium (8.4-10.2) mg/dL 11/17/22 11/17/22 Range/Units 06:28 11:39 Carbon Dioxide 33 H (22-30) mmol/L Creatinine 1.30 H (0.52-1.04) mg/dL Glucose 146 H (74-99) mg/dL POC Glucose (mg/dL) 238 H (70-110) mg/dL Calcium 8.3 L (8.4-10.2) mg/dL Assessment and Plan Assessment: Status post debridement left lower extremity wound with application of Integra graft and wound VAC. Dysfunctional wound VAC, changed today with good seal/function noted. Plan: Continue negative pressure wound VAC therapy as outpatient. We will see patient in the outpatient setting post discharge. Time with Patient: Greater than 30
--- NOTE | 2022-11-17 14:11 | P.PN ---
Subjective From records admitted status post surgical excisional debridement of the left lower extremity yesterday down to the level of the tendon and muscle with undermining. There was concerns for infection especially with a previous fem-fem bypass graft and patient was admitted for infectious disease consult for antibiotic recommendations. Patient states she has pain in that left lower extremity, she states the pain keeps her up at night it is not new and his chronic pain. She is on multiple pain medications. She had a very low-grade temp of 99.7 yesterday afternoon has been running in the low 99s. 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 local culture has been obtained recheck currently growing MRSA and gram- negative. patient to continue with vancomycin pharmacy to dose and cefepime 2 g every 8 hours. local wound care to continue per the wound care team I'm resuming the care of the patient today 11/12/2022 This is a pleasant 57 years old female was admitted with severe peripheral artery disease and severe left foot gangrene and cellulitis status post debridement on 11/08. She's been covered with broad-spectrum antibiotic with IV vancomycin and cefepime. Also she is on home dose of Plavix. Home dose of glipizide 7.5 mg twice a day and Lasix 20 mg by mouth twice a day. Today patient her left foot was dressing, however she still has significant pain and swelling and redness of her left leg with induration, also she feels some tenderness pain in the area of the left leg, left knee is normal but she complains from numbness and tingling behind left thigh,. Her hemoglobin is fluctuating between 10 and 8. Creatinine 1.0. She has a fever of 101.3 on admission, currently resolved. Repeat CT of the left leg shown subcutaneous gas, with no necrotizing fasciitis with no evidence of osteomyelitis per radiologist but has osteopenia Also we ordered ultrasound venous Doppler of the left leg which came negative for DVT but showing left groin complex fluid collection which could be seroma, versus hematoma, versus abscess. I discussed the case with surgery team today. Possibility of compartment syndrome also discussed. Patient is currently being monitored very closely. Started on subcutaneous heparin 11/13/2022 Patients with left leg swelling and tenderness, slightly better than yesterday. She looks less distress from pain today. Venous Doppler is negative for DVT. But shows complex fluid in the left inguinal area, I checked the left inguinal and there is few centimeter nodule suspicious for lymphadenopathy, no palpated abscess or fluctuating fluid. Vascular surgery on the case Patient remains on IV vancomycin and cefepime. 11/14/2022 Patient today from stress due to severe pain in her left leg, her left leg still swollen and tender to touch. As per engineer technical staff Bri surgical team are aware and planning to take her to OR this afternoon. Other than that she is hemodynamically stable. No more fevers since 11/11. Sugar controlled Hemoglobin is 8.1, the biopsy within the reference range. Creatinine 1.1. Patient is still correct with IV vancomycin and cefepime, ID team on the case. 11/15/2022 Patient status post left leg excisional debridement of nonviable/necrotic tissue left lower extremity wound. And placement of wound VAC. Today is postoperative day #1. Patient looks very pleasant comfortable and happy with the relief of her pain in her left leg, her left leg still swollen and tense to palpation. She has low-grade fever but overall she is improving Discussed with vascular surgery team and infectious disease team. Possible discharge tomorrow on antibiotic with recommendation for close outpatient follow-up. Currently she kept on IV cefepime and IV vancomycin 11/16/2022 Patient continue to improve and her left leg infection swelling and tenderness are coming down but of course not completely resolved Wound VAC in place Patient obtained PICC line for possible IV antibiotics upon discharge per ID team Patient was planned to be discharged today but was held pending authorization for wound VAC Creatinine slightly went up to 1.27 Repeat BMP in the morning 11/17/2021 Patient left leg swelling and tenderness and redness are SIGNIFICANTLY improving, wound VAC in place but was not draining much So it was put on hold. Patient was possibly discharge yesterday but because of pending authorization for wound VAC this was postponed to Saturday. Patient was still complains of some pain in the left leg which is expected. However she does not look in distress. Continue with pain management per surgery team Patient creatinine is slightly went up 1.7 up to 1.3. We'll check a bladder scan and we'll keep monitoring. Patient has no evidence of hypotension and medication reviewed Objective - Vital Signs Vital signs: Vital Signs Temp 98.7 F 11/17/22 06:57 Pulse 63 11/17/22 06:57 Resp 17 11/17/22 06:57 BP 125/62 11/17/22 06:57 Pulse Ox 92 L 11/17/22 08:30 FiO2 21 11/16/22 23:50 Intake & Output 11/16/22 11/17/22 11/17/22 18:59 06:59 18:59 Intake Total 236 Output Total 50 Balance 236 -50 Intake: Oral 236 Output: Drainage 50 Left Posterior Mack 50 Other: Voiding Method Bedside Commode # Voids 1 1 - Exam GENERAL: The patient is alert and oriented x3, not in any acute distress. Well developed, well nourished. HEENT: Pupils are round and equally reacting to light. EOMI. No scleral icterus. No conjunctival pallor. Normocephalic, atraumatic. No pharyngeal erythema. No thyromegaly. CARDIOVASCULAR: S1 and S2 present. No murmurs, rubs, or gallops. PULMONARY: Chest is clear to auscultation, no wheezing or crackles. ABDOMEN: Soft, nontender, nondistended, normoactive bowel sounds. No palpable organomegaly. -MUSCULOSKELETAL: No joint swelling or deformity. Left foot wound in a dressing, left leg is swollen and tender and erythematous, improving. Wound VAC in place EXTREMITIES: No cyanosis, clubbing, or pedal edema. NEUROLOGICAL: Gross neurological examination did not reveal any focal deficits. SKIN: No rashes. no petechiae. - Labs CBC & Chem 7: 11/14/22 07:37 11/17/22 06:28 Labs: Abnormal Lab Results - Last 24 Hours (Table) 11/16/22 11/16/22 11/17/22 Range/Units 17:07 21:36 06:17 Carbon Dioxide (22-30) mmol/L Creatinine (0.52-1.04) mg/dL Glucose (74-99) mg/dL POC Glucose (mg/dL) 183 H 288 H 169 H (70-110) mg/dL Calcium (8.4-10.2) mg/dL 11/17/22 11/17/22 Range/Units 06:28 11:39 Carbon Dioxide 33 H (22-30) mmol/L Creatinine 1.30 H (0.52-1.04) mg/dL Glucose 146 H (74-99) mg/dL POC Glucose (mg/dL) 238 H (70-110) mg/dL Calcium 8.3 L (8.4-10.2) mg/dL Assessment and Plan Assessment: Severe left foot gangrene and cellulitis extending up to the left leg status post debridement of the left foot on 11/08. Wound culture growing MRSA andm Alcaligen fecalis . Status post excisional debridement on 11/14 Left groin fluid collection could be seroma, versus hematoma, versus abscess Sepsis secondary to above Hypertension Hyperlipidemia Diabetes mellitus Anemia Plan: Continue with broad-spectrum antibiotic as per ID team, currently on cefepime and IV vancomycin. Continue with wound care Monitor creatinine and check bladder scan Primary vascular surgery team on the case, they plan to take the patient to OR again per bed side RN Infectious disease consult Keep monitoring hemoglobin and creatinine Keep wound VAC per vascular surgery team and follow-up outpatient Labs and medication were reviewed.. Continue same treatment. Continue with symptomatic treatment. Resume home medication. Monitor labs and vitals. DVT and GI prophylaxis. Further recommendations as per clinical course of the patient DVT prophylaxis: Subcutaneous heparin GI Prophylaxis: Ppi Prognosis is guarded
[2022-11-17 16:37] LABS: Glucose,Whole Blood 177 mg/dL (70-110)
[2022-11-17 21:25] LABS: Glucose,Whole Blood 190 mg/dL (70-110)
[2022-11-17] MEDS: MIRTAZAPINE 15 MG TAB PO SCH (21:43)
[2022-11-18] MEDS: HYDROcodone/APAP 10-325MG 1 EACH TAB PO PRN ×4 (01:49→18:58)
[2022-11-18] MEDS: CEFEPIME 2 GM in SODIUM CHLORIDE 0.9% 100 ML IVPB SCH ×2 (04:04→15:57)
[2022-11-18] MEDS: LACTATED RINGERS 1,000 ML IV SCH (06:18)
[2022-11-18 06:43] LABS: Glucose,Whole Blood 103 mg/dL (70-110)
[2022-11-18] MEDS: INSULIN ASPART (NovoLOG) 100 UNIT/ML VIAL SQ SCH ×4 (06:45→20:50)
[2022-11-18] MEDS: glipiZIDE 5 MG TAB PO SCH ×2 (06:54→18:55)
[2022-11-18] MEDS: PANTOPRAZOLE 40 MG TABLET PO SCH (06:54)
[2022-11-18 09:26] LABS: African American GFR (CKD) 64.1 (60.0-200.0); Anion Gap 10.4 mmol/L (10.00-18.00); BUN/Creat Ratio 10.82 Ratio (12.00-20.00); Blood Urea Nitrogen 11.9 mg/dL (9.0-27.0); Calcium 8.8 mg/dL (8.7-10.3); Carbon Dioxide 27.6 mmol/L (20.0-27.5); Non-African American GFR(CKD) 55.3 (60.0-200.0); Potassium 3.4 mmol/L (3.5-5.5)
[2022-11-18] MEDS: COLLAGENASE 250 UNIT/GM OINTMENT 30 GM TUBE TOPICAL SCH (10:34)
[2022-11-18] MEDS: GABAPENTIN 300 MG CAP PO SCH ×4 (10:34→20:49)
[2022-11-18] MEDS: CLOPIDOGREL 75 MG TAB PO SCH (10:34)
[2022-11-18] MEDS: amLODIPine 10 MG TAB PO SCH (10:34)
[2022-11-18] MEDS: methocarbamoL 500 MG TAB PO PRN ×2 (10:34→18:58)
[2022-11-18] MEDS: VENLAFAXINE HCL ER 150 MG CAP PO SCH (10:34)
[2022-11-18] MEDS: busPIRone HCl 10 MG TAB PO SCH ×3 (10:34→20:49)
[2022-11-18] MEDS: FUROSEMIDE 20 MG TAB PO SCH ×2 (10:34→15:58)
[2022-11-18] MEDS: HEPARIN SODIUM,PORCINE/PF 5,000 UNIT/0.5 ML SYRINGE SQ SCH ×2 (10:35→20:49)
[2022-11-18] MEDS ORDERED: VANCOMYCIN TROUGH DUE 1 EACH MISC MISCELLANE ONE (11:00)
[2022-11-18 11:40] LABS: Glucose,Whole Blood 118 mg/dL (70-110)
--- NOTE | 2022-11-18 12:02 | P.PN ---
Subjective From records admitted status post surgical excisional debridement of the left lower extremity yesterday down to the level of the tendon and muscle with undermining. There was concerns for infection especially with a previous fem-fem bypass graft and patient was admitted for infectious disease consult for antibiotic recommendations. Patient states she has pain in that left lower extremity, she states the pain keeps her up at night it is not new and his chronic pain. She is on multiple pain medications. She had a very low-grade temp of 99.7 yesterday afternoon has been running in the low 99s. 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 local culture has been obtained recheck currently growing MRSA and gram- negative. patient to continue with vancomycin pharmacy to dose and cefepime 2 g every 8 hours. local wound care to continue per the wound care team I'm resuming the care of the patient today 11/12/2022 This is a pleasant 57 years old female was admitted with severe peripheral artery disease and severe left foot gangrene and cellulitis status post debridement on 11/08. She's been covered with broad-spectrum antibiotic with IV vancomycin and cefepime. Also she is on home dose of Plavix. Home dose of glipizide 7.5 mg twice a day and Lasix 20 mg by mouth twice a day. Today patient her left foot was dressing, however she still has significant pain and swelling and redness of her left leg with induration, also she feels some tenderness pain in the area of the left leg, left knee is normal but she complains from numbness and tingling behind left thigh,. Her hemoglobin is fluctuating between 10 and 8. Creatinine 1.0. She has a fever of 101.3 on admission, currently resolved. Repeat CT of the left leg shown subcutaneous gas, with no necrotizing fasciitis with no evidence of osteomyelitis per radiologist but has osteopenia Also we ordered ultrasound venous Doppler of the left leg which came negative for DVT but showing left groin complex fluid collection which could be seroma, versus hematoma, versus abscess. I discussed the case with surgery team today. Possibility of compartment syndrome also discussed. Patient is currently being monitored very closely. Started on subcutaneous heparin 11/13/2022 Patients with left leg swelling and tenderness, slightly better than yesterday. She looks less distress from pain today. Venous Doppler is negative for DVT. But shows complex fluid in the left inguinal area, I checked the left inguinal and there is few centimeter nodule suspicious for lymphadenopathy, no palpated abscess or fluctuating fluid. Vascular surgery on the case Patient remains on IV vancomycin and cefepime. 11/14/2022 Patient today from stress due to severe pain in her left leg, her left leg still swollen and tender to touch. As per staff anesthesiologist Bri surgical team are aware and planning to take her to OR this afternoon. Other than that she is hemodynamically stable. No more fevers since 11/11. Sugar controlled Hemoglobin is 8.1, the biopsy within the reference range. Creatinine 1.1. Patient is still correct with IV vancomycin and cefepime, ID team on the case. 11/15/2022 Patient status post left leg excisional debridement of nonviable/necrotic tissue left lower extremity wound. And placement of wound VAC. Today is postoperative day #1. Patient looks very pleasant comfortable and happy with the relief of her pain in her left leg, her left leg still swollen and tense to palpation. She has low-grade fever but overall she is improving Discussed with vascular surgery team and infectious disease team. Possible discharge tomorrow on antibiotic with recommendation for close outpatient follow-up. Currently she kept on IV cefepime and IV vancomycin 11/16/2022 Patient continue to improve and her left leg infection swelling and tenderness are coming down but of course not completely resolved Wound VAC in place Patient obtained PICC line for possible IV antibiotics upon discharge per ID team Patient was planned to be discharged today but was held pending authorization for wound VAC Creatinine slightly went up to 1.27 Repeat BMP in the morning 11/17/2021 Patient left leg swelling and tenderness and redness are SIGNIFICANTLY improving, wound VAC in place but was not draining much So it was put on hold. Patient was possibly discharge yesterday but because of pending authorization for wound VAC this was postponed to Saturday. Patient was still complains of some pain in the left leg which is expected. However she does not look in distress. Continue with pain management per surgery team Patient creatinine is slightly went up 1.7 up to 1.3. We'll check a bladder scan and we'll keep monitoring. Patient has no evidence of hypotension and medication reviewed 11/18/2022 No new complaint the patient resting comfortably in bed, she looks relax. Wound VAC was cleaned and replaced yesterday by surgery team and is working again today. Her left leg infection is improving with less swelling and tenderness and redness Creatinine improved back to 1.1. She remains on antibiotics per ID team, currently on cefepime and IV vancomycin. Patient pending authorization for her wound VAC Objective - Vital Signs Vital signs: Vital Signs Temp 98.3 F 11/18/22 07:06 Pulse 104 H 11/18/22 07:06 Resp 18 11/18/22 07:06 BP 147/56 11/18/22 07:06 Pulse Ox 94 L 11/18/22 07:40 FiO2 21 11/16/22 23:50 Intake & Output 11/17/22 11/18/22 11/18/22 17:59 06:59 18:59 Other: Voiding Method Bedside Commode # Voids - Exam GENERAL: The patient is alert and oriented x3, not in any acute distress. Well developed, well nourished. HEENT: Pupils are round and equally reacting to light. EOMI. No scleral icterus. No conjunctival pallor. Normocephalic, atraumatic. No pharyngeal erythema. No thyromegaly. CARDIOVASCULAR: S1 and S2 present. No murmurs, rubs, or gallops. PULMONARY: Chest is clear to auscultation, no wheezing or crackles. ABDOMEN: Soft, nontender, nondistended, normoactive bowel sounds. No palpable organomegaly. -MUSCULOSKELETAL: No joint swelling or deformity. Left foot wound in a dressing, left leg is swollen and tender and erythematous, improving. Wound VAC in place EXTREMITIES: No cyanosis, clubbing, or pedal edema. NEUROLOGICAL: Gross neurological examination did not reveal any focal deficits. SKIN: No rashes. no petechiae. - Labs CBC & Chem 7: 11/14/22 07:37 11/18/22 05:15 Labs: Abnormal Lab Results - Last 24 Hours (Table) 11/17/22 11/17/22 11/17/22 Range/Units 11:39 16:36 21:24 Potassium (3.5-5.5) mmol/L Carbon Dioxide (20.0-27.5) mmol/L Est GFR (CKD-EPI)NonAf (60.0-200.0) BUN/Creatinine Ratio (12.00-20.00) Ratio Glucose (70-110) mg/dL POC Glucose (mg/dL) 238 H 177 H 190 H (70-110) mg/dL 11/18/22 11/18/22 Range/Units 05:15 11:39 Potassium 3.4 L (3.5-5.5) mmol/L Carbon Dioxide 27.6 H (20.0-27.5) mmol/L Est GFR (CKD-EPI)NonAf 55.3 L (60.0-200.0) BUN/Creatinine Ratio 10.82 L (12.00-20.00) Ratio Glucose 131 H (70-110) mg/dL POC Glucose (mg/dL) 118 H (70-110) mg/dL Assessment and Plan Assessment: Severe left foot gangrene and cellulitis extending up to the left leg status post debridement of the left foot on 11/08. Wound culture growing MRSA andm Alcaligen fecalis . Status post excisional debridement on 11/14 Left groin fluid collection could be seroma, versus hematoma, versus abscess Sepsis secondary to above Hypertension Hyperlipidemia Diabetes mellitus Anemia Plan: Continue with broad-spectrum antibiotic as per ID team, currently on cefepime and IV vancomycin. Continue with wound care Monitor creatinine and check bladder scan Primary vascular surgery team on the case, they plan to take the patient to OR again per bed side RN Infectious disease consult Keep monitoring hemoglobin and creatinine Keep wound VAC per vascular surgery team and follow-up outpatient Labs and medication were reviewed.. Continue same treatment. Continue with symptomatic treatment. Resume home medication. Monitor labs and vitals. DVT and GI prophylaxis. Further recommendations as per clinical course of the patient DVT prophylaxis: Subcutaneous heparin GI Prophylaxis: Ppi Prognosis is guarded
[2022-11-18] MEDS: VANCOMYCIN 1,250 MG in SODIUM CHLORIDE 0.9% 250 ML IVPB SCH (12:40)
--- NOTE | 2022-11-18 15:38 | P.PN ---
Subjective Progress Note Date: 11/18/22 Principal diagnosis: Left leg infected wound Patient is a 57-year-old female with multiple comorbidity and did have evidence of left lower extremity gangrene especially involving the Achilles tendon status post extensive debridement in this patient also have a severe pe ripheral arterial disease status post fem-fem bypass. Patient is status post further debridement of the wound and application of wound VAC on 11/14/2022 On today's evaluation that is 11/18/2022, the patient denies any fever or any chills, the patient pain to the left lower extremity wound has decreased in intensity,the patient denies chest pain shortness of cough no abdominal pain no diarrhea , patient feeling better today Objective - Vital Signs Vital signs: Vital Signs Temp 98.3 F 11/18/22 07:06 Pulse 104 H 11/18/22 07:06 Resp 18 11/18/22 07:06 BP 147/56 11/18/22 07:06 Pulse Ox 94 L 11/18/22 07:40 FiO2 21 11/16/22 23:50 Intake & Output 11/17/22 11/18/22 11/18/22 17:59 06:59 18:59 Other: Voiding Method Bedside Commode # Voids - Exam GENERAL DESCRIPTION: Middle-age female up in bed in no distress RESPIRATORY SYSTEM: Unlabored breathing , decreased breath sounds at bases HEART: S1 S2 regular rate and rhythm , ABDOMEN: Soft , no tenderness EXTREMITIES: Left leg wound is currently covered with a wound VAC did have some surrounding swelling and redness which has decreased in intensity - Labs CBC & Chem 7: 11/14/22 07:37 11/18/22 05:15 Labs: Abnormal Lab Results - Last 24 Hours (Table) 11/17/22 11/17/22 11/18/22 Range/Units 16:36 21:24 05:15 Potassium 3.4 L (3.5-5.5) mmol/L Carbon Dioxide 27.6 H (20.0-27.5) mmol/L Est GFR (CKD-EPI)NonAf 55.3 L (60.0-200.0) BUN/Creatinine Ratio 10.82 L (12.00-20.00) Ratio Glucose 131 H (70-110) mg/dL POC Glucose (mg/dL) 177 H 190 H (70-110) mg/dL 11/18/22 Range/Units 11:39 Potassium (3.5-5.5) mmol/L Carbon Dioxide (20.0-27.5) mmol/L Est GFR (CKD-EPI)NonAf (60.0-200.0) BUN/Creatinine Ratio (12.00-20.00) Ratio Glucose (70-110) mg/dL POC Glucose (mg/dL) 118 H (70-110) mg/dL Assessment and Plan (1) Left leg cellulitis Current Visit: Yes Status: Acute Code(s): L03.116 - CELLULITIS OF LEFT LOWER LIMB SNOMED Code(s): 129210958 Plan: 1patient with a 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
[2022-11-18 16:43] LABS: Glucose,Whole Blood 150 mg/dL (70-110)
[2022-11-18 20:43] LABS: Glucose,Whole Blood 256 mg/dL (70-110)
[2022-11-18] MEDS: MIRTAZAPINE 15 MG TAB PO SCH (20:49)
[2022-11-19 02:22] VITALS: RESP 16
[2022-11-19] MEDS: HYDROcodone/APAP 10-325MG 1 EACH TAB PO PRN ×2 (03:02→12:07)
[2022-11-19] MEDS: methocarbamoL 500 MG TAB PO PRN (03:03)
[2022-11-19] MEDS: CEFEPIME 2 GM in SODIUM CHLORIDE 0.9% 100 ML IVPB SCH (03:54)
[2022-11-19 06:03] LABS: Glucose,Whole Blood 93 mg/dL (70-110)
[2022-11-19] MEDS: INSULIN ASPART (NovoLOG) 100 UNIT/ML VIAL SQ SCH ×2 (06:16→11:40)
[2022-11-19] MEDS: LACTATED RINGERS 1,000 ML IV SCH (06:16)
[2022-11-19] MEDS: glipiZIDE 5 MG TAB PO SCH (06:37)
[2022-11-19] MEDS: PANTOPRAZOLE 40 MG TABLET PO SCH (06:37)
[2022-11-19] MEDS: COLLAGENASE 250 UNIT/GM OINTMENT 30 GM TUBE TOPICAL SCH (08:01)
[2022-11-19] MEDS: busPIRone HCl 10 MG TAB PO SCH (08:03)
[2022-11-19] MEDS: GABAPENTIN 300 MG CAP PO SCH ×2 (08:03→12:07)
[2022-11-19] MEDS: amLODIPine 10 MG TAB PO SCH (08:03)
[2022-11-19] MEDS: CLOPIDOGREL 75 MG TAB PO SCH (08:03)
[2022-11-19] MEDS: FUROSEMIDE 20 MG TAB PO SCH (08:03)
[2022-11-19] MEDS: HEPARIN SODIUM,PORCINE/PF 5,000 UNIT/0.5 ML SYRINGE SQ SCH (08:04)
[2022-11-19] MEDS: VENLAFAXINE HCL ER 150 MG CAP PO SCH (08:04)
[2022-11-19 08:06] VITALS: BP 149/70; PULSE 59; TEMP 98
[2022-11-19] MEDS: VANCOMYCIN 1,250 MG in SODIUM CHLORIDE 0.9% 250 ML IVPB SCH (11:09)
[2022-11-19 11:31] LABS: Glucose,Whole Blood 109 mg/dL (70-110)
--- NOTE | 2022-11-19 12:21 | P.PN ---
Subjective Progress Note Date: 11/19/22 Principal diagnosis: Left leg infected wound Patient is a 57-year-old female with multiple comorbidity and did have evidence of left lower extremity gangrene especially involving the Achilles tendon status post extensive debridement in this patient also have a severe pe ripheral arterial disease status post fem-fem bypass. Patient is status post further debridement of the wound and application of wound VAC on 11/14/2022 On today's evaluation that is 11/19/2022, the patient remains to be afebrile, the patient pain to the left lower extremity wound has decreased in intensity,the patient denies chest pain shortness of cough no abdominal pain no diarrhea , patient with no new symptoms feeling better Objective - Vital Signs Vital signs: Vital Signs Temp 98 F 11/19/22 07:14 Pulse 59 L 11/19/22 07:14 Resp 16 11/19/22 07:14 BP 149/70 11/19/22 07:14 Pulse Ox 96 11/19/22 07:14 FiO2 21 11/16/22 23:50 Intake & Output 11/18/22 11/19/22 11/19/22 18:59 06:59 18:59 Other: Voiding Method Bedside Commode Bedside Commode Bedside Commode # Voids 3 2 4 # Bowel Movements 1 - Exam GENERAL DESCRIPTION: Middle-age female up in bed in no distress RESPIRATORY SYSTEM: Unlabored breathing , decreased breath sounds at bases HEART: S1 S2 regular rate and rhythm , ABDOMEN: Soft , no tenderness EXTREMITIES: Left leg wound is currently covered with a wound VAC did have some surrounding swelling and redness which has decreased in intensity - Labs CBC & Chem 7: 11/14/22 07:37 11/18/22 05:15 Labs: Abnormal Lab Results - Last 24 Hours (Table) 11/18/22 11/18/22 11/18/22 Range/Units 11:39 16:42 20:42 POC Glucose (mg/dL) 118 H 150 H 256 H (70-110) mg/dL Assessment and Plan (1) Left leg cellulitis Current Visit: Yes Status: Acute Code(s): L03.116 - CELLULITIS OF LEFT LOWER LIMB SNOMED Code(s): 705871472 Plan: 1patient with a 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
[2022-11-19 13:17] VITALS: BMI 29.7
--- NOTE | 2022-11-19 14:05 | P.DS ---
Providers Date of admission: 11/12/22 06:58 Expected date of discharge: 11/19/22 Attending physician: Stefanie Chao DO Consults: 11/08/22 14:01 Consult Physician Routine Consulting Provider: Anastasiia Hernandez Consult Reason/Comments: medical managment s/p surgical debridement, infected wound Do you want consulting provider notified?: Yes 11/08/22 14:02 Consult Physician Routine Consulting Provider: Ivania Caldwell Consult Reason/Comments: Antibiotic recommendations Do you want consulting provider notified?: Yes Primary care physician: [facility] Course: his 57-year-old female with severe peripheral arterial disease who had developed severe wounds of her left lower extremity with gangrene. Due to pain patient was unable to have wound care in the wound care clinic and operative debridement was requested. Patient underwent sharp surgical excisional debridement of the left lower extremity to the level of the tendon and muscle on 11/08/2022. Patient was then admitted for infectious disease consultation for recommendation for antibiotics. During the patient's hospital stay she did spike a couple fevers with a max temp of 101.3 on 11/10/2022, again spiked a low-grade temp on 11/15/2022 at 100.4. She's been afebrile through the weekend. Patient states left lower extremity pain improved. She was having increased swelling and redness to the left lower extremity and underwent a second debridement with application of skin substitute and wound VAC. Redness and swelling to left lower extremity has improved. Patient has been up and ambulating. Incentive spirometer is at the bedside and patient is using hourly. Infectious disease has been following, deep tissue wound culture came back with MRSA and alcaligen faecalis. Bri had been on cefepime and vancomycin during her hospital stay. Plan was for initial discharge on Saturday however awaiting a wound VAC authorization for home care. PICC line was placed Saturday. Wound VAC is to be delivered to patient's house tomorrow. Plan is for discharge home today with IV antibiotics which infectious disease has ordered, home with home care and wound VAC to left lower extremity. Wound VAC dressing will stay in place with cord clamped for discharge home. Exam General appearance: The patient is alert, oriented, appears in no acute distress. HET: Head is normocephalic and atraumatic. Pupils are equal and reactive. Neck: Supple without lymphadenopathy. Trachea midline. Heart: Regular. Lungs: Equal expansion, normal respiratory effort. Abdomen: Soft, nontender, nondistended. Extremities: Bilateral groin incisions well-healed palpable femoral pulse. Left lower extremity wound with wound VAC in place. Sensorimotor intact. Left lower extremity with swelling, erythema imporoved. Neurological: No focal deficits. Strength and sensation are grossly intact. The impression and plan of care has been dictated as directed. I performed a history and examination of this patient, discussed the same with the dictator. I agree with the dictator's note ,documented as a scribe. Any additional findings or plans will be noted. Procedures: 11/14/22 Procedure(s) Performed: 1: Excisional debridement of nonviable/necrotic tissue left lower extremity wound. 2: Application of skin substitute (Integra graft). 3: Application of wound VAC. Anesthesia: GETA Surgeon: Abdi Jensen 11/08/22 Description of Procedure: Preoperative diagnosis: Gangrene left lower extremity, severe peripheral arterial disease, previous femoral-femoral bypass graft Postoperative diagnosis: Same Procedure: [Sharp excisional debridement left lower extremity to the level of the tendon and muscle measuring 12 x 4.2 x 0.2 cm with undermining at the 12 o'clock position of 6 cm #Excisional debridement of left lower extremity lateral ankle malleolus to subcutaneous fat measuring 2 x 2 x 0.2 cm] Surgeon: Stefanie Chao D.O. Patient Condition at Discharge: Stable Plan - Discharge Summary Discharge Rx Participant: Yes New Discharge Prescriptions: New methocarbamoL [Robaxin] 1,000 mg PO QID PRN 14 Days #56 tab PRN Reason: Muscle Spasm Continue Clopidogrel [Plavix] 75 mg PO DAILY Lidocaine 5% Oint [Xylocaine 5% Oint] 1 applic TOPICAL Q4H PRN PRN Reason: bilateral leg pain Triamcinolone 0.5% Cream [Kenalog 0.5% Cream] 1 applic TOPICAL BID Rosuvastatin [Crestor] 10 mg PO MOFR@2100 Furosemide [Lasix] 20 mg PO BID@0900,1600 glipiZIDE [Glucotrol] 7.5 mg PO AC-BID Venlafaxine HCl ER [Effexor XR] 150 mg PO DAILY Pantoprazole [Protonix] 40 mg PO DAILY Gabapentin 600 mg PO QID busPIRone HCl [Buspar] 10 mg PO TID Mirtazapine [Remeron] 7.5 mg PO HS 15 Days #30 tab Nystatin 100,000 Unit/gm Powd [Mycostatin Powder] 1 applic TOPICAL BID #15 gm Buprenorphine [Butrans 20 MCG/HOUR] 1 patch TRANSDERM Q7D MDD not in use currently amLODIPine [Norvasc] 10 mg PO DAILY 30 Days #30 tab Acetaminophen Tab [Tylenol] 650 mg PO Q6HR PRN tab PRN Reason: Mild Pain Or Fever > 100.5 lisinopriL [Zestril] 20 mg PO DAILY 30 Days #30 tab HYDROcodone/APAP 10-325MG [[place] 10-325] 1 tab PO QID #18 tab Discontinued Ciprofloxacin HCl [Cipro] 500 mg PO BID 14 Days #28 tab Discharge Medication List Clopidogrel [Plavix] 75 mg PO DAILY 03/20/22 [History] Furosemide [Lasix] 20 mg PO BID@0900,1600 03/20/22 [History] Pantoprazole [Protonix] 40 mg PO DAILY 03/20/22 [History] Rosuvastatin [Crestor] 10 mg PO MOFR@2100 03/20/22 [History] Venlafaxine HCl ER [Effexor XR] 150 mg PO DAILY 03/20/22 [History] glipiZIDE [Glucotrol] 7.5 mg PO AC-BID 03/20/22 [History] Gabapentin 600 mg PO QID 08/09/22 [History] Lidocaine 5% Oint [Xylocaine 5% Oint] 1 applic TOPICAL Q4H PRN 08/09/22 [History] busPIRone HCl [Buspar] 10 mg PO TID 08/09/22 [History] Mirtazapine [Remeron] 7.5 mg PO HS 15 Days #30 tab 08/14/22 [Rx] Nystatin 100,000 Unit/gm Powd [Mycostatin Powder] 1 applic TOPICAL BID #15 gm 09/27/22 [Rx] Buprenorphine [Butrans 20 MCG/HOUR] 1 patch TRANSDERM Q7D MDD not in use currently 10/11/22 [History] Triamcinolone 0.5% Cream [Kenalog 0.5% Cream] 1 applic TOPICAL BID 10/11/22 [History] Acetaminophen Tab [Tylenol] 650 mg PO Q6HR PRN tab 10/15/22 [Rx] HYDROcodone/APAP 10-325MG [[place] 10-325] 1 tab PO QID #18 tab 10/15/22 [Rx] amLODIPine [Norvasc] 10 mg PO DAILY 30 Days #30 tab 10/15/22 [Rx] lisinopriL [Zestril] 20 mg PO DAILY 30 Days #30 tab 10/15/22 [Rx] methocarbamoL [Robaxin] 1,000 mg PO QID PRN 14 Days #56 tab 11/16/22 [Rx] Follow up Appointment(s)/Referral(s): Maxine Montalvo MD [Primary Care Provider] - 1 Week Stefanie Chao DO [STAFF PHYSICIAN] - 2 Weeks [facility], [NON-STAFF] - As Needed [facility], [REFERRING] - As Needed [facility] [NON-STAFF] - 11/21/22 2:15 pm Activity/Diet/Wound Care/Special Instructions: Wound vac ordered through [facility]: #[phone]; Wound vac to be delivered tomorrow. Wound VAC dressing in place and cord clamped. Unclamped cord and attached to wound VAC as directed. Wound care instructions: Wound VAC 125 mmHg, medium black foam, keep on for 7 days straight, may change on 11/21/22. Can be done at wound care visit that day. No showers with wound vac on, sponge bathe only Discharge Disposition: HOME WITH HOME HEALTH SERVICES
== END 2022-11-19 14:58 | disposition home health service (06) | DRG 854 ==
LOC: OR 10:25 → 4SSUR 12:55 → OR 14:00 → 4SSUR 14:00 → OBSVTOIN 11-12 06:58
PROVIDERS: ADMIT Surgery; ATTEND Surgery
PROC: 0KBT0ZZ Excision of Left Lower Leg Muscle, Open Approach (ICD-10-PCS; 2022-11-08)
PROC: 0JBR0ZZ Excision of Left Foot Subcutaneous Tissue and Fascia, Open Approach (ICD-10-PCS; principal; 2022-11-08 11:45)
PROC: 0HRLXK3 Replacement of Left Lower Leg Skin with Nonautologous Tissue Substitute, Full Thickness, External Approach (ICD-10-PCS; 2022-11-14)
PROC: 02HV33Z Insertion of Infusion Device into Superior Vena Cava, Percutaneous Approach (ICD-10-PCS; 2022-11-16)
DX: A41.02 Sepsis due to Methicillin resistant Staphylococcus aureus (principal); E11.52 Type 2 diabetes mellitus with diabetic peripheral angiopathy with gangrene; I70.262 Atherosclerosis of native arteries of extremities with gangrene, left leg; L03.116 Cellulitis of left lower limb; D64.9 Anemia, unspecified; E11.621 Type 2 diabetes mellitus with foot ulcer; E78.5 Hyperlipidemia, unspecified; F17.290 Nicotine dependence, other tobacco product, uncomplicated; I10 Essential (primary) hypertension; Z79.02 Long term (current) use of antithrombotics/antiplatelets; Z79.4 Long term (current) use of insulin; Z79.84 Long term (current) use of oral hypoglycemic drugs; Z79.899 Other long term (current) drug therapy; Z90.710 Acquired absence of both cervix and uterus
CPT/HCPCS: 36573; 80048; 80202; 82565; 83036; 85025; 85027; 86850; 86900; 86901; 87040; 87070; 87075; 87077; 87186; 87205; 94760

== ENCOUNTER 2023-02-21 15:42 | Emergency (ER) | payer OTHER ==
[2023-02-21 16:10] VITALS: TEMP 98.3
[2023-02-21] MEDS ORDERED: MORPHINE SULFATE 4 MG/ML SYRINGE IVP STA (17:27)
[2023-02-21 18:16] LABS: ALT 12 U/L (4-34); AST 14 U/L (14-36); African American GFR (CKD) 61 (>60 ml/min/1.73 sqM); Albumin 3.6 g/dL (3.5-5.0); Alkaline Phosphatase 97 U/L (38-126); Anion Gap 9 mmol/L; Blood Urea Nitrogen 25 mg/dL (7-17); C Reactive Protein 3.9 mg/dL (<1.0); Calcium 9.2 mg/dL (8.4-10.2); Carbon Dioxide 22 mmol/L (22-30); Chloride 106 mmol/L (98-107); Glucose 157 mg/dL (74-99); Non-African American GFR(CKD) 53 (>60 ml/min/1.73 sqM); Potassium 4.7 mmol/L (3.5-5.1); Sodium 137 mmol/L (137-145); Total Bilirubin 0.2 mg/dL (0.2-1.3)
[2023-02-21 18:26] LABS: Anisocytosis Slight; HCT 31.6 % (34.0-46.0); HGB 10.5 gm/dL (11.4-16.0); Hypochromasia Slight; MCH 31.2 pg (25.0-35.0); MCHC 33.1 g/dL (31.0-37.0); MCV 94.3 fL (80.0-100.0); Mean Platelet Volume 6.7; Platelet Count 558 k/uL (150-450); RBC 3.35 m/uL (3.80-5.40); RDW 18.6 % (11.5-15.5)
[2023-02-21] MEDS ORDERED: MORPHINE SULFATE 2 MG/ML SYRINGE IVP ONE (19:38)
--- NOTE | 2023-02-21 19:51 | ED ---
General Adult HPI - General Chief complaint: Extremity Problem,Nontraumatic Stated complaint: L leg pain Time Seen by Provider: 02/21/23 16:13 Source: patient, RN notes reviewed Mode of arrival: wheelchair Limitations: no limitations - History of Present Illness Initial comments: 57-year-old female presents emergency department chief complaint of left leg pain. Patient has an ulcer to her posteromedial left leg with a wound vac in place. She states that she saw wound care yesterday where she states they "scraped around in it"and has been having increasing pain since then. Patient states that she sees wound care every week on Saturday. She states she has an appointment with Dr. Chao next Saturday. She states that she takes [place] 10 mg at home for pain. She denies fever, chills, nausea, vomiting, shortness breath, chest pain. - Related Data Home Medications Medication Instructions Recorded Confirmed Clopidogrel [Plavix] 75 mg PO DAILY 03/20/22 11/07/22 Furosemide [Lasix] 20 mg PO BID@0900,1600 03/20/22 11/07/22 Pantoprazole [Protonix] 40 mg PO DAILY 03/20/22 11/07/22 Rosuvastatin [Crestor] 10 mg PO MOFR@2100 03/20/22 11/07/22 Venlafaxine HCl ER [Effexor XR] 150 mg PO DAILY 03/20/22 11/07/22 glipiZIDE [Glucotrol] 7.5 mg PO AC-BID 03/20/22 11/07/22 Gabapentin 600 mg PO QID 08/09/22 11/07/22 Lidocaine 5% Oint [Xylocaine 5% 1 applic TOPICAL Q4H PRN 08/09/22 11/07/22 Oint] busPIRone HCl [Buspar] 10 mg PO TID 08/09/22 11/07/22 Buprenorphine [Butrans 20 MCG/HOUR] 1 patch TRANSDERM Q7D MDD not in 10/11/22 11/07/22 use currently Triamcinolone 0.5% Cream [Kenalog 1 applic TOPICAL BID 10/11/22 11/07/22 0.5% Cream] Previous Rx's Medication Instructions Recorded Mirtazapine [Remeron] 7.5 mg PO HS 15 Days #30 tab 08/14/22 Nystatin 100,000 Unit/gm Powd 1 applic TOPICAL BID #15 gm 09/27/22 [Mycostatin Powder] Acetaminophen Tab [Tylenol] 650 mg PO Q6HR PRN tab 10/15/22 HYDROcodone/APAP 10-325MG [[place] 1 tab PO QID #18 tab 10/15/22 10-325] amLODIPine [Norvasc] 10 mg PO DAILY 30 Days #30 tab 10/15/22 lisinopriL [Zestril] 20 mg PO DAILY 30 Days #30 tab 10/15/22 methocarbamoL [Robaxin] 1,000 mg PO QID PRN 14 Days #56 tab 11/16/22 Allergies Allergy/AdvReac Type Severity Reaction Status Date / Time NSAIDS (Non-Steroidal AdvReac Abdominal Verified 02/21/23 16:10 Anti-Inflamma Pain prednisone AdvReac Abdominal Verified 02/21/23 16:10 Pain sitagliptin [From Januvia] AdvReac see comment Verified 02/21/23 16:10 Review of Systems ROS Statement: Those systems with pertinent positive or pertinent negative responses have been documented in the HPI. ROS Other: All systems not noted in ROS Statement are negative. Past Medical History Past Medical History: Diabetes Mellitus, GERD/Reflux, Hyperlipidemia, Hypertension Additional Past Medical History / Comment(s): pancreatitis, bilateral leg stents, open wound to left ankle with necrotic tissue. History of Any Multi-Drug Resistant Organisms: MRSA Date of last positivie culture/infection: 11/08/22 MDRO Source:: Left Leg Past Surgical History: Appendectomy, Hernia Repair, Hysterectomy, Orthopedic Surgery Additional Past Surgical History / Comment(s): jody carpal tunnel, bone spur rt ankle debridement of left ankle. rerouted " stuff" per pt. cyst from lung. nasal surgery from broken nose. laser throat to stop snoring Past Anesthesia/Blood Transfusion Reactions: No Reported Reaction Past Psychological History: Depression Smoking Status: Current some day smoker, Vaper Past Alcohol Use History: None Reported Past Drug Use History: None Reported - Past Family History Father Family Medical History: Cancer, Myocardial Infarction ([place]) Additional Family Medical History / Comment(s): colon cancer with mets Mother Family Medical History: Cancer Additional Family Medical History / Comment(s): lung cancer with mets Sister(s) Family Medical History: Diabetes Mellitus Brother(s) Family Medical History: Cancer Additional Family Medical History / Comment(s): throat cancer General Exam Limitations: no limitations General appearance: alert, in no apparent distress Head exam: Present: atraumatic, normocephalic, normal inspection Eye exam: Present: normal appearance, PERRL, EOMI. Absent: scleral icterus, conjunctival injection, periorbital swelling ENT exam: Present: normal exam, mucous membranes moist Neck exam: Present: normal inspection. Absent: tenderness, meningismus, lymphadenopathy Respiratory exam: Present: normal lung sounds bilaterally. Absent: respiratory distress, wheezes, rales, rhonchi, stridor Cardiovascular Exam: Present: regular rate, normal rhythm, normal heart sounds. Absent: systolic murmur, diastolic murmur, rubs, gallop, clicks GI/Abdominal exam: Present: soft, normal bowel sounds. Absent: distended, tenderness, guarding, rebound, rigid Extremities exam: Present: normal capillary refill, other (Ulcer to left posteromedial leg with a wound VAC in place, DP and PT pulses 2+) Back exam: Present: normal inspection Neurological exam: Present: alert, oriented X3 Psychiatric exam: Present: normal affect, normal mood Skin exam: Present: warm, dry, other (Ulceration to left posterior medial leg w ith wound VAC in place). Absent: rash Course Vital Signs 02/21/23 02/21/23 02/21/23 16:08 18:01 20:07 Temperature 98.3 F Pulse Rate 90 86 89 Respiratory 20 20 18 Rate Blood Pressure 162/72 169/62 160/89 O2 Sat by Pulse 98 99 97 Oximetry Medical Decision Making - Medical Decision Making Was pt. sent in by a medical professional or institution (, PA, PROGRAMMING COORDINATOR, urgent care, hospital, or senior living...) When possible be specific @ -No Did you speak to anyone other than the patient for history (EMS, parent, family, police, friend...)? What history was obtained from this source @ -No Did you review nursing and triage notes (agree or disagree)? Why? @ -I reviewed and agree with nursing and triage notes Were old charts reviewed (outside hosp., previous admission, EMS record, old EKG, old radiological studies, urgent care reports/EKG's, senior living records)? Report findings @ -No old charts were reviewed Differential Diagnosis (chest pain, altered mental status, abdominal pain women, abdominal pain men, vaginal bleeding, weakness, fever, dyspnea, syncope, headache, dizziness, GI bleed, back pain, seizure, CVA, palpatations, mental health, musculoskeletal)? @ -Differential Musculoskeletal Muscular strain, contusion, ligament sprain, fracture, arthritis, septic arthritis, bursitis, cellulitis, muscle spasm, nerve compression, DVT, arterial occlusion, herpes zoster, electrolyte abnormality, tumor.... This is not meant to be in all inclusive list EKG interpreted by me (3pts min.). @ -None X-rays interpreted by me (1pt min.). @ -None done CT interpreted by me (1pt min.). @ -None done U/S interpreted by me (1pt. min.). @ -None done What testing was considered but not performed or refused? (CT, X-rays, U/S, labs)? Why? @ -None What meds were considered but not given or refused? Why? @ -None Did you discuss the management of the patient with other professionals (professionals i.e. , PA, PROGRAMMING COORDINATOR, lab, RT, psych nurse, social professionals, workplace relations adviser, teacher, ict customer support officer, showcase trimmer)? Give summary @ -No Was smoking cessation discussed for >3mins.? @ -No Was critical care preformed (if so, how long)? @ -No Were there social determinants of health that impacted care today? How? (Homelessness, low income, unemployed, alcoholism, drug addiction, transportation, low edu. Level, literacy, decrease access to med. care, senior care, rehab)? @ -No Was there de-escalation of care discussed even if they declined (Discuss DNR or withdrawal of care, Hospice)? DNR status @ -No What co-morbidities impacted this encounter? (DM, HTN, Smoking, COPD, CAD, Cancer, CVA, ARF, Chemo, Hep., AIDS, mental health diagnosis, sleep apnea, morbid obesity)? @ -None Was patient admitted / discharged? Hospital course, mention meds given and route, prescriptions, significant lab abnormalities, going to OR and other pert inent info. @ -Discharged. Patient presented to emergency department chief complaint of left leg pain in the area of her ulcer which has a wound VAC in place after a visit to the wound care center in which she states they were "scraping around in it." CBC showed WBC 9.0, hemoglobin 10.5, hematocrit 31.6; CMP showed sodium 137, potassium 4.7, chloride 106, BUN 25, creatinine 1.15 which is around patient's baseline; CRP 3.9 patient was given 4 mg of morphine IV which improved her pain. Patient was evaluated by myself as well as my attending, Dr. Castro. He agrees with my assessment that the wound does not need further antibiotic treatment. Patient has appointment with wound care and Dr. Chao on Saturday she was advised to keep these appointments. Patient reports that she is homeless but she has been staying with her sister who is going to pick her up from the hospital today. Patient was given a form with resources for the patient to call. Return precautions discussed. Patient returned stable condition. Case discussed my attending, Dr. Castro Undiagnosed new problem with uncertain prognosis? @ -No Drug Therapy requiring intensive monitoring for toxicity (Heparin, Nitro, Insulin, Cardizem)? @ -No Were any procedures done? @ -No Diagnosis/symptom? @ -Ulcer Acute, or Chronic, or Acute on Chronic? @ -Acute on chronic Uncomplicated (without systemic symptoms) or Complicated (systemic symptoms)? @ -Uncomplicated Side effects of treatment? @ -No Exacerbation, Progression, or Severe Exacerbation? @ -No Poses a threat to life or bodily function? How? (Chest pain, [place], [place], pneumonia, PE, COPD, DKA, ARF, appy, cholecystitis, CVA, Diverticulitis, Homicidal, Suicidal, threat to staff... and all critical care pts) @ -No - Lab Data Result diagrams: 02/21/23 16:30 02/21/23 16:30 Lab Results 02/21/23 02/21/23 Range/Units 16:30 16:30 WBC 9.0 (3.8-10.6) k/uL RBC 3.35 L (3.80-5.40) m/uL Hgb 10.5 L (11.4-16.0) gm/dL Hct 31.6 L (34.0-46.0) % MCV 94.3 (80.0-100.0) fL MCH 31.2 (25.0-35.0) pg MCHC 33.1 (31.0-37.0) g/dL RDW 18.6 H (11.5-15.5) % Plt Count 558 H (150-450) k/uL MPV 6.7 Hypochromasia Slight Anisocytosis Slight Sodium 137 (137-145) mmol/L Potassium 4.7 (3.5-5.1) mmol/L Chloride 106 (98-107) mmol/L Carbon Dioxide 22 (22-30) mmol/L Anion Gap 9 mmol/L BUN 25 H (7-17) mg/dL Creatinine 1.15 H (0.52-1.04) mg/dL Est GFR (CKD-EPI)AfAm 61 (>60 ml/min/1.73 sqM) Est GFR (CKD-EPI)NonAf 53 (>60 ml/min/1.73 sqM) Glucose 157 H (74-99) mg/dL Calcium 9.2 (8.4-10.2) mg/dL Total Bilirubin 0.2 (0.2-1.3) mg/dL AST 14 (14-36) U/L ALT 12 (4-34) U/L Alkaline Phosphatase 97 (38-126) U/L C-Reactive Protein 3.9 H (<1.0) mg/dL Total Protein 7.0 (6.3-8.2) g/dL Albumin 3.6 (3.5-5.0) g/dL Disposition Clinical Impression: Ulcer of lower extremity due to diabetes mellitus Disposition: HOME SELF-CARE Condition: Stable Additional Instructions: Follow-up with wound care and vascular clinic as scheduled. Please return to the emergency department with new or worsening symptoms. Is patient prescribed a controlled substance at d/c from ED?: No Referrals: Maxine Montalvo MD [Primary Care Provider] - 1-2 days Time of Disposition: 19:37
[2023-02-21 20:08] VITALS: BP 160/89; PULSE 89; RESP 18
== END 2023-02-21 20:13 | disposition home or self-care (01) ==
LOC: EC 15:42
DX: E11.622 Type 2 diabetes mellitus with other skin ulcer (principal); L97.929 Non-pressure chronic ulcer of unspecified part of left lower leg with unspecified severity; I10 Essential (primary) hypertension; E78.5 Hyperlipidemia, unspecified; K21.9 Gastro-esophageal reflux disease without esophagitis; F32.A Depression, unspecified; F17.290 Nicotine dependence, other tobacco product, uncomplicated; Z79.84 Long term (current) use of oral hypoglycemic drugs; Z79.02 Long term (current) use of antithrombotics/antiplatelets; Z79.899 Other long term (current) drug therapy; Z88.6 Allergy status to analgesic agent; Z88.8 Allergy status to other drugs, medicaments and biological substances
CPT/HCPCS: 36415; 80053; 85027; 86140; 87040; 99283; 96374; 96376; J2270 ×2

== ENCOUNTER 2023-03-20 10:31 | Day surgery (SDC) | payer OTHER ==
[2023-03-15 12:45] VITALS: BMI 23.8
--- NOTE | 2023-03-20 10:15 | P.GSHP ---
History of Present Illness H&P Date: 03/20/23 Chief Complaint: Ulcer left Achilles. Patient is status post revascularization of left lower extremity. She has a nonhealing wound over the area of Achilles tendon. - Constitutional Constitutional: Denies chills, Denies fever - EENT Eyes: denies blurred vision, denies pain Ears, nose, mouth and throat: Denies headache, Denies sore throat - Cardiovascular Cardiovascular: Denies chest pain, Denies shortness of breath - Respiratory Respiratory: Denies cough, Denies 7 - Gastrointestinal Gastrointestinal: Denies abdominal pain, Denies diarrhea, Denies nausea, Denies vomiting - Genitourinary (Female) Genitourinary: Denies dysuria, Denies hematuria - Genitourinary (Male) Genitourinary: Denies dysuria, Denies hematuria - Musculoskeletal Musculoskeletal: Denies myalgias - Integumentary Integumentary: Denies pruritus, Denies rash - Neurological Neurological: Denies numbness, Denies weakness - Psychiatric Psychiatric: Denies anxiety, Denies depression - Endocrine Endocrine: Denies fatigue, Denies weight change Past Medical History Past Medical History: Diabetes Mellitus, GERD/Reflux, Hyperlipidemia, Hypertension, Vascular Disorder Additional Past Medical History / Comment(s): pancreatitis, bilateral leg stents, open wound to left ankle with necrotic tissue, PAD History of Any Multi-Drug Resistant Organisms: MRSA Date of last positivie culture/infection: 11/08/22 MDRO Source:: Left Leg Past Surgical History: Appendectomy, Hernia Repair, Hysterectomy, Orthopedic Surgery Additional Past Surgical History / Comment(s): jody carpal tunnel, bone spur rt ankle, debridement of left ankle, rem. cyst from lung, nasal surgery from broken nose, laser throat to stop snoring Past Anesthesia/Blood Transfusion Reactions: No Reported Reaction Past Psychological History: Depression Smoking Status: Current some day smoker, Vaper Past Alcohol Use History: None Reported Past Drug Use History: None Reported - Past Family History Father Family Medical History: Cancer, Myocardial Infarction ([place]) Additional Family Medical History / Comment(s): colon cancer with mets Mother Family Medical History: Cancer Additional Family Medical History / Comment(s): lung cancer with mets Sister(s) Family Medical History: Diabetes Mellitus Brother(s) Family Medical History: Cancer Additional Family Medical History / Comment(s): throat cancer Medications and Allergies Home Medications Medication Instructions Recorded Confirmed Type Clopidogrel [Plavix] 75 mg PO DAILY 03/20/22 03/15/23 History Furosemide [Lasix] 20 mg PO BID@0900,1600 03/20/22 03/15/23 History Pantoprazole [Protonix] 40 mg PO DAILY 03/20/22 03/15/23 History Rosuvastatin [Crestor] 10 mg PO MOFR@2100 03/20/22 03/15/23 History Venlafaxine HCl ER [Effexor XR] 150 mg PO DAILY 03/20/22 03/15/23 History glipiZIDE [Glucotrol] 7.5 mg PO AC-BID 03/20/22 03/15/23 History Gabapentin 600 mg PO QID 08/09/22 03/15/23 History busPIRone HCl [Buspar] 10 mg PO TID 08/09/22 03/15/23 History Mirtazapine [Remeron] 7.5 mg PO HS 15 Days #30 tab 08/14/22 03/15/23 Rx Nystatin 100,000 Unit/gm Powd 1 applic TOPICAL BID #15 gm 09/27/22 03/15/23 Rx [Mycostatin Powder] Triamcinolone 0.5% Cream [Kenalog 1 applic TOPICAL BID 10/11/22 03/15/23 History 0.5% Cream] Acetaminophen Tab [Tylenol] 650 mg PO Q6HR PRN tab 10/15/22 03/15/23 Rx amLODIPine [Norvasc] 10 mg PO DAILY 30 Days #30 tab 10/15/22 03/15/23 Rx lisinopriL [Zestril] 20 mg PO DAILY 30 Days #30 tab 10/15/22 03/15/23 Rx HYDROcodone/APAP 10-325MG [[place] 1 tab PO QID PRN 03/15/23 03/15/23 History 10-325] Allergies Allergy/AdvReac Type Severity Reaction Status Date / Time NSAIDS (Non-Steroidal AdvReac Abdominal Verified 03/15/23 12:32 Anti-Inflamma Pain prednisone AdvReac Abdominal Verified 03/15/23 12:32 Pain sitagliptin [From Januvia] AdvReac see comment Verified 03/15/23 12:32 Surgical - Exam Osteopathic Statement: *. No significant issues noted on an osteopathic structural exam other than those noted in the History and Physical/Consult. - General well developed, well nourished, no distress - Eyes normal ocular movement, no icteric - ENT no hearing loss, no congestion - Neck no masses, trachea midline - Respiratory normal respiratory effort, clear to auscultation - Cardiovascular Rhythm: regular - Abdomen Abdomen: soft, non tender, no guarding, no rigid, no rebound - Integumentary no rash, no abnormal pigmentation - Neurologic no disoriented, no combative - Psychiatric oriented to time, oriented to person, oriented to place, speech is normal, memory intact Ulcer over left Achilles tendon. Assessment and Plan (1) Atherosclerosis of left lower extremity with ulceration of ankle Status: Acute Code(s): I70.243 - ATHSCL [place] ARTERIES OF LEFT LEG W ULCERATION OF ANKLE SNOMED Code(s): 71715600 (2) Diabetic ulcer of left ankle Status: Acute Code(s): E11.622 - TYPE 2 DIABETES MELLITUS WITH OTHER SKIN ULCER; L97.329 - NON-PRESSURE CHRONIC ULCER OF LEFT ANKLE WITH UNSP SEVERITY SNOMED Code(s): 231988187 Plan: We have discussed in detail with the patient options for therapy. We discussed in detail the procedure of split-thickness skin graft. Patient appears to understand the procedure and its risks including the possibility of the skin grafting not taking. She verbalizes understanding and willingness to proceed.
[~2023-03-20 10:31] MED LIST changes: -DEXAMETHASONE SOD PHOSPHATE 4 MG/ML 1 ML VIAL IV ONE; +HYDROmorphone 0.5 MG/0.5 ML SYRINGE IVP PRN; +LACTATED RINGERS 1,000 ML IV SCH; -ONDANSETRON 4 MG/2 ML VIAL IVP PRN
[2023-03-20 11:15] VITALS: TEMP 98.3
[2023-03-20 11:29] LABS: Glucose,Whole Blood 218 mg/dL (70-110)
[2023-03-20] MEDS ORDERED: INSULIN ASPART (NovoLOG) 100 UNIT/ML VIAL SQ ONE (11:36)
[2023-03-20] MEDS: MIDAZOLAM 2 MG/2 ML VIAL IV PRN ×2 (11:44→11:47)
[2023-03-20] MEDS ORDERED: KETAMINE 10 MG/ML 20 ML VIAL ONE (12:17)
[2023-03-20] MEDS ORDERED: fentaNYL (PF) 50 MCG/ML 2 ML AMP ONE (12:17)
[2023-03-20] MEDS ORDERED: MIDAZOLAM 2 MG/2 ML VIAL ONE (12:17)
[2023-03-20] MEDS ORDERED: HYDROmorphone (PF) 1 MG/ML ONE (12:17)
[2023-03-20] MEDS ORDERED: PROPOFOL 10 MG/ML 20 ML VIAL IV ONE (12:17)
[2023-03-20] MEDS ORDERED: MINERAL OIL 1 APPLIC/ML OIL TOPICAL ONE (12:45)
[2023-03-20] MEDS ORDERED: ACETAMINOPHEN TAB 500 MG TAB ONE (13:50)
[2023-03-20] MEDS ORDERED: ACETAMINOPHEN TAB 500 MG TAB PO ONE (14:00)
[2023-03-20 15:03] VITALS: BP 181/67; PULSE 78; RESP 16
--- NOTE | 2023-04-17 08:54 | P.OP ---
Date of Procedure: 03/27/23 Preoperative Diagnosis: Ulceration posterior left ankle Postoperative Diagnosis: Same Procedure(s) Performed: Debridement with split-thickness skin graft. Anesthesia: MAC Surgeon: Jeff Glynn Estimated Blood Loss (ml): 25 Pathology: none sent Condition: stable Disposition: PACU Indications for Procedure: Patient is post revascularization. Has a residual ulceration of the posterior left ankle following necrosis of the Achilles tendon. Operative Findings: The area of the ulceration pre-debridement was 14.2 x 3.9 cm with 0.3 cm in depth. Post debridement the dimensions were 14.5 x 3.9 x 0.3 cm in depth. The base had an excellent granulation bed. There were some small areas of residual fascia. Description of Procedure: With the patient in supine position under benefit of IV sedation we prepped and draped in standard fashion. We began by harvesting about a 15 cm x 1" donor skin from the anterior left thigh. The setting of the dermatome was 0.08. The patient was then rotated lateral position and we used a sharp curette to remove nonviable soft tissue and slough and fibrin and some mild residual fascia down to into and including bloody subcutaneous tissue. We obtained adequate hemostasis using direct pressure. We meshed the skin donor 1-3 and placed it in proper alignment on the ulcer. It was flattened out properly. It was secured with Vaseline mesh gauze which was window pained secured utilizing half-inch Steri-Strips. Over this we placed a absorptive silver moistened with hydrogel. It was wrapped with Kerlix and Coban. The patient tolerated the procedure well and was taken recovery area in stable condition.
== END 2023-03-20 14:30 ==
LOC: OR 10:31
PROVIDERS: ATTEND Thoracic Surgery (Cardiothoracic Vascular Surgery)
DX: I70.243 Atherosclerosis of native arteries of left leg with ulceration of ankle (principal); L97.324 Non-pressure chronic ulcer of left ankle with necrosis of bone; E11.9 Type 2 diabetes mellitus without complications; I10 Essential (primary) hypertension; E78.5 Hyperlipidemia, unspecified; Z90.710 Acquired absence of both cervix and uterus; Z98.890 Other specified postprocedural states; F17.200 Nicotine dependence, unspecified, uncomplicated; K21.9 Gastro-esophageal reflux disease without esophagitis; Z79.899 Other long term (current) drug therapy
CPT/HCPCS: 15100; J2250; J0690; J2405; J3010; J1170; J2704

== ENCOUNTER 2024-02-07 14:02 | Emergency (ER) | payer OTHER ==
[2024-02-07 14:14] VITALS: TEMP 98.6
--- NOTE | 2024-02-07 14:51 | ED ---
Nausea/Vomiting/Diarrhea HPI - General Source: patient, RN notes reviewed Mode of arrival: ambulatory Limitations: no limitations <Chantale Scott - Last Filed: 02/07/24 14:51> - General Source: RN notes reviewed <Ella Hagen - Last Filed: 02/07/24 18:19> - General Chief complaint: Nausea/Vomiting/Diarrhea Stated complaint: Abd pain,vomiting Time Seen by Provider: 02/07/24 14:51 - History of Present Illness Initial comments: Quick note: 58-year-old female presented to the ER with a chief complaint of nausea, vomiting and diarrhea. She reports this been ongoing for the past week and a half. She does report a low-grade fever with abdominal cramping. She states yesterday she missed a step going down her stairs and accidentally scraped her right forearm. Tetanus status unknown. (Chantale Scott) 58-year-old female with history of pancreatitis, hypertension, and diabetes presenting to the ER with complaint of nausea, vomiting, diarrhea x 1.5 weeks with epigastric pain. She reports she has been having about 2 episodes of vomiting and diarrhea per day. Reports diarrhea is watery and nonbloody. She feels as though her pancreatitis is flaring. She is able to eat and drink minimal amounts of food and water. Denies recent travel or recent antibiotic use. She also states that she scraped her right forearm yesterday and would like this looked at as well. (Ella Hagen) - Related Data Home Medications Medication Instructions Recorded Confirmed Clopidogrel [Plavix] 75 mg PO DAILY 03/20/22 03/20/23 Furosemide [Lasix] 20 mg PO BID@0900,1600 03/20/22 03/20/23 Pantoprazole [Protonix] 40 mg PO DAILY 03/20/22 03/20/23 Rosuvastatin [Crestor] 10 mg PO MOFR@2100 03/20/22 03/20/23 Venlafaxine HCl ER [Effexor XR] 150 mg PO DAILY 03/20/22 03/20/23 glipiZIDE [Glucotrol] 7.5 mg PO AC-BID 03/20/22 03/20/23 Gabapentin 600 mg PO QID 08/09/22 03/20/23 busPIRone HCl [Buspar] 10 mg PO TID 08/09/22 03/20/23 Triamcinolone 0.5% Cream [Kenalog 1 applic TOPICAL BID 10/11/22 03/20/23 0.5% Cream] HYDROcodone/APAP 10-325MG [Anna 1 tab PO QID PRN 03/15/23 03/20/23 10-325] Previous Rx's Medication Instructions Recorded Mirtazapine [Remeron] 7.5 mg PO HS 15 Days #30 tab 08/14/22 Nystatin 100,000 Unit/gm Powd 1 applic TOPICAL BID #15 gm 09/27/22 [Mycostatin Powder] Acetaminophen Tab [Tylenol] 650 mg PO Q6HR PRN tab 10/15/22 amLODIPine [Norvasc] 10 mg PO DAILY 30 Days #30 tab 10/15/22 lisinopriL [Zestril] 20 mg PO DAILY 30 Days #30 tab 10/15/22 Cephalexin [Keflex] 500 mg PO Q12HR 7 Days #14 cap 02/07/24 Dicyclomine [Bentyl] 20 mg PO TID #30 tablet 02/07/24 Allergies Allergy/AdvReac Type Severity Reaction Status Date / Time NSAIDS (Non-Steroidal AdvReac Abdominal Verified 02/07/24 14:08 Anti-Inflamma Pain prednisone AdvReac Abdominal Verified 02/07/24 14:08 Pain sitagliptin [From Januvia] AdvReac see comment Verified 02/07/24 14:08 Review of Systems ROS Other: All systems not noted in ROS Statement are negative. <Chantale Scott - Last Filed: 02/07/24 14:51> ROS Other: All systems not noted in ROS Statement are negative. <Ella Hagen - Last Filed: 02/07/24 18:19> ROS Statement: Those systems with pertinent positive or pertinent negative responses have been documented in the HPI. Past Medical History Past Medical History: Diabetes Mellitus, GERD/Reflux, Hyperlipidemia, Hypertension, Vascular Disorder Additional Past Medical History / Comment(s): pancreatitis, bilateral leg stents, open wound to left ankle with necrotic tissue, PAD History of Any Multi-Drug Resistant Organisms: MRSA Date of last positivie culture/infection: 11/08/22 MDRO Source:: Left Leg Past Surgical History: Appendectomy, Hernia Repair, Hysterectomy, Orthopedic Surgery Additional Past Surgical History / Comment(s): jody carpal tunnel, bone spur rt ankle, debridement of left ankle, rem. cyst from lung, nasal surgery from broken nose, laser throat to stop snoring Past Anesthesia/Blood Transfusion Reactions: No Reported Reaction Past Psychological History: Depression Smoking Status: Current some day smoker, Vaper Past Alcohol Use History: None Reported Past Drug Use History: None Reported - Past Family History Father Family Medical History: Cancer, Myocardial Infarction ([place]) Additional Family Medical History / Comment(s): colon cancer with mets Mother Family Medical History: Cancer Additional Family Medical History / Comment(s): lung cancer with mets Sister(s) Family Medical History: Diabetes Mellitus Brother(s) Family Medical History: Cancer Additional Family Medical History / Comment(s): throat cancer <Chantale Scott - Last Filed: 02/07/24 14:51> General Exam Limitations: no limitations <Chantale Scott - Last Filed: 02/07/24 14:51> General appearance: alert, in no apparent distress Head exam: Present: atraumatic, normocephalic, normal inspection Eye exam: Present: normal appearance, PERRL, EOMI. Absent: scleral icterus, conjunctival injection, periorbital swelling ENT exam: Present: normal exam, mucous membranes moist Neck exam: Present: normal inspection. Absent: tenderness, meningismus, lymphadenopathy Respiratory exam: Present: normal lung sounds bilaterally. Absent: respiratory distress, wheezes, rales, rhonchi, stridor Cardiovascular Exam: Present: regular rate, normal rhythm, normal heart sounds. Absent: systolic murmur, diastolic murmur, rubs, gallop, clicks GI/Abdominal exam: Present: soft, normal bowel sounds. Absent: distended, tenderness, guarding, rebound, rigid Left Upper Arm exam: Present: normal inspection, full ROM. Absent: tenderness, swelling Elbow exam: Present: normal inspection, full ROM. Absent: tenderness, swelling Forearm Wrist exam: Present: full ROM. Absent: normal inspection (2 superficial abrasions present on dorsal aspect of forearm with white/yellow drainage oozing from site. no active bleeding, tenderness, or surrounding erythema), tenderness, swelling Hand Wrist exam: Present: normal inspection, full ROM. Absent: tenderness, swelling Vascular: Present: normal capillary refill, radial pulse. Absent: vascular compromise Back exam: Absent: CVA tenderness (R), CVA tenderness (L) Neurological exam: Present: alert, oriented X3, CN II-XII intact Psychiatric exam: Present: normal affect, normal mood Skin exam: Present: warm, dry, intact, normal color. Absent: rash <Ella Hagen - Last Filed: 02/07/24 18:19> - General Exam Comments Initial Comments: Visual Physical Exam Vital signs reviewed General: Well-appearing, nontoxic, no acute distress. Head: Normocephalic, atraumatic Eyes: PERRLA, EOMI ENT: Airway patent Chest: Nonlabored breathing Skin: No visual rash, normal skin tone Neuro: Alert and oriented 3 Musculoskeletal: No gross abnormalities (Chantale Scott) Course Vital Signs 02/07/24 02/07/24 14:06 17:07 Temperature 98.6 F Pulse Rate 96 72 Respiratory 20 16 Rate Blood Pressure 129/66 195/79 O2 Sat by Pulse 97 97 Oximetry Medical Decision Making <Chantale Scott - Last Filed: 02/07/24 14:51> - Lab Data Result diagrams: 02/07/24 15:36 02/07/24 15:36 <Ella Hagen - Last Filed: 02/07/24 18:19> - Medical Decision Making I performed the quick note portion of this chart. Electronically signed by Chantale Scott PA-C (Chantale Scott) Was pt. sent in by a medical professional or institution (MARCIN Bah, CARDIAC CATH TECHNOLOGIST, urgent care, hospital, or longterm...) When possible be specific @ -No Did you speak to anyone other than the patient for history (EMS, parent, family, police, friend...)? What history was obtained from this source @ -No Did you review nursing and triage notes (agree or disagree)? Why? @ -I reviewed and agree with nursing and triage notes Were old charts reviewed (outside hosp., previous admission, EMS record, old EKG, old radiological studies, urgent care reports/EKG's, longterm records)? Report findings @ -No old charts were reviewed Differential Diagnosis (chest pain, altered mental status, abdominal pain women, abdominal pain men, vaginal bleeding, weakness, fever, dyspnea, syncope, headache, dizziness, GI bleed, back pain, seizure, CVA, palpatations, mental health, musculoskeletal)? @ -Differential Abdominal Pain Women: Appendicitis, Cholecystitis, diverticulosis, ischemic bowel, pancreatitis, hepatitis, UTI, gastroenteritis, AAA, incarcerated hernia, bowel obstruction, constipation, inflammatory bowel, hepatitis, peptic ulcer disease, splenic infarction, perforated viscus, vulvitis, ovarian torsion, PID, kidney stone, placenta abruption, this is not meant to be an all-inclusive list EKG interpreted by me (3pts min.). @ -None X-rays interpreted by me (1pt min.). @ -None done CT interpreted by me (1pt min.). @ -None done U/S interpreted by me (1pt. min.). @ -None done What testing was considered but not performed or refused? (CT, X-rays, U/S, labs)? Why? @ -Imaging not performed due to patient is nontender upon examination and all lab work is unremarkable What meds were considered but not given or refused? Why? @ -None Did you discuss the management of the patient with other professionals (professionals i.e. , PA, CARDIAC CATH TECHNOLOGIST, lab, RT, psych nurse, social worker masters, layout technician, teacher, special weapons and tactics officer, counseling case manager)? Give summary @ -No Was smoking cessation discussed for >3mins.? @ -No Was critical care preformed (if so, how long)? @ -No Were there social determinants of health that impacted care today? How? (Ho melessness, low income, unemployed, alcoholism, drug addiction, transportation, low edu. Level, literacy, decrease access to med. care, [facility], rehab)? @ -No Was there de-escalation of care discussed even if they declined (Discuss DNR or withdrawal of care, Hospice)? DNR status @ -No What co-morbidities impacted this encounter? (DM, HTN, Smoking, COPD, CAD, Cancer, CVA, ARF, Chemo, Hep., AIDS, mental health diagnosis, sleep apnea, morbid obesity)? @ -None Was patient admitted / discharged? Hospital course, mention meds given and route, prescriptions, significant lab abnormalities, going to OR and other pertinent info. @ -Patient was discharged. Patient was seen and evaluated for nausea, vomiting, diarrhea x 2 weeks with epigastric pain. Patient is nontender upon examination. Patient is also complaining of abrasion on left arm. There is purulent drainage from abrasions on left arm upon examination. Lab work unremarkable. Patient was given IV fluids, Zofran, and morphine which improved symptoms. Tetanus was updated due to abrasion. Discussed with patient there are no signs of emergent etiology upon examination today. Diagnosis of viral gastroenteritis discussed with patient. Patient states she is feeling better and would like to be discharged at this time. Patient is tolerating orals at time of reevaluation. Supportive care discussed. Prescribed Bentyl for abdominal cr amps and Keflex for infected abrasion. Strict return/alarm symptoms discussed with patient in detail and she shows understanding and agrees with plan. Advised close follow-up with PCP. Patient discharged in stable condition advised. Case discussed with Dr. Sosa Undiagnosed new problem with uncertain prognosis? @ -No Drug Therapy requiring intensive monitoring for toxicity (Heparin, Nitro, I nsulin, Cardizem)? @ -No Were any procedures done? @ -No Diagnosis/symptom? @ -Viral gastroenteritis, infected abrasion of the left forearm Acute, or Chronic, or Acute on Chronic? @ -Acute Uncomplicated (without systemic symptoms) or Complicated (systemic symptoms)? @ -Uncomplicated Side effects of treatment? @ -No Exacerbation, Progression, or Severe Exacerbation? @ -No Poses a threat to life or bodily function? How? (Chest pain, [place], [place], pneumonia, PE, COPD, DKA, ARF, appy, cholecystitis, CVA, Diverticulitis, Homicidal, Suicidal, threat to staff... and all critical care pts) @ -Low likelihood (Ella Hagen) - Lab Data Lab Results 02/07/24 02/07/24 02/07/24 Range/Units 15:36 15:36 15:36 WBC 11.4 H (3.8-10.6) k/uL RBC 4.99 (3.80-5.40) m/uL Hgb 14.7 (11.4-16.0) gm/dL Hct 45.8 (34.0-46.0) % MCV 91.8 (80.0-100.0) fL MCH 29.4 (25.0-35.0) pg MCHC 32.1 (31.0-37.0) g/dL RDW 14.5 (11.5-15.5) % Plt Count 389 (150-450) k/uL MPV 6.8 Neutrophils % 92 % Lymphocytes % 3 % Monocytes % 3 % Eosinophils % 1 % Basophils % 0 % Neutrophils # 10.5 H (1.3-7.7) k/uL Lymphocytes # 0.3 L (1.0-4.8) k/uL Monocytes # 0.3 (0-1.0) k/uL Eosinophils # 0.2 (0-0.7) k/uL Basophils # 0.1 (0-0.2) k/uL Sodium 140 (137-145) mmol/L Potassium 3.7 (3.5-5.1) mmol/L Chloride 108 H (98-107) mmol/L Carbon Dioxide 25 (22-30) mmol/L Anion Gap 7 mmol/L BUN 24 H (7-17) mg/dL Creatinine 0.95 (0.52-1.04) mg/dL Est GFR (CKD-EPI)AfAm 76 (>60 ml/min/1.73 sqM) Est GFR (CKD-EPI)NonAf 66 (>60 ml/min/1.73 sqM) Glucose 195 H (74-99) mg/dL Plasma Lactic Acid Frandy 0.8 (0.7-2.0) mmol/L Calcium 8.8 (8.4-10.2) mg/dL Total Bilirubin 0.4 (0.2-1.3) mg/dL AST 17 (14-36) U/L ALT 11 (4-34) U/L Alkaline Phosphatase 87 (38-126) U/L Total Protein 6.7 (6.3-8.2) g/dL Albumin 3.9 (3.5-5.0) g/dL Amylase 65 (30-110) U/L Lipase 67 (23-300) U/L Disposition <Chantale Scott - Last Filed: 02/07/24 14:51> Is patient prescribed a controlled substance at d/c from ED?: No Time of Disposition: 17:33 <Ella Hagen - Last Filed: 02/07/24 18:19> Clinical Impression: Viral gastroenteritis, Infected abrasion of left forearm Disposition: HOME SELF-CARE Condition: Stable Instructions (If sedation given, give patient instructions): Wound Infection (ED), Gastroenteritis (ED) Additional Instructions: Please take Keflex 2 times a day for 7 days. Follow-up with PCP for reevaluation within the week. Please return to the Emergency Department if symptoms worsen or any other concerns. Prescriptions: Dicyclomine [Bentyl] 20 mg PO TID #30 tablet Cephalexin [Keflex] 500 mg PO Q12HR 7 Days #14 cap Referrals: Maxine Montalvo MD [Primary Care Provider] - 1-2 days
[2024-02-07 15:59] LABS: Basophils # (A) 0.1 k/uL (0-0.2); Basophils % (A) 0 %; Eosinophils # (A) 0.2 k/uL (0-0.7); Eosinophils % (A) 1 %; HCT 45.8 % (34.0-46.0); HGB 14.7 gm/dL (11.4-16.0); Lymphocytes # (A) 0.3 k/uL (1.0-4.8); Lymphocytes % (A) 3 %; MCH 29.4 pg (25.0-35.0); MCHC 32.1 g/dL (31.0-37.0); MCV 91.8 fL (80.0-100.0); Mean Platelet Volume 6.8; Monocytes # (A) 0.3 k/uL (0-1.0); Monocytes % (A) 3 %; Neutrophils # (A) 10.5 k/uL (1.3-7.7); Neutrophils % (A) 92 %; Platelet Count 389 k/uL (150-450); RBC 4.99 m/uL (3.80-5.40); RDW 14.5 % (11.5-15.5); WBC 11.4 k/uL (3.8-10.6)
[2024-02-07 16:08] LABS: ALT 11 U/L (4-34); AST 17 U/L (14-36); African American GFR (CKD) 76 (>60 ml/min/1.73 sqM); Albumin 3.9 g/dL (3.5-5.0); Alkaline Phosphatase 87 U/L (38-126); Amylase 65 U/L (30-110); Anion Gap 7 mmol/L; Blood Urea Nitrogen 24 mg/dL (7-17); Calcium 8.8 mg/dL (8.4-10.2); Carbon Dioxide 25 mmol/L (22-30); Chloride 108 mmol/L (98-107); Glucose 195 mg/dL (74-99); Lipase 67 U/L (23-300); Non-African American GFR(CKD) 66 (>60 ml/min/1.73 sqM); Potassium 3.7 mmol/L (3.5-5.1); Sodium 140 mmol/L (137-145); Total Bilirubin 0.4 mg/dL (0.2-1.3); Total Protein 6.7 g/dL (6.3-8.2)
[2024-02-07] MEDS: SODIUM CHLORIDE 0.9% 1,000 ML IV STA (16:10)
[2024-02-07] MEDS: MORPHINE SULFATE 2 MG/ML SYRINGE IVP ONE (16:12)
[2024-02-07] MEDS: ONDANSETRON 4 MG/2 ML VIAL IVP STA (16:12)
[2024-02-07] MEDS: DIPH,PERTUS(ACELL)TETVAC-LF 0.5 ML VIAL IM ONE (16:14)
[2024-02-07 17:31] VITALS: BP 195/79; PULSE 72; RESP 16
== END 2024-02-07 18:23 | disposition home or self-care (01) ==
LOC: EC 14:02
DX: N13.2 Hydronephrosis with renal and ureteral calculous obstruction (principal); Z91.09 Other allergy status, other than to drugs and biological substances; Z88.8 Allergy status to other drugs, medicaments and biological substances; Z87.891 Personal history of nicotine dependence; Z23 Encounter for immunization
CPT/HCPCS: 80053; 82150; 83605; 83690; 85025; 90715; 99284; 96374; 96375; 96361; 90471; J2405; J2270; 36415

== ENCOUNTER → 2024-05-22 | Outpatient (CLI) | payer OTHER ==
--- NOTE | 2024-05-22 15:06 | PE ---
EXAMINATION TYPE: PET CT fusion skull to thigh DATE OF EXAM: 05/22/2024 CLINICAL INDICATION:Female, 59 years old with history of C34.12 MALIGNANT NEOPLASM OF UPPER LOBE, LEF T BRON; TECHNIQUE: Following the intravenous administration of 13.32 mCi of F-18 FDG, whole body images are performed from the skull base to the midthigh. Images are reviewed on the computer in the coronal, axial, and sagittal planes. Reconstructed rotating images are created on independent workstation and reviewed on the computer. A non-contrast CT is performed in conjunction with the PET scan. Glucose level 212 mg/dL CT DLP: 383.97 mGycm, Automated exposure control for dose reduction was used. COMPARISON: CT 11/12/2022, 03/20/2022, 07/08/2015, PET/CT None, MRI: None FINDINGS: Mediastinal SUV mean is 1.8. Hepatic parenchyma SUV mean is 2.1. SKULL BASE AND NECK: Bilateral supraclavicular adenopathy with largest lymph node on the right measuring up to 2.5 cm with a maximum SUV of 7.1. Largest lymph node on the left measures up to 2.7 cm with a maximum SUV of 6.4 . CHEST, MEDIASTINUM, AND HILAR REGION: Large lobulated mass within the left upper/mid lung with infiltration into the mediastinum with abutm ent of the main pulmonary artery and left pericardium. There is poor distinction with the left main p ulmonary artery. There is abutment and/or encasement of the aortic arch. Extension into the subcarina l region demonstrated. Abrupt cut off of the left mainstem bronchus. This grossly measures 10.8 x 16. 1 cm in AP and TV dimensions with a maximum SUV of 8.9. Moderate to large left pleural effusion with medial left lower pleural FDG avid metastatic nodules wi th a maximum SUV of 5.0. Prominence of the right pulmonary hilum with a focal maximum SUV of 3.8. Prominent right paratracheal adenopathy measuring grossly 4.5 x 3.0 cm with a maximum SUV of 6.6. Atelectasis of the bilateral lower lobes. Small right pleural effusion. ABDOMEN AND PELVIS: There is focal left hepatic lobe radiotracer uptake without corresponding lesion on noncontrast CT of the abdomen which limits evaluation. Demonstrates a maximum SUV of 4.9. MUSCULOSKELETAL STRUCTURES: Scattered regions of focal radiotracer uptake throughout the osseous structures. These include the sp ine, bilateral ribs, bilateral clavicles, bilateral humeri, bilateral scapula,, sternum, pelvic bones , and bilateral femur. There is subtle attenuation within the bilateral femoral heads corresponding t o these regions however other regions do not demonstrate definitive CT abnormality. Examples include a right humeral head 2.4 cm lesion with a maximum SUV of 6.3 and a left humeral head 1.8 cm lesion wi th a maximum SUV of 6.1. OTHER CT: Bilateral aphakia. Chronic mucosal thickening of the left maxillary sinus with wall hypertr ophy. Complete opacification of the right sphenoid sinus. Macrocalcification with hypodense subcentim eter right thyroid nodule. Bilateral carotid bulb calcifications with left greater than right. Athero sclerotic calcification of the aorta and its branches. Biiliac stents identified with bifemoral bypas s which demonstrates moderate organized surrounding fluid. No corresponding FDG avidity. Diffuse anas arca. Trace pericardial effusion. Moderate three-vessel coronary calcifications. Post hysterectomy changes. Postcholecystectomy changes . Nonobstructive bilateral renal calculi versus renal vascular calcifications. Distal colonic diverti culosis without evidence for acute diverticulitis. Multilevel degenerative disc disease. Bilateral AC joint arthropathy. IMPRESSION: No recent imaging available for comparison. 1. Large FDG avid left upper/mid 10.8 x 16.1 cm pulmonary mass with infiltration into the mediastinu m with abutment/possible invasion into mediastinal structures. Abrupt cut off of the left mainstem br onchus suggesting invasion. Lack of intravenous venous contrast limits evaluation. Most consistent wi th primary lung malignancy. 2. Mediastinal, bilateral supraclavicular, and right hilar FDG avid metastatic lymphadenopathy. 3. Moderate to large left and small right pleural effusions with bibasilar atelectasis. FDG avid met astatic left lower lung pleural nodules demonstrated. 4. Diffuse scattered regions of focal osseous radiotracer uptake with poor visualization of lesions on CT. Findings suggest metastatic disease versus other etiologies. Consider nuclear medicine bone sc an for further evaluation. 5. Focal left hepatic lobe region of radiotracer uptake suspicious for metastatic lesion. Consider f urther evaluation with CT or MR abdomen liver mass protocol as clinically indicated. 6. Bifemoral bypass with moderate surrounding organized fluid. Possibly a seroma.
== END | disposition home or self-care (01) ==
LOC: RADPETMAIN 08:09
PROVIDERS: ATTEND Internal Medicine Hematology & Oncology
DX: C34.12 Malignant neoplasm of upper lobe, left bronchus or lung (principal); C77.9 Secondary and unspecified malignant neoplasm of lymph node, unspecified; J90 Pleural effusion, not elsewhere classified; J98.11 Atelectasis
CPT/HCPCS: 78815; A9552